=== PATIENT | female | born 2000 | race Caucasian/White ===

== ENCOUNTER 2021-01-21 11:16 | Emergency (ER) | payer BC, OTHER, SELFPAY ==
--- NOTE | ~2021-01-21 | XR_ITS ---
XR ankle LT min 3V DATE: 01/21/2021 11:34 INDICATION: Injury, left ankle pain, swelling TECHNIQUE: 4 views COMPARISON: None FINDINGS: There is lateral left ankle soft tissue swelling. No fracture or dislocation of the ankle or disruption of the ankle mortise is detected. IMPRESSION: Lateral soft tissue swelling; no fracture or dislocation Reviewed, dictated and finalized at location A.
[2021-01-21 11:37] VITALS: BP 146/79; PULSE 108; RESP 16; TEMP 36.6; O2SAT 100
--- NOTE | 2021-01-21 11:48 | ED.LOWEXIN ---
HPI - Extremity Injury (Lower) General Chief Complaint: Extremity Injury, Lower Stated Complaint: lt ankle injury History of Present Illness HPI Narrative: This is a 20 year old female that come in complaining of left ankle pain. According to patient she fell out of truck it is really high and she slipped yesterday and it cause her pain when she apply pressure on the leg. Patient denies taking anything for the pain. Related Data Allergies Allergy/AdvReac Type Severity Reaction Status Date / Time Penicillins Allergy Unknown Skin Verified 12/04/20 14:11 Reaction Review of Systems Review of Systems: Narrative: CONSTITUTIONAL: Denies fever, chills, or sweats. EYES: Denies visual changes, redness, or discharge. ENT: Denies rhinorrhea, congestion, sore throat, or otalgia. CARDIOVASCULAR:Denies chest pain, palpitations, or edema. RESPIRATORY: Denies cough or dyspnea. GASTROINTESTINAL: Denies abdominal pain, nausea, vomiting, or diarrhea. GENITOURINARY: Denies dysuria or hematuria. SKIN:[Denies rash or itching. MUSCULOSKELETAL:Denies back pain, complains of left ankle joint pain, or myalgia. NEUROLOGIC: Denies headache, numbness, or weakness. PSYCHIATRIC:Denies anxiety or depression PMFSH Social History Social History Alcohol intake: current Comments At time as signature, I have reviewed and agree with nursing past medical, social, surgical and family history. Please see nursing chart for further information. There is no relevant family history pertinent to the presenting complaint. Exam Narrative: Exam Narrative: GENERAL:Well-appearing, well-nourished, and in no acute distress. HEAD:Normocephalic, atraumatic. EYES: PERRLA and EOMI. ENT: Nares clear, no rhinorrhea or epistaxis. Mucous membranes moist. NECK: Supple. CHEST: Clear to auscultation. No respiratory distress. HEART: Regular rate and rhythm. No murmur heard. Normal peripheral pulses. ABDOMEN: Soft, nontender, nondistended, normal active bowel sounds. EXTREMITIES: decreased range of motion due to pain. moderate left ankle outer later edema. SKIN: Warm, dry, no rash. NEURO: No focal deficits. Alert and oriented x3. Course [employer]INE/PA Physician Supervision jeannine wrap applied patient decline crutches due to she has some at home she was assisted in a wheel chair out to car Vital Signs Vital signs: Vital Signs Temperature 97.9 F 01/21/21 11:37 Pulse Rate 108 H 01/21/21 11:37 Respiratory Rate 16 01/21/21 11:37 Blood Pressure 146/79 H 01/21/21 11:37 Pulse Oximetry 100 01/21/21 11:37 Temperature 97.9 F 01/21/21 11:37 Pulse Rate 108 H 01/21/21 11:37 Respiratory Rate 16 01/21/21 11:37 Blood Pressure 146/79 H 01/21/21 11:37 Pulse Oximetry 100 01/21/21 11:37 MDM - Extremity Injury (Lower) Imaging Data Radiologist's impression: FINDINGS: There is lateral left ankle soft tissue swelling. No fracture or dislocation of the ankle or disruption of the ankle mortise is detected. IMPRESSION: Lateral soft tissue swelling; no fracture or dislocation Reviewed, dictated and finalized at location A. Dictated By: Armando Mike MD 01/21/21 1136 Signed By: <Electronically signed by Armando Mike MD in OV> Discharge Plan Discharge Clinical Impression: Ankle sprain and strain Patient Disposition: Home, Self-Care Condition: Stable Instructions: Antibiotic Form, Ankle Sprain (ED) Additional Instructions: Avoid weight bearing until the pain subsides. Ice to the area 20-30 minutes 4-6 times a day Elevate above heart Elastic wrap or orthopedic splint as directed for comfort for the next 5-7 days Crutches as directed if needed Tylenol for lesser pain Ibuprofen regularly for the next 2-3 days for the inflammation Follow up with your primary care p
== END 2021-01-21 12:15 | disposition home or self-care (01) ==
PROVIDERS: Emergency Provider Nurse Practitioner Family; PCP Family Medicine
DX: S93.402A Sprain of unspecified ligament of left ankle, initial encounter (principal); S96.912A Strain of unspecified muscle and tendon at ankle and foot level, left foot, initial encounter; V49.3XXA Car occupant (driver) (passenger) injured in unspecified nontraffic accident, initial encounter
CPT/HCPCS: 73610; 99213; G0463

== ENCOUNTER 2021-06-16 13:43 | Outpatient (CLI) | payer BC, OTHER, SELFPAY | END 2021-06-16 13:44 | disposition home or self-care (01) | LOC: ANHLAB 13:46 | PROVIDERS: PCP Family Medicine; Visit Provider Nurse Practitioner Family | DX: R19.7 Diarrhea, unspecified (principal) | CPT/HCPCS: 87045; 87427 ==

== ENCOUNTER 2021-06-18 02:18 | Day surgery (SDC) | payer BC, OTHER, SELFPAY ==
[2021-06-06 14:47] VITALS: BMI 30.1
--- NOTE | 2021-06-18 07:03 | PM.HPGS ---
History of Present Illness History of Present Illness Consent: Risks, benefits, and alternatives have been discussed and questions answered. Patient agrees to proceed with procedure. Chief complaint: blood in stool, diarrhea Narrative: Farideh Monae is a 21 year old female with c/o of right sided abdominal pain and change in bowel habits for 2-3 months now. Reports she will have right lower abdominal cramping the is sharp in nature at least 3 days a week. Pain will radiate to right back area. States pain does not last very long then will resolve. She also reports that around this time she had a change in her bowel habits. Reports some days she will have up to 5 episodes of loose to watery stools with urgency then no bowel movements for several days then may have a day with hard stools. She also passes small amounts of mucus with every BM. She reports intermittent blood on stools and tissue. She does not associate RLQ pain with her BM or with eating. Prior to two months ago, reports she had 1-2 formed stools daily. She denies any new medication, antibiotic use, or recent travel. No family hx of IBD/CRC. Never had Colonoscopy. She reports nausea daily but no vomiting. states nausea comes on suddenly and comes in waves, she then becomes very fatigued and will have to take a nap. States her nausea is better when she wakes up. Nausea is not associated with changes in bowel habits or with eating. She has been on omeprazole 20 mg daily for 2 years now. She denies any reflux symptoms/upper abdominal pain/dysphagia/odynophagia/black stools/or Nsaid use. Review of Systems Review of Systems: All systems reviewed & are unremarkable except as noted in HPI and below PMFSH Past Medical History Medical History Anxiety Depression Diarrhea GERD (gastroesophageal reflux disease) Hyperlipemia Overweight (BMI 25.0-29.9) Social History Social History Alcohol intake: current Living arrangements: alone Meds Home Medications and Allergies Home Medications Medication Instructions Recorded Confirmed Type omeprazole 20 mg capsule,delayed See Rx Instructions .ROUTE 04/05/21 06/18/21 Rx release .COMPLEX #90 cap sertraline 100 mg tablet See Rx Instructions .ROUTE 04/30/21 06/18/21 Rx .COMPLEX #90 tablet B-complex with vitamin C 1 cap PO DAILY 05/16/21 06/18/21 History Saccharomyces boulardii 250 mg 250 mg PO DAILY cap 05/16/21 06/18/21 History capsule loratadine 10 mg tablet 10 mg PO DAILY 05/16/21 06/18/21 History norethindrone acetate 1.5 1 tablet PO DAILY 05/16/21 06/18/21 History mg-ethinyl estradiol 30 mcg tablet spironolactone 50 mg tablet 50 mg PO DAILY 05/16/21 06/18/21 History omega-3 fatty acids [Fish Oil] 2,000 mg PO DAILY 06/06/21 06/18/21 History Allergies Allergy/AdvReac Type Severity Reaction Status Date / Time Penicillins Allergy Unknown Skin Verified 06/18/21 10:07 Reaction Exam Resp: Auscultation: clear to auscultation bilaterally Cardio: Rate: regular rate Rhythm: regular rhythm GI: GI Palp: Yes Soft to palpation and No Tenderness to palpation present (GI) Assessment and Plan Assessment and plan (1) Blood present in stool: Code(s): K92.1 - Melena Status: Acute Assessment and Plan: Colonoscopy with possible biopsy or polypectomy or cautery or injection of substances. (2) Nausea: Code(s): R11.0 - Nausea Status: Acute Assessment and Plan: EGD with possible biopsy or dilatation or cautery.
[2021-06-18 10:09] VITALS: BP 140/83; PULSE 119; RESP 16; TEMP 36.2; O2SAT 98
[2021-06-18] MEDS: ONDANSETRON INJ 4 MG/2 ML VIAL IV PUSH (10:18)
[2021-06-18] MEDS: LACTATED RINGERS 1,000 ML 150 ML IV CONT (10:18)
--- NOTE | 2021-06-18 10:21 | WPDANESEPPF ---
Anes - Initial Pre Proc Eval Procedure: Operation Date: 06/18/21 13:00 Proposed Procedures p Esophagogastroduodenoscopy & Colonoscopy - Vlad Watts MD Date/Time: 06/18/21 10:21 Surgeon: Vlad Watts MD Pre Op Diagnosis: blood in stool, diarrhea Patient Data Age: 21 Gender: F Height: 1.52 m Weight: 66.6 kg Last Vital Signs Temp 36.2 C L 06/18/21 10:09 Pulse 119 H 06/18/21 10:09 Resp 16 06/18/21 10:09 BP 140/83 06/18/21 10:09 Pulse Ox 98 06/18/21 10:09 Allergies Allergy/AdvReac Type Severity Reaction Status Date / Time Penicillins Allergy Unknown Skin Verified 06/18/21 10:07 Reaction Home Medications Medication Instructions Recorded Confirmed Type omeprazole 20 mg capsule,delayed See Rx Instructions .ROUTE 04/05/21 06/18/21 Rx release .COMPLEX #90 cap sertraline 100 mg tablet See Rx Instructions .ROUTE 04/30/21 06/18/21 Rx .COMPLEX #90 tablet B-complex with vitamin C 1 cap PO DAILY 05/16/21 06/18/21 History Saccharomyces boulardii 250 mg 250 mg PO DAILY cap 05/16/21 06/18/21 History capsule loratadine 10 mg tablet 10 mg PO DAILY 05/16/21 06/18/21 History norethindrone acetate 1.5 1 tablet PO DAILY 05/16/21 06/18/21 History mg-ethinyl estradiol 30 mcg tablet spironolactone 50 mg tablet 50 mg PO DAILY 05/16/21 06/18/21 History omega-3 fatty acids [Fish Oil] 2,000 mg PO DAILY 06/06/21 06/18/21 History Patient hx anesthesia problems: none Family hx anesthesia problems: none Results Review: All pre-operative results and documents have been reviewed as part of the pre-operative evaluation. [facility] Past Medical History Medical History (Updated 06/18/21 @ 07:04 by Vlad Watts MD) Anxiety Depression Diarrhea GERD (gastroesophageal reflux disease) Hyperlipemia Overweight (BMI 25.0-29.9) Social History Social History Alcohol intake: current Living arrangements: alone Anes - Eval Final PreProcedure Day of Procedure 06/18/21 10:21 Patient weight: overweight Heart: regular rate and rhythm Lungs: clear to auscultation and normal air movement Airway: Mallampati scale class II Neurological: alert and oriented Last oral intake: >/= 8 hours ASA classification: II Emergent: no Anesthetic plan: proceed Anesthesia type and monitoring: general GIVS and standard monitoring Results Review: All pre-operative results and documents have been reviewed as part of the pre-operative evaluation. Informed Consent: The patient's anesthetic plan and its attendant risks and benefits were discussed with the patient/family/POA. Questions were solicited and answers provided to the satisfaction of the patient/family/POA.
[2021-06-18] MEDS: SIMETHICONE ORAL SUSPENSION 20 MG/0.3 ML 30 ML BOTTLE 0.6 ML IRRIGATION (11:00)
[2021-06-18 11:08] VITALS: BP 96/62; PULSE 85; RESP 17; O2SAT 97
[2021-06-18 11:18] VITALS: BP 112/63; PULSE 86; RESP 19; O2SAT 100
[2021-06-18 11:28] VITALS: BP 111/84; PULSE 85; RESP 21; O2SAT 100
== END 2021-06-18 11:33 | disposition home or self-care (01) ==
PROVIDERS: PCP Family Medicine; Visit Provider Internal Medicine Gastroenterology
PROC: 0DJ08ZZ Inspection of Upper Intestinal Tract, Via Natural or Artificial Opening Endoscopic (ICD-10-PCS; CPT 43235; principal; 2021-06-18 13:00)
DX: K92.1 Melena (principal); R19.7 Diarrhea, unspecified; R11.0 Nausea; K21.9 Gastro-esophageal reflux disease without esophagitis; F41.9 Anxiety disorder, unspecified; F32.A Depression, unspecified; E78.5 Hyperlipidemia, unspecified; K64.8 Other hemorrhoids
CPT/HCPCS: 45380; 43239; 87081; 88305; J1100; J2405; J2704; J7120

== ENCOUNTER 2021-08-30 13:23 | Outpatient (CLI) | payer BC, OTHER, SELFPAY ==
--- NOTE | ~2021-08-30 | US_ITS ---
EXAMINATION: US thyroid DATE: 08/30/2021 14:03 INDICATION: Nontoxic goiter. TECHNIQUE: Multiple ultrasound images of the thyroid were obtained. COMPARISON: None. FINDINGS: The right thyroid lobe measures 5.0 x 2.1 x 1.2 cm. The left thyroid lobe measures 4.3 x 1.4 x 1.1 c m. In the left thyroid lobe, there is a 7 mm solid, very hypoechoic, [id number] nodule with smo oth margin without echogenic foci (TI-RADS TR4). IMPRESSION: 1. Small thyroid nodule, likely not clinically significant. No follow-up is needed. Reviewed, dictated and finalized at location A. PRESSMAN IMPRESSION: 1. Small thyroid nodule, likely not clinically significant. No follow-up is nee ded.
== END 2021-08-30 13:24 | disposition home or self-care (01) ==
LOC: ANHIMG 13:27
PROVIDERS: PCP Family Medicine; Visit Provider Internal Medicine Endocrinology, Diabetes & Metabolism
DX: E04.9 Nontoxic goiter, unspecified (principal)
CPT/HCPCS: 76536

== ENCOUNTER 2021-11-09 13:43 | Outpatient (CLI) | payer BC, OTHER, SELFPAY ==
--- NOTE | ~2021-11-09 | US_ITS ---
EXAMINATION: US pelvic complete w TV DATE: 11/09/2021 15:11 INDICATION: Pelvic pain. TECHNIQUE: Multiple transabdominal and transvaginal sonographic images of the pelvis were obtained. COMPARISON: None. FINDINGS: TRANSABDOMINAL ULTRASOUND: The uterus measures 8.0 x 3.6 x 3.0 cm. There is no free fluid in the pelvis. TRANSVAGINAL ULTRASOUND: The endometrial complex measures 5 mm in thickness. The right ovary measures 2.5 x 1.6 x 1.7 cm. The left ovary measures 2.6 x 1.5 x 2.1 cm. There is normal vascular flow in the ovaries. IMPRESSION: 1. Normal pelvis. Reviewed, dictated and finalized at location A. IMPRESSION: 1. Normal pelvis.
== END 2021-11-09 13:44 | disposition home or self-care (01) ==
PROVIDERS: PCP Family Medicine; Visit Provider Nurse Practitioner
DX: R10.2 Pelvic and perineal pain (principal)
CPT/HCPCS: 76830; 76856

== ENCOUNTER → 2022-10-22 12:41 | Outpatient (CLI) | payer BC, OTHER, SELFPAY ==
--- NOTE | ~2022-10-22 | US_ITS ---
EXAMINATION: US thyroid DATE: 10/22/2022 12:58 INDICATION: Thyroid nodule. TECHNIQUE: Multiple ultrasound images of the thyroid were obtained. COMPARISON: Thyroid ultrasound 08/30/2021 FINDINGS: The right thyroid lobe measures 4.0 x 1.2 x 1.4 cm. The left thyroid lobe measures 4.3 x 1.0 x 1.2 c m. In the left thyroid lobe, there is a 6 mm mixed cystic and solid, hypoechoic, wider than tall nod ule with smooth margin without echogenic foci (TI-RADS TR3). There are multiple thyroid nodules measu ring up to 4 mm. IMPRESSION: 1. Small thyroid nodules, likely not clinically significant. No follow-up is needed. Reviewed, dictated and finalized at location A. IMPRESSION: 1. Small thyroid nodules, likely not clinically significant. No follow-up is ne eded.
== END ==
PROVIDERS: PCP Family Medicine; Visit Provider Nurse Practitioner
DX: E04.2 Nontoxic multinodular goiter (principal)
CPT/HCPCS: 76536

== ENCOUNTER 2024-02-12 09:53 | Outpatient (RCR) | payer BC, OTHER, SELFPAY ==
[2024-02-12] MEDS: RHO(D) IMMUNE GLOBULIN 300 MCG/2 ML SYRINGE IM (14:18)
== END 2024-05-12 23:59 | disposition home or self-care (01) ==
LOC: ANHLAB 09:53
PROVIDERS: PCP Family Medicine; Visit Provider Obstetrics & Gynecology Gynecology
DX: Z29.13 Encounter for prophylactic Rho(D) immune globulin (principal); O26.851 Spotting complicating pregnancy, first trimester; O36.0110 Maternal care for anti-D [Rh] antibodies, first trimester, not applicable or unspecified; Z3A.00 Weeks of gestation of pregnancy not specified
CPT/HCPCS: 36415; 85461; 86850; 86900; 86901; 90384; 96372; J2790

== ENCOUNTER 2024-02-19 15:38 | Outpatient (CLI) | payer BC, OTHER, SELFPAY ==
--- NOTE | ~2024-02-19 | US_ITS ---
EXAMINATION: US OB transvaginal DATE: 02/19/2024 16:08 INDICATION: Spotting during first trimester TECHNIQUE: Real-time pelvic ultrasound utilizing transvaginal probe was performed. The interpreting r adiologist was not present for the study. COMPARISON: None. FINDINGS: The uterus measures 6.7 x 4.1 x 4.2 cm. There is an intrauterine gestational sac. A yolk sac is iden tified. No discernible pole yet evident. The mean sac diameter measures 1.1 cm, which correlate s with an estimated gestational age of 5 weeks and 6 days. The right ovary is not visualized. The left ovary measures 3.3 x 3.1 x 2.7 cm. 1.8 similar likely cor pus luteum cyst in the left ovary. Vascular flow with arterial waveforms identified in the left ovary on color Doppler. There is no free fluid in the pelvis. IMPRESSION: 1. Single intrauterine gestational sac with yolk sac but no discernible pole likely due to christiano y stage of . 2. Gestational age by ultrasound based upon 1.1 cm mean sac diameter of 5 weeks 6 day(s) +/- 4 day(s ) with ultrasound estimated date of delivery (SARAHI) of 10/15/2024. Reviewed, dictated and finalized at location A. IMPRESSION: 1. Single intrauterine gestational sac with yolk sac but no discernible p ole likely due to early stage of . 2. Gestational age by ultrasound based upon 1.1 cm mean sac diameter of 5 week s 6 day(s) +/- 4 day(s) with ultrasound estimated date of delivery (SARAHI) of 09/28.
== END 2024-02-19 15:39 ==
LOC: MICIMG 15:40
PROVIDERS: PCP Obstetrics & Gynecology Gynecology; Visit Provider Obstetrics & Gynecology Gynecology
DX: O26.851 Spotting complicating pregnancy, first trimester (principal); Z3A.01 Less than 8 weeks gestation of pregnancy
CPT/HCPCS: 76817

== ENCOUNTER 2024-02-27 15:08 | Outpatient (CLI) | payer BC, OTHER, SELFPAY ==
--- NOTE | ~2024-02-27 | US_ITS ---
EXAMINATION: US OB transvaginal DATE: 02/27/2024 15:35 INDICATION: Spotting in first trimester. Uncertain dates. TECHNIQUE: Real-time transvaginal pelvic ultrasound was performed. COMPARISON: Ultrasound 02/19/2024 FINDINGS: The uterus measures 8.7 x 3.8 x 6.2 cm. There is an intrauterine gestational sac. A yolk sac is ident ified. The crown rump length measures 8 mm, which correlates with an estimated gestational age of 6 weeks and 5 day(s) (+/-) 4 day(s). heart motion is identified measuring 135 beats per min elim ira (bpm) by M-mode Doppler. The right ovary measures 2.4 x 1.4 x 2.1 cm. The left ovary measures 3.1 x 2.8 x 2.7 cm. There is no free fluid in the pelvis. IMPRESSION: 1. Single living intrauterine gestation with estimated date of delivery of 10/17/24. Reviewed, dictated and finalized at location A. IMPRESSION: 1. Single living intrauterine gestation with estimated date of delivery of 09/29 .
== END 2024-02-27 15:09 ==
LOC: MICIMG 15:09
PROVIDERS: PCP Obstetrics & Gynecology Gynecology; Visit Provider Obstetrics & Gynecology Gynecology
DX: O26.851 Spotting complicating pregnancy, first trimester (principal)
CPT/HCPCS: 76817

== ENCOUNTER 2024-05-01 10:32 | Emergency (ER) | payer BC, SELFPAY ==
[2024-05-01 10:48] VITALS: BP 128/83; PULSE 104; RESP 16; TEMP 36.9; O2SAT 100
--- NOTE | 2024-05-01 10:55 | ED.FEMALEGU ---
HPI - Female Genitourinary General Chief complaint: Urogenital-Female Stated complaint: uti, 16wks Source: patient and RN notes reviewed Mode of arrival: ambulatory Limitations: no limitations History of Present Illness HPI Narrative: 24 y/o female presented for c/o yellow odorous vaginal discharge and itching. Onset yesterday. Reports concern for UTI or yeast infection. Pt Denies dysuria, hematuria, vaginal bleeding, nausea, vomiting, abdominal pain, flank pain, constipation, diarrhea, fevers or chills. Reports in the past she has been diagnosed with a UTI when her only symptom was vaginal discharge. Has not tried anything over the counter for symptoms. Patient denies any concern for an STD. Pt is 16 weeks gestation. Related Data Home Medications Medication Instructions Recorded Confirmed metformin 500 mg tablet,extended 500 mg PO DAILY 01/19/24 05/01/24 release 24 hr calcium 600 mg (as carbonate)-vit 1 tablet PO DAILY 03/08/24 05/01/24 D3 10 mcg (400 unit) chewable tablet (Calcium 600 with Vitamin D3) famotidine 10 mg tablet (Pepcid AC) 10 mg PO DAILY 03/08/24 05/01/24 magnesium glycinate 360 mg PO DAILY 03/08/24 05/01/24 vitamin no.102-iron 90 1 cap PO DAILY 03/08/24 05/01/24 mg-folate 1 mg-dha 200 mg capsule pyridoxine (vitamin B6) 100 mg 100 mg PO DAILY 03/08/24 05/01/24 tablet sertraline 50 mg tablet 50 mg PO DAILY 03/08/24 05/01/24 Allergies Allergy/AdvReac Type Severity Reaction Status Date / Time Penicillins Allergy Unknown Skin Verified 05/01/24 11:04 Reaction Review of Systems Review of Systems: CONSTITUTIONAL: Denies body aches, fever, chills, or sweats. CARDIOVASCULAR: Denies chest pain, palpitations, or edema. RESPIRATORY: Denies cough or dyspnea. GASTROINTESTINAL: Denies abdominal pain, nausea, vomiting, or diarrhea. GENITOURINARY: Reports vaginal discharge and itching denies dysuria, frequency, urgency, hematuria, flank pain SKIN: Denies rash MUSCULOSKELETAL: Denies back pain or myalgia. [facility] Past Medical History Medical History Anxiety Depression Diarrhea Endometriosis GERD (gastroesophageal reflux disease) History of PCOS Hyperlipemia Overweight (BMI 25.0-29.9) Social History Social History Smoking status: Never smoker Alcohol intake: current Alcohol use details: social Substance use: never Lack of Transportation: No Lack of Food: Never True Current Housing: I Have Housing Concerned About Future Housing: No Difficulty Paying Gas/Electric Bills: No Difficulty Paying for Meds: No Currently Unemployed: No Education: Master's Degree or Higher Difficulty w/ Childcare or Family Care: No Living arrangements: alone Comments At time of signature, I have reviewed and agree with nursing past medical, surgical, social and family history unless otherwise noted. Please see nursing chart for further information. There is no relevant family history pertinent to the presenting complaint Exam Narrative: GENERAL: Well-appearing ENT: Mucous membranes pink and moist. CHEST: No respiratory distress. Clear to auscultation. HEART: Regular rate and rhythm. ABDOMEN: Gravid SKIN: Warm, dry NEURO: No focal deficits. Alert and oriented x3. Gait steady. PSYCH: Normal affect. Course Course Emergency Course: Patient is aware of diagnosis, understands and agrees to treatment plan. Anticipatory guidance given. Patient agrees to follow-up as directed and is aware of reasons to seek care at the emergency department. Portions of this record may have been created with voice recognition software Level of Care: Express Care Visit Vital Signs Vital signs: Vital Signs Temperature 98.4 F 05/01/24 10:48 Pulse Rate 104 H 05/01/24 10:48 Respiratory Rate 16 05/01/24 10:48 Blood Pressure 128/83 05/01/24 10:48 Pulse Oximetry 100 05/01/24 10:48 Temperature 98.4 F 05/01/24 10:48 Pulse Rate 104 H 05/01/24 10:48 Respiratory Rate 16 05/01/24 10:48 Blood Pressure 128/83 05/01/24 10:48 Pulse Oximetry 100 05/01/24 10:48 Reviewed MDM - Female Genitourinary MDM Narrative Medical decision making narrative: Discussed physical exam findings and urine dip. Will culture urine and treat accordingly. Pt declines BV/Yeast swab at this time, stating she will go to Obgyn Friday because they get the results quickly. Also declined STD testing. Advised supportive measures and signs/symptoms to go to the ER. Pt is appropriate for outpt treatment and f/u. FHT assessed: HR 172 Differential Diagnosis Differential diagnosis: Likely urinary tract infection, bacterial vaginosis, trichomoniasis, vaginitis and cystitis Lab Data Labs: Lab Results 05/01/24 Range/Units 10:57 POC Urine Color Yellow POC Urine Clarity Cloudy POC Urine pH 7.5 POC Ur Specif [place] 1.020 POC Urine Protein Negative (Negative) POC Ur Glucose (UA) Negative (Negative) POC Urine Ketones Negative (Negative) POC Urine Blood Negative (Negative) POC Urine Nitrite Negative (Negative) POC Urine Bilirubin Negative (Negative) POC Urine Urobilinogen 0.2 POC U Leukocyte Esteras 1+ (Negative) Discharge Plan Discharge Clinical Impression: Vaginal discharge Patient Disposition: Home, Self-Care Condition: Stable Instructions: Antibiotic Form, Yeast Infection (ED), Urinary Tract Infection in (ED) Additional Instructions: Your urine will be sent of for a culture to determine if bacteria is causing your symptoms. If the culture shows a UTI, you will be notified and an antibiotic will be called in for you. Keep skin clean, dry and well aerated Wear cotton underpants. Double rinse underpants after washing. Avoid fabric softeners for underpants and swimsuits. Avoid tights, leotards, leggings. Wearing loose fitting pants/skirts allow air to circulate. Avoid wearing wet swimsuits for long periods of time. Avoid bubble baths or perfumed soap Rinse genital area well and pat dry gently Cool compresses may help relieve the redness/irritation. Aquaphor, vaseline or A&D ointment may help protect the skin. You can use [id number] Monistat 3 or Vagisil anti-itch cream during Follow up with your Obgyn next week Go to the ER for worsening symptoms or concerns Prescriptions: No Action sertraline 50 mg tablet 50 mg PO DAILY magnesium glycinate 100 mg magnesium capsule 360 mg PO DAILY Calcium 600 with Vitamin D3 600 mg-10 mcg (400 unit) tablet,chewable 1 tablet PO DAILY pyridoxine (vitamin B6) 100 mg tablet 100 mg PO DAILY famotidine [Pepcid AC] 10 mg tablet 10 mg PO DAILY PNV [id number] 90 mg iron- 1 mg-200 mg capsule 1 cap PO DAILY metformin 500 mg tablet extended release 24 hr 500 mg PO DAILY Follow-up/Referrals: Michelle Huitron DO [Primary Care Provider] -
[2024-05-01 10:59] LABS: EDUAAPPEAR Cloudy; EDUABILI Negative (Negative); EDUABLOOD Negative (Negative); EDUACOLOR1 Yellow; EDUAGLUCOSE Negative (Negative); EDUAKETONE Negative (Negative); EDUALEUKO 1+ (Negative); EDUANITRATE Negative (Negative); EDUAPH 7.5; EDUAPROTEIN Negative (Negative); EDUAUROBILI 0.2
== END 2024-05-01 11:23 | disposition home or self-care (01) ==
PROVIDERS: Emergency Provider Nurse Practitioner Family; PCP Family Medicine
DX: O99.891 Other specified diseases and conditions complicating pregnancy (principal); Z3A.16 16 weeks gestation of pregnancy; N89.8 Other specified noninflammatory disorders of vagina; N80.9 Endometriosis, unspecified; O99.282 Endocrine, nutritional and metabolic diseases complicating pregnancy, second trimester; E28.2 Polycystic ovarian syndrome; E78.5 Hyperlipidemia, unspecified; O99.612 Diseases of the digestive system complicating pregnancy, second trimester; K21.9 Gastro-esophageal reflux disease without esophagitis; O99.342 Other mental disorders complicating pregnancy, second trimester; F41.9 Anxiety disorder, unspecified; F32.A Depression, unspecified
CPT/HCPCS: 81003; 87086; 99213; G0463

== ENCOUNTER 2024-05-03 13:07 | Outpatient (CLI) | payer BC, SELFPAY ==
[2024-05-03 14:16] LABS: Influenza A QL RT-PCR Negative (Negative); Influenza B QL RT-PCR Negative (Negative); RSV RNA, RT-PCR Negative (Negative); SARS-CoV-2 RNA PCR Negative (Negative)
== END 2024-05-03 13:08 | disposition home or self-care (01) ==
LOC: ANHLAB 13:08
PROVIDERS: PCP Family Medicine; Visit Provider Nurse Practitioner
DX: R05.9 Cough, unspecified (principal); Z20.822 Contact with and (suspected) exposure to COVID-19
CPT/HCPCS: 87637

== ENCOUNTER 2024-05-20 15:53 | Outpatient (CLI) | payer BC, SELFPAY ==
--- NOTE | ~2024-05-20 | US_ITS ---
EXAMINATION: US OB /maternal detail DATE: 05/20/2024 16:32 INDICATION: anatomic survey. TECHNIQUE: Real-time ultrasound of the pelvis was performed. COMPARISON: Ultrasound 02/27/2024, 02/19/2024 FINDINGS: There is a single living fetus in breech presentation. The placenta is posterior and covers the inte rnal cervical os. heart rate is 162 beats per minute (bpm). The cervical length is 3.8 cm on tr ansabdominal images, which is normal. The amniotic fluid volume is subjectively normal. The following biometric data were obtained: Biparietal diameter (BPD): 4.2 cm; head circumference (HC): 16.2 cm; abdominal circumference (AC): 13 .6 cm; femur length (FL): 2.9 cm. These measurements are concordant. Estimated weight is 264 g +/- 40 g, which correlates with the 67th percentile when 10/17/24 is u sed as estimated date of delivery. As single measurements, these parameters are each equal to the following estimated gestational ages: BPD: 18 weeks 6 days. HC: 19 weeks 0 days. AC: 19 weeks 0 days. FL: 18 weeks 5 days. estimated gestational age based solely on measurements from this exam is 18 weeks 6 days +/- 1 weeks 2 days. The cerebral ventricles, cerebellum, cisterna magna, nuchal fold, and spine are normal. The heart is is not well visualized. The diaphragm, stomach, kidneys, and bladder are normal. There are two umbili quentin arteries to yield a 3-vessel cord. The cord insertion is normal. IMPRESSION: 1. Single living fetus in breech presentation. 2. Estimated weight is 264 g +/- 40 g, which correlates with the 67th percentile when 10/17/24 is used as estimated date of delivery. 3. heart not well visualized. Otherwise normal anatomic survey. 4. Placenta previa. Follow-up ultrasound is recommended to confirm resolution. Reviewed, dictated and finalized at location A. CLERK IMPRESSION: 1. Single living fetus in breech presentation. 2. Estimated weight is 264 g +/- 40 g, which correlates with the 67th rcentile when 10/17/24 is used as estimated date of delivery. 3. heart not well visualized. Otherwise normal anatomic survey. 4. Placenta previa. Follow-up ultrasound is recommended to confirm resolution.
== END 2024-05-20 15:54 | disposition home or self-care (01) ==
PROVIDERS: PCP Obstetrics & Gynecology Gynecology; Visit Provider Obstetrics & Gynecology Gynecology
DX: Z36.9 Encounter for antenatal screening, unspecified (principal); Z3A.18 18 weeks gestation of pregnancy
CPT/HCPCS: 76805

== ENCOUNTER 2024-06-14 15:09 | Outpatient (CLI) | payer BC, SELFPAY ==
--- NOTE | ~2024-06-14 | US_ITS ---
EXAMINATION: US OB limited DATE: 06/14/2024 16:19 INDICATION: Placenta previa. Completion of prior anatomy survey. TECHNIQUE: Real-time ultrasound of the pelvis was performed. The interpreting radiologist was not pre sent for the study. COMPARISON: None. FINDINGS: There is a single living fetus in vertex presentation. The placenta is posterior with caudal margin approximately 3.5 cm from the region of the internal cervical os which is obscured by shadowing from the skull. Cervical length measures approximately 4 cm which is normal. heart rate is 158 beats per minute (bpm). The amniotic fluid volume is subjectively normal. Normal view of the upper l ip and nose. heart views including the four-chamber and left and right outflow tract views are normal. IMPRESSION: 1. Single living fetus in vertex presentation with heart rate of 158 bpm. 2. Normal upper lip and heart views. 3. Posterior placenta with caudal margin approximately 3.5 cm from the region of the internal cervica l os which is obscured by shadowing from the skull. Reviewed, dictated and finalized at location A. [facility] [employer] [facility] IMPRESSION: 1. Single living fetus in vertex presentation with heart rate of 158 bpm . 2. Normal upper lip and heart views. 3. Posterior placenta with caudal margin approximately 3.5 cm from the region o f the internal cervical os which is obscured by shadowing from the skull.
== END 2024-06-14 15:10 | disposition home or self-care (01) ==
LOC: MICIMG 15:10
PROVIDERS: PCP Advanced Practice Midwife; Visit Provider Advanced Practice Midwife
DX: Z36.2 Encounter for other antenatal screening follow-up (principal); Z3A.00 Weeks of gestation of pregnancy not specified
CPT/HCPCS: 76815

== ENCOUNTER 2024-08-12 19:47 | Outpatient (CLI) | payer BC, SELFPAY ==
[2024-08-12] VITALS (20 sets, daily range): BP systolic 126–140; BP diastolic 77–84; PULSE 85–120; O2SAT 96–100; BMI 35.6
--- NOTE | 2024-08-12 19:47 | PC.NURSE ---
Pt arrives to unit with elevated blood pressure at home, blurred vision, headache, and swelling.
--- OUTSIDE RECORDS SUMMARY | 2024-08-12 19:59 | XMS_ITS | Data Portability ---
Author Organization [place] - [employer], Main Office Address [address] [place] [address] Assessment No assessment recorded. Plan of Treatment Reminders Order Date Submit Date Provider Last Modified By Organization Details Last Modified Time Details Appointments None recorded. Lab TSH + free T4, serum 2022 [address] [facility] [place], [address], [place], [address], 3 10:13:01 T3, free, serum or plasma 2022 [address] [facility], [address], [place], [address], 3 10:13:00 unlisted lab - thyroid peroxidase and thyroglobul in antibodies 20[address] [facility], [address], [place], [address], 3 10:12:58 CMP, serum or plasma 2022 023 [facility], [address], [place], [address], 3 10:13:01 insulin, serum 2022 023 [facility], [address], [place], [address], 3 10:12:58 HbA1c (hemoglobin A1c), blood 2022 023 [facility], [address], [place], [address], 3 10:12:59 Referral None recorded. Procedures None recorded. Surgeries None recorded. Imaging None recorded. Medication Orders None recorded. Patient TargetsNo targets recorded. Patient InstructionsNo instructions recorded. Reason for Referral None Reported. Results Created Date Observation Date Name Description Value Unit Range Abnormal Flag Note LastModifiedBy Organization Detail LastModifiedTime 09/01/19 22 09/06/2021 TESTO STERO NE, FREE (DIAL YSIS) AND TOTAL ,MS testosterone , total, MS 19 NG/dL 2-45 For addit ional hola sky refer to https ://ed ucati on.Moolta. Capricor/f aq/FA Q165 (This link is being provi ded for rosyr alicia nal/e ducat ional purpo ses only. ) (Note ) This test was devel oped and its juan carlos tical perfo rmanc e graciela cteri stics have been deter mined by [employer]. It has not been clear ed or appro jaret by the FDA. This assay has been valid ated pursu ant to the CLIA regul ation s and is used for clini quentin purpo ses. Not Available [facility] [address] [place], [address], 09/06/2021 03:17:57 09/01/19 22 09/06/2021 TESTO STERO NE, FREE (DIAL YSIS) AND TOTAL ,MS testosterone , free 1.1 pg/mL 0.1-6. 4 (Note ) This test was devel oped and its juan carlos tical perfo rmanc e graciela cteri stics have been deter mined by [employer]. It has not been clear ed or appro jaret by the FDA. This assay has been valid ated pursu ant to the CLIA regul ation s and is used for clini quentin purpo ses. F med ada n [address] [facility] [address] [facility] [address] [phone] Von cha MD Not Available [facility] [address] [place], [address], 09/06/2021 03:17:57 09/01/19 22 09/06/2021 TSH+F REE T4 TSH 2.00 mIU/L normal Refer ence Range > or = 20 Years 0.40- 4.50 Pregn gwen Range s First trime ster 0.26- 2.66 Secon d trime ster 0.55- 2.73 Third trime ster 0.43- 2.91 Not Available [facility] [address] [place], [address], 09/06/2021 03:17:56 09/01/1909/06/2021 TSH+F REE T4 T4, free 1.2 NG/dL 0.8-1. 8 normal Not Available [facility] [address] [place], [address], 09/06/2021 03:17:56 09/01/19 22 09/06/2021 VITAM IN D,25- OH,TO FITO,I A vitamin D,25-oh,tota l,ia 16 NG/mL 30-100 low Vitam in D Statu s 25-OH Vitam in D: Defic iency : <20 ng/mL Insuf ficie ncy: 20 - 29 ng/mL Optim al: > or = 30 ng/mL For 25-OH Vitam in D testi ng on patie nts on D2-pradhan pplem entat ion and patie nts for whom quant itati on of D2 and D3 fract ions is requi red, the [facility] Assur eD(TM ) 25-OH VIT D, (D2,D 3), LC/MS /MS is recom richard d: order code 87584 (gagan ents >2yrs ). See Note 1 Note 1 For addit ional infor hola aceves e refer to http: //rupesh gilmore.Jose stDia gnost ics.c om/fa q/FAQ 199 (This link is being provi ded for infor matio nal/ educa sherri l purpo ses only. ) Not Available [facility] [address] [place], [address], 09/06/2021 03:17:56 09/01/19 22 09/06/2021 FSH AND LH FSH 4.8 mIU/m L normal Refer ence Range Folli cular Phase 2.5-1 0.2 Mid-c ycle Peak 3.1-1 7.7 Lutea l Phase 1.5- 9.1 Postm enopa usal 23.0- 116.3 Not Available [facility] [address] [place], [address], 09/06/2021 03:17:55 09/01/19 22 09/06/2021 FSH AND LH LH 6.0 mIU/m L normal Refer ence Range Folli cular Phase 1.9-1 2.5 Mid-C ycle Peak 8.7-7 6.3 Lutea l Phase 0.5-1 6.9 Postm enopa usal 10.0- 54.7 Not Available [facility] [address] [place], [address], 09/06/2021 03:17:55 09/01/1909/06/2021 T3, FREE T3, free 3.3 pg/mL 2.3-4. 2 normal Not Available [facility] [address] [place] [address], [address], 09/06/2021 03:17:55 09/01/19 22 09/06/2021 VITAM IN B12/F OLATE , SERUM PANEL vitamin B12 226 pg/mL 200-11 00 normal Pleas e Note: Altho ugh the refer ence range for vitam in B12 is 200-1 100 pg/mL , it has been repor elton that betwe en 5 and 10% of patie nts with value s betwe en 200 and 400 pg/mL may exper ience neuro psych iatri c and hemat ologi c abnor malit ies due to occul t B12 defic iency ; less than 1% of patie nts with value s above 400 pg/mL will have sympt oms. Not Available [address] [place], [address], 09/06/2021 03:17:54 09/01/19 22 09/06/2021 VITAM IN B12/F OLATE , SERUM PANEL folate, serum 5.8 NG/mL normal Refer ence Range Low: <3.4 Borde rline : 3.4-5 .4 Ne l: >5.4 Not Available [address] [address] [place], [address], 09/06/2021 03:17:54 09/01/1909/06/2021 PROLA CTIN prolactin 9.4 NG/mL normal Refer ence Range Femal es Non-p regna nt 3.0-3 0.0 Pregn ant 10.0- 209.0 Postm enopa usal 2.0-2 0.0 Not Available [place] [address] [facility] [place], [address], 09/06/2021 03:17:53 09/01/19 22 09/06/2021 PROGE STERO NE progesterone <0.5 NG/mL normal Refer ence Range s Femal e Folli cular Phase < 1.0 Lutea l Phase 2.6-2 1.5 Post menop ausal < 0.5 Pregn gwen 1st Trime ster 4.1-3 4.0 2nd Trime ster 24.0- 76.0 3rd Trime ster 52.0- 302.0 Not Available [address] [address] [place], [address], 09/06/2021 03:17:53 09/01/19 22 09/06/2021 ANGIO TENSI N-1-C ONVER TING ENZYM E angiotensin- 1-converting enzyme 40 U/L 9-67 normal Not Available [facility] [address] [place], [address], 09/06/2021 03:17:52 09/01/19 22 09/06/2021 INSUL IN insulin 16.8 uIU/m L normal Refer ence Range < or = 19.6 Risk: Optim al < or = 19.6 Moder ate NA High >19.6 Adult cardi ovasc ular event risk categ ory cut point s (opti mal, moder ate, high) are based on [facility] popul ation data from 06/18 11. This insul in assay shows stron g cross -reac tivit y for some insul in analo gs (lisp ro, aspar t, and glarg ine) and much lower cross -reac tivit y with other s (dete berkley, gluli sine) . Not Available [facility] [address], [address], 09/06/2021 03:17:51 09/01/19 22 09/06/2021 DHEA SULFA TE DHEA sulfate 111 mcg/d L 14-349 normal Not Available [facility] [address] [place], [address], 09/06/2021 03:17:51 09/01/19 22 09/06/2021 THYRO ID PEROX IDASE ANTIB ODIES thyroid peroxidase antibodies <1 IU/mL <9 normal Not Available [facility] [address] [place], [address], 09/06/2021 03:17:50 09/01/1909/06/2021 ESTRA DIOL, FREE estradiol, free 0.20 pg/mL Femal e Refer ence Range s for Estra diol, Free (pg/m L): Folli cular Stage : 0.43- 5.03 Lutea l Stage : 0.40- 5.55 Postm enopa usal: < or = 0.38 Not Available [facility] [place] [address] [place], [address], 09/06/2021 03:17:50 09/01/19 22 09/06/2021 ESTRA DIOL, FREE estradiol 12 pg/mL Femal e Refer ence Range s for Estra diol, Ultra sensi tive (pg/m L): Folli cular Phase : 39-37 5 Lutea l Phase : 48-44 0 Postm enopa usal Phase : < or = 10 This test was devel michael and its juan carlos tical perfo rmanc e graciela cteri stics have been deter mined by [facility] Romeroi giuseppe Nasim Bobizzy padmaja . It has not been clear ed or appro jaret by FDA. This assay has been valid ated pursu ant to the CLIA regul ation s and is used for clini quentin purpo ses. Not Available [facility] [address] [place], [address], 09/06/2021 03:17:50 09/01/19 22 09/06/2021 CBC (INCL UDES DIFF/ PLT) white blood cell count 10.6 thous and/u L 3.8-10 .8 normal Not Available [facility] [address], [address], 09/06/2021 03:17:49 09/01/19 22 09/06/2021 CBC (INCL UDES DIFF/ PLT) red blood cell count 4.88 karma on/uL 3.80-5 .10 normal Not Available [facility] [address], [address], 09/06/2021 03:17:49 09/01/19 22 09/06/2021 CBC (INCL UDES DIFF/ PLT) hemoglobin 13.1 g/dL 11.7-1 5.5 normal Not Available [facility] [address], [address], 09/06/2021 03:17:49 09/01/19 22 09/06/2021 CBC (INCL UDES DIFF/ PLT) hematocrit 41.1 % 35.0-4 5.0 normal Not Available [facility] [address] [place], [address], 09/06/2021 03:17:49 09/01/19 22 09/06/2021 CBC (INCL UDES DIFF/ PLT) MCV 84.2 fL 80.0-1 00.0 normal Not Available [address], [address], 09/06/2021 03:17:49 09/01/19 22 09/06/2021 CBC (INCL UDES DIFF/ PLT) MCH 26.8 pg 27.0-3 3.0 low Not Available [address], [address], 09/06/2021 03:17:49 09/01/19 22 09/06/2021 CBC (INCL UDES DIFF/ PLT) MCHC 31.9 g/dL 32.0-3 6.0 low Not Available [address], [address], 09/06/2021 03:17:49 09/01/19 22 09/06/2021 CBC (INCL UDES DIFF/ PLT) RDW 12.3 % 11.0-1 5.0 normal Not Available [address], [address], 09/06/2021 03:17:49 09/01/19 22 09/06/2021 CBC (INCL UDES DIFF/ PLT) platelet count 336 thous and/u L 140-40 0 normal Not Available [address], [address], 09/06/2021 03:17:49 09/01/19 22 09/06/2021 CBC (INCL UDES DIFF/ PLT) MPV 9.8 fL 7.5-12 .5 normal Not Available [address], [address], 09/06/2021 03:17:49 09/01/19 22 09/06/2021 CBC (INCL UDES DIFF/ PLT) absolute neutrophils 5512 cells /uL 1500-7 800 normal Not Available [address], [address], 09/06/2021 03:17:49 09/01/19 22 09/06/2021 CBC (INCL UDES DIFF/ PLT) absolute lymphocytes 3975 cells /uL 850-39 00 high Not Available [address], [address], 09/06/2021 03:17:49 09/01/19 22 09/06/2021 CBC (INCL UDES DIFF/ PLT) absolute monocytes 689 cells /uL 200-95 0 normal Not Available [address], [address], 09/06/2021 03:17:49 09/01/19 22 09/06/2021 CBC (INCL UDES DIFF/ PLT) absolute eosinophils 371 cells /uL 15-500 normal Not Available [address], [address], 09/06/2021 03:17:49 09/01/19 22 09/06/2021 CBC (INCL UDES DIFF/ PLT) absolute basophils 53 cells /uL 0-200 normal Not Available [address], [address], 09/06/2021 03:17:49 09/01/19 22 09/06/2021 CBC (INCL UDES DIFF/ PLT) neutrophils 52 % normal Not Available [address], [address], 09/06/2021 03:17:49 09/01/19 22 09/06/2021 CBC (INCL UDES DIFF/ PLT) lymphocytes 37.5 % normal Not Available [address], [address], 09/06/2021 03:17:49 09/01/19 22 09/06/2021 CBC (INCL UDES DIFF/ PLT) monocytes 6.5 % normal Not Available [address], [address], 09/06/2021 03:17:49 09/01/19 22 09/06/2021 CBC (INCL UDES DIFF/ PLT) eosinophils 3.5 % normal Not Available [address], [address], 09/06/2021 03:17:49 09/01/19 22 09/06/2021 CBC (INCL UDES DIFF/ PLT) basophils 0.5 % normal Not Available [facility] [address], [address], 09/06/2021 03:17:49 09/01/19 22 09/06/2021 COMPR EHENS SAMIR METAB OLIC PANEL glucose 88 mg/dL 65-99 normal Fasti ng refer ence inter aimee Not Available [address], [address], 09/06/2021 03:17:49 09/01/19 22 09/06/2021 COMPR EHENS SAMIR METAB OLIC PANEL urea nitrogen (BUN) 16 mg/dL 7-25 normal Not Available [address], [address], 09/06/2021 03:17:49 09/01/19 22 09/06/2021 COMPR EHENS SAMIR METAB OLIC PANEL creatinine 0.80 mg/dL 0.50-1 .10 normal Not Available [address], [address], 09/06/2021 03:17:49 09/01/19 22 09/06/2021 COMPR EHENS SAMIR METAB OLIC PANEL eGFR non-afr. swazi 104 mL/mi n/1.7 3m2 > or = 60 normal Not Available [address], [address], 09/06/2021 03:17:49 09/01/19 22 09/06/2021 COMPR EHENS SAMIR METAB OLIC PANEL eGFR 120 mL/mi n/1.7 3m2 > or = 60 normal Not Available [address], [address], 09/06/2021 03:17:49 09/01/19 22 09/06/2021 COMPR EHENS SAMIR METAB OLIC PANEL BUN/creatini ne ratio not applic able (calc ) 6-22 Not Available [address], [address], 09/06/2021 03:17:49 09/01/19 22 09/06/2021 COMPR EHENS SAMIR METAB OLIC PANEL sodium 141 mmol/ L 135-14 6 normal Not Available [address], [address], 09/06/2021 03:17:49 09/01/19 22 09/06/2021 COMPR EHENS SAMIR METAB OLIC PANEL potassium 4.3 mmol/ L 3.5-5. 3 normal Not Available [address], [address], 09/06/2021 03:17:49 09/01/19 22 09/06/2021 COMPR EHENS SAMIR METAB OLIC PANEL chloride 106 mmol/ L 98-110 normal Not Available [address], [address], 09/06/2021 03:17:49 09/01/19 22 09/06/2021 COMPR EHENS SAMIR METAB OLIC PANEL carbon dioxide 23 mmol/ L 20-32 normal Not Available [address], [address], 09/06/2021 03:17:49 09/01/19 22 09/06/2021 COMPR EHENS SAMIR METAB OLIC PANEL calcium 9.3 mg/dL 8.6-10 .2 normal Not Available [address] [place], [address], 09/06/2021 03:17:49 09/01/19 22 09/06/2021 COMPR EHENS SAMIR METAB OLIC PANEL protein, total 6.8 g/dL 6.1-8. 1 normal Not Available [address], [address], 09/06/2021 03:17:49 09/01/19 22 09/06/2021 COMPR EHENS SAMIR METAB OLIC PANEL albumin 4.2 g/dL 3.6-5. 1 normal Not Available [address], [address], 09/06/2021 03:17:49 09/01/19 22 09/06/2021 COMPR EHENS SAMIR METAB OLIC PANEL globulin 2.6 g/dL_ (calc ) 1.9-3. 7 normal Not Available [address], [address], 09/06/2021 03:17:49 09/01/19 22 09/06/2021 COMPR EHENS SAMIR METAB OLIC PANEL albumin/glob ulin ratio 1.6 (calc ) 1.0-2. 5 normal Not Available [address], [address], 09/06/2021 03:17:49 09/01/19 22 09/06/2021 COMPR EHENS SAMIR METAB OLIC PANEL bilirubin, total 0.2 mg/dL 0.2-1. 2 normal Not Available [address], [address], 09/06/2021 03:17:49 09/01/19 22 09/06/2021 COMPR EHENS SAMIR METAB OLIC PANEL alkaline phosphatase 47 U/L 31-125 normal Not Available [address], [address], 09/06/2021 03:17:49 09/01/19 22 09/06/2021 COMPR EHENS SAMIR METAB OLIC PANEL AST 14 U/L 10-30 normal Not Available [address], [address], 09/06/2021 03:17:49 09/01/19 22 09/06/2021 COMPR EHENS SAMIR METAB OLIC PANEL ALT 13 U/L 6-29 normal Not Available [address], [address], 09/06/2021 03:17:49 09/01/19 22 09/06/2021 IRON, TIBC AND TRINITY TIN PANEL iron, total 60 mcg/d L 40-190 normal Not Available [address], [address], 09/06/2021 03:17:48 09/01/19 22 09/06/2021 IRON, TIBC AND TRINITY TIN PANEL iron binding capacity 422 mcg/d L_(ca lc) 250-45 0 normal Not Available [address], [address], 09/06/2021 03:17:48 09/01/19 22 09/06/2021 IRON, TIBC AND TRINITY TIN PANEL % saturation 14 %_(ca lc) 16-45 low Not Available [address], [address], 09/06/2021 03:17:48 09/01/19 22 09/06/2021 IRON, TIBC AND TRINITY TIN PANEL ferritin 45 NG/mL 16-154 normal Not Available [address], [address], 09/06/2021 03:17:48 11/10/19 22 11/15/2021 TESTO STERO NE, FREE (DIAL YSIS) AND TOTAL ,MS testosterone , total, MS 14 NG/dL 2-45 For addit ional infor matio n, pleas e refer to https ://ed ucati on.qu sandyAuthix Tecnologiess. com/f aq/FA Q165 (This link is being provi ded for infor alicia nal/e ducat ional purpo ses only. ) (Note ) This test was devel oped and its juan carlos tical perfo rmanc e graciela cteri stics have been deter mined by [employer]. It has not been clear ed or appro jaret by the FDA. This assay has been valid ated pursu ant to the CLIA regul ation s and is used for clini quentin purpo ses. Not Available [facility] [address] [place], [address], 11/15/2021 22:37:31 11/10/19 22 11/15/2021 TESTO STERO NE, FREE (DIAL YSIS) AND TOTAL ,MS testosterone , free 1.3 pg/mL 0.1-6. 4 (Note ) This test was devel oped and its juan carlos tical perfo rmanc e graciela cteri stics have been deter mined by [employer]. It has not been clear ed or appro jaret by the FDA. This assay has been valid ated pursu ant to the CLIA regul ation s and is used for clini quentin purpo ses. [facility] med fusio n [address] [facility] [address] [facility] [address] [phone] Von cha MD Not Available [facility] [address] [address], [place], [address], 11/15/2021 22:37:31 11/10/19 22 11/15/2021 VITAM IN D,25- OH,TO FITO,I A vitamin D,25-oh,tota l,ia 23 NG/mL 30-100 low Vitam in D Statu s 25-OH Vitam in D: Defic iency : <20 ng/mL Insuf ficie ncy: 20 - 29 ng/mL Optim al: > or = 30 ng/mL For 25-OH Vitam in D testi ng on patie nts on D2-pradhan pplem entat ion and patie nts for whom quant itati on of D2 and D3 fract ions is requi red, the [facility] Ass[facility] eD(TM ) 25-OH VIT D, (D2,D 3), LC/MS /MS is recom richard d: order code [id number] (gagan ents >2yrs ). See Note 1 Note 1 For addit ional infor hola aceves e refer to http: //[facility] nona gilmore.Jose stDia gnost ics.c om/fa q/FAQ 199 (This link is being provi ded for infor alicia kenney/ eductyesha knight purpo ses only. ) Not Available [facility] [address] [facility] [place], [address], 11/15/2021 22:37:31 11/10/19 22 11/15/2021 FSH AND LH FSH 6.6 mIU/m L normal Refer ence Range Folli cular Phase 2.5-1 0.2 Mid-c ycle Peak 3.1-1 7.7 Lutea l Phase 1.5- 9.1 Postm enopa usal 23.0- 116.3 Not Available [facility] [address] [place], [address], 11/15/2021 22:37:30 11/10/19 22 11/15/2021 FSH AND LH LH 5.9 mIU/m L normal Refer ence Range Folli cular Phase 1.9-1 2.5 Mid-C ycle Peak 8.7-7 6.3 Lutea l Phase 0.5-1 6.9 Postm enopa usal 10.0- 54.7 Not Available [facility] [address] [place], [address], 11/15/2021 22:37:30 11/10/19 22 11/15/2021 VITAM IN B12/F OLATE , SERUM PANEL vitamin B12 597 pg/mL 200-11 00 normal Not Available [facility] [address] [facility] [place], [address], 11/15/2021 22:37:29 11/10/19 22 11/15/2021 VITAM IN B12/F OLATE , SERUM PANEL folate, serum 9.4 NG/mL normal Refer ence Range Low: <3.4 Borde rline : 3.4-5 .4 Ne l: >5.4 Not Available [facility] [address] [place], [address], 11/15/2021 22:37:29 11/10/19 22 11/15/2021 CORTI ESTEPHANIA, A.M. cortisol, A.M. 0.8 mcg/d L low Refer ence Range 8 a.m. (7-9 a.m.) Speci men: 4.0-2 2.0 Not Available [facility] [address] [place], [address], 11/15/2021 22:37:29 11/10/19 22 11/15/2021 PROGE STERO NE progesterone <0.5 NG/mL normal Refer ence Range s Femal e Folli cular Phase < 1.0 Lutea l Phase 2.6-2 1.5 Post menop ausal < 0.5 Pregn gwen 1st Trime ster 4.1-3 4.0 2nd Trime ster 24.0- 76.0 3rd Trime ster 52.0- 302.0 Not Available [facility] [address], [address], 11/15/2021 22:37:28 11/10/19 22 11/15/2021 DHEA SULFA TE DHEA sulfate 47 mcg/d L 14-349 normal Not Available [facility] [address], [address], 11/15/2021 22:37:28 11/10/19 22 11/15/2021 ESTRA DIOL, FREE estradiol, free 0.50 pg/mL Femal e Refer ence Range s for Estra diol, Free (pg/m L): Folli cular Stage : 0.43- 5.03 Lutea l Stage : 0.40- 5.55 Postm enopa usal: < or = 0.38 Not Available [facility] [address], [address], 11/15/2021 22:37:27 11/10/19 22 11/15/2021 ESTRA DIOL, FREE estradiol 28 pg/mL Femal e Refer ence Range s for Estra diol, Ultra sensi tive (pg/m L): Folli cular Phase : 39-37 5 Lutea l Phase : 48-44 0 Postm enopa usal Phase : < or = 10 This test was devel oped and its juan carlos tical perfo rmanc e graciela cteri stics have been deter mined by [facility] Romeroi giuseppe Rodriguez . It has not been clear ed or appro jaret by FDA. This assay has been valid ated pursu ant to the CLIA regul ation s and is used for clini quentin purpo ses. Not Available [facility] [address], [address], 11/15/2021 22:37:27 11/10/19 22 11/15/2021 ANTI- MULLE HAYLEY HORMO NE ([facility]) , FEMAL E anti-mulleri an hormone (amh), female 2.95 NG/mL 1.02-1 4.63 Not Available [facility] [address], [address], 11/15/2021 22:37:27 11/10/19 22 11/15/2021 CBC (H/H, RBC, INDIC ES, WBC, PLT) white blood cell count 9.1 thous and/u L 3.8-10 .8 normal Not Available [facility] [address], [address], 11/15/2021 22:37:26 11/10/19 22 11/15/2021 CBC (H/H, RBC, INDIC ES, WBC, PLT) red blood cell count 5.04 karma on/uL 3.80-5 .10 normal Not Available [address], [address], 11/15/2021 22:37:26 11/10/19 22 11/15/2021 CBC (H/H, RBC, INDIC ES, WBC, PLT) hemoglobin 13.4 g/dL 11.7-1 5.5 normal Not Available [facility] [address], [address], 11/15/2021 22:37:26 11/10/19 22 11/15/2021 CBC (H/H, RBC, INDIC ES, WBC, PLT) hematocrit 42.4 % 35.0-4 5.0 normal Not Available [address], [address], 11/15/2021 22:37:26 11/10/19 22 11/15/2021 CBC (H/H, RBC, INDIC ES, WBC, PLT) MCV 84.1 fL 80.0-1 00.0 normal Not Available [facility] [address], [address], 11/15/2021 22:37:26 11/10/19 22 11/15/2021 CBC (H/H, RBC, INDIC ES, WBC, PLT) MCH 26.6 pg 27.0-3 3.0 low Not Available [address], [address], 11/15/2021 22:37:26 11/10/19 22 11/15/2021 CBC (H/H, RBC, INDIC ES, WBC, PLT) MCHC 31.6 g/dL 32.0-3 6.0 low Not Available [facility] [address], [address], 11/15/2021 22:37:26 11/10/19 22 11/15/2021 CBC (H/H, RBC, INDIC ES, WBC, PLT) RDW 13.0 % 11.0-1 5.0 normal Not Available [address], [address], 11/15/2021 22:37:26 11/10/19 22 11/15/2021 CBC (H/H, RBC, INDIC ES, WBC, PLT) platelet count 302 thous and/u L 140-40 0 normal Not Available [address], [address], 11/15/2021 22:37:26 11/10/19 22 11/15/2021 CBC (H/H, RBC, INDIC ES, WBC, PLT) MPV 9.6 fL 7.5-12 .5 normal Not Available [address], [address], 11/15/2021 22:37:26 11/10/19 22 11/15/2021 COMPR EHENS SAMIR METAB OLIC PANEL glucose 65 mg/dL 65-99 normal Fasti ng refer ence inter aimee Not Available [address], [address], 11/15/2021 22:37:26 11/10/19 22 11/15/2021 COMPR EHENS SAMIR METAB OLIC PANEL urea nitrogen (BUN) 12 mg/dL 7-25 normal Not Available [address], [address], 11/15/2021 22:37:26 11/10/19 22 11/15/2021 COMPR EHENS SAMIR METAB OLIC PANEL creatinine 0.67 mg/dL 0.50-1 .10 normal Not Available [address], [address], 11/15/2021 22:37:26 11/10/19 22 11/15/2021 COMPR EHENS SAMIR METAB OLIC PANEL eGFR non-afr. swazi 124 mL/mi n/1.7 3m2 > or = 60 normal Not Available [address] [place], [address], 11/15/2021 22:37:26 11/10/19 22 11/15/2021 COMPR EHENS SAMIR METAB OLIC PANEL eGFR 144 mL/mi n/1.7 3m2 > or = 60 normal Not Available [address], [address], 11/15/2021 22:37:26 11/10/19 22 11/15/2021 COMPR EHENS SAMIR METAB OLIC PANEL BUN/creatini ne ratio not applic able (calc ) 6-22 Not Available [address], [address], 11/15/2021 22:37:26 11/10/19 22 11/15/2021 COMPR EHENS SAMIR METAB OLIC PANEL sodium 140 mmol/ L 135-14 6 normal Not Available [address], [address], 11/15/2021 22:37:26 11/10/19 22 11/15/2021 COMPR EHENS SAMIR METAB OLIC PANEL potassium 4.3 mmol/ L 3.5-5. 3 normal Not Available [address], [address], 11/15/2021 22:37:26 11/10/19 22 11/15/2021 COMPR EHENS SAMIR METAB OLIC PANEL chloride 102 mmol/ L 98-110 normal Not Available [address], [address], 11/15/2021 22:37:26 11/10/19 22 11/15/2021 COMPR EHENS SAMIR METAB OLIC PANEL carbon dioxide 25 mmol/ L 20-32 normal Not Available [address], [address], 11/15/2021 22:37:26 11/10/19 22 11/15/2021 COMPR EHENS SAMIR METAB OLIC PANEL calcium 9.2 mg/dL 8.6-10 .2 normal Not Available [address], [address], 11/15/2021 22:37:26 11/10/19 22 11/15/2021 COMPR EHENS SAMIR METAB OLIC PANEL protein, total 6.9 g/dL 6.1-8. 1 normal Not Available [address], [address], 11/15/2021 22:37:26 11/10/19 22 11/15/2021 COMPR EHENS SAMIR METAB OLIC PANEL albumin 4.1 g/dL 3.6-5. 1 normal Not Available [address], [address], 11/15/2021 22:37:26 11/10/19 22 11/15/2021 COMPR EHENS SAMIR METAB OLIC PANEL globulin 2.8 g/dL_ (calc ) 1.9-3. 7 normal Not Available [address], [address], 11/15/2021 22:37:26 11/10/19 22 11/15/2021 COMPR EHENS SAMIR METAB OLIC PANEL albumin/glob ulin ratio 1.5 (calc ) 1.0-2. 5 normal Not Available [address], [address], 11/15/2021 22:37:26 11/10/19 22 11/15/2021 COMPR EHENS SAMIR METAB OLIC PANEL bilirubin, total 0.3 mg/dL 0.2-1. 2 normal Not Available [address], [address], 11/15/2021 22:37:26 11/10/19 22 11/15/2021 COMPR EHENS SAMIR METAB OLIC PANEL alkaline phosphatase 81 U/L 31-125 normal Not Available [address] [address] [place], [address], 11/15/2021 22:37:26 11/10/19 22 11/15/2021 COMPR EHENS SAMIR METAB OLIC PANEL AST 22 U/L 10-30 normal Not Available [address], [address], 11/15/2021 22:37:26 11/10/19 22 11/15/2021 COMPR EHENS SAMIR METAB OLIC PANEL ALT 29 U/L 6-29 normal Not Available [address], [address], 11/15/2021 22:37:26 11/10/19 22 11/15/2021 SPECI MEN INTEG RITY COMPR OMISE D specimen integrity compromised Whole blood , unspu n or parti ally spun gel barri er tube was recei jaret more than 6 hours since colle ction . A false eleva tion of K, Phos and LD as well as a false decre ase in gluco se may occur due to prolo nged conta ct with red cells . Not Available [address], [address], 11/15/2021 22:37:25 11/10/19 22 11/15/2021 IRON, TIBC AND TRINITY TIN PANEL iron, total 57 mcg/d L 40-190 normal Not Available [address] [address] [place], [address], 11/15/2021 22:37:24 11/10/19 22 11/15/2021 IRON, TIBC AND TRINITY TIN PANEL iron binding capacity 367 mcg/d L_(ca lc) 250-45 0 normal Not Available [address], [address], 11/15/2021 22:37:24 11/10/19 22 11/15/2021 IRON, TIBC AND TRINITY TIN PANEL % saturation 16 %_(ca lc) 16-45 normal Not Available [facility] [address] [place], [address], 11/15/2021 22:37:24 11/10/19 22 11/15/2021 IRON, TIBC AND TRINITY TIN PANEL ferritin 41 NG/mL 16-154 normal Not Available [facility] [address] [address] , [place], [address], 11/15/2021 22:37:24 12/05/19 22 12/09/2021 TESTO STERO NE, FREE (DIAL YSIS) AND TOTAL ,MS testosterone , total, MS 22 NG/dL 2-45 For addit ional hola sky refer to https ://ed ati on.qu Lends[employer]. com/f aq/FA Q165 (This link is being provi ded for infor alicia nal/e ducat ional purpo ses only. ) (Note ) This test was devel oped and its juan carlos tical perfo rmanc e graciela cteri stics have been deter mined by [employer]. It has not been clear ed or appro jaret by the FDA. This assay has been valid ated pursu ant to the CLIA regul ation s and is used for clini quentin purpo ses. Not Available [facility] [address] [place], [address], 12/09/2021 03:46:21 12/05/19 22 12/09/2021 TESTO STERO NE, FREE (DIAL YSIS) AND TOTAL ,MS testosterone , free 2.4 pg/mL 0.1-6. 4 (Note ) This test was devel oped and its juan carlos tical perfo rmanc e graciela cteri stics have been deter mined by [employer]. It has not been clear ed or appro jaret by the FDA. This assay has been valid ated pursu ant to the CLIA regul ation s and is used for clini quentin purpo ses. [facility] med fusio n [address] [place] [address] [phone] Von cha MD Not Available [facility] [address] [address] [place], [address], 12/09/2021 03:46:21 12/05/19 22 12/09/2021 HEMOG LOBIN A1C hemoglobin A1C 5.2 %_of_ total _HGB <5.7 normal For the purpo se of screbar barnhart for the prese nce of diabe savana: <5.7% Consi stent with the absen ce of diabe savana 5.7-6 .4% Consi stent with incre ased risk for diabe savana (pred iabet es) > or =6.5% Consi stent with diabe savana This assay resul t is consi stent with a decre ased risk of diabe savana. Curre ntly, no conse nsus exist s ana maria ocampo use of hemog lobin A1c for diagn osis of diabe savana in child violetta. Accor ding to Ameri can Diabe savana Assoc iatio n (ADA) guide lines , hemog lobin A1c <7.0% repre sents optim al contr ol in non-p regna nt diabe tic patie nts. Diffe rent metri cs may apply to speci fic patie nt popul ation s. Stand ards of Medic al Care in Diabe savana(A DA). Not Available [facility] [address] [address], [place], [address], 12/09/2021 03:46:20 12/05/19 22 12/09/2021 TSH+F REE T4 TSH 1.18 mIU/L normal Refer ence Range > or = 20 Years 0.40- 4.50 Pregn gwen Range s First trime ster 0.26- 2.66 Secon d trime ster 0.55- 2.73 Third trime ster 0.43- 2.91 Not Available [facility] [address] [place], [address], 12/09/2021 03:46:19 12/05/19 22 12/09/2021 TSH+F REE T4 T4, free 1.1 NG/dL 0.8-1. 8 normal Not Available [facility] [address] [place], [address], 12/09/2021 03:46:19 12/05/19 22 12/09/2021 FSH AND LH FSH 2.1 mIU/m L normal Refer ence Range Folli cular Phase 2.5-1 0.2 Mid-c ycle Peak 3.1-1 7.7 Lutea l Phase 1.5- 9.1 Postm enopa usal 23.0- 116.3 Not Available [facility] [address] [place], [address], 12/09/2021 03:46:18 12/05/1912/09/2021 FSH AND LH LH 7.7 mIU/m L normal Refer ence Range Folli cular Phase 1.9-1 2.5 Mid-C ycle Peak 8.7-7 6.3 Lutea l Phase 0.5-1 6.9 Postm enopa usal 10.0- 54.7 Not Available [facility] [address] [place], [address], 12/09/2021 03:46:18 12/05/1912/09/2021 PROLA CTIN prolactin 11.7 NG/mL normal Refer ence Range Femal es Non-p regna nt 3.0-3 0.0 Pregn ant 10.0- 209.0 Postm enopa usal 2.0-2 0.0 Not Available [facility] [address] [place], [address], 12/09/2021 03:46:18 12/05/1912/09/2021 PROGE STERO NE progesterone 13.0 NG/mL normal Refer ence Range s Femal e Folli cular Phase < 1.0 Lutea l Phase 2.6-2 1.5 Post menop ausal < 0.5 Pregn gwen 1st Trime ster 4.1-3 4.0 2nd Trime ster 24.0- 76.0 3rd Trime ster 52.0- 302.0 Not Available [facility] [address] [address] [place], [address], 12/09/2021 03:46:17 12/05/19 22 12/09/2021 INSUL IN insulin 9.2 uIU/m L normal Refer ence Range < or = 19.6 Risk: Optim al < or = 19.6 Moder ate NA High >19.6 Adult cardi ovasc ular event risk categ ory cut point s (opti mal, moder ate, high) are based on [facility] popul ation data from 06/18 11. This insul in assay shows stron g cross -reac tivit y for some insul in analo gs (lisp ro, aspar t, and glarg ine) and much lower cross -reac tivit y with other s (dete berkley, gluli sine) . Not Available [facility] [address] [place], [address], 12/09/2021 03:46:16 12/05/19 22 12/09/2021 DHEA SULFA TE DHEA sulfate 104 mcg/d L 14-349 normal Not Available [facility] [address], [address], 12/09/2021 03:46:15 12/05/19 22 12/09/2021 ESTRA DIOL, FREE estradiol, free 3.16 pg/mL Femal e Refer ence Range s for Estra diol, Free (pg/m L): Folli cular Stage : 0.43- 5.03 Lutea l Stage : 0.40- 5.55 Postm enopa usal: < or = 0.38 Not Available [facility] [address] [address] [place], [address], 12/09/2021 03:46:15 12/05/19 22 12/09/2021 ESTRA DIOL, FREE estradiol 184 pg/mL Femal e Refer ence Range s for Estra diol, Ultra sensi tive (pg/m L): Folli cular Phase : 39-37 5 Lutea l Phase : 48-44 0 Postm enopa usal Phase : < or = 10 This test was romulo rodriguez and its juan carlos tical perfo rmanc e graciela cteri stics have been deter mined by [facility] Yemi Romeroi giuseppe Frank dumontkunal . It has not been clear ed or appro jaret by FDA. This assay has been valid ated pursu ant to the CLIA regul ation s and is used for clini quentin purpo ses. Not Available [facility] [address] [address] [place], [address], 12/09/2021 03:46:15 12/05/19 22 12/09/2021 COMPR EHENS SAMIR METAB OLIC PANEL glucose 87 mg/dL 65-99 normal Fasti ng refer ence inter aimee Not Available [facility] [address], [address], 12/09/2021 03:46:14 12/05/19 22 12/09/2021 COMPR EHENS SAMIR METAB OLIC PANEL urea nitrogen (BUN) 12 mg/dL 7-25 normal Not Available [facility] [address], [address], 12/09/2021 03:46:14 12/05/19 22 12/09/2021 COMPR EHENS SAMIR METAB OLIC PANEL creatinine 0.86 mg/dL 0.50-1 .10 normal Not Available [facility] [address] [address] [place], [address], 12/09/2021 03:46:14 12/05/19 22 12/09/2021 COMPR EHENS SAMIR METAB OLIC PANEL eGFR non-afr. swazi 95 mL/mi n/1.7 3m2 > or = 60 normal Not Available [facility] [address] [place], [address], 12/09/2021 03:46:14 12/05/19 22 12/09/2021 COMPR EHENS SAMIR METAB OLIC PANEL eGFR 110 mL/mi n/1.7 3m2 > or = 60 normal Not Available [address], [address], 12/09/2021 03:46:14 12/05/19 22 12/09/2021 COMPR EHENS SAMIR METAB OLIC PANEL BUN/creatini ne ratio not applic able (calc ) 6-22 Not Available [address], [address], 12/09/2021 03:46:14 12/05/19 22 12/09/2021 COMPR EHENS SAMIR METAB OLIC PANEL sodium 140 mmol/ L 135-14 6 normal Not Available [address], [address], 12/09/2021 03:46:14 12/05/19 22 12/09/2021 COMPR EHENS SAMIR METAB OLIC PANEL potassium 4.3 mmol/ L 3.5-5. 3 normal Not Available [address], [address], 12/09/2021 03:46:14 12/05/19 22 12/09/2021 COMPR EHENS SAMIR METAB OLIC PANEL chloride 106 mmol/ L 98-110 normal Not Available [address], [address], 12/09/2021 03:46:14 12/05/19 22 12/09/2021 COMPR EHENS SAMIR METAB OLIC PANEL carbon dioxide 26 mmol/ L 20-32 normal Not Available [address], [address], 12/09/2021 03:46:14 12/05/19 22 12/09/2021 COMPR EHENS SAMIR METAB OLIC PANEL calcium 9.4 mg/dL 8.6-10 .2 normal Not Available [facility] [address], [address], 12/09/2021 03:46:14 12/05/19 22 12/09/2021 COMPR EHENS SAMIR METAB OLIC PANEL protein, total 6.6 g/dL 6.1-8. 1 normal Not Available [address], [address], 12/09/2021 03:46:14 12/05/19 22 12/09/2021 COMPR EHENS SAMIR METAB OLIC PANEL albumin 4.1 g/dL 3.6-5. 1 normal Not Available [address], [address], 12/09/2021 03:46:14 12/05/19 22 12/09/2021 COMPR EHENS SAMIR METAB OLIC PANEL globulin 2.5 g/dL_ (calc ) 1.9-3. 7 normal Not Available [address], [address], 12/09/2021 03:46:14 12/05/19 22 12/09/2021 COMPR EHENS SAMIR METAB OLIC PANEL albumin/glob ulin ratio 1.6 (calc ) 1.0-2. 5 normal Not Available [address], [address], 12/09/2021 03:46:14 12/05/19 22 12/09/2021 COMPR EHENS SAMIR METAB OLIC PANEL bilirubin, total 0.3 mg/dL 0.2-1. 2 normal Not Available [address], [address], 12/09/2021 03:46:14 12/05/19 22 12/09/2021 COMPR EHENS SAMIR METAB OLIC PANEL alkaline phosphatase 73 U/L 31-125 normal Not Available [address], [address], 12/09/2021 03:46:14 12/05/19 22 12/09/2021 COMPR EHENS SAMIR METAB OLIC PANEL AST 16 U/L 10-30 normal Not Available [facility] [address] [place], [address], 12/09/2021 03:46:14 12/05/19 22 12/09/2021 COMPR EHENS SAMIR METAB OLIC PANEL ALT 19 U/L 6-29 normal Not Available [facility] [address] [place], [address], 12/09/2021 03:46:14 04/20/20 22 04/23/2022 HEMOG LOBIN A1C hemoglobin A1C 5.0 %_of_ total _HGB <5.7 normal For the purpo se of scree [place] for the prese nce of diabe savana: <5.7% Consi stent with the absen ce of diabe savana 5.7-6 .4% Consi stent with incre ased risk for diabe savana (pred iabet es) > or =6.5% Consi stent with diabe savana This assay resul t is consi stent with a decre ased risk of diabe savana. Curre ntly, no conse nsus exist s ana maria ocampo use of hemog lobin A1c for diagn osis of diabe savana in child violetta. Accor ding to Ameri can Diabe savana Assoc iatio n (ADA) guide lines , hemog lobin A1c <7.0% repre sents optim al contr ol in non-p regna nt diabe tic patie nts. Diffe rent metri cs may apply to speci fic patie nt popul ation s. Stand ards of Medic al Care in Diabe savana(A DA). Not Available [facility] [address] [place], [address], 04/23/2022 02:52:33 04/20/2004/23/2022 TSH+F REE T4 TSH 0.83 mIU/L normal Refer ence Range > or = 20 Years 0.40- 4.50 Pregn gwen Range s First trime ster 0.26- 2.66 Secon d trime ster 0.55- 2.73 Third trime ster 0.43- 2.91 Not Available [facility] [address] [place], [address], 04/23/2022 02:52:32 04/20/2004/23/2022 TSH+F REE T4 T4, free 1.3 NG/dL 0.8-1. 8 normal Not Available [facility] [address] [address] [place], [address], 04/23/2022 02:52:32 04/20/2004/23/2022 VITAM IN D,25- OH,TO FITO,I A vitamin D,25-oh,tota l,ia 33 NG/mL 30-100 normal Vitam in D Statu s 25-OH Vitam in D: Defic iency : <20 ng/mL Insuf ficie ncy: 20 - 29 ng/mL Optim al: > or = 30 ng/mL For 25-OH Vitam in D testi ng on patie nts on D2-pradhan pplem entat ion and patie nts for whom quant itati on of D2 and D3 fract ions is requi red, the [facility] eD(TM ) 25-OH VIT D, (D2,D 3), LC/MS /MS is recom richard d: order code 73986 (gagan ents >2yrs ). See Note 1 Note 1 For addit ional infor hola aceves e refer to http: //[facility] nona Garcia gnost ics.c om/fa q/FAQ 199 (This link is being provi ded for infor alicia kenney/ jairo knight purpo ses only. ) Not Available [facility] [address] [place], [address], 04/23/2022 02:52:32 04/20/2004/23/2022 T3, FREE T3, free 3.1 pg/mL 2.3-4. 2 normal Not Available [facility] [address] [place], [address], 04/23/2022 02:52:31 04/20/2004/23/2022 VITAM IN B12/F OLATE , SERUM PANEL vitamin B12 307 pg/mL 200-11 00 normal Pleas e Note: Altho ugh the refer ence range for vitam in B12 is 200-1 100 pg/mL , it has been repor elton that betwe en 5 and 10% of patie nts with value s betwe en 200 and 400 pg/mL may exper ience neuro psych iatri c and hemat ologi c abnor malit ies due to occul t B12 defic iency ; less than 1% of patie nts with value s above 400 pg/mL will have sympt oms. Not Available [address] [place], [address], 04/23/2022 02:52:31 04/20/2004/23/2022 VITAM IN B12/F OLATE , SERUM PANEL folate, serum 8.6 NG/mL normal Refer ence Range Low: <3.4 Borde rline : 3.4-5 .4 Ne l: >5.4 Not Available [address] [address] [place], [address], 04/23/2022 02:52:31 04/20/20 22 04/23/2022 THYRO ID PEROX IDASE AND THYRO GLOBU MARIN ANTIB ODIES thyroglobuli n antibodies <1 IU/mL < or = 1 normal Not Available [address] [address] [place], [address], 04/23/2022 02:52:30 04/20/2004/23/2022 THYRO ID PEROX IDASE AND THYRO GLOBU MARIN ANTIB ODIES thyroid peroxidase antibodies <1 IU/mL <9 normal Not Available [facility] [address] [address] [place], [address], 04/23/2022 02:52:30 04/20/20 22 04/23/2022 COMPR EHENS SAMIR METAB OLIC PANEL glucose 84 mg/dL 65-99 normal Fasti ng refer ence inter aimee Not Available [address] [address] [place], [address], 04/23/2022 02:52:29 04/20/20 22 04/23/2022 COMPR EHENS SAMIR METAB OLIC PANEL urea nitrogen (BUN) 12 mg/dL 7-25 normal Not Available [address] [address] [place], [address], 04/23/2022 02:52:29 04/20/20 22 04/23/2022 COMPR EHENS SAMIR METAB OLIC PANEL creatinine 0.80 mg/dL 0.50-0 .96 normal Not Available [address], [address], 04/23/2022 02:52:29 04/20/20 22 04/23/2022 COMPR EHENS SAMIR METAB OLIC PANEL eGFR 106 mL/mi n/1.7 3m2 > or = 60 normal The eGFR is based on the CKD-E PI 2020 equat ion. To calcu late the new eGFR from a previ ous Creat inine or Cysta tin C resul t, go to https ://vernon [email or web address] arteaga s/ kdoqi /gfr% 5Fcal culat or Not Available [address] [address] [place], [address], 04/23/2022 02:52:29 04/20/20 22 04/23/2022 COMPR EHENS SAMIR METAB OLIC PANEL BUN/creatini ne ratio not applic able (calc ) 6-22 Not Available [address] [address] [place], [address], 04/23/2022 02:52:29 04/20/20 22 04/23/2022 COMPR EHENS SAMIR METAB OLIC PANEL sodium 140 mmol/ L 135-14 6 normal Not Available [address] [address] [place], [address], 04/23/2022 02:52:29 04/20/20 22 04/23/2022 COMPR EHENS SAMIR METAB OLIC PANEL potassium 4.5 mmol/ L 3.5-5. 3 normal Not Available [address], [address], 04/23/2022 02:52:29 04/20/20 22 04/23/2022 COMPR EHENS SAMIR METAB OLIC PANEL chloride 107 mmol/ L 98-110 normal Not Available [address], [address], 04/23/2022 02:52:29 04/20/2004/23/2022 COMPR EHENS SAMIR METAB OLIC PANEL carbon dioxide 23 mmol/ L 20-32 normal Not Available [address], [address], 04/23/2022 02:52:29 04/20/20 22 04/23/2022 COMPR EHENS SAMIR METAB OLIC PANEL calcium 9.0 mg/dL 8.6-10 .2 normal Not Available [address], [address], 04/23/2022 02:52:29 04/20/20 22 04/23/2022 COMPR EHENS SAMIR METAB OLIC PANEL protein, total 7.1 g/dL 6.1-8. 1 normal Not Available [address], [address], 04/23/2022 02:52:29 04/20/20 22 04/23/2022 COMPR EHENS SAMIR METAB OLIC PANEL albumin 4.3 g/dL 3.6-5. 1 normal Not Available [address], [address], 04/23/2022 02:52:29 04/20/20 22 04/23/2022 COMPR EHENS SAMIR METAB OLIC PANEL globulin 2.8 g/dL_ (calc ) 1.9-3. 7 normal Not Available [address], [address], 04/23/2022 02:52:29 04/20/2004/23/2022 COMPR EHENS SAMIR METAB OLIC PANEL albumin/glob ulin ratio 1.5 (calc ) 1.0-2. 5 normal Not Available [address], [address], 04/23/2022 02:52:29 04/20/20 22 04/23/2022 COMPR EHENS SAMIR METAB OLIC PANEL bilirubin, total 0.2 mg/dL 0.2-1. 2 normal Not Available [address], [address], 04/23/2022 02:52:29 04/20/20 22 04/23/2022 COMPR EHENS SAMIR METAB OLIC PANEL alkaline phosphatase 52 U/L 31-125 normal Not Available [address], [address], 04/23/2022 02:52:29 04/20/20 22 04/23/2022 COMPR EHENS SAMIR METAB OLIC PANEL AST 12 U/L 10-30 normal Not Available [address], [address], 04/23/2022 02:52:29 04/20/20 22 04/23/2022 COMPR EHENS SAMIR METAB OLIC PANEL ALT 9 U/L 6-29 normal Not Available [address], [address], 04/23/2022 02:52:29 10/19/19 23 10/18/2022 HEMOG LOBIN A1C hemoglobin A1C 4.8 %_of_ total _HGB <5.7 normal For the purpo se of brooke garciag for the prese nce of diabe savana: <5.7% Consi stent with the absen ce of diabe savana 5.7-6 .4% Consi stent with incre ased risk for diabe savana (pred iabet es) > or =6.5% Consi stent with diabe savana This assay resul t is consi stent with a decre ased risk of diabe savana. Curre ntly, no conse nsus exist s ana maria ocampo use of hemog lobin A1c for diagn osis of diabe savana in child violetta. Accor ding to Ameri can Diabe savana Assoc iatio n (ADA) guide lines , hemog lobin A1c <7.0% repre sents optim al contr ol in non-p regna nt diabe tic patie nts. Diffe rent metri cs may apply to speci fic patie nt popul ation s. Stand ards of Medic al Care in Diabe savana(A DA). Not Available [facility] [address] [place], [address], 10/18/2022 23:16:34 08/31/19 22 08/30/2021 US, thyro id No observ ation record ed. [id number] [facility] [address] [facility] [address], [place], [address], 08/28/2022 20:57:02 10/24/19 23 10/22/2022 US, thyro id No observ ation record ed. [facility] [address] [facility] [address], [place], [address], 10/28/2022 15:12:59 Result Notes None recorded. Problems Name Problem SNOMED Code Status Onset Date Resolution Date Notes Provider Name and Address Organization Details Recorded Time Acne 07691375 Active 2021 Not Available [facility] 3 20:55:55 Thyroid nodule 365801829 Active 2021 Not Available [facility] 3 20:55:55 Hypervitamino sis D 18616034 Active 2021 Not Available [facility] 3 20:55:55 Vitamin D deficiency 54942605 Active 2021 Not Available [facility] 3 20:55:55 Goiter 5955702 Active 2021 Not Available [facility] 3 20:55:55 Vitamin B12 deficiency (non anemic) 63798972 Active 2021 Not Available [facility] 3 20:55:55 Prediabetes 266100919 Active 2021 Not Available [facility] 3 20:55:56 Irregular periods 86762229 Active 2021 Not Available [facility] 3 20:55:56 Fatigue 73002731 Active 2021 Not Available [facility] 3 20:55:56 Iron deficiency anemia 60441099 Active 2021 Not Available [facility] 3 20:55:56 Weight gain 3607485 Active 2021 Not Available [facility] 3 20:55:56 Problem Notes None recorded. Procedures Surgical History None recorded. Imaging Results Imaging Date Name Status LastModified by Organiz ation Details LastModified Time 08/30/2021 US, thyroid completed [id number] [facility] [address] [facility] [address], [place], [address], 08/28/2022 20:57:02 10/22/2022 US, thyroid completed [facility] [address] [facility] [address], [place], [address], 10/28/2022 15:12:59 Procedure Notes None recorded. Medical Equipment None Reported. Allergies Allergen ID Allergen Name Allergen Category Reaction Reaction Severity Criticality Documentation Date Start Date Code Code System Note Provider Name and Address Organization Details Recorded Time 20495 Product containin g penicilli n and antibioti c (product) medicatio n Not available Not available Not available 08/28/2022 74706 05 SNOMED Not Available [facility] 3 20:56:59 Medications Name Sig Start Date Stop Date Status Note LastModified by Organization Details LastModified Time doxycyclin e hyclate 100 mg capsule TK 1 C PO QD 08/24 completed Not Available Not Available Not Available azithromyc in 250 mg tablet 10/28 completed Not Available Not Available Not Available fluconazol e 150 mg tablet TAKE 1 TABLET BY MOUTH NOW AND REPEAT IN 3 DAYS 10/28 completed Not Available Not Available Not Available tretinoin 0.025 % topical cream AIDA AA OF FACE HS 10/28 completed Not Available Not Available Not Available sertraline 100 mg tablet TAKE 1 TABLET BY MOUTH DAILY active Not Available Not Available No t Available terconazol e 0.8 % vaginal cream INSERT 1 APPLICATO RFUL VAGINALLY AT BEDTIME FOR 3 DAYS 08/24 completed Not Available Not Available Not Available tretinoin 0.05 % topical cream APPLY TOPICALLY TO THE AFFECTED AREA ON THE FACE ONCE DAILY AT BEDTIME active Not Available Not Available No t Available dexamethas one 1 mg tablet take tablet at 10 p.m. the night before cortisol test active Not Available Not Available No t Available omeprazole 20 mg capsule,de layed release TAKE 1 CAPSULE BY MOUTH DAILY active Not Available Not Available No t Available methylpred nisolone 4 mg tablets in a dose pack FOLLOW PACKAGE DIRECTION S 10/28 completed Not Available Not Available Not Available ondansetro n 4 mg disintegra ting tablet DISSOLVE 1 TABLET ON THE TONGUE EVERY 8 HOURS 10/28 completed Not Available Not Available Not Available metformin ER 500 mg tablet,ext ended release 24 hr TAKE 1 TABLET BY MOUTH EVERY DAY AT DINNER 10/28 completed Not Available Not Available Not Available spironolac tone 50 mg tablet TAKE 2 TABLETS BY MOUTH EVERY DAY IN THE MORNING 10/28 completed Not Available Not Available Not Available clindamyci n 1 % lotion APPLY A THIN LAYER TO AFFECTED AREA BID ON FACE 10/28 completed Not Available Not Available Not Available (21) 1.5 mg-30 mcg tablet TAKE 1 TABLET BY MOUTH ONCE DAILY CONTINUOU SLY. 10/28 completed Not Available Not Available Not Available (28) 1.5 mg-30 mcg (21)/75 mg (7) tablet TAKE 1 TABLET BY MOUTH EVERY DAY 10/28 completed Not Available Not Available Not Available Claritin 2021 active 1x daily Not Available Not Available Not Available drospireno ne 3 mg-ethinyl estradiol 0.02 mg tablet TAKE 1 TABLET BY MOUTH EVERY DAY active Not Available Not Available No t Available doxycyclin e hyclate 50 mg tablet,del ayed release 08/24 completed Not Available Not Available Not Available Ozempic 0.25 mg or 0.5 mg (2 mg/1.5 mL) subcutaneo us pen injector 10/28 completed Not Available Not Available Not Available Ozempic 0.25 mg or 0.5 mg (2 mg/3 mL) subcutaneo us pen injector INJECT 0.5 MG UNDER THE SKIN ONCE A WEEK AT DINNER active Not Available Not Available No t Available Vitals Date Recorded Body mass index (BMI) Body mass index (BMI) Body mass index (BMI) Body mass index (BMI) Body height Body height Body height Body height Oxygen saturation Oxygen saturation in Arterial blood by Pulse oximetry Oxygen saturation Oxygen saturation in Arterial blood by Pulse oximetry Oxygen saturation Oxygen saturation in Arterial blood by Pulse oximetry Oxygen saturation Oxygen saturation in Arterial blood by Pulse oximetry Heart rate Heart rate Heart rate Heart rate Body temperature Body temperature Body temperature Body temperature Body weight Body weight Body weight Body weight Systolic blood pressure Diastolic blood pressure Systolic blood pressure Diastolic blood pressure Systolic blood pressure Diastolic blood pressure Systolic blood pressure Diastolic blood pressure Provider Name and Address Organization Details Last Updated DateTime 3 30.9 kg/m2 31.6 kg/m2 30.3 kg/m2 26.2 kg/m2 152.4 cm 152.4 cm 152.4 cm 152.4 cm 99 % 99 % 98 % 98 % 99 % 99 % 98 % 98 % 99 /min 109 /min 91 /min 82 /min 97.8 [degF] 97.8 [degF] 98.4 [degF] 97.6 [degF] 03298.5 9 g 09776.5 3 g 86345.8 2 g 67430.4 6 g 135 mm[Hg] 90 mm[Hg] 130 mm[Hg] 100 mm[Hg] 128 mm[Hg] 86 mm[Hg] 110 mm[Hg] 75 mm[Hg] Not Available [facility] 3 20:55:32 Date Recorded Body height Body mass index (BMI) Body weight Body temperature Heart rate Systolic blood pressure Diastolic blood pressure Provider Name and Address Organization Details Last Updated DateTime 3 152.4 cm 23.4 kg/m2 51339.3 7 g 97.7 [degF] 86 /min 116 mm[Hg] 78 mm[Hg] COLEEN Schmid [facility] 3 09:50:11 Social History Question Answer Notes LastModified by Organizat ion Details LastModified Time Tobacco Smoking Status Never Smoker Not Available [facility] 08/28/2022 20:55:19 What Is Your Level Of Alcohol Consumption? Occasional X1 Every Few Months [id number] Information not available 08/28/2022 What Is Your Level Of Caffeine Consumption? Moderate [id number] Information not available 08/28/2022 In The 14 Days Before Symptom Onset, Have You Had Close Contact With A Laboratory-confir med COVID-19 While That Case Was Ill? No [id number] Information not available 08/28/2022 In The 14 Days Before Symptom Onset, Have You Had Close Contact With A Person Who Is Under Investigation For COVID-19 While That Person Was Ill? No [id number] Information not available 08/28/2022 What Is The Highest Grade Or Level Of School You Have Completed Or The Highest Degree You Have Received? 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 Single [id number] Information not available 08/28/2022 Have You Recently Traveled Abroad? No [id number] Information not available 08/28/2022 Sex: Female Functional Status None recorded. Mental Status None recorded. Family History Relationship Description Onset Age of this Age Resolved Age Notes LastModified by Organization Details LastModified Time Brother Rheumatoid arthritis system ic jueven ile [id number] Not available 08/28/2022 20:55:26 Maternal Grandfather Family history of stroke [id number] Not available 08/28/2022 20:55:26 Paternal Grandfather Myocardial infarction [id number] Not available 08/28/2022 20:55:26 Notes:Paternal Grandmother- breast cancer Medical History Condition Response EYE PROBLEMS Y HEADACHES/MIGRAINES Y OBESITY Y GERD/NAUSEA Y DIZZINESS Y DEPRESSION (INCLUDING POST ) Y INSOMNIA Y HYPERTENSION Y HIGH CHOLESTEROL / HYPERLIPIDEMIA Y Gynecological HistoryNo gynecological history recorded. Obstetrics History GPAL:G 0 P 0 0 0 0 Past Encounters Encounter ID Performer Location Encounter Start Date Encounter Closed Date Diagnosis/Indication Diagnosis SNOMED-CT Code Diagnosis ICD10 Code Diagnosis Note [id number] [facility] [address] [place] [address] 08/24/2021 00:00:00 08/24/2021 15:40:42 [id number] [facility] [address] [place] [address] 12/03/2021 00:00:00 12/03/2021 15:51:46 [id number] [facility] [address] [place] [address] 01/08/2022 00:00:00 01/08/2022 14:40:24 [id number] [facility] [address] [place] [address] 05/13/2022 00:00:00 05/13/2022 17:34:47 [id number] Ellie Chaidez MD [facility] [address] [place] [address] 10/28/2022 09:28:11 10/28/2022 10:17:22 Prediabetes 576281332 R73.03 a1c of 4.8% in range- she has lost over 40 pounds since last summer on low dose ozempic 0.5 mg once weekly. She is on high dose progestero ne based OCP for painful irregular cycles- has hx of PCOS. Recommende d up to 60 grams of carbs a day split into 6 small 10 gram carb meals or three larger 20 gram carb meals in addition to up to 70 grams of protein daily split into 10-15 grams for 5-6 smaller meals. The recommende d diet should be one of which she can incorporat e on a daily basis that will not modulate her lifestyle - discussed a diet of increased fiber; decreased refined carbohydra savana, trans fats, and saturated fats with focus on monounsatu rated fats such as unprocesse d chicken, turkey, nuts (excluding peanuts) and beans. Thyroid nodule [id number] E04.1 Thyroid nodules all under 5 mm in size too small to biopsy. Recommende d a thyroid supplement similiar to actalin by Dr. Francisco Keller that contains, iodine, magnesium, manganese, carnitine and other elements to help maintain endogenous thyroid function and help to reduce swelling to take in meantime to help reduce time frame to burn out and to help with fatigue, hair thinning etc. Spent up to 25 minutes preparing to see the patient (eg, review of tests), obtaining and/or reviewing separately obtained history, performing a medically appropriat e examinatio n and evaluation , counseling and educating the patient, ordering medication s, tests, along with documentin g clinical informatio n in the electronic health record, independen tly interpreti ng results and communicat ing results to the patient. RTC in 6 months. Patient was provided a handwritte n lab order which contains our fax number. If she chooses to go outside of the [facility] system to obtain labwork she was advised to provide our fax number and my informatio n to the lab she will be obtaining labwork from in order to have her labs properly forwarded over for me to review so there is no loss of follow up due to use of outside network. She was also advised to contact our clinic informing us that she has completed her labwork so we are aware we will need to reach out to the appropriat e laboratory to request her results be forwarded to us so I might have the ability to review and make further medical decision making in her case. She voiced understand ing. Health Concerns Section Related Observation LastModified by Organization Detai ls LastModified Time None Recorded Concern Status LastModified by Organization Details LastModified Time None Recorded Advance Directives Directive None Recorded Payers Encounter Date Sequence Insurance Name Policy Number Policy [place] Covered Member ID [place] Member ID Guarantor Name 10/28/[address] [facility] [employer] Antoine Monae [id number] Farideh Monae 10/28/2022 1 [place] ([place]) [id number] Farideh Monae [id number] Farideh Monae Notes Date Note Type Note Provider Name and Address Organization Details Recorded Time 10/28/2022 text/html 22 yo female com es in for follow up in management of prediabetes, thyroid nodule, B12 def last seen in Nov at that time we continued ozempic 0.5 mg once weekly. She has lost over 40 pounds since last summer and maintaining under 120 pounds. She has been on the 0.5 mg dose and tolerating well- she will get small bouts of nausea. Her cycles are no longer due to high dose progesterone- she is taking 3 mg drosperinone 3 mg-ethinyl estradiol 0.02 mg daily tablets. She is seeing gynecology and may or may not have endometriosis. Otherwise her energy is good and she is exercising more regularly. thyroid u/s from 10/20multiple nodules all under 6 mm in size labs from 10/18/22:a1c of 4.8%no other labs sent to review Ellie Chaidez MD [address] [facility], [facility] [address], [place], [address], [place] - [facility] [employer] 10/28/2022 10:21:34 OBGyn Episode No OBEpisode recorded.
--- OUTSIDE RECORDS SUMMARY | 2024-08-12 19:59 | XMS_ITS | Data Portability ---
Author Organization [facility] Address [address] [place] [address] Assessment No assessment recorded. Plan of Treatment Reminders Order Date Submit Date Provider Last Modified By Organization Details Last Modified Time Details Appointments OB ROUTINE 2024 09:45A M YUE MAJANO MD Not available Not available Not available NST 2024 01:00P M NST SCHEDULE Not available Not available Not available U/S OB BPP 2024 01:30P M ULTRASOUND Not available Not available Not available OB ROUTINE 2024 02:15P M Natalya Esparza CNM Not available Not available Not available NST 2024 09:30A M NST SCHEDULE Not available Not available Not available U/S OB BPP 2024 10:00A M ULTRASOUND Not available Not available Not available OB ROUTINE 2024 10:30A M YUE MAJANO MD Not available Not available Not available U/S OB BPP 2024 10:00A M ULTRASOUND Not available Not available Not available NST 2024 10:30A M NST SCHEDULE Not available Not available Not available OB ROUTINE 2024 11:00A M YUE MAJANO MD Not available Not available Not available U/S OB BPP 2024 09:00A M ULTRASOUND Not available Not available Not available NST 2024 09:30A M NST SCHEDULE Not available Not available Not available OB ROUTINE 2024 10:00A M YEU MAJANO MD Not available Not available Not available U/S OB BPP 2024 10:00A M ULTRASOUND Not available Not available Not available NST 2024 10:30A M NST SCHEDULE Not available Not available Not available OB ROUTINE 2024 11:00A M Natalya Esparza CNM Not available Not available Not available U/S OB BPP 2024 09:30A M ULTRASOUND Not available Not available Not available NST 2024 10:00A M NST SCHEDULE Not available Not available Not available OB ROUTINE 2024 10:30A M YUE MAJANO MD Not available Not available Not available U/S OB BPP 2024 09:30A M ULTRASOUND Not available Not available Not available NST 2024 10:00A M NST SCHEDULE Not available Not available Not available OB ROUTINE 2024 10:30A M YUE MAJANO MD Not available Not available Not available U/S OB BPP 2024 09:30A M ULTRASOUND Not available Not available Not available NST 2024 10:00A M NST SCHEDULE Not available Not available Not available OB ROUTINE 2024 10:30A M YUE MAJANO MD Not available Not available Not available Lab protein :creati nine ratio, urine [address] [facility] [place] (Lab), [address], [place], [address], 08/11/2024 05:34:53 [email or web address] d lab - CMP/CBC /uric acid [address] [facility] [place] (Lab), [address], [place], [address], 08/11/2024 05:34:52 Referral None recorde d. Procedures None recorde d. Surgeries None recorde d. Imaging US, obstetr ic, follow- up 2024 025 [email or web address] Eva, [facility] [place][note 2] [address], [place], [address], 08/11/2024 21:43:51 Medication Orders None recorde d. Patient TargetsNo targets recorded. Patient InstructionsNo instructions recorded. Reason for Referral None Reported. Results Created Date Observation Date Name Description Value Unit Range Abnormal Flag Note LastModifiedBy Organization Detail LastModifiedTime 08/10/1908/10/2024 CMP/C BC/UR IC ACID WBC 13.0 10'3/ uL 3.5-10 .5 high Not Available [facility] (Lab) [address], [place], [address], 08/11/2024 05:34:52 08/10/19 25 08/10/2024 CMP/C BC/UR IC ACID RBC 3.65 10'6/ uL (based on docume nted legal sex) 3.80-5 .20 low Not Available [facility] (Lab) [address], [place], [address], 08/11/2024 05:34:52 08/10/19 25 08/10/2024 CMP/C BC/UR IC ACID HGB 10.7 g/dL (based on docume nted legal sex) 11.6-1 5.4 low Not Available [facility] (Lab) [address], [place], [address], 08/11/2024 05:34:52 08/10/19 25 08/10/2024 CMP/C BC/UR IC ACID HCT 33.2 % (based on docume nted legal sex) 34.0-4 5.0 low Not Available [facility] (Lab) [address] [place], [address], 08/11/2024 05:34:52 08/10/19 25 08/10/2024 CMP/C BC/UR IC ACID MCV 91.0 fL 80.0-9 9.0 Not Available [facility] (Lab) [address] [place], [address], 08/11/2024 05:34:52 08/10/19 25 08/10/2024 CMP/C BC/UR IC ACID MCH 29.3 pg 27.0-3 4.0 Not Available [facility] (Lab) [address] [place], [address], 08/11/2024 05:34:52 08/10/19 25 08/10/2024 CMP/C BC/UR IC ACID MCHC 32.2 g/dL 32.0-3 5.5 Not Available [facility] (Lab) [address], [place], [address], 08/11/2024 05:34:52 08/10/19 25 08/10/2024 CMP/C BC/UR IC ACID RDW 14.6 % 11.0-1 5.0 Not Available [facility] (Lab) [address], [place], [address], 08/11/2024 05:34:52 08/10/19 25 08/10/2024 CMP/C BC/UR IC ACID plt 272 10'3/ uL 150-40 0 Not Available [facility] (Lab) [address], [place], [address], 08/11/2024 05:34:52 08/10/19 25 08/10/2024 CMP/C BC/UR IC ACID MPV 9.8 fL 8.8-12 .1 Not Available [facility] (Lab) [address], [place], [address], 08/11/2024 05:34:52 08/10/19 25 08/10/2024 CMP/C BC/UR IC ACID neutrophils 63.8 % 34.0-7 3.0 Not Available [facility] (Lab) [address], [place], [address], 08/11/2024 05:34:52 08/10/19 25 08/10/2024 CMP/C BC/UR IC ACID lymphocytes 24.7 % 15.0-5 0.0 Not Available [facility] (Lab) [address], [place], [address], 08/11/2024 05:34:52 08/10/19 25 08/10/2024 CMP/C BC/UR IC ACID monocytes 6.8 % 1.0-15 .0 Not Available [facility] (Lab) [address], [place], [address], 08/11/2024 05:34:52 08/10/19 25 08/10/2024 CMP/C BC/UR IC ACID eosinophils 2.3 % 0.0-8. 0 Not Available [facility] (Lab) [address], [place], [address], 08/11/2024 05:34:52 08/10/19 25 08/10/2024 CMP/C BC/UR IC ACID basophils 0.2 % 0.0-2. 0 Not Available [facility] (Lab) [address], [place], [address], 08/11/2024 05:34:52 08/10/19 25 08/10/2024 CMP/C BC/UR IC ACID immature granulocytes 2.2 % no define d refere nce range Immat ure Granu locyt es (IG) repre sents autom ated enume ratio n of Metam yeloc ytes, Myelo cytes and Promy elocy savana when IG is < 5%. Blast s are not inclu ded in IG and repor elton separ ately if prese nt. Not Available [facility] (Lab) [address], [place], [address], 08/11/2024 05:34:52 08/10/19 25 08/10/2024 CMP/C BC/UR IC ACID absolute neutrophils 8.3 10'3/ uL 1.5-8. 0 high Not Available [facility] (Lab) [address], [place], [address], 08/11/2024 05:34:52 08/10/19 25 08/10/2024 CMP/C BC/UR IC ACID absolute lymphocytes 3.2 10'3/ uL 1.0-4. 0 Not Available [facility] (Lab) [address], [place], [address], 08/11/2024 05:34:52 08/10/19 25 08/10/2024 CMP/C BC/UR IC ACID absolute monocytes 0.9 10'3/ uL 0.2-1. 0 Not Available [facility] (Lab) [address], [place], [address], 08/11/2024 05:34:52 08/10/19 25 08/10/2024 CMP/C BC/UR IC ACID absolute eosinophils 0.3 10'3/ uL 0.0-0. 6 Not Available [facility] (Lab) [address], [place], [address], 08/11/2024 05:34:52 08/10/19 25 08/10/2024 CMP/C BC/UR IC ACID absolute basophils 0.0 10'3/ uL 0.0-0. 3 Not Available [facility] (Lab) [address], [place], [address], 08/11/2024 05:34:52 08/10/1908/10/2024 CMP/C BC/UR IC ACID absolute immature granulocytes 0.3 10'3/ uL 0.00-0 .10 high Refer ence range s for nonbi nary/ inter sex or unspe cifie d gende r patie nts have not been estab lishe d. Pleas e [facility] for range s estab lishe d for cisge nder patie nts and evalu ate in the clini quentin francheska xt of the indiv idual patie nt: https :[email or web address] hernandez book. nm.or g/Gen derX Not Available [facility] (Lab) [address], [place], [address], 08/11/2024 05:34:52 08/10/1908/10/2024 CMP/C BC/UR IC ACID sodium 139 mmol/ L 133-14 6 Not Available [facility] (Lab) [address] [place], [address], 08/11/2024 05:34:52 08/10/19 25 08/10/2024 CMP/C BC/UR IC ACID potassium 3.9 mmol/ L 3.5-5. 1 Not Available [facility] (Lab) [address], [place], [address], 08/11/2024 05:34:52 08/10/19 25 08/10/2024 CMP/C BC/UR IC ACID chloride 102 mmol/ L 98-107 Not Available [facility] (Lab) [address], [place], [address], 08/11/2024 05:34:52 08/10/19 25 08/10/2024 CMP/C BC/UR IC ACID carbon dioxide 26 mmol/ L 21-31 Not Available [facility] (Lab) [address], [place], [address], 08/11/2024 05:34:52 08/10/19 25 08/10/2024 CMP/C BC/UR IC ACID anion gap 11 mmol/ L 4-13 Not Available [facility] (Lab) [address], [place], [address], 08/11/2024 05:34:52 08/10/19 25 08/10/2024 CMP/C BC/UR IC ACID blood urea nitrogen 7 mg/dL 7-25 Not Available [facility] (Lab) [address], [place], [address], 08/11/2024 05:34:52 08/10/19 25 08/10/2024 CMP/C BC/UR IC ACID creatinine 0.64 mg/dL 0.60-1 .30 Not Available [facility] (Lab) [address] [place], [address], 08/11/2024 05:34:52 08/10/19 25 08/10/2024 CMP/C BC/UR IC ACID egfrcr (CKD-epi 2020) >90 mL/mi n/1.7 3_m2 >=60 Not Available [facility] (Lab) [address] [place], [address], 08/11/2024 05:34:52 08/10/19 25 08/10/2024 CMP/C BC/UR IC ACID calcium 9.4 mg/dL 8.3-10 .5 Not Available [facility] (Lab) [address], [place], [address], 08/11/2024 05:34:52 08/10/19 25 08/10/2024 CMP/C BC/UR IC ACID glucose 107 mg/dL 70-100 high Not Available [facility] (Lab) [address], [place], [address], 08/11/2024 05:34:52 08/10/19 25 08/10/2024 CMP/C BC/UR IC ACID protein, total 6.3 g/dL 6.4-8. 3 low Not Available [facility] (Lab) [address] [place], [address], 08/11/2024 05:34:52 08/10/19 25 08/10/2024 CMP/C BC/UR IC ACID albumin 3.6 g/dL 3.5-5. 0 Not Available [facility] (Lab) [address] [place], [address], 08/11/2024 05:34:52 08/10/19 25 08/10/2024 CMP/C BC/UR IC ACID ALT 12 units /L 9-43 Not Available [facility] (Lab) [address] [place], [address], 08/11/2024 05:34:52 08/10/19 25 08/10/2024 CMP/C BC/UR IC ACID alkaline phosphatase 78 units /L 34-104 Not Available [facility] (Lab) [address] [place], [address], 08/11/2024 05:34:52 08/10/19 25 08/10/2024 CMP/C BC/UR IC ACID AST 16 units /L 13-39 Not Available [facility] (Lab) [address], [place], [address], 08/11/2024 05:34:52 08/10/19 25 08/10/2024 CMP/C BC/UR IC ACID bilirubin, total 0.2 mg/dL 0.2-1. 2 Not Available [facility] (Lab) [address], [place], [address], 08/11/2024 05:34:52 08/10/19 25 08/10/2024 CMP/C BC/UR IC ACID uric acid 4.4 mg/dL 2.3-6. 6 Not Available [facility] (Lab) [address], [place], [address], 08/11/2024 05:34:52 08/10/19 25 08/10/2024 PROTE IN/CR EATIN INE RATIO , URINE creatinine, urine 85.4 mg/dL R-No refer ence range estab lishe d for this assay Not Available [facility] (Lab) [address], [place], [address], 08/11/2024 05:34:53 08/10/19 25 08/10/2024 PROTE IN/CR EATIN INE RATIO , URINE protein, urine 24 mg/dL R-No refer ence range estab lishe d for this assay Not Available [facility] (Lab) [address] [place], [address], 08/11/2024 05:34:53 08/10/19 25 08/10/2024 PROTE IN/CR EATIN INE RATIO , URINE protein/crea tinine ratio, urine 0.28 . No Refer ence Range avail able for Rando m Urine s. A prote in to creat inine ratio of >=0.1 9 is a good predi ctor of signi fican t prote inuri a. A level of <0.14 can rule out signi fican t prote inuri a. Not Available [facility] (Lab) [address], [place], [address], 08/11/2024 05:34:53 08/10/19 25 08/10/2024 US, obste tric, follo w-up No observ ation record ed. [email or web address] Eva [address], [place], [address], 08/10/2024 17:36:32 08/10/19 25 08/10/2024 US, obste tric, follo w-up No observ ation record ed. [email or web address] [address], [place], [address], 08/12/2024 00:15:18 Result Notes None recorded. Problems Name Problem SNOMED Code Status Onset Date Resolution Date Notes Provider Name and Address Organization Details Recorded Time 38701043 Active 2024 Zakia cunningham, [facility] 5 16:07:08 Benign hypertens ion 26420946 Active bASA since 12 weeks, diagnosed outside of , labs today at 30 weeks YUE MAJANO MD [address], [place], [address], [facility] 5 16:28:17 Depressiv e disorder 58602335 Active sertralin e 50mg, mood stable YUE MAJANO MD [address], [place], [address], [facility] 5 16:30:33 Polycysti c ovary syndrome 395386899 Active metformin YUE MAJANO MD [address], [place], [address], [facility] 5 16:32:11 Problem Notes None recorded. Procedures Surgical History Date Name Laterality Status Provider Name and Address Organization Details Recorded Time 4 Date of Last Pap Smear completed Zakia Briceno [facility] 08/10/2024 15:39:34 2 extraction of wisdom tooth completed Zakia Briceno [facility] 08/10/2024 16:05:14 Imaging Results Imaging Date Name Status LastModified by Organiz ation Details LastModified Time 08/10/2024 US, obstetric, follow-up completed [email or web address] Eva [address], [place], [address], 08/10/2024 17:36:32 08/10/2024 US, obstetric, follow-up completed [email or web address] [address], [place], [address], 08/12/2024 00:15:18 Procedure Notes None recorded. Medical Equipment None Reported. Allergies Allergen ID Allergen Name Allergen Category Reaction Reaction Severity Criticality Documentation Date Start Date Code Code System Note Provider Name and Address Organization Details Recorded Time 49521 Product containin g penicilli n and antibioti c (product) medicatio n Not available Not available Not available 08/10/2024 84331 05 SNOMED Zakia Briceno null, [facility] 15:37:58 Medications Name Sig Start Date Stop Date Status Note LastModified by Organization Details LastModified Time atorvastati n 10 mg tablet 08/10 completed Not Available Not Available Not Available fluconazole 150 mg tablet 08/10 completed Not Available Not Available Not Available sertraline 100 mg tablet TAKE 1 TABLET BY MOUTH EVERY DAY 08/10 completed Not Available Not Available Not Available Accu-Chek Softclix Lancets USE TO CHECK BLOOD SUGAR 4 TIMES A DAY 08/10 completed Not Available Not Available Not Available cephalexin 500 mg capsule TAKE 1 CAPSULE BY MOUTH EVERY 12 HOURS FOR 7 DAYS 08/10 completed Not Available Not Available Not Available omeprazole 20 mg capsule,del ayed release 08/10 completed Not Available Not Available Not Available ergocalcife rol (vitamin D2) 1,250 mcg (50,000 unit) capsule 08/10 completed Not Available Not Available Not Available methylpredn isolone 4 mg tablets in a dose pack TAKE 6 TABLETS ON DAY 1 DIRECTED ON PACKAGE AND DECREASE BY 1 TAB EACH DAY FOR A TOTAL OF 6 DAYS 08/10 completed Not Available Not Available Not Available albuterol sulfate HFA 90 mcg/actuati on aerosol inhaler NEEDED FOR SHORTNESS OF BREATH OR WHEEZING 1-2 PUFFS EVERY 4 HOURS NEEDED 08/10 completed Not Available Not Available Not Available metformin ER 500 mg tablet,exte nded release 24 hr TAKE 1 TABLET BY MOUTH EVERY DAY active Not Available Not Available No t Available sertraline 50 mg tablet TAKE 1 TABLET BY MOUTH DAILY active Not Available Not Available No t Available azithromyci n 500 mg tablet 08/10 completed Not Available Not Available Not Available calcium active Not Available Not Avail able Not Available active Not Available Not Avai lable Not Available Baby Aspirin active Not Available Not Available Not Available Accu-Chek Guide test strips USE TO TEST 4 TIMES A DAY 08/10 completed Not Available Not Available Not Available Accu-Chek Guide Me Glucose Meter USE DIRECTED 08/10 completed Not Available Not Available Not Available Marifer Fe 1.5/30 (28) 1.5 mg-30 mcg (21)/75 mg (7) tablet 08/10 completed Not Available Not Available Not Available Vitals Date Recorded Body weight Body mass index (BMI) Body height Systolic blood pressure Diastolic blood pressure Provider Name and Address Organization Details Last Updated DateTime 08/10/2024 76612 g 35.9 kg/m2 152.4 cm 148 mm[Hg] 79 mm[Hg] Zakia Briceno [facility] 16:12:49 Social History Question Answer Notes LastModified by Organizat ion Details LastModified Time Tobacco Smoking Status Never Smoker Zakia Briceno [email or web address], [facility] 08/10/2024 16:14:16 Are You Blind Or Do You Have Difficulty Seeing? No [email or web address] Information n ot available 08/10/2024 In The 14 Days Before Symptom Onset, Have You Had Close Contact With A Laboratory-confirm ed COVID-19 While That Case Was Ill? No [email or web address] Information n ot available 08/10/2024 In The 14 Days Before Symptom Onset, Have You Had Close Contact With A Person Who Is Under Investigation For COVID-19 While That Person Was Ill? No [email or web address] Information not available 08/10/2024 Have You Been To An Area Known To Be High Risk For COVID-19? No [email or web address] Information not available 08/10/2024 Are You Deaf Or Do You Have Serious Difficulty Hearing? No Information not available 08/10/2024 Do You Use Your Seat Belt Or Car Seat Routinely? Yes [email or web address] Information not available 08/10/2024 Are You Sexually Active? Yes [email or web address] Information not available 08/10/2024 Do You Have Smoke And Carbon Monoxide Detectors In Your Home? Yes [email or web address] Information not available 08/10/2024 Do You Use Any Illicit Or Recreational Drugs? No [email or web address] Information not available 08/10/2024 Do You Use Sunscreen Routinely? Yes [email or web address] Information not available 08/10/2024 Sex: Unknown Functional Status Question Answer Note LastModified by Organizat ion Details LastModified Time Do you have difficulty walking or climbing stairs? No Information not available 08/10/2024 Are you able to walk? YESWOREST [email or web address] Information not available 08/10/2024 Are you able to care for yourself? Yes [email or web address] Information not available 08/10/2024 Do you have difficulty dressing or bathing? No [email or web address] Information not available 08/10/2024 Mental Status None recorded. Family History Relationship Description Onset Age of this Age Resolved Age Notes LastModified by Organization Details LastModified Time Paternal Grandmother Malignant tumor of breast [email or web address] Not available 2024 16:05:36 Maternal Grandfather Heart disease [email or web address] Not available 2024 16:05:55 Maternal Grandfather Hypercholest erolemia [email or web address] Not available 2024 15:41:27 Maternal Grandmother Diabetes mellitus [email or web address] Not available 2024 16:06:05 Mother Hypercholest erolemia [email or web address] Not available 2024 15:41:27 Maternal Aunt Hypercholest erolemia [email or web address] Not available 2024 15:41:27 Father Hypertensive disorder [email or web address] Not available 2024 15:41:35 Medical History No medical history recorded. Gynecological History Statement/Question Response Abnormal Pap N Flow Moderate Date of LMP 01/05/2024 Was last menstrual period normal Y STIs/STDs N HPV Vaccine N Duration of Flow (days) 5 Current Control Method Are cycles usually normal Y Frequency of Cycle (Q days) 28 Sexually Active? Y Age of first menstrual cycle 11 Date of Last Pap Smear 06/30/2023 Sexual Problems? N LMP Approximate Obstetrics History GPAL:G 1 P 0 0 0 0 Past Encounters Encounter ID Performer Location Encounter Start Date Encounter Closed Date Diagnosis/Indication Diagnosis SNOMED-CT Code Diagnosis ICD10 Code Diagnosis Note [id number] Niya Roman Eva [address] [address] 08/10/2024 15:19:41 08/10/2024 16:06:04 Uterine size for dates discrepancy 546209089 O26.843 O36.63X0 Z3A.30 [id number] YUE MAJANO MD Eva [address] [address] 08/10/2024 15:21:58 08/12/2024 05:22:27 Chronic hypertension complicating AND/OR reason for care during 82801274 O16.9 - well controlled outside of - bASA since 12 weeks- repeat preeclamps ia labs today- discussed 32 week testing and delivery between 38-40 weeks gestation if stable Polycystic ovary syndrome 038611740 E28.2 - has continued metformin throughout Depressive disorder 3548 9007 F32.A - stable on 50mg sertraline Gestation period, 30 weeks 69581667 Z3A.30 - continue [facility] Concerns Section Related Observation LastModified by Organization Detai ls LastModified Time None Recorded Concern Status LastModified by Organization Details LastModified Time None Recorded Advance Directives Directive None Recorded Payers Encounter Date Sequence Insurance Name Policy Number Policy [place] Covered Member ID [place] Member ID Guarantor Name 08/10/2024 1 [place]) [address] [id number] Farideh Barber 08/10/2024 1 [place] [address] [id number] Farideh Zapp OBGyn Episode Ob Episode Information Episode Created Date Number of Fetuses Patient Bloodtype Patient rh Status Prepregnancy Weight lbs Domestic Partner Domestic Partner Phone Father Name Business Office Technology Instructor Status 08/10/19 25 1 A Negative Pepe Barber OPEN Fetus Data First Name Last Name Admitted to NICU Weight (g) Sex Living Outcome Pediatric Complications Fetus ID Race Codes Race Delivery Type [id number] Problems Problem Notes Problem Name Start Date End Date Resolution Snomed Code Not e Polycystic ovary syndrome 345763537 metformin Depressive disorder 64857100 sertraline 50mg, mood stable Benign hypertension 64615861 bASA since 12 weeks, diagnosed outside of , labs today at 30 weeks Jeremy Calculation Initial Jeremy Date Initial Exam Date Initial Exam Provider Initial Ultrasound Date Last Menstrual Period Date Ultra Sound Weeks Gestation 10/17/2024 08/10/2024 03/12/2024 01/05/2024 10 Eighteen To Twenty Week Jeremy Update Ultra Sound Date Fundal Height At Umbil Quickening Date Ultra Sound Latest Weeks Gestation Final Jeremy Confirmed By Final Jeremy Confirmed Date Final Jeremy Date Ultra Sound Latest Days Gestation 0 [email or web address] 08/11/2024 10/18/19 25 0 Pre-rolando Flowsheet Flowsheet Date 08/10/2024 Toure Score Blood Edema Fundus Height Fundus Units Glucose Ketones Leukocytes Nitrite Labor Signs Protein Cervic Dilation Cervic Effacement Cervic Station neg trace Type Weight in lbs Pre/Post Dialysis Refused Weight 184.443999926598 BP Diastolic BP Location Tested BP Systolic BP Type 79 L arm 148 sitting Fetus Heart Rate Present A Present Fetus Movement A Yes Comments Patient c/o of some tightnes s. Swelling in hands and feet. Patient is a transfer of care, complicated by chronic hypertension, well controlled outside of without medications. Denies headaches, vision changes, chest pain, dyspnea, RUQ pain or epigastric pain. Has previously had preeclampsia labs done which were normal. Will repeat today due to elevated BP. Discussed recommendation for 32 week testing and delivery between 38-40 weeks. Patient reports normal anatomy US earlier in . Having a boy! EFW 91% today, passed GCT (glucose 121). Continue to monitor growth. Mood stable on 50mg sertraline. Hx of PCOS, has continued metformin throughout . Discussed tdap vaccine. RTC 2 weeks to start testing. Menstrual History Last Menstrual Date Menses Monthly On Bcp Conception Prior Menses Frequency Hcg Plus Date Menarche Onset Age 0701/05/2024 Delivery Information Delivery Date Delivery Type Labor Anesthesia Weeks Gestation Incision Type Labor Labor Length Hrs Delivered By Post Complications Tubal Sterilization Discharge Date Comments Discharge Information Feeding Method Contraceptive Method Maternal HG B and HCT Levels
--- OUTSIDE RECORDS SUMMARY | 2024-08-12 19:59 | XMS_ITS | Data Portability ---
Author Organization [facility] - Valery Hernandez, Telehealth Address [address], [address] [place] [address] Care Team Providers Care Greenhouse Instructor Name Role Phone PANFILO TAVERAS Primary Care Provider [phone] Assessment Encounter Date Assessment Date Assessment LastModified by Organization Details LastModified Time 04/14/2018 04/14/2018 acne vulgaris, mild inflammatory-impr jeannette rec cont BP wash once daily rec add clindamycin lotion BID face rec increase to tretinoin 0.06 gel face qhs, gradual increase to qhs rec cont BCP. discussed can take 3-6 mo to see benefits for treatmetn of acne if flaring, may consider delayed release doxy if needed I do not feel oral abx are needed at this time rec recheck in 4-6 mo and discussed may consider course isotretinoin if not improving recheck in 4-6 mo Not available 04/15/2018 21:38:48 10/12/2018 10/12/2018 acne vulgaris, unstable comedonal rec cont BCP as inflammatory acne markedly improved rec cont BP wash qam rec decrease to tretinoin 0.025 cr qhs face, gradual increase to qhs recheck in 6 mo-1 yr Not available 10/14/2018 21:31:52 06/20/2020 06/20/2020 acne vulgaris, mild inflammatory and comedonal-unstabl e with areas of acne excoriee recommend continue low strength BP wash qam recommend restart clindamycin lotion qd-bid face, chest and back rec continue tretinoin 0.025 cr qhs face recommend avoid scratching/manipu lation to avoid scarring discussed past hx heartburn and nausea with doxycyline capsules. pt reports no history of rash or hives or swelling face/lips with past treatment discussed optoin for trial with slow release doxy with current flare to minimize risk side effects recommend doryx 50mg po BID x 2 mo recommend continue BCP discussed consideration of spironolatone if not improving recheck in 2-3 mo Not available 06/24/2020 17:29:16 09/25/2020 09/25/2020 Acne vulgaris, face-inflammatory with acne excoriations-unst able recommend continue BP wash face qam recommend continue clindamycin lotion qam face recommend increase to tretinoin 0.05 cream qhs face, gradual increase to qhs discussed options continuation of doryx x 2 mo while increasing tretinoin strength. pt agrees. recheck in 4-6mo. Not available 10/01/2020 21:42:08 01/09/2021 01/09/2021 Acne vulgaris, inflammatory with mild scarring-unstable agree with additional treatment with inflammatory acne flaring discussed options isotretinoin course vs spironolactone treatment pt prefers treatment course with isotretinoin reviewed side effects and treatment plan with isotretinoin reviewed recommendation to continue BCP. contraceptive counseling preferred. offered additional counseling as offered with [employer] program-pt declined. pt elects use of condoms in addition to BCP if she were to become sexually active with hx anxiety, recommend she confirm with Dr Elana SANZ with isotretinoin course urine test performed today baseline lab request given to pt reviewed [employer] requirements and consent forms reviewed and signed today. recommend she call to confirm plan for treatment after she discusses with Dr Taveras, and if planning treatment, she will call/rtc for repeat urine testing anytime after 1 mo and within first 5 dys of menses. copy note to Dr Elana cho Not available 01/09/2021 18:30:12 Plan of Treatment Reminders Order Date Submit Date Provider Last Modified By Organization Details Last Modified Time Details Appointments None recorded. Lab test, urine 2020 021 [facility], [address] [place] [address], [id number], 18:27:09 CBC 2020 021 [facility], [address] [place] [address], [phone], 18:27:48 CMP, serum or plasma 2020 [place] [address] Main Office, [address] [facility] [address], [place], [address], 18:27:48 lipids, total, serum 2020 [place] [address] Main Office, [address] [facility] [address], [place], [address], 10:58:00 Referral None recorded. Procedures None recorded. Surgeries None recorded. Imaging None recorded. Medication Orders Doryx 50 mg tablet,del ayed release [address], [address] [place] [address], [place], [address], 10:38:56 clindamyci n 1 % lotion 2020 [facility] #[id number], [address], [place], [id number], 16:17:16 tretinoin 0.05 % topical cream 2020 [facility] #20641, [address], [place], [id number], 16:17:13 Doryx 50 mg tablet,del ayed release [address] [facility]11747, [address], [place], [id number], 10:38:56 clindamyci n 1 % lotion 2019 [facility] #04573, [address], [place], [id number], 0 15:38:05 tretinoin 0.025 % topical cream 2019 020 [facility] #81241, [address] [place], [place], [id number], 1 16:13:42 clindamyci n 1 % lotion 2017 018 [place] [address] [facility], [address] [place], [place], [id number], 8 12:10:18 Retin-A Micro Pump 0.06 % topical gel [address], [address] [place] [address], [address], 1 11:18:49 Patient TargetsNo targets recorded. Patient Instructions Encounter Date Encounter Id Patient Instructions Last Modified By Organization Details Last Modified Time 04/14/2018 [id number] Tretinoin side effects were reviewed with emphasis on skin irritation, redness, dry skin and photosensitivity. Start 2 -3 nights per week and gradually increase to nightly if tolerated. Apply thin coating. Use gentle cleansers and emollients as needed. Not available 04/14/2018 14:32:24 06/20/2020 [id number] doxycyline side effects discussed with emphasis on headache, GI upset, photosensitivity, defects (in female patients), hypersensitivity/r susi. rec stop 1 week prior and during any sun travel. take with large glass of water and stay upright for 1 hour after taking. Tretinoin side effects were reviewed with emphasis on skin irritation, redness, dry skin and photosensitivity. Start 2 -3 nights per week and gradually increase to nightly if tolerated. Apply thin coating. Use gentle cleansers and emollients as needed. Not available 06/20/2020 17:50:23 09/25/2020 [id number] doxycyline side effects discussed with emphasis on headache, GI upset, photosensitivity, defects (in female patients), hypersensitivity/r susi. rec stop 1 week prior and during any sun travel. take with large glass of water and stay upright for 1 hour after taking. Tretinoin side effects were reviewed with emphasis on skin irritation, redness, dry skin and photosensitivity. Start 2 -3 nights per week and gradually increase to nightly if tolerated. Apply thin coating. Use gentle cleansers and emollients as needed. Not available 09/25/2020 18:14:25 01/09/2021 [id number] Isotretinoin erika e effects were reviewed with emphasis on severe defects, depression, mood changes, dry skin, lips, and eyes, and decreased night vision, visual damage, nosebleeds, liver damage, headache, muscle aches, lipid elevation, photosensitivity, bone changes, bowel inflammation during or after medication course, early closure of growth plate and hair loss. 2 forms of contraception or abstention are needed for one month before therapy, during therapy and for one month after treatment is finished. Compliance with I Pledge protocol is mandatory. The I Pledge information was given to the patient. Not available 01/09/2021 17:04:18 Reason for Referral None Reported. Results Created Date Observation Date Name Description Value Unit Range Abnormal Flag Note LastModifiedBy Organization Detail LastModifiedTime 01/10/2001/09/2021 pregn gwen test, urine HCG negati ve Not Available Main Office [address] [place] [address] [address], [place], [address], 01/09/2021 17:25:46 02/21/20 21 02/21/2021 LIPID PANEL , STAND DRAKE cholesterol, total 251 mg/dL <200 high Not Available [facility] [address] [place], [address], 02/21/2021 04:07:45 02/21/20 21 02/21/2021 LIPID PANEL , STAND DRAKE HDL cholesterol 63 mg/dL > or = 50 normal Not Available [facility] [address] [place], [address], 02/21/2021 04:07:45 02/21/20 21 02/21/2021 LIPID PANEL , STAND DRAKE triglyceride s 143 mg/dL <150 normal Not Available [facility] [place] [address] [place], [address], 02/21/2021 04:07:45 02/21/20 21 02/21/2021 LIPID PANEL , STAND DRAKE LDL-choleste rol 161 mg/dL _(quentin c) high Refer ence range : <100 Remberto able range <100 mg/dL for prima ry preve ntion ; <70 mg/dL for patie nts with CHD or diabe tic patie nts with > or = 2 CHD risk facto rs. LDL-C is now calcu lated using the Mercedez n-Hop kins calcu latелена n, which is a valid ated novel juanpablo hale accur acangeli than the Fried bárbara equat ion in the estim ation of LDL-C . Mercedez gilmore SS et al. MARITZA. 2013; 310(1 9): 2061- 2068 (http ://ed ucati on.Qu sandyMicrolaunchers. com/f aq/FA Q164) Not Available [place] [address] [place], [address], 02/21/2021 04:07:45 02/21/20 21 02/21/2021 LIPID PANEL , STAND DRAKE chol/HDLC ratio 4.0 (calc ) <5.0 normal Not Available [facility] [address] [place], [address], 02/21/2021 04:07:45 02/21/20 21 02/21/2021 LIPID PANEL , STAND DRAKE non HDL cholesterol 188 mg/dL _(quentin c) <130 high For patie nts with diabe savana plus 1 major ASCVD risk facto r, treat ing to a non-H DL-C goal of <100 mg/dL (LDL- C of <70 mg/dL ) is beverley castillo optio n. Not Available [facility] [address] [place], [address], 02/21/2021 04:07:45 02/21/20 21 02/21/2021 COMPR EHENS SAMIR METAB OLIC PANEL glucose 85 mg/dL 65-99 normal Fasti ng refer ence inter aimee Not Available [address], [address], 02/21/2021 04:07:46 02/21/20 21 02/21/2021 COMPR EHENS SAMIR METAB OLIC PANEL urea nitrogen (BUN) 16 mg/dL 7-25 normal Not Available [address], [address], 02/21/2021 04:07:46 02/21/20 21 02/21/2021 COMPR EHENS SAMIR METAB OLIC PANEL creatinine 0.81 mg/dL 0.50-1 .10 normal Not Available [address], [address], 02/21/2021 04:07:46 02/21/20 21 02/21/2021 COMPR EHENS SAMIR METAB OLIC PANEL eGFR non-afr. mozambican 103 mL/mi n/1.7 3m2 > or = 60 normal Not Available [address], [address], 02/21/2021 04:07:46 02/21/20 21 02/21/2021 COMPR EHENS SAMIR METAB OLIC PANEL eGFR 119 mL/mi n/1.7 3m2 > or = 60 normal Not Available [address], [address], 02/21/2021 04:07:46 02/21/20 21 02/21/2021 COMPR EHENS SAMIR METAB OLIC PANEL BUN/creatini ne ratio NOT APPLIC ABLE (calc ) 6-22 Not Available [address], [address], 02/21/2021 04:07:46 02/21/20 21 02/21/2021 COMPR EHENS SAMIR METAB OLIC PANEL sodium 141 mmol/ L 135-14 6 normal Not Available [facility] [place] [address] [address], [place], [address], 02/21/2021 04:07:46 02/21/20 21 02/21/2021 COMPR EHENS SAMIR METAB OLIC PANEL potassium 4.8 mmol/ L 3.5-5. 3 normal Not Available [address], [address], 02/21/2021 04:07:46 02/21/20 21 02/21/2021 COMPR EHENS SAMIR METAB OLIC PANEL chloride 106 mmol/ L 98-110 normal Not Available [address], [address], 02/21/2021 04:07:46 02/21/20 21 02/21/2021 COMPR EHENS SAMIR METAB OLIC PANEL carbon dioxide 26 mmol/ L 20-32 normal Not Available [address], [address], 02/21/2021 04:07:46 02/21/20 21 02/21/2021 COMPR EHENS SAMIR METAB OLIC PANEL calcium 9.8 mg/dL 8.6-10 .2 normal Not Available [address], [address], 02/21/2021 04:07:46 02/21/20 21 02/21/2021 COMPR EHENS SAMIR METAB OLIC PANEL protein, total 7.2 g/dL 6.1-8. 1 normal Not Available [address], [address], 02/21/2021 04:07:46 02/21/20 21 02/21/2021 COMPR EHENS SAMIR METAB OLIC PANEL albumin 4.2 g/dL 3.6-5. 1 normal Not Available [address], [address], 02/21/2021 04:07:46 02/21/20 21 02/21/2021 COMPR EHENS SAMIR METAB OLIC PANEL globulin 3.0 g/dL_ (calc ) 1.9-3. 7 normal Not Available [address], [address], 02/21/2021 04:07:46 02/21/20 21 02/21/2021 COMPR EHENS SAMIR METAB OLIC PANEL albumin/glob ulin ratio 1.4 (calc ) 1.0-2. 5 normal Not Available [address], [address], 02/21/2021 04:07:46 02/21/20 21 02/21/2021 COMPR EHENS SAMIR METAB OLIC PANEL bilirubin, total 0.2 mg/dL 0.2-1. 2 normal Not Available [address], [address], 02/21/2021 04:07:46 02/21/20 21 02/21/2021 COMPR EHENS SAMIR METAB OLIC PANEL alkaline phosphatase 43 U/L 31-125 normal Not Available [address], [address], 02/21/2021 04:07:46 02/21/20 21 02/21/2021 COMPR EHENS SAMIR METAB OLIC PANEL AST 15 U/L 10-30 normal Not Available [address], [address], 02/21/2021 04:07:46 02/21/20 21 02/21/2021 COMPR EHENS SAMIR METAB OLIC PANEL ALT 14 U/L 6-29 normal Not Available [address], [address], 02/21/2021 04:07:46 Result Notes None recorded. Problems Name Problem SNOMED Code Status Onset Date Resolution Date Notes Provider Name and Address Organization Details Recorded Time Acne vulgaris 78900039 Active 018 Valery Lima MD [address] [facility], [address], [place], [address] , DILMA Lima MD 8 14:32:24 Problem Notes None recorded. Medical Equipment None Reported. Allergies Allergen ID Allergen Name Allergen Category Reaction Reaction Severity Criticality Documentation Date Start Date Code Code System Note Provider Name and Address Organization Details Recorded Time 2798 Product containin g penicilli n and antibioti c (product) medicatio n Not available Not available Not available 02/12/2018 21061 05 SNOMED DLIMA Mendes MD 8 14:38:40 Medications Name Sig Start Date Stop Date Status Note LastModified by Organization Details LastModified Time doxycycline hyclate 100 mg capsule Take 1 capsule every day by oral route for 30 days. 06/20 completed Not Available Not Available Not Available fluconazole 150 mg tablet TAKE 1 TABLET BY MOUTH NOW AND REPEAT IN 3 DAYS active Not Available Not Available No t Available tretinoin 0.025 % topical cream APPLY TO THE FACE EVERY NIGHT AT BEDTIME 09/25 completed Not Available Not Available Not Available ondansetron HCl 4 mg tablet 02/12 completed Not Available Not Available Not Available sertraline 100 mg tablet TAKE 1 TABLET BY MOUTH DAILY active Not Available Not Available No t Available terconazole 0.8 % vaginal cream INSERT 1 APPLICATO RFUL VAGINALLY AT BEDTIME FOR 3 DAYS active Not Available Not Available No t Available tretinoin 0.05 % topical cream APPLY TOPICALLY TO THE AFFECTED AREA ON THE FACE ONCE DAILY AT BEDTIME active Not Available Not Available No t Available alprazolam 0.25 mg tablet TK 1 T PO BID PRA active Not Available Not Available No t Available sertraline 25 mg tablet TK 1 T PO D 01/09 completed Not Available Not Available Not Available omeprazole 20 mg capsule,del ayed release TAKE 1 CAPSULE BY MOUTH DAILY active Not Available Not Available No t Available ondansetron 4 mg disintegrat ing tablet DISSOLVE 1 TABLET ON THE TONGUE EVERY 8 HOURS active Not Available Not Available No t Available sertraline 50 mg tablet TAKE 1 TABLET BY MOUTH DAILY 01/09 completed Not Available Not Available Not Available spironolact one 50 mg tablet TAKE 1 TABLET BY MOUTH EVERY 12 HOURS active Not Available Not Available No t Available clindamycin 1 % lotion APPLY A THIN LAYER TO THE AFFECTED AREAS 1-2 TIMES PER DAY ON FACE BACK AND CHEST active Not Available Not Available No t Available nitrofurant oin monohydrate /macrocryst als 100 mg capsule 02/12 completed Not Available Not Available Not Available Claritin 10/12 completed Not Available Not Available Not Available FAY (28) 3 mg-0.02 mg tablet TK 1 T PO QD 01/09 completed Not Available Not Available Not Available Flonase Allergy Relief active Not Available Not Available Not Available doxycycline hyclate 50 mg tablet,maria yed release TAKE 1 TABLET BY MOUTH TWICE DAILY active Not Available Not Available No t Available Retin-A Micro Pump 0.06 % topical gel APPLY A THIN LAYER TO THE AFFECTED AREA(S) AFTER WASHING BY TOPICAL ROUTE ONCE DAILY IN THE EVENING ON FACE 03/02 completed Not Available Not Available Not Available Aurovela 1.5/30 (21) 1.5 mg-30 mcg tablet TAKE 1 TABLET BY MOUTH EVERY DAY 01/09 completed Not Available Not Available Not Available Aurovela Fe 1.5/30 (28) 1.5 mg-30 mcg (21)/75 mg (7) tablet TAKE 1 TABLET BY MOUTH EVERY DAY active Not Available Not Available No t Available Vitals Date Recorded Body temperature Provider Name a nd Address Organization Details Last Updated DateTime 06/20/2020 98.3 [degF] Chucho Hernandez 06/20/2020 15:09:41 Date Recorded Body temperature Provider Name a nd Address Organization Details Last Updated DateTime 09/25/2020 98 [degF] Chucho Lima MD 09/25/2020 16:05:54 Date Recorded Body weight Systolic blood pressure Diastolic blood pressure Provider Name and Address Organization Details Last Updated DateTime 01/09/2021 81630.58 g 130 mm[Hg] 85 mm[Hg] Chucho Lima MD 01/09/2021 16:45:56 Social History Question Answer Notes LastModified by Organizat ion Details LastModified Time Tobacco Smoking Status Never Smoker Not Available [facility] 05/02/2020 03:23:58 What Is Your Level Of Alcohol Consumption? None [id number] Information not available 05/02/2020 In The 14 Days Before Symptom Onset, Have You Had Close Contact With A Laboratory-confir med COVID-19 While That Case Was Ill? No Information not available 06/20/2020 In The 14 Days Before Symptom Onset, Have You Had Close Contact With A Person Who Is Under Investigation For COVID-19 While That Person Was Ill? No [email or web address] Information not available 06/20/2020 Have You Been To An Area Known To Be High Risk For COVID-19? No [email or web address] Information not available 06/20/2020 Do You Or Have You Ever Used E-cigarettes Or Vape? Never Used Electronic Cigarettes [email or web address] Information not available 06/20/2020 Does Patient Have Any Fever, Cough, Sore Throat Or New Shortness Of Breath? No [email or web address] Information not available 06/20/2020 What Was The Date Of Your Most Recent Tobacco Screening? 09/25/2020 [email or web address] Information not available 09/25/2020 Do You Or Have You Ever Used Smokeless Tobacco? Never Used Smokeless Tobacco [email or web address] Information not available 06/20/2020 How Much Tobacco Do You Smoke? No [email or web address] Information not available 06/20/2020 Sun Exposure Occasional [email or web address] Information not available 02/12/2018 Do You Use Sunscreen Routinely? Yes [id number] Information not available 05/02/2020 Tanning Bed Exposure No [email or web address] Information not available 02/12/2018 How Many Years Have You Smoked Tobacco? 0 [email or web address] Information not available 06/20/2020 Sex: Unknown Functional Status None recorded. Mental Status None recorded. Family History Relationship Description Onset Age of this Age Resolved Age Notes LastModified by Organization Details LastModified Time Paternal Grandmother Malignant tumor of breast [email or web address] Not available 01/28 14:39:37 Maternal Grandfather Diabetes mellitus Not available 01/28 14:39:47 Father Hypertensive disorder [email or web address] Not available 01/28 14:40:01 Medical History Condition Response Hyperthyroidism N Defibrillator N Hypothyroidism N Pacemaker N Anemia N Diabetes N Bleeding Disorder N Arthritis N Cancer N Stroke N Asthma Y Lupus N HIV/AIDS N Psoriasis N Hepatitis N Heart Disease N Hypertension N Gynecological HistoryNo gynecological history recorded. Obstetrics History GPAL:G 0 P 0 0 0 0 Past Encounters Encounter ID Performer Location Encounter Start Date Encounter Closed Date Diagnosis/Indication Diagnosis SNOMED-CT Code Diagnosis ICD10 Code Diagnosis Note [id number] Valery Lima MD Main Office [address] [address] 02/12/2018 14:23:28 02/12/2018 16:19:42 Acne vulgaris 51255947 L70.0 [id number] Valery Lima MD Main Office [address] [place] [id number] 04/14/2018 14:09:16 04/14/2018 14:33:28 Acne vulgaris 62548702 L70.0 [id number] Valery Lima MD Main Office [address] [place] [id number] 10/12/2018 15:34:23 10/12/2018 16:32:38 Acne vulgaris 60333753 L70.0 [id number] Valery Lima MD Main Office [address] [place] [id number] 06/20/2020 14:15:52 06/20/2020 15:40:49 Acne vulgaris 37619972 L70.0 [id number] Valery Lima MD Main Office [address] [place] [phone] 09/25/2020 15:40:02 09/25/2020 16:17:08 Acne vulgaris 51515457 L70.0 [id number] Valery Lima MD Main Office [address] [place] [id number] 01/09/2021 16:11:37 01/09/2021 17:29:34 Acne vulgaris 66712868 L70.0 Long-term drug therapy 914632426 Z79.899 Health Concerns Section Related Observation LastModified by Organization Detai ls LastModified Time None Recorded Concern Status LastModified by Organization Details LastModified Time None Recorded Advance Directives Directive None Recorded Payers Encounter Date Sequence Insurance Name Policy Number Policy Eaton Covered Member ID Eaton Member ID Guarantor Name 04/14/2018 1 [facility] [id number] [id number] Farideh Monae 10/12/2018 1 *SELF PAY* Br denise Dov 06/20/2020 1 [place] [employer] [facility] [employer] [id number] Faridhe Monae [id number] Farideh Monae 09/25/2020 1 [place] [employer] [facility] [employer] [facility] [employer] 131 Farideh Monae [id number] Farideh Monae 01/09/2021 1 [place] [employer] [facility] [employer] 131 Farideh Monae [id number] Farideh Monae Notes Date Note Type Note Provider Name and Address Organization Details Recorded Time 04/14/2018 text/html follow up for ac joshua stopped taking the doxycycline--making her sicktook 1 mo and then stopped after 4 dys on the refill for nausea and heartburnthese symptoms resolved after stopping doxycycline.started taking Fay-- control 3 wks ago,using neutrogena face wash with BP in it every dayusing tretinoin 0.025 cr qhs and not drying.she is better but still with some bumps on the faceshe is happy with the results Valery Lima MD [address] [place] [address], [address], [place], [address], [facility] - Valery Lima MD 04/15/2018 21:39:01 10/12/2018 text/html acne follow upgo ing well--started BCP and it cleared her face upcurrently only using face washnot using clindamycin lotionpt states the tretinoin was burning her face so she stopped using it in August. also with bump on the R side of the noseno changes. Valery Lima MD [address] [place] [address], [address], [place], [address], [facility] - Valery Lima MD 10/14/2018 21:32:02 06/20/2020 text/html COVID-19 peter knight. Pt waited in car prior to appt, called in for visit for checkin and rooming. Patient screening questions performed during call in car: No fever, cough, loss of taste or smell, or shortness of breath. Patient denies current diagnosis or pending testing of COVID-19 or recent exposure to any individual with known or current testing for COVID-19. Patient and staff masked for duration of visit. new dx: anxiety and depression acne vulgaris, unstablecurrently flaring on face, chest and backpt started taking control that cleared acne then she had to switch to different controlpt was using bp wash and Retin-a--she stopped using once face cleared from the controlpt currently using a neutrogena cleanseronce dailyshe notes her face was clear earlier part of this year and she stopped her tretinoinsince then she has changed her BCP multiple times with trying to regulate her menses and flaring with her acne over the past few monthsrestarted her tretinoin 0.025 cr qhs a month agoshe does find that when she is flaring she picks at the areas on the face Valery Liam MD [address] [place] [address], [address], [place], [address], DILMA Lima MD 06/24/2020 17:29:22 09/25/2020 text/html COVID-19 protoco l. Patient and any caregivers present screened to confirm no fever, cough, loss of taste or smell, or shortness of breath. Patient and any caregivers deny current diagnosis or pending testing of COVID-19 or recent exposure to any individual with known or current testing for COVID-19. Patient and any caregivers masked during visit. acne vulgaris f/upt states she notice improvement while taking doxy--once she stopped taking doxy acne flared on face, chest and back a littleface better but still with breakouts on the foreheadflares some with menses but also other timespt still using bp qam, clindamycin qd and tretinoin qhspt needs refill on clindamycin lotionoverall skin on the face still oily at timesnot drying with tretinoin 0.025 cr qhs on the facecurrently on BCP Valery Lima MD [address] [place] [address], [address], [place], [address], DILMA Lima MD 10/01/2020 21:42:37 01/09/2021 text/html COVID-19 protoco l. Patient and any caregivers present screened to confirm no fever, cough, loss of taste or smell, or shortness of breath. Patient and any caregivers deny current diagnosis or pending testing of COVID-19 or recent exposure to any individual with known or current testing for COVID-19. Patient and caregivers masked while in office. Acne vulgaris, face and back-unstable and worse she is also starting to break out more on the forehead and the shoulderspt still using BP wash, clindamycin lotion qam face tretinoin 0.05 cream qhs on the face pt states when she was on the doxy acne calmed a little but did not go away pt would like to consider spironolactone or other treatment optionno current plans for and not currently sexually activecurrently on BCP and recently changed to BCP with different iron levels a month agono hx depression-past hx anxiety treated with Dr Valdez personal or family hx inflammatory bowel disease Valery Lima MD [address] [facility], [address], [place], [address], [facility] [place] - Valery Lima MD 01/09/2021 18:35:56 OBGyn Episode No OBEpisode recorded.
[2024-08-12 20:30] LABS: Basophils Percent Auto 0.3 % (0.2-1.2); Eosinophils Absolute Auto 0.3 K/mm3 (0-0.3); Eosinophils Percent Auto 2.4 % (0-4.4); Hemoglobin 10.3 g/dL (12.0-15.0); Immature Granulocyte Absolute 0.24 K/mm3 (0.00-0.031); Immature Granulocyte Percent A 1.9 % (0-0.5); Lymphocytes Absolute Auto 3.43 K/mm3 (0.9-3.2); Lymphocytes Percent Auto 27.7 % (18.3-44.2); Mean Corpuscular HGB Conc 32.2 g/dl (32-36); Mean Corpuscular Hemoglobin 29.6 pg (26-34); Mean Platelet Volume 9.4 fl (7.4-10.4); Monocytes Percent Auto 8.1 % (2.6-8.5); Neutrophils Absolute Auto 7.4 K/mm3 (1.3-6.7); Neutrophils Percent Auto 59.6 % (45.5-73.1); Platelet Count Result 243 k/mm3 (150-375); Red Blood Count 3.48 M/mm3 (4.2-5.4); Red Cell Distribution Width 14.4 % (11.5-14.5); White Blood Count 12.4 K/mm3 (4.5-10.0)
[2024-08-12 20:37] LABS: Creatinine Urine 68.1 mg/dL; Total Protein Urine Random 30 mg/dL; Ur Ttl Prot Creatinine Ratio 0.44 mg/mg (0-0.20)
[2024-08-12 20:41] LABS: Alanine Aminotransferase 17 U/L (6-35); Albumin Level 3.5 g/dL (3.5-5.1); Alkaline Phosphatase 80 U/L (38-126); Anion Gap 6 mmol/L (4-12); Aspartate Amino Transferase 23 U/L (14-36); Bilirubin,Total 0.3 mg/dL (0.2-1.3); Blood Urea Nitrogen 7 mg/dL (7-17); Calcium 10.1 mg/dL (8.4-10.2); Carbon Dioxide 19 mmol/L (22-30); Chloride 105 mmol/L (98-107); Estimated Glomerular Filt Rate > 60; Glucose 100 mg/dL (65-110); Sodium 130 mmol/L (137-145); Uric Acid 4.5 mg/dL (2.5-7.5)
[2024-08-12 20:47] LABS: Add Urine Microscopic? YES; Appearance Urine Turbid (Clear); Bacteria Urine 3+ /hpf; Bilirubin Urine Negative (Negative); Blood Urine Trace (Negative); Color Urine Yellow (Yellow); Glucose Urine UA Negative (Negative); Ketones Urine Negative (Negative); Leukocyte Esterase Ur 3+ LEU/UL (Negative); Need Manual Microscopic Reviewed; Nitrate Urine Negative (Negative); Non Pathogenic Casts 0-2; Protein Urine Negative (Negative); RBC Urine 0-2 /hpf (0-2); Squamous Epithelial Cell Urine Few /hpf (Few); Urobilinogen Urine 0.2 mg/dL (<2.0); WBC Urine >100 /hpf (0-3); pH Urine 6.5 (5.0-9.0)
--- NOTE | 2024-08-12 21:04 | PC.NURSE ---
Called Dr. Ravi, update on pt, elevated blood pressure, blurred vision, headache, and labs. Orders received to send a macrobid prescription 100 mg twice a day for seven days, administer fioricet, take Tylenol 1000 mg as needed, instructions to see provider in the office Friday, and when to return to the unit.
--- NOTE | 2024-08-12 21:16 | PC.NURSE ---
Pt denies Fioricet at this time, will take Tylenol at home.
--- NOTE | 2024-08-12 21:47 | PC.NURSE ---
Pt discharged with a macrobid prescription 100 mg twice a day for seven days, instructions to take Tylenol 1000 mg as needed, see provider in the office Friday, and when to return to the unit, pt verbalizes understanding.
== END 2024-08-12 21:47 | disposition home or self-care (01) ==
LOC: ANHOBOP 19:56 → ANHOBPP 21:29
PROVIDERS: Obstetrics & Gynecology; PCP Family Medicine; Visit Provider Obstetrics & Gynecology
DX: O13.9 Gestational [pregnancy-induced] hypertension without significant proteinuria, unspecified trimester (principal); Z3A.00 Weeks of gestation of pregnancy not specified
CPT/HCPCS: 36415; 59025; 80053; 81001; 82570; 84156; 84550; 85025; 87086; 99199

== ENCOUNTER 2024-08-13 10:23 | Outpatient (RCR) | payer BC, SELFPAY ==
[2024-08-14] MEDS: RHO(D) IMMUNE GLOBULIN 300 MCG/2 ML SYRINGE IM (15:12)
== END 2024-11-11 23:59 | disposition home or self-care (01) ==
LOC: ANHLAB 10:23
PROVIDERS: PCP Family Medicine; Visit Provider Obstetrics & Gynecology
DX: Z36.89 Encounter for other specified antenatal screening (principal); O36.0130 Maternal care for anti-D [Rh] antibodies, third trimester, not applicable or unspecified; Z29.13 Encounter for prophylactic Rho(D) immune globulin
CPT/HCPCS: 36415; 85461; 86850; 86900; 86901; 90384; 96372; J2790

== ENCOUNTER 2024-08-30 15:39 | Observation (INO) | payer BC, SELFPAY ==
[2024-08-30 16:08] VITALS: BP 138/88; PULSE 102
[2024-08-30 16:15] VITALS: BP 138/90; PULSE 107
[2024-08-30 16:30] VITALS: BP 132/89; PULSE 94
[2024-08-30 16:36] VITALS: TEMP 36.6
[2024-08-30 16:43] VITALS: BMI 37.2
--- NOTE | 2024-08-30 16:44 | OBADM ---
This patient, Farideh Barber, admitted to the OB room OB Post 116 for observation. Patient/family oriented to hospital policies and general routines including ID bracelet, bed and alarms, visiting hours, pain management, procedures, bathroom and other care routines, personal items, smoking policy, room service/diet, and visiting hours. Patient/Family are encouraged to report perceived risks to care and to ask questions if they do not understand what they are told or what they should do.
--- NOTE | 2024-08-31 22:09 | PM.OBTRLD ---
OB - Triage/Final Diagnosis Visit Information Comments/Additional reasons for admission: I have assessed the risk for this patient, Farideh Layton Sunil, and determined that she would benefit from observation care. Final Diagnosis (1) Abdominal pain affecting : Code(s): O26.899 - Other specified related conditions, unspecified trimester; R10.9 - Unspecified abdominal pain Status: Acute
== END 2024-08-30 16:54 | disposition home or self-care (01) ==
PROVIDERS: Admitting Provider Obstetrics & Gynecology; PCP Family Medicine; Visit Provider Obstetrics & Gynecology
DX: O26.893 Other specified pregnancy related conditions, third trimester (principal); R10.9 Unspecified abdominal pain; Z3A.33 33 weeks gestation of pregnancy
CPT/HCPCS: 99199

== ENCOUNTER 2024-09-19 14:42 | Observation (INO) | payer BC, SELFPAY ==
--- OUTSIDE RECORDS SUMMARY | 2024-09-19 15:06 | XMS_ITS | Data Portability ---
Author Organization [facility], Main Office Address [address] [place] [address] Assessment No assessment recorded. Plan of Treatment Reminders Order Date Submit Date Provider Last Modified By Organization Details Last Modified Time Details Appointments None recorded. Lab TSH + free T4, serum 2022 023 [facility] [address], [place], [address], 3 10:13:01 T3, free, serum or plasma 2022 023 [facility], [address], [place], [address], 3 10:13:00 unlisted lab - thyroid peroxidase and thyroglobul in antibodies 2022 023 [facility], [address], [place], [address], 3 10:12:58 CMP, serum or plasma 2022 023 [facility], [address], [place], [address], 3 10:13:01 insulin, serum 2022 023 [facility], [address], [place], [address], 3 10:12:58 HbA1c (hemoglobin A1c), blood 2022 023 ROSI [facility], [address], [place], [address], 3 10:12:59 Referral None recorded. Procedures None [...] hola sky refer to https ://ed ucati on.[employer]. Accuradio/f aq/FA Q165 (This link is being provi ded for rosyr alicia nal/e ducat ional purpo ses only. ) (Note ) This test was devel oped and its juan carlos tical perfo rmanc e graciela cteri stics have been deter mined by [email or web address]. It has not been clear ed or appro jaret by the FDA. This assay has been valid ated pursu ant to the CLIA regul ation s and is used for clini quentin purpo ses. Not Available [facility] [address] [place], [address], 09/06/2021 03:17:57 09/01/19 22 09/06/2021 TESTO STERO NE, FREE (DIAL YSIS) AND TOTAL ,MS testosterone , free 1.1 pg/mL 0.1-6. 4 (Note ) This test was devel oped and its juan carlos tical perfo rmanc e graciela cteri stics have been deter mined by [email or web address]. It has not been clear ed or appro jaret by the FDA. This assay has been valid ated pursu ant to the CLIA regul ation s and is used for clini quentin purpo ses. F med ada n [address] [facility] [address] [facility] [address] [phone] Von cha MD Not Available [facility] [address] [place], [address], 09/06/2021 03:17:57 09/01/19 22 09/06/2021 TSH+F REE T4 TSH 2.00 mIU/L normal Refer ence Range > or = 20 Years 0.40- 4.50 Pregn gwen Range s First trime ster 0.26- 2.66 Secon d trime ster 0.55- 2.73 Third trime ster 0.43- 2.91 Not Available [facility] [address] [place], [address], 09/06/2021 03:17:56 09/01/1909/06/2021 TSH+F REE T4 T4, free 1.2 NG/dL 0.8-1. 8 normal Not Available [facility] [address] [place], [address], 09/06/2021 03:17:56 09/01/19 22 09/06/2021 VITAM IN [...] /MS is recom richard d: order code 98891 (gagan ents >2yrs ). See Note 1 Note 1 For addit ional infor hola aceves e refer to http: //rupesh gilmore.Jose stDia gnost ics.c om/fa q/FAQ 199 (This link is being provi ded for infor matio nal/ educa sherri l purpo ses only. ) Not Available [facility] [address] [place], [address], 09/06/2021 03:17:56 09/01/19 22 09/06/2021 FSH AND LH FSH 4.8 mIU/m L normal Refer ence Range Folli cular Phase 2.5-1 0.2 Mid-c ycle Peak 3.1-1 7.7 Lutea l Phase 1.5- 9.1 Postm enopa usal 23.0- 116.3 Not Available [facility] [address] [place], [address], 09/06/2021 03:17:55 09/01/19 22 09/06/2021 FSH AND LH LH 6.0 mIU/m L normal Refer ence Range Folli cular Phase 1.9-1 2.5 Mid-C ycle Peak 8.7-7 6.3 Lutea l Phase 0.5-1 6.9 Postm enopa usal 10.0- 54.7 Not Available [facility] [address] [place], [address], 09/06/2021 03:17:55 09/01/1909/06/2021 T3, FREE T3, free 3.3 pg/mL 2.3-4. 2 normal Not Available [facility] [id number] [place] [address], [address], 09/06/2021 03:17:55 09/01/19 22 09/06/2021 VITAM IN [...] pg/mL will have sympt oms. Not Available [address] [place], [address], 09/06/2021 03:17:54 09/01/19 22 09/06/2021 VITAM IN B12/F OLATE , SERUM PANEL folate, serum 5.8 NG/mL normal Refer ence Range Low: <3.4 Borde rline : 3.4-5 .4 Ne l: >5.4 Not Available [address] [address] [place], [address], 09/06/2021 03:17:54 09/01/1909/06/2021 PROLA CTIN prolactin 9.4 NG/mL normal Refer ence Range Femal es Non-p regna nt 3.0-3 0.0 Pregn ant 10.0- 209.0 Postm enopa usal 2.0-2 0.0 Not Available [address] [place] [facility] [place], [address], 09/06/2021 03:17:53 09/01/19 22 09/06/2021 PROGE STERO NE progesterone <0.5 NG/mL normal Refer ence Range s Femal e Folli cular Phase < 1.0 Lutea l Phase 2.6-2 1.5 Post menop ausal < 0.5 Pregn gwen 1st Trime ster 4.1-3 4.0 2nd Trime ster 24.0- 76.0 3rd Trime ster 52.0- 302.0 Not Available [address] [address] [place], [address], 09/06/2021 03:17:53 09/01/19 22 09/06/2021 ANGIO TENSI N-1-C ONVER TING ENZYM E angiotensin- 1-converting enzyme 40 U/L 9-67 normal Not Available [facility] [address] [place], [address], 09/06/2021 03:17:52 09/01/19 22 09/06/2021 INSUL IN [...] (dete berkley, gluli sine) . Not Available [facility] [address], [address], 09/06/2021 03:17:51 09/01/19 22 09/06/2021 DHEA SULFA TE DHEA sulfate 111 mcg/d L 14-349 normal Not Available [facility] [address] [place], [address], 09/06/2021 03:17:51 09/01/19 22 09/06/2021 THYRO ID PEROX IDASE ANTIB ODIES thyroid peroxidase antibodies <1 IU/mL <9 normal Not Available [facility] [address] [place], [address], 09/06/2021 03:17:50 09/01/1909/06/2021 ESTRA DIOL, FREE estradiol, free 0.20 pg/mL Femal e Refer ence Range s for Estra diol, Free (pg/m L): Folli cular Stage : 0.43- 5.03 Lutea l Stage : 0.40- 5.55 Postm enopa usal: < or = 0.38 Not Available [facility] [address] [address] [place], [address], 09/06/2021 03:17:50 09/01/19 22 09/06/2021 ESTRA DIOL, [...] mined by [facility] Romeroi giuseppe [place] Bobizzy padmaja . It has not been clear ed or appro jaret by FDA. This assay has been valid ated pursu ant to the CLIA regul ation s and is used for clini quentin purpo ses. Not Available [facility] [address] [place], [address], 09/06/2021 03:17:50 09/01/19 22 09/06/2021 CBC (INCL UDES DIFF/ PLT) white blood cell count 10.6 thous and/u L 3.8-10 .8 normal Not Available [facility] [address], [address], 09/06/2021 03:17:49 09/01/19 22 09/06/2021 CBC (INCL UDES DIFF/ PLT) red blood cell count 4.88 karma on/uL 3.80-5 .10 normal Not Available [employer] [facility] [address], [address], 09/06/2021 03:17:49 09/01/19 22 09/06/2021 CBC (INCL UDES DIFF/ PLT) hemoglobin 13.1 g/dL 11.7-1 5.5 normal Not Available [facility] [address], [address], 09/06/2021 03:17:49 09/01/19 22 09/06/2021 CBC (INCL UDES DIFF/ PLT) hematocrit 41.1 % 35.0-4 5.0 normal Not Available [facility] [address] [place], [address], 09/06/2021 03:17:49 09/01/19 22 09/06/2021 CBC (INCL UDES DIFF/ PLT) MCV 84.2 fL 80.0-1 00.0 normal Not Available [address], [address], 09/06/2021 03:17:49 09/01/19 22 09/06/2021 CBC (INCL UDES DIFF/ PLT) MCH 26.8 pg 27.0-3 3.0 low Not Available [address], [address], 09/06/2021 03:17:49 09/01/19 22 09/06/2021 CBC (INCL UDES DIFF/ PLT) MCHC 31.9 g/dL 32.0-3 6.0 low Not Available [address], [address], 09/06/2021 03:17:49 09/01/19 22 09/06/2021 CBC (INCL UDES DIFF/ PLT) RDW 12.3 % 11.0-1 5.0 normal Not Available [address], [address], 09/06/2021 03:17:49 09/01/19 22 09/06/2021 CBC (INCL UDES DIFF/ PLT) platelet count 336 thous and/u L 140-40 0 normal Not Available [address], [address], 09/06/2021 03:17:49 09/01/19 22 09/06/2021 CBC (INCL UDES DIFF/ PLT) MPV 9.8 fL 7.5-12 .5 normal Not Available [address], [address], 09/06/2021 03:17:49 09/01/19 22 09/06/2021 CBC (INCL UDES DIFF/ PLT) absolute neutrophils 5512 cells /uL 1500-7 800 normal Not Available [address], [address], 09/06/2021 03:17:49 09/01/19 22 09/06/2021 CBC (INCL UDES DIFF/ PLT) absolute lymphocytes 3975 cells /uL 850-39 00 high Not Available [address], [address], 09/06/2021 03:17:49 09/01/19 22 09/06/2021 CBC (INCL UDES DIFF/ PLT) absolute monocytes 689 cells /uL 200-95 0 normal Not Available [address], [address], 09/06/2021 03:17:49 09/01/19 22 09/06/2021 CBC (INCL UDES DIFF/ PLT) absolute eosinophils 371 cells /uL 15-500 normal Not Available [address], [address], 09/06/2021 03:17:49 09/01/19 22 09/06/2021 CBC (INCL UDES DIFF/ PLT) absolute basophils 53 cells /uL 0-200 normal Not Available [address], [address], 09/06/2021 03:17:49 09/01/19 22 09/06/2021 CBC (INCL UDES DIFF/ PLT) neutrophils 52 % normal Not Available [address], [address], 09/06/2021 03:17:49 09/01/19 22 09/06/2021 CBC (INCL UDES DIFF/ PLT) lymphocytes 37.5 % normal Not Available [address], [address], 09/06/2021 03:17:49 09/01/19 22 09/06/2021 CBC (INCL UDES DIFF/ PLT) monocytes 6.5 % normal Not Available [address], [address], 09/06/2021 03:17:49 09/01/19 22 09/06/2021 CBC (INCL UDES DIFF/ PLT) eosinophils 3.5 % normal Not Available [address], [address], 09/06/2021 03:17:49 09/01/19 22 09/06/2021 CBC (INCL UDES DIFF/ PLT) basophils 0.5 % normal Not Available [facility] [address], [address], 09/06/2021 03:17:49 09/01/19 22 09/06/2021 COMPR EHENS SAMIR METAB OLIC PANEL glucose 88 mg/dL 65-99 normal Fasti ng refer ence inter aimee Not Available [address], [address], 09/06/2021 03:17:49 09/01/19 22 09/06/2021 COMPR EHENS SAMIR METAB OLIC PANEL urea nitrogen (BUN) 16 mg/dL 7-25 normal Not Available [address], [address], 09/06/2021 03:17:49 09/01/19 22 09/06/2021 COMPR EHENS SAMIR METAB OLIC PANEL creatinine 0.80 mg/dL 0.50-1 .10 normal Not Available [address], [address], 09/06/2021 03:17:49 09/01/19 22 09/06/2021 COMPR EHENS SAMIR METAB OLIC PANEL eGFR non-afr. gabonese 104 mL/mi n/1.7 3m2 > or = 60 normal Not Available [address], [address], 09/06/2021 03:17:49 09/01/19 22 09/06/2021 COMPR EHENS SAMIR METAB OLIC PANEL eGFR 120 mL/mi n/1.7 3m2 > or = 60 normal Not Available [address], [address], 09/06/2021 03:17:49 09/01/19 22 09/06/2021 COMPR EHENS SAMIR METAB OLIC PANEL BUN/creatini ne ratio not applic able (calc ) 6-22 Not Available [address], [address], 09/06/2021 03:17:49 09/01/19 22 09/06/2021 COMPR EHENS SAMIR METAB OLIC PANEL sodium 141 mmol/ L 135-14 6 normal Not Available [address], [address], 09/06/2021 03:17:49 09/01/19 22 09/06/2021 COMPR EHENS ASMIR METAB OLIC PANEL potassium 4.3 mmol/ L 3.5-5. 3 normal Not Available [address], [address], 09/06/2021 03:17:49 09/01/19 22 09/06/2021 COMPR EHENS SAMIR METAB OLIC PANEL chloride 106 mmol/ L 98-110 normal Not Available [address], [address], 09/06/2021 03:17:49 09/01/19 22 09/06/2021 COMPR EHENS SAMIR METAB OLIC PANEL carbon dioxide 23 mmol/ L 20-32 normal Not Available [address], [address], 09/06/2021 03:17:49 09/01/19 22 09/06/2021 COMPR EHENS SAMIR METAB OLIC PANEL calcium 9.3 mg/dL 8.6-10 .2 normal Not Available [address] [place], [address], 09/06/2021 03:17:49 09/01/19 22 09/06/2021 COMPR EHENS SAMIR METAB OLIC PANEL protein, total 6.8 g/dL 6.1-8. 1 normal Not Available [address], [address], 09/06/2021 03:17:49 09/01/19 22 09/06/2021 COMPR EHENS SAMIR METAB OLIC PANEL albumin 4.2 g/dL 3.6-5. 1 normal Not Available [address], [address], 09/06/2021 03:17:49 09/01/19 22 09/06/2021 COMPR EHENS SAMIR METAB OLIC PANEL globulin 2.6 g/dL_ (calc ) 1.9-3. 7 normal Not Available [address], [address], 09/06/2021 03:17:49 09/01/19 22 09/06/2021 COMPR EHENS SAMIR METAB OLIC PANEL albumin/glob ulin ratio 1.6 (calc ) 1.0-2. 5 normal Not Available [address], [address], 09/06/2021 03:17:49 09/01/19 22 09/06/2021 COMPR EHENS SAMIR METAB OLIC PANEL bilirubin, total 0.2 mg/dL 0.2-1. 2 normal Not Available [address], [address], 09/06/2021 03:17:49 09/01/19 22 09/06/2021 COMPR EHENS SAMIR METAB OLIC PANEL alkaline phosphatase 47 U/L 31-125 normal Not Available [address], [address], 09/06/2021 03:17:49 09/01/19 22 09/06/2021 COMPR EHENS SAMIR METAB OLIC PANEL AST 14 U/L 10-30 normal Not Available [address], [address], 09/06/2021 03:17:49 09/01/19 22 09/06/2021 COMPR EHENS SAMIR METAB OLIC PANEL ALT 13 U/L 6-29 normal Not Available [address], [address], 09/06/2021 03:17:49 09/01/19 22 09/06/2021 IRON, TIBC AND TRINITY TIN PANEL iron, total 60 mcg/d L 40-190 normal Not Available [address], [address], 09/06/2021 03:17:48 09/01/19 22 09/06/2021 IRON, TIBC AND TRINITY TIN PANEL iron binding capacity 422 mcg/d L_(ca lc) 250-45 0 normal Not Available [address], [address], 09/06/2021 03:17:48 09/01/19 22 09/06/2021 IRON, TIBC AND TRINITY TIN PANEL % saturation 14 %_(ca lc) 16-45 low Not Available [address], [address], 09/06/2021 03:17:48 09/01/19 22 09/06/2021 IRON, TIBC AND TRINITY TIN PANEL ferritin 45 NG/mL 16-154 normal Not Available [address], [address], 09/06/2021 03:17:48 11/10/19 22 11/15/2021 TESTO STERO NE, FREE (DIAL YSIS) AND TOTAL ,MS testosterone , total, MS 14 NG/dL 2-45 For addit ional infor matio n, pleas e refer to https ://ed ucati on.qu sandy[employer] Lion [employer])s. com/f aq/FA Q165 (This link is being provi ded for infor alicia nal/e ducat ional purpo ses only. ) (Note ) This test was devel oped and its juan carlos tical perfo rmanc e graciela cteri stics have been deter mined by [email or web address]. It has not been clear ed or appro jaret by the FDA. This assay has been valid ated pursu ant to the CLIA regul ation s and is used for clini quentin purpo ses. Not Available [facility] [address] [place], [address], 11/15/2021 22:37:31 11/10/19 22 11/15/2021 TESTO STERO NE, FREE (DIAL YSIS) AND TOTAL ,MS testosterone , free 1.3 pg/mL 0.1-6. 4 (Note ) This test was devel oped and its juan carlos tical perfo rmanc e graciela cteri stics have been deter mined by [employer]. It has not been clear ed or appro jaret by the FDA. This assay has been valid ated pursu ant to the CLIA regul ation s and is used for clini quentin purpo ses. MDF med fusio n [address] [facility] [address] [facility] [address] [phone] Von cha MD Not Available [facility] [address] [address], [place], [address], 11/15/2021 22:37:31 11/10/19 22 11/15/2021 VITAM IN [...] /MS is recom richard d: order code [id number] (gagan ents >2yrs ). See Note 1 Note 1 For addit ional infor hola aceves e refer to http: //[facility] nona gilmore.Jose stDia gnost ics.c om/fa q/FAQ 199 (This link is being provi ded for infor alicia kenney/ eductyesha knight purpo ses only. ) Not Available [facility] [address] [place], [address], 11/15/2021 22:37:31 11/10/19 22 11/15/2021 FSH AND LH FSH 6.6 mIU/m L normal Refer ence Range Folli cular Phase 2.5-1 0.2 Mid-c ycle Peak 3.1-1 7.7 Lutea l Phase 1.5- 9.1 Postm enopa usal 23.0- 116.3 Not Available [facility] [facility] [address] [place], [address], 11/15/2021 22:37:30 11/10/19 22 11/15/2021 FSH AND LH LH 5.9 mIU/m L normal Refer ence Range Folli cular Phase 1.9-1 2.5 Mid-C ycle Peak 8.7-7 6.3 Lutea l Phase 0.5-1 6.9 Postm enopa usal 10.0- 54.7 Not Available [facility] [address] [place], [address], 11/15/2021 22:37:30 11/10/19 22 11/15/2021 VITAM IN B12/F OLATE , SERUM PANEL vitamin B12 597 pg/mL 200-11 00 normal Not Available [facility] [address] [place], [address], 11/15/2021 22:37:29 11/10/19 22 11/15/2021 VITAM IN B12/F OLATE , SERUM PANEL folate, serum 9.4 NG/mL normal Refer ence Range Low: <3.4 Borde rline : 3.4-5 .4 Ne l: >5.4 Not Available [facility] [address] [place], [address], 11/15/2021 22:37:29 11/10/19 22 11/15/2021 CORTI ESTEHPANIA, A.M. cortisol, A.M. 0.8 mcg/d L low Refer ence Range 8 a.m. (7-9 a.m.) Speci men: 4.0-2 2.0 Not Available [facility] [address] [place], [address], 11/15/2021 22:37:29 11/10/19 22 11/15/2021 PROGE STERO NE progesterone <0.5 NG/mL normal Refer ence Range s Femal e Folli cular Phase < 1.0 Lutea l Phase 2.6-2 1.5 Post menop ausal < 0.5 Pregn gwen 1st Trime ster 4.1-3 4.0 2nd Trime ster 24.0- 76.0 3rd Trime ster 52.0- 302.0 Not Available [employer] [facility] [address], [address], 11/15/2021 22:37:28 11/10/19 22 11/15/2021 DHEA SULFA TE DHEA sulfate 47 mcg/d L 14-349 normal Not Available [facility] [address], [address], 11/15/2021 22:37:28 11/10/19 22 11/15/2021 ESTRA DIOL, FREE estradiol, free 0.50 pg/mL Femal e Refer ence Range s for Estra diol, Free (pg/m L): Folli cular Stage : 0.43- 5.03 Lutea l Stage : 0.40- 5.55 Postm enopa usal: < or = 0.38 Not Available [facility] [address], [address], 11/15/2021 22:37:27 11/10/19 22 11/15/2021 ESTRA DIOL, [...] for clini quentin purpo ses. Not Available [facility] [address], [address], 11/15/2021 22:37:27 11/10/19 22 11/15/2021 ANTI- MULLE HAYLEY HORMO NE ([facility]) , FEMAL E anti-mulleri an hormone (amh), female 2.95 NG/mL 1.02-1 4.63 Not Available [facility] [address], [address], 11/15/2021 22:37:27 11/10/19 22 11/15/2021 CBC (H/H, RBC, INDIC ES, WBC, PLT) white blood cell count 9.1 thous and/u L 3.8-10 .8 normal Not Available [facility] [address], [address], 11/15/2021 22:37:26 11/10/19 22 11/15/2021 CBC (H/H, RBC, INDIC ES, WBC, PLT) red blood cell count 5.04 karma on/uL 3.80-5 .10 normal Not Available [address], [address], 11/15/2021 22:37:26 11/10/19 22 11/15/2021 CBC (H/H, RBC, INDIC ES, WBC, PLT) hemoglobin 13.4 g/dL 11.7-1 5.5 normal Not Available [facility] [address], [address], 11/15/2021 22:37:26 11/10/19 22 11/15/2021 CBC (H/H, RBC, INDIC ES, WBC, PLT) hematocrit 42.4 % 35.0-4 5.0 normal Not Available [address], [address], 11/15/2021 22:37:26 11/10/19 22 11/15/2021 CBC (H/H, RBC, INDIC ES, WBC, PLT) MCV 84.1 fL 80.0-1 00.0 normal Not Available [facility] [address], [address], 11/15/2021 22:37:26 11/10/19 22 11/15/2021 CBC (H/H, RBC, INDIC ES, WBC, PLT) MCH 26.6 pg 27.0-3 3.0 low Not Available [address], [address], 11/15/2021 22:37:26 11/10/19 22 11/15/2021 CBC (H/H, RBC, INDIC ES, WBC, PLT) MCHC 31.6 g/dL 32.0-3 6.0 low Not Available [facility] [address], [address], 11/15/2021 22:37:26 11/10/19 22 11/15/2021 CBC (H/H, RBC, INDIC ES, WBC, PLT) RDW 13.0 % 11.0-1 5.0 normal Not Available [address], [address], 11/15/2021 22:37:26 11/10/19 22 11/15/2021 CBC (H/H, RBC, INDIC ES, WBC, PLT) platelet count 302 thous and/u L 140-40 0 normal Not Available [address], [address], 11/15/2021 22:37:26 11/10/19 22 11/15/2021 CBC (H/H, RBC, INDIC ES, WBC, PLT) MPV 9.6 fL 7.5-12 .5 normal Not Available [address], [address], 11/15/2021 22:37:26 11/10/19 22 11/15/2021 COMPR EHENS SAMIR METAB OLIC PANEL glucose 65 mg/dL 65-99 normal Fasti ng refer ence inter aimee Not Available [address], [address], 11/15/2021 22:37:26 11/10/19 22 11/15/2021 COMPR EHENS SAMIR METAB OLIC PANEL urea nitrogen (BUN) 12 mg/dL 7-25 normal Not Available [address], [address], 11/15/2021 22:37:26 11/10/19 22 11/15/2021 COMPR EHENS SAMIR METAB OLIC PANEL creatinine 0.67 mg/dL 0.50-1 .10 normal Not Available [address], [address], 11/15/2021 22:37:26 11/10/19 22 11/15/2021 COMPR EHENS SAMIR METAB OLIC PANEL eGFR non-afr. gabonese 124 mL/mi n/1.7 3m2 > or = 60 normal Not Available [address] [place], [address], 11/15/2021 22:37:26 11/10/19 22 11/15/2021 COMPR EHENS SAMIR METAB OLIC PANEL eGFR 144 mL/mi n/1.7 3m2 > or = 60 normal Not Available [address], [address], 11/15/2021 22:37:26 11/10/19 22 11/15/2021 COMPR EHENS SAMIR METAB OLIC PANEL BUN/creatini ne ratio not applic able (calc ) 6-22 Not Available [address], [address], 11/15/2021 22:37:26 11/10/19 22 11/15/2021 COMPR EHENS SAMIR METAB OLIC PANEL sodium 140 mmol/ L 135-14 6 normal Not Available [address], [address], 11/15/2021 22:37:26 11/10/19 22 11/15/2021 COMPR EHENS SAMIR METAB OLIC PANEL potassium 4.3 mmol/ L 3.5-5. 3 normal Not Available [address], [address], 11/15/2021 22:37:26 11/10/19 22 11/15/2021 COMPR EHENS SAMIR METAB OLIC PANEL chloride 102 mmol/ L 98-110 normal Not Available [address], [address], 11/15/2021 22:37:26 11/10/19 22 11/15/2021 COMPR EHENS SAMIR METAB OLIC PANEL carbon dioxide 25 mmol/ L 20-32 normal Not Available [address], [address], 11/15/2021 22:37:26 11/10/19 22 11/15/2021 COMPR EHENS SAMIR METAB OLIC PANEL calcium 9.2 mg/dL 8.6-10 .2 normal Not Available [address], [address], 11/15/2021 22:37:26 11/10/19 22 11/15/2021 COMPR EHENS SAMIR METAB OLIC PANEL protein, total 6.9 g/dL 6.1-8. 1 normal Not Available [address], [address], 11/15/2021 22:37:26 11/10/19 22 11/15/2021 COMPR EHENS SAMIR METAB OLIC PANEL albumin 4.1 g/dL 3.6-5. 1 normal Not Available [address], [address], 11/15/2021 22:37:26 11/10/19 22 11/15/2021 COMPR EHENS SAMIR METAB OLIC PANEL globulin 2.8 g/dL_ (calc ) 1.9-3. 7 normal Not Available [address], [address], 11/15/2021 22:37:26 11/10/19 22 11/15/2021 COMPR EHENS SAMIR METAB OLIC PANEL albumin/glob ulin ratio 1.5 (calc ) 1.0-2. 5 normal Not Available [address], [address], 11/15/2021 22:37:26 11/10/19 22 11/15/2021 COMPR EHENS SAMIR METAB OLIC PANEL bilirubin, total 0.3 mg/dL 0.2-1. 2 normal Not Available [address], [address], 11/15/2021 22:37:26 11/10/19 22 11/15/2021 COMPR EHENS SAMIR METAB OLIC PANEL alkaline phosphatase 81 U/L 31-125 normal Not Available [address] [address] [place], [address], 11/15/2021 22:37:26 11/10/19 22 11/15/2021 COMPR EHENS SAMIR METAB OLIC PANEL AST 22 U/L 10-30 normal Not Available [address], [address], 11/15/2021 22:37:26 11/10/19 22 11/15/2021 COMPR EHENS SAMIR METAB OLIC PANEL ALT 29 U/L 6-29 normal Not Available [address], [address], 11/15/2021 22:37:26 11/10/19 22 11/15/2021 SPECI MEN [...] ct with red cells . Not Available [address], [address], 11/15/2021 22:37:25 11/10/19 22 11/15/2021 IRON, TIBC AND TRINITY TIN PANEL iron, total 57 mcg/d L 40-190 normal Not Available [address] [address] [place], [address], 11/15/2021 22:37:24 11/10/19 22 11/15/2021 IRON, TIBC AND TRINITY TIN PANEL iron binding capacity 367 mcg/d L_(ca lc) 250-45 0 normal Not Available [address], [address], 11/15/2021 22:37:24 11/10/19 22 11/15/2021 IRON, TIBC AND TRINITY TIN PANEL % saturation 16 %_(ca lc) 16-45 normal Not Available [facility] [address] [place], [address], 11/15/2021 22:37:24 11/10/19 22 11/15/2021 IRON, TIBC AND TRINITY TIN PANEL ferritin 41 NG/mL 16-154 normal Not Available [facility] [address] , [place], [address], 11/15/2021 22:37:24 12/05/19 22 12/09/2021 TESTO STERO NE, FREE (DIAL YSIS) AND TOTAL ,MS testosterone , total, MS 22 NG/dL 2-45 For addit ional hola sky refer to https ://ed ati on.qu [employer]. com/f aq/FA Q165 (This link is being provi ded for infor alicia nal/e ducat ional purpo ses only. ) (Note ) This test was devel oped and its juan carlos tical perfo rmanc e graciela cteri stics have been deter mined by [email or web address]. It has not been clear ed or appro jaret by the FDA. This assay has been valid ated pursu ant to the CLIA regul ation s and is used for clini quentin purpo ses. Not Available [facility] [address] [place], [address], 12/09/2021 03:46:21 12/05/19 22 12/09/2021 TESTO STERO NE, FREE (DIAL YSIS) AND TOTAL ,MS testosterone , free 2.4 pg/mL 0.1-6. 4 (Note ) This test was devel oped and its juan carlos tical perfo rmanc e graciela cteri stics have been deter mined by [employer]. It has not been clear ed or appro jaret by the FDA. This assay has been valid ated pursu ant to the CLIA regul ation s and is used for clini quentin purpo ses. [facility] med [address] n [address] [place] [address] [phone] Von cha MD Not Available [facility] [address] [place] [address] [place], [address], 12/09/2021 03:46:21 12/05/19 22 12/09/2021 HEMOG LOBIN [...] Care in Diabe savana(A DA). Not Available [facility] [address] [address], [place], [address], 12/09/2021 03:46:20 12/05/19 22 12/09/2021 TSH+F REE T4 TSH 1.18 mIU/L normal Refer ence Range > or = 20 Years 0.40- 4.50 Pregn gwen Range s First trime ster 0.26- 2.66 Secon d trime ster 0.55- 2.73 Third trime ster 0.43- 2.91 Not Available [facility] [address] [place], [address], 12/09/2021 03:46:19 12/05/19 22 12/09/2021 TSH+F REE T4 T4, free 1.1 NG/dL 0.8-1. 8 normal Not Available [facility] [address] [place], [address], 12/09/2021 03:46:19 12/05/19 22 12/09/2021 FSH AND LH FSH 2.1 mIU/m L normal Refer ence Range Folli cular Phase 2.5-1 0.2 Mid-c ycle Peak 3.1-1 7.7 Lutea l Phase 1.5- 9.1 Postm enopa usal 23.0- 116.3 Not Available [facility] [address] [place], [address], 12/09/2021 03:46:18 12/05/1912/09/2021 FSH AND LH LH 7.7 mIU/m L normal Refer ence Range Folli cular Phase 1.9-1 2.5 Mid-C ycle Peak 8.7-7 6.3 Lutea l Phase 0.5-1 6.9 Postm enopa usal 10.0- 54.7 Not Available [facility] [address] [place], [address], 12/09/2021 03:46:18 12/05/1912/09/2021 PROLA CTIN prolactin 11.7 NG/mL normal Refer ence Range Femal es Non-p regna nt 3.0-3 0.0 Pregn ant 10.0- 209.0 Postm enopa usal 2.0-2 0.0 Not Available [facility] [address] [place], [address], 12/09/2021 03:46:18 12/05/1912/09/2021 PROGE STERO NE progesterone 13.0 NG/mL normal Refer ence Range s Femal e Folli cular Phase < 1.0 Lutea l Phase 2.6-2 1.5 Post menop ausal < 0.5 Pregn gwen 1st Trime ster 4.1-3 4.0 2nd Trime ster 24.0- 76.0 3rd Trime ster 52.0- 302.0 Not Available [facility] [address] [address] [place], [address], 12/09/2021 03:46:17 12/05/19 22 12/09/2021 INSUL IN [...] (dete berkley, gluli sine) . Not Available [facility] [address] [place], [address], 12/09/2021 03:46:16 12/05/19 22 12/09/2021 DHEA SULFA TE DHEA sulfate 104 mcg/d L 14-349 normal Not Available [facility] [address], [address], 12/09/2021 03:46:15 12/05/19 22 12/09/2021 ESTRA DIOL, FREE estradiol, free 3.16 pg/mL Femal e Refer ence Range s for Estra diol, Free (pg/m L): Folli cular Stage : 0.43- 5.03 Lutea l Stage : 0.40- 5.55 Postm enopa usal: < or = 0.38 Not Available [facility] [address] [address] [place], [address], 12/09/2021 03:46:15 12/05/19 22 12/09/2021 ESTRA DIOL, [...] for clini quentin purpo ses. Not Available [facility] [address] [address] [place], [address], 12/09/2021 03:46:15 12/05/19 22 12/09/2021 COMPR EHENS SAMIR METAB OLIC PANEL glucose 87 mg/dL 65-99 normal Fasti ng refer ence inter aimee Not Available [facility] [address], [address], 12/09/2021 03:46:14 12/05/19 22 12/09/2021 COMPR EHENS SAMIR METAB OLIC PANEL urea nitrogen (BUN) 12 mg/dL 7-25 normal Not Available [facility] [address], [address], 12/09/2021 03:46:14 12/05/19 22 12/09/2021 COMPR EHENS SAMIR METAB OLIC PANEL creatinine 0.86 mg/dL 0.50-1 .10 normal Not Available [facility] [address] [address] [place], [address], 12/09/2021 03:46:14 12/05/19 22 12/09/2021 COMPR EHENS SAMIR METAB OLIC PANEL eGFR non-afr. gabonese 95 mL/mi n/1.7 3m2 > or = 60 normal Not Available [facility] [address] [place], [address], 12/09/2021 03:46:14 12/05/19 22 12/09/2021 COMPR EHENS SAMIR METAB OLIC PANEL eGFR 110 mL/mi n/1.7 3m2 > or = 60 normal Not Available [address], [address], 12/09/2021 03:46:14 12/05/19 22 12/09/2021 COMPR EHENS SAMIR METAB OLIC PANEL BUN/creatini ne ratio not applic able (calc ) 6-22 Not Available [address], [address], 12/09/2021 03:46:14 12/05/19 22 12/09/2021 COMPR EHENS SAMIR METAB OLIC PANEL sodium 140 mmol/ L 135-14 6 normal Not Available [address], [address], 12/09/2021 03:46:14 12/05/19 22 12/09/2021 COMPR EHENS SAMIR METAB OLIC PANEL potassium 4.3 mmol/ L 3.5-5. 3 normal Not Available [address], [address], 12/09/2021 03:46:14 12/05/19 22 12/09/2021 COMPR EHENS SAMIR METAB OLIC PANEL chloride 106 mmol/ L 98-110 normal Not Available [address], [address], 12/09/2021 03:46:14 12/05/19 22 12/09/2021 COMPR EHENS SAMIR METAB OLIC PANEL carbon dioxide 26 mmol/ L 20-32 normal Not Available [address], [address], 12/09/2021 03:46:14 12/05/19 22 12/09/2021 COMPR EHENS SAMIR METAB OLIC PANEL calcium 9.4 mg/dL 8.6-10 .2 normal Not Available [facility] [address], [address], 12/09/2021 03:46:14 12/05/19 22 12/09/2021 COMPR EHENS SAMIR METAB OLIC PANEL protein, total 6.6 g/dL 6.1-8. 1 normal Not Available [address], [address], 12/09/2021 03:46:14 12/05/19 22 12/09/2021 COMPR EHENS SAMIR METAB OLIC PANEL albumin 4.1 g/dL 3.6-5. 1 normal Not Available [address], [address], 12/09/2021 03:46:14 12/05/19 22 12/09/2021 COMPR EHENS SAMIR METAB OLIC PANEL globulin 2.5 g/dL_ (calc ) 1.9-3. 7 normal Not Available [address], [address], 12/09/2021 03:46:14 12/05/19 22 12/09/2021 COMPR EHENS SAMIR METAB OLIC PANEL albumin/glob ulin ratio 1.6 (calc ) 1.0-2. 5 normal Not Available [address], [address], 12/09/2021 03:46:14 12/05/19 22 12/09/2021 COMPR EHENS SAMIR METAB OLIC PANEL bilirubin, total 0.3 mg/dL 0.2-1. 2 normal Not Available [address], [address], 12/09/2021 03:46:14 12/05/19 22 12/09/2021 COMPR EHENS SAMIR METAB OLIC PANEL alkaline phosphatase 73 U/L 31-125 normal Not Available [address], [address], 12/09/2021 03:46:14 12/05/19 22 12/09/2021 COMPR EHENS SAMIR METAB OLIC PANEL AST 16 U/L 10-30 normal Not Available [facility] [address] [place], [address], 12/09/2021 03:46:14 12/05/19 22 12/09/2021 COMPR EHENS SAMIR METAB OLIC PANEL ALT 19 U/L 6-29 normal Not Available [facility] [address] [place], [address], 12/09/2021 03:46:14 04/20/20 22 04/23/2022 HEMOG LOBIN [...] Diabe savana(A DA). Not Available [facility] [address] [place], [address], 04/23/2022 02:52:33 04/20/2004/23/2022 TSH+F REE T4 TSH 0.83 mIU/L normal Refer ence Range > or = 20 Years 0.40- 4.50 Pregn gwen Range s First trime ster 0.26- 2.66 Secon d trime ster 0.55- 2.73 Third trime ster 0.43- 2.91 Not Available [facility] [address] [place], [address], 04/23/2022 02:52:32 04/20/2004/23/2022 TSH+F REE T4 T4, free 1.3 NG/dL 0.8-1. 8 normal Not Available [facility] [address] [address] [place], [address], 04/23/2022 02:52:32 04/20/2004/23/2022 VITAM IN D,25- [place],TO [...] /MS is recom richard d: order code 20124 (gagan ents >2yrs ). See Note 1 Note 1 For addit ional infor hola aceves e refer to http: //[facility] nona Garcia gnost ics.c om/fa q/FAQ 199 (This link is being provi ded for infor alicia kenney/ jairo knight purpo ses only. ) Not Available [facility] [address] [place], [address], 04/23/2022 02:52:32 04/20/2004/23/2022 T3, FREE T3, free 3.1 pg/mL 2.3-4. 2 normal Not Available [facility] [address] [place], [address], 04/23/2022 02:52:31 04/20/2004/23/2022 VITAM IN B12/F OLATE [...] pg/mL will have sympt oms. Not Available [address] [place], [address], 04/23/2022 02:52:31 04/20/2004/23/2022 VITAM IN B12/F OLATE , SERUM PANEL folate, serum 8.6 NG/mL normal Refer ence Range Low: <3.4 Borde rline : 3.4-5 .4 Ne l: >5.4 Not Available [address] [address] [place], [address], 04/23/2022 02:52:31 04/20/20 22 04/23/2022 THYRO ID PEROX IDASE AND THYRO GLOBU MARIN ANTIB ODIES thyroglobuli n antibodies <1 IU/mL < or = 1 normal Not Available [address] [address] [place], [address], 04/23/2022 02:52:30 04/20/2004/23/2022 THYRO ID PEROX IDASE AND THYRO GLOBU MARIN ANTIB ODIES thyroid peroxidase antibodies <1 IU/mL <9 normal Not Available [facility] [address] [address] [place], [address], 04/23/2022 02:52:30 04/20/20 22 04/23/2022 COMPR EHENS SAMIR METAB OLIC PANEL glucose 84 mg/dL 65-99 normal Fasti ng refer ence inter aimee Not Available [address] [address] [place], [address], 04/23/2022 02:52:29 04/20/20 22 04/23/2022 COMPR EHENS SAMIR METAB OLIC PANEL urea nitrogen (BUN) 12 mg/dL 7-25 normal Not Available [address] [address] [place], [address], 04/23/2022 02:52:29 04/20/20 22 04/23/2022 COMPR EHENS SAMIR METAB OLIC PANEL creatinine 0.80 mg/dL 0.50-0 .96 normal Not Available [address], [address], 04/23/2022 02:52:29 04/20/20 22 04/23/2022 COMPR EHENS [...] kdoqi /gfr% 5Fcal culat or Not Available [address] [address] [place], [address], 04/23/2022 02:52:29 04/20/20 22 04/23/2022 COMPR EHENS SAMIR METAB OLIC PANEL BUN/creatini ne ratio not applic able (calc ) 6-22 Not Available [address] [address] [place], [address], 04/23/2022 02:52:29 04/20/20 22 04/23/2022 COMPR EHENS SAMIR METAB OLIC PANEL sodium 140 mmol/ L 135-14 6 normal Not Available [address] [address] [place], [address], 04/23/2022 02:52:29 04/20/20 22 04/23/2022 COMPR EHENS SAMIR METAB OLIC PANEL potassium 4.5 mmol/ L 3.5-5. 3 normal Not Available [address], [address], 04/23/2022 02:52:29 04/20/20 22 04/23/2022 COMPR EHENS SAMIR METAB OLIC PANEL chloride 107 mmol/ L 98-110 normal Not Available [address], [address], 04/23/2022 02:52:29 04/20/2004/23/2022 COMPR EHENS SAMIR METAB OLIC PANEL carbon dioxide 23 mmol/ L 20-32 normal Not Available [address], [address], 04/23/2022 02:52:29 04/20/20 22 04/23/2022 COMPR EHENS SAMIR METAB OLIC PANEL calcium 9.0 mg/dL 8.6-10 .2 normal Not Available [address], [address], 04/23/2022 02:52:29 04/20/20 22 04/23/2022 COMPR EHENS SAMIR METAB OLIC PANEL protein, total 7.1 g/dL 6.1-8. 1 normal Not Available [address], [address], 04/23/2022 02:52:29 04/20/20 22 04/23/2022 COMPR EHENS SAMIR METAB OLIC PANEL albumin 4.3 g/dL 3.6-5. 1 normal Not Available [address], [address], 04/23/2022 02:52:29 04/20/20 22 04/23/2022 COMPR EHENS SAMIR METAB OLIC PANEL globulin 2.8 g/dL_ (calc ) 1.9-3. 7 normal Not Available [address], [address], 04/23/2022 02:52:29 04/20/2004/23/2022 COMPR EHENS SAMIR METAB OLIC PANEL albumin/glob ulin ratio 1.5 (calc ) 1.0-2. 5 normal Not Available [address], [address], 04/23/2022 02:52:29 04/20/20 22 04/23/2022 COMPR EHENS SAMIR METAB OLIC PANEL bilirubin, total 0.2 mg/dL 0.2-1. 2 normal Not Available [address], [address], 04/23/2022 02:52:29 04/20/20 22 04/23/2022 COMPR EHENS SAMIR METAB OLIC PANEL alkaline phosphatase 52 U/L 31-125 normal Not Available [address], [address], 04/23/2022 02:52:29 04/20/20 22 04/23/2022 COMPR EHENS SAMIR METAB OLIC PANEL AST 12 U/L 10-30 normal Not Available [address], [address], 04/23/2022 02:52:29 04/20/20 22 04/23/2022 COMPR EHENS SAMIR METAB OLIC PANEL ALT 9 U/L 6-29 normal Not Available [address], [address], 04/23/2022 02:52:29 10/19/19 23 10/18/2022 HEMOG LOBIN [...] Care in Diabe savana(A DA). Not Available [facility] [address] [place], [address], 10/18/2022 23:16:34 08/31/19 22 08/30/2021 US, thyro id No observ ation record ed. [id number] [facility] [address], [place], [address], 08/28/2022 20:57:02 10/24/19 23 10/22/2022 US, thyro id No observ ation record ed. [facility] [address] [facility] [address], [place], [address], 10/28/2022 15:12:59 Result Notes None recorded. Problems Name Problem SNOMED Code Status Onset Date Resolution Date Notes Provider Name and Address Organization Details Recorded Time Acne 84896762 Active 2021 Not Available [facility] 3 20:55:55 Thyroid nodule 848206584 Active 2021 Not Available [facility] 3 20:55:55 Hypervitamino sis D 75735499 Active 2021 Not Available [facility] 3 20:55:55 Vitamin D deficiency 91058843 Active 2021 Not Available [facility] 3 20:55:55 Goiter 4933091 Active 2021 Not Available [facility] 3 20:55:55 Vitamin B12 deficiency (non anemic) 02157612 Active 2021 Not Available [facility] 3 20:55:55 Prediabetes 227904423 Active 2021 Not Available [facility] 3 20:55:56 Irregular periods 26209887 Active 2021 Not Available [facility] 3 20:55:56 Fatigue 05452227 Active 2021 Not Available [facility] 3 20:55:56 Iron deficiency anemia 34485768 Active 2021 Not Available [facility] 3 20:55:56 Weight gain 5172720 Active 2021 Not Available [facility] 3 20:55:56 Problem Notes None recorded. Procedures Surgical History None recorded. Imaging Results Imaging Date Name Status LastModified by Organiz ation Details LastModified Time 08/30/2021 US, thyroid completed [id number] [facility] [address], [place], [address], 08/28/2022 20:57:02 10/22/2022 US, thyroid completed [facility] [address], [place], [address], 10/28/2022 15:12:59 Procedure Notes None recorded. Medical Equipment None Reported. Allergies Allergen ID Allergen Name Allergen Category Reaction Reaction Severity Criticality Documentation Date Start Date Code Code System Note Provider Name and Address Organization Details Recorded Time 45919 Product containin g penicilli n (product) medicatio n Not available Not available Not available 08/28/2022 60596 8001 SNOMED Not Available [facility] 3 20:56:59 Medications Name Sig Start Date [...] completed Not Available Not Available Not Available FE (28) 1.5 mg-30 mcg (21)/75 mg (7) [...] Date Recorded Body mass index (BMI) Body height Oxygen saturation Oxygen saturation in Arterial blood by Pulse oximetry Heart rate Body temperature Body weight Systolic blood pressure Diastolic blood pressure Provider Name and Address Organization Details Last Updated DateTime 2 30.9 kg/m2 152.4 cm 99 % 99 % 99 /min 97.8 [degF] 72875.5 9 g 135 mm[Hg] 90 mm[Hg] Not Available [facility] 3 20:55:32 Date Recorded Body mass index (BMI) Body height Oxygen saturation Oxygen saturation in Arterial blood by Pulse oximetry Heart rate Body temperature Body weight Systolic blood pressure Diastolic blood pressure Provider Name and Address Organization Details Last Updated DateTime 2 31.6 kg/m2 152.4 cm 98 % 98 % 109 /min 97.8 [degF] 93567.5 3 g 130 mm[Hg] 100 mm[Hg] Not Available [facility] 3 20:55:32 Date Recorded Body mass index (BMI) Body height Oxygen saturation Oxygen saturation in Arterial blood by Pulse oximetry Heart rate Body temperature Body weight Systolic blood pressure Diastolic blood pressure Provider Name and Address Organization Details Last Updated DateTime 2 30.3 kg/m2 152.4 cm 99 % 99 % 91 /min 98.4 [degF] 16257.8 2 g 128 mm[Hg] 86 mm[Hg] Not Available [facility] 3 20:55:32 Date Recorded Body mass index (BMI) Body height Oxygen saturation Oxygen saturation in Arterial blood by Pulse oximetry Heart rate Body temperature Body weight Systolic blood pressure Diastolic blood pressure Provider Name and Address Organization Details Last Updated DateTime 2 26.2 kg/m2 152.4 cm 98 % 98 % 82 /min 97.6 [degF] 20014.4 6 g 110 mm[Hg] 75 mm[Hg] Not Available [facility] 3 20:55:32 Date Recorded Body height Body mass index (BMI) Body weight Body temperature Heart rate Systolic blood pressure Diastolic blood pressure Provider Name and Address Organization Details Last Updated DateTime 3 152.4 cm 23.4 kg/m2 45716.3 7 g 97.7 [degF] 86 /min 116 mm[Hg] 78 mm[Hg] COLEEN Schmid [place] - [facility] [employer] [facility] [email or web address] 3 09:50:11 Social History Question Answer Notes LastModified by Organizat ion Details LastModified Time Tobacco Smoking Status Never Smoker Not Available [facility] 08/28/2022 20:55:19 What Is Your Level Of Alcohol Consumption? Occasional X1 Every Few Months [id number] Information not available 08/28/2022 What Is Your Level Of Caffeine Consumption? Moderate [id number] Information not available 08/28/2022 In The 14 Days Before Symptom Onset, Have You Had Close Contact With A Laboratory-confir med COVID-19 While That Case Was Ill? No [id number] Information not available 08/28/2022 In The 14 Days Before Symptom Onset, Have You Had Close Contact With A Person Who Is Under Investigation For COVID-19 While That Person Was Ill? No [id number] Information not available 08/28/2022 What Is The Highest Grade Or Level Of School You Have Completed Or The Highest Degree You Have Received? 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 Single [id number] Information not available 08/28/2022 Have You Recently Traveled Abroad? No [id number] Information not available 08/28/2022 Sex: Female Functional Status None recorded. Mental Status None recorded. Family History Relationship Description Onset Age of this Age Resolved Age Notes LastModified by Organization Details LastModified Time Brother Rheumatoid arthritis system patel paul [id number] Not available 08/28/2022 20:55:26 Maternal Grandfather Family history of stroke [id number].016 [id number] Not available 08/28/2022 20:55:26 Paternal Grandfather Myocardial infarction [id number].485 [id number] Not available 08/28/2022 20:55:26 Notes:Paternal Grandmother- breast [...] SNOMED-CT Code Diagnosis ICD10 Code Diagnosis Note [id number] [facility] [address] [place] [address] 08/24/2021 00:00:00 08/24/2021 15:40:42 [id number] [facility] [place] [address] [place] [address] 12/03/2021 00:00:00 12/03/2021 15:51:46 [id number] [facility] [place] [address] [place] [address] 01/08/2022 00:00:00 01/08/2022 14:40:24 [id number] [facility] [place] [address] [place] [address] 05/13/2022 00:00:00 05/13/2022 17:34:47 [id number] Ellie Chaidez MD [facility] [place] [address] [place] [address] 10/28/2022 09:28:11 10/28/2022 10:17:22 Prediabetes 501674513 R73.03 a1c of 4.8% in range- she [...] nuts (excluding peanuts) and beans. Thyroid nodule 630716638 E04.1 Thyroid nodules all under 5 mm [...] she chooses to go outside of the [facility] to obtain labwork she was [...] [place] Member ID Guarantor Name 10/28/2022 2 [employer] Antoine Monae [id number] Farideh Layton Dov 10/28/2022 1 [facility] [employer] (PP[employer]) [id number] Farideh Layton Dov [id number] Farideh J Dov Notes Date Note Type Note Provider Name and Address Organization Details Recorded Time 10/28/2022 text/html 22 yo female com es in for follow up in management of prediabetes, thyroid nodule, B12 def last seen in Apr at that time we continued ozempic 0.5 [...] sent to review Ellie Chaidez MD [address] [facility], [facility] [address], [place], [address], [facility] 10/28/2022 10:21:34 OBGyn Episode No OBEpisode recorded.
--- OUTSIDE RECORDS SUMMARY | 2024-09-19 15:06 | XMS_ITS | Data Portability ---
Author Organization [facility] - Valery Hernandez, Telehealth Address [address], [address] [place] [address] Care Team Providers Care Steaming Cabinet Tender Name Role Phone PANFILO TAVERAS Primary Care Provider [phone] Assessment Encounter Date Assessment Date Assessment LastModified [...] preferred. offered additional counseling as offered with [employer] program-pt declined. pt elects use of condoms in addition to BCP if she were to become sexually active with hx anxiety, recommend she confirm with Dr Elana SANZ with isotretinoin course urine test performed today baseline lab request given to pt reviewed [employer] requirements and consent forms reviewed and signed [...] test, urine 2020 021 [facility], [address] [place] [address], [phone], 18:27:09 CBC 2020 021 [facility], [address] [place] [address], [address], 18:27:48 CMP, serum or plasma 2020 [place] [address] [address] Office, [address] [facility] [address], [place], [address], 18:27:48 lipids, total, serum 2020 [place] [address] Main Office, [address] [address], [place], [address], 10:58:00 Referral None recorded. Procedures None recorded. Surgeries None recorded. Imaging None recorded. Medication Orders Doryx 50 mg tablet,del ayed release [address], [address] [place] [address] [address], [address], 10:38:56 clindamyci n 1 % lotion 2020 [facility] #14065, [address] [place], [place], [id number], 16:17:16 tretinoin 0.05 % topical cream 2020 [facility] #45316, [address] [place], [place], [id number], 16:17:13 Doryx 50 mg tablet,del ayed release [address] [facility]20300, [address] [place], [place], [id number], 10:38:56 clindamyci n 1 % lotion 2019 [facility] #86105, [address] [place], [place], [id number], 0 15:38:05 tretinoin 0.025 % topical cream 2019 020 [facility], [address] [place], [place], [id number], 1 16:13:42 clindamyci n 1 % lotion 2017 018 [place] [address] [facility], [address] [place], [place], [id number], 8 12:10:18 Retin-A Micro Pump 0.06 % topical gel [address], [address] [place] [address], [address], 1 11:18:49 Patient TargetsNo targets recorded. Patient Instructions Encounter Date Encounter Id Patient Instructions Last Modified By Organization Details Last Modified Time 04/14/2018 [id number] Tretinoin side effects were reviewed with emphasis on skin irritation, redness, dry skin and photosensitivity. Start 2 -3 nights per week and gradually increase to nightly if tolerated. Apply thin coating. Use gentle cleansers and emollients as needed. Not available 04/14/2018 14:32:24 06/20/2020 [id number] doxycyline side effects discussed with emphasis on [...] as needed. Not available 06/20/2020 17:50:23 09/25/2020 [id number] doxycyline side effects discussed with emphasis on [...] as needed. Not available 09/25/2020 18:14:25 01/09/2021 [id number] Isotretinoin erika e effects were reviewed with [...] HCG negati ve Not Available Main Office [address] [place] [address] [address], [place], [address], 01/09/2021 17:25:46 02/21/20 21 02/21/2021 LIPID PANEL , STAND DRAKE cholesterol, total 251 mg/dL <200 high Not Available [facility] [address] [place], [address], 02/21/2021 04:07:45 02/21/20 21 02/21/2021 LIPID PANEL , STAND DRAKE HDL cholesterol 63 mg/dL > or = 50 normal Not Available [facility] [address] [place], [address], 02/21/2021 04:07:45 02/21/20 21 02/21/2021 LIPID PANEL , STAND DRAKE triglyceride s 143 mg/dL <150 normal Not Available [facility] [place] [address] [place], [address], 02/21/2021 04:07:45 02/21/20 21 02/21/2021 LIPID PANEL [...] 9): 2061- 2068 (http ://ed ucati on.Qu sandyIntentio. com/f aq/FA Q164) Not Available [place] [address] [place], [address], 02/21/2021 04:07:45 02/21/20 21 02/21/2021 LIPID PANEL , STAND DRAKE chol/HDLC ratio 4.0 (calc ) <5.0 normal Not Available [facility] [address] [place], [address], 02/21/2021 04:07:45 02/21/20 21 02/21/2021 LIPID PANEL , STAND [place]RAKE non HDL cholesterol 188 mg/dL _(quentin c) <130 high For patie nts with diabe savana plus 1 major ASCVD risk facto r, treat ing to a non-H DL-C goal of <100 mg/dL (LDL- C of <70 mg/dL ) is ebverley castillo optio n. Not Available [facility] [address] [place], [address], 02/21/2021 04:07:45 02/21/20 21 02/21/2021 COMPR EHENS SAMIR METAB OLIC PANEL glucose 85 mg/dL 65-99 normal Fasti ng refer ence inter aimee Not Available [address], [address], 02/21/2021 04:07:46 02/21/20 21 02/21/2021 COMPR EHENS SAMIR METAB OLIC PANEL urea nitrogen (BUN) 16 mg/dL 7-25 normal Not Available [address], [address], 02/21/2021 04:07:46 02/21/20 21 02/21/2021 COMPR EHENS SAMIR METAB OLIC PANEL creatinine 0.81 mg/dL 0.50-1 .10 normal Not Available [address], [address], 02/21/2021 04:07:46 02/21/20 21 02/21/2021 COMPR EHENS SAMIR METAB OLIC PANEL eGFR non-afr. panamanian 103 mL/mi n/1.7 3m2 > or = 60 normal Not Available [address], [address], 02/21/2021 04:07:46 02/21/20 21 02/21/2021 COMPR EHENS SAMIR METAB OLIC PANEL eGFR 119 mL/mi n/1.7 3m2 > or = 60 normal Not Available [address], [address], 02/21/2021 04:07:46 02/21/20 21 02/21/2021 COMPR EHENS SAMIR METAB OLIC PANEL BUN/creatini ne ratio NOT APPLIC ABLE (calc ) 6-22 Not Available [address], [address], 02/21/2021 04:07:46 02/21/20 21 02/21/2021 COMPR EHENS SAMIR METAB OLIC PANEL sodium 141 mmol/ L 135-14 6 normal Not Available [facility] [address] [address], [place], [address], 02/21/2021 04:07:46 02/21/20 21 02/21/2021 COMPR EHENS SAMIR METAB OLIC PANEL potassium 4.8 mmol/ L 3.5-5. 3 normal Not Available [address], [address], 02/21/2021 04:07:46 02/21/20 21 02/21/2021 COMPR EHENS SAMIR METAB OLIC PANEL chloride 106 mmol/ L 98-110 normal Not Available [address], [address], 02/21/2021 04:07:46 02/21/20 21 02/21/2021 COMPR EHENS SAMIR METAB OLIC PANEL carbon dioxide 26 mmol/ L 20-32 normal Not Available [address], [address], 02/21/2021 04:07:46 02/21/20 21 02/21/2021 COMPR EHENS SAMIR METAB OLIC PANEL calcium 9.8 mg/dL 8.6-10 .2 normal Not Available [address], [address], 02/21/2021 04:07:46 02/21/20 21 02/21/2021 COMPR EHENS SAMIR METAB OLIC PANEL protein, total 7.2 g/dL 6.1-8. 1 normal Not Available [address], [address], 02/21/2021 04:07:46 02/21/20 21 02/21/2021 COMPR EHENS SAMIR METAB OLIC PANEL albumin 4.2 g/dL 3.6-5. 1 normal Not Available [address], [address], 02/21/2021 04:07:46 02/21/20 21 02/21/2021 COMPR EHENS SAMIR METAB OLIC PANEL globulin 3.0 g/dL_ (calc ) 1.9-3. 7 normal Not Available [address], [address], 02/21/2021 04:07:46 02/21/20 21 02/21/2021 COMPR EHENS SAMIR METAB OLIC PANEL albumin/glob ulin ratio 1.4 (calc ) 1.0-2. 5 normal Not Available [address], [address], 02/21/2021 04:07:46 02/21/20 21 02/21/2021 COMPR EHENS SAMIR METAB OLIC PANEL bilirubin, total 0.2 mg/dL 0.2-1. 2 normal Not Available [address], [address], 02/21/2021 04:07:46 02/21/20 21 02/21/2021 COMPR EHENS SAMIR METAB OLIC PANEL alkaline phosphatase 43 U/L 31-125 normal Not Available [address], [address], 02/21/2021 04:07:46 02/21/20 21 02/21/2021 COMPR EHENS SAMIR METAB OLIC PANEL AST 15 U/L 10-30 normal Not Available [address], [address], 02/21/2021 04:07:46 02/21/20 21 02/21/2021 COMPR EHENS SAMIR METAB OLIC PANEL ALT 14 U/L 6-29 normal Not Available [address], [address], 02/21/2021 04:07:46 Result Notes None recorded. Problems Name Problem SNOMED Code Status Onset Date Resolution Date Notes Provider Name and Address Organization Details Recorded Time Acne vulgaris 68376536 Active 018 Valery Lima MD [address] [facility], [address], [place], [address] , [facility] Lima MD 8 14:32:24 Problem Notes None recorded. Medical Equipment None Reported. Allergies Allergen ID Allergen Name Allergen Category Reaction Reaction Severity Criticality Documentation Date Start Date Code Code System Note Provider Name and Address Organization Details Recorded Time 2798 Product containin g penicilli n (product) medicatio n Not available Not available Not available 02/12/2018 16469 8001 SNOMED [facility] Mendes MD 8 14:38:40 Medications Name Sig [...] Address Organization Details Last Updated DateTime 01/09/2021 18276.58 g 130 mm[Hg] 85 mm[Hg] Chucho Lima MD 01/09/2021 16:45:56 Social History Question Answer Notes LastModified by Organizat ion Details LastModified Time Tobacco Smoking Status Never Smoker Not Available [facility] 05/02/2020 03:23:58 What Is Your Level Of Alcohol Consumption? None [id number] Information not available 05/02/2020 In The 14 Days Before Symptom Onset, Have You Had Close Contact With A Laboratory-confir med COVID-19 While That Case Was Ill? No [email or web address] Information not available 06/20/2020 In The 14 Days Before Symptom Onset, Have You Had Close Contact With A Person Who Is Under Investigation For COVID-19 While That Person Was Ill? No [email or web address] Information not available 06/20/2020 Have You Been To An Area Known To Be High Risk For COVID-19? No [email or web address] Information not available 06/20/2020 Do You Or Have You Ever Used E-cigarettes Or Vape? Never Used Electronic Cigarettes [email or web address] Information not available 06/20/2020 Does Patient Have Any Fever, Cough, Sore Throat Or New Shortness Of Breath? No [email or web address] Information not available 06/20/2020 What Was The Date Of Your Most Recent Tobacco Screening? 09/25/2020 [email or web address] Information not available 09/25/2020 Do You Or Have You Ever Used Smokeless Tobacco? Never Used Smokeless Tobacco [email or web address] Information not available 06/20/2020 How Much Tobacco Do You Smoke? No Information not available 06/20/2020 Sun Exposure Occasional [email or web address] Information not available 02/12/2018 Do You Use Sunscreen Routinely? Yes [id number] Information not available 05/02/2020 Tanning Bed Exposure No [email or web address] Information not available 02/12/2018 How Many Years Have You Smoked Tobacco? 0 [email or web address] Information not available 06/20/2020 Sex: Unknown Functional Status None recorded. Mental Status None recorded. Family History Relationship Description Onset Age of this Age Resolved Age Notes LastModified by Organization Details LastModified Time Paternal Grandmother Malignant tumor of breast [email or web address] Not available 01/28 14:39:37 Maternal Grandfather Diabetes mellitus [email or web address] Not available 01/28 14:39:47 Father Hypertensive disorder [email or web address] Not available 01/28 14:40:01 Medical History Condition Response Diabetes N Bleeding Disorder N Arthritis N Hyperthyroidism N Defibrillator N Cancer N Stroke N Asthma Y Hypothyroidism N Lupus N HIV/AIDS N Pacemaker N Anemia N Psoriasis N Hepatitis N Heart Disease N Hypertension N Gynecological HistoryNo gynecological history recorded. Obstetrics History GPAL:G 0 P 0 0 0 0 Past Encounters Encounter ID Performer Location Encounter Start Date Encounter Closed Date Diagnosis/Indication Diagnosis SNOMED-CT Code Diagnosis ICD10 Code Diagnosis Note [id number] Valery Lima MD Main Office [address] [place] [address] 02/12/2018 14:23:28 02/12/2018 16:19:42 Acne vulgaris 08973747 L70.0 [id number] Valery Lima MD Main Office [address] [place] [address] 04/14/2018 14:09:16 04/14/2018 14:33:28 Acne vulgaris 96137788 L70.0 [id number] Valery Lima MD Main Office [address] [place] [address] 10/12/2018 15:34:23 10/12/2018 16:32:38 Acne vulgaris 70688731 L70.0 [id number] Valery Lima MD Main Office [address] [place] [address] 06/20/2020 14:15:52 06/20/2020 15:40:49 Acne vulgaris 38351069 L70.0 [id number] Valery Lima MD Main Office [address] [place] [address] 09/25/2020 15:40:02 09/25/2020 16:17:08 Acne vulgaris 43703061 L70.0 [id number] Valery Lima MD Main Office [address] [place] [phone] 01/09/2021 16:11:37 01/09/2021 17:29:34 Acne vulgaris 61709061 L70.0 Long-term drug therapy 182637890 Z79.899 Health Concerns Section Related Observation LastModified by Organization Detai ls LastModified Time None Recorded Concern Status LastModified by Organization Details LastModified Time None Recorded Advance Directives Directive None Recorded Payers Encounter Date Sequence Insurance Name Policy Number Policy Eaton Covered Member ID Eaton Member ID Guarantor Name 04/14/2018 1 [facility] [id number] [facility] [id number] Farideh Monae 10/12/2018 1 *SELF PAY* Br denise Dov 06/20/2020 1 [place] [facility] [employer] [id number] Farideh Monae [id number] Farideh Monae 09/25/2020 1 [place] [employer] [facility] [employer] 131 Farideh Monae [id number] Farideh Monae 01/09/2021 1 [place] [employer] [facility] [employer] 131 Farideh Monae [id number] Farideh Monae Notes Date Note Type Note [...] happy with the results Valery Lima MD [address] [place] [address], [address], [place], [address], [facility] - Valery Lima MD 04/15/2018 21:39:01 10/12/2018 text/html acne follow upgo ing well--started BCP and it cleared her face upcurrently only using face washnot using clindamycin lotionpt states the tretinoin was burning her face so she stopped using it in August. also with bump on the R side of the noseno changes. Valery Lima MD [address] [place] [address], [address], [place], [address], [facility] - Valery Lima MD 10/14/2018 21:32:02 06/20/2020 text/html COVID-19 denniso l. Pt waited in car prior to appt, [...] at the areas on the face Valery Lima MD [address] [facility], [address], [place], [address], [facility] Lima MD 06/24/2020 17:29:22 09/25/2020 text/html [...] the facecurrently on BCP Valery Lima MD [address] [facility], [address], [place], [address], [facility] Lima MD 10/01/2020 21:42:37 01/09/2021 text/html [...] inflammatory bowel disease Valery Lima MD [address] [facility], [address], [place], [address], [facility] - Valery Lima MD 01/09/2021 18:35:56 OBGyn Episode No OBEpisode recorded.
--- OUTSIDE RECORDS SUMMARY | 2024-09-19 15:06 | XMS_ITS | Data Portability ---
Author Organization [facility] Address [address] [place] [address] Assessment No assessment recorded. Plan of Treatment Reminders Order Date Submit Date Provider Last Modified By Organization Details Last Modified Time Details Appointments U/S OB BPP 2024 10:00A M ULTRASOUND [...] MD Not available Not available Not available INDUCTI ON 2024 04:00P M YUE MAJANO MD Not available Not [...] Not available Not available Not available Lab None recorde d. Referral None recorde d. Procedures None recorde d. Surgeries None recorde d. Imaging US, obstetr ic, biophys ical profile + non-str ess test 2024 025 [address], [address], [place], [address], 09/14/2024 21:37:16 non-str ess test 2024 [address], [address], [address], [place], [address], 09/15/2024 01:47:23 non-str ess test 2024 [address], [address], [address], [place], [address], 09/09/2024 06:31:39 US, obstetr ic, follow- up 2024 025 [address], [address], [place], [address], 09/08/2024 18:21:50 US, obstetr ic, biophys ical profile + non-str ess test 2024 025 [address], [address], [place], [address], 09/08/2024 18:21:50 Medication Orders None recorde d. Patient TargetsNo targets recorded. Patient InstructionsNo instructions recorded. Reason for Referral None Reported. Results Created Date Observation Date Name Description Value Unit Range Abnormal Flag Note LastModifiedBy Organization Detail LastModifiedTime 09/09/1909/08/2024 CMP/C BC/UR IC ACID uric acid 5.7 mg/dL 2.3-6. 6 Not Available [facility] (Lab) [address] [facility], [place], [address], 09/09/2024 03:48:02 09/09/1909/08/2024 CMP/C BC/UR IC ACID sodium 140 mmol/ L 133-14 6 Not Available [facility] (Lab) [address] [facility] [facility], [place], [address], 09/09/2024 03:48:02 09/09/19 25 09/08/2024 CMP/C BC/UR IC ACID potassium 3.8 mmol/ L 3.5-5. 1 Not Available [facility] (Lab) [address] [facility], [place], [address], 09/09/2024 03:48:02 09/09/19 25 09/08/2024 CMP/C BC/UR IC ACID chloride 104 mmol/ L 98-107 Not Available [facility] (Lab) [address] [facility], [place], [address], 09/09/2024 03:48:02 09/09/19 25 09/08/2024 CMP/C BC/UR IC ACID carbon dioxide 25 mmol/ L 21-31 Not Available [facility] (Lab) [address] [facility], [place], [address], 09/09/2024 03:48:02 09/09/19 25 09/08/2024 CMP/C BC/UR IC ACID anion gap 11 mmol/ L 4-13 Not Available [facility] (Lab) [address] [facility], [place], [address], 09/09/2024 03:48:02 09/09/19 25 09/08/2024 CMP/C BC/UR IC ACID blood urea nitrogen 5 mg/dL 7-25 low Not Available [facility] (Lab) [address] [place], [address], 09/09/2024 03:48:02 09/09/19 25 09/08/2024 CMP/C BC/UR IC ACID creatinine 0.62 mg/dL 0.60-1 .30 Not Available [facility] (Lab) [address] [place], [address], 09/09/2024 03:48:02 09/09/19 25 09/08/2024 CMP/C BC/UR IC ACID egfrcr (CKD-epi 2020) >90 mL/mi n/1.7 3_m2 >=60 Not Available [facility] (Lab) [address] [facility], [place], [address], 09/09/2024 03:48:02 09/09/19 25 09/08/2024 CMP/C BC/UR IC ACID calcium 9.1 mg/dL 8.3-10 .5 Not Available [facility] (Lab) [address] [facility], [place], [address], 09/09/2024 03:48:02 09/09/19 25 09/08/2024 CMP/C BC/UR IC ACID glucose 79 mg/dL 70-100 Not Available [facility] (Lab) [address] [facility], [place], [address], 09/09/2024 03:48:02 09/09/19 25 09/08/2024 CMP/C BC/UR IC ACID protein, total 5.7 g/dL 6.4-8. 3 low Not Available [facility] (Lab) [address] [facility], [place], [address], 09/09/2024 03:48:02 09/09/19 25 09/08/2024 CMP/C BC/UR IC ACID albumin 3.3 g/dL 3.5-5. 0 low Not Available [facility] (Lab) [address] [place], [address], 09/09/2024 03:48:02 09/09/19 25 09/08/2024 CMP/C BC/UR IC ACID ALT 10 units /L 9-43 Not Available [facility] (Lab) [address] [place], [address], 09/09/2024 03:48:02 09/09/19 25 09/08/2024 CMP/C BC/UR IC ACID alkaline phosphatase 102 units /L 34-104 Not Available [facility] (Lab) [address] [place], [address], 09/09/2024 03:48:02 09/09/19 25 09/08/2024 CMP/C BC/UR IC ACID AST 16 units /L 13-39 Not Available [facility] (Lab) [address] [facility], [place], [address], 09/09/2024 03:48:02 09/09/19 25 09/08/2024 CMP/C BC/UR IC ACID bilirubin, total 0.2 mg/dL 0.2-1. 2 Not Available [facility] (Lab) [address] [place], [address], 09/09/2024 03:48:02 09/09/19 25 09/08/2024 CMP/C BC/UR IC ACID WBC 10.2 10'3/ uL 3.5-10 .5 Not Available [facility] (Lab) [address] [facility], [place], [address], 09/09/2024 03:48:02 09/09/19 25 09/08/2024 CMP/C BC/UR IC ACID RBC 3.71 10'6/ uL (based on docume nted legal sex) 3.80-5 .20 low Not Available [facility] (Lab) [address] [place], [address], 09/09/2024 03:48:02 09/09/19 25 09/08/2024 CMP/C BC/UR IC ACID HGB 10.9 g/dL (based on docume nted legal sex) 11.6-1 5.4 low Not Available [facility] (Lab) [address] [place], [address], 09/09/2024 03:48:02 09/09/19 25 09/08/2024 CMP/C BC/UR IC ACID HCT 34.4 % (based on docume nted legal sex) 34.0-4 5.0 Not Available [facility] (Lab) [address] [place], [address], 09/09/2024 03:48:02 09/09/19 25 09/08/2024 CMP/C BC/UR IC ACID MCV 92.7 fL 80.0-9 9.0 Not Available [facility] (Lab) [address] [facility], [place], [address], 09/09/2024 03:48:02 09/09/19 25 09/08/2024 CMP/C BC/UR IC ACID MCH 29.4 pg 27.0-3 4.0 Not Available [facility] (Lab) [address] [facility], [place], [address], 09/09/2024 03:48:02 09/09/19 25 09/08/2024 CMP/C BC/UR IC ACID MCHC 31.7 g/dL 32.0-3 5.5 low Not Available [facility] (Lab) [address] [facility], [place], [address], 09/09/2024 03:48:02 09/09/19 25 09/08/2024 CMP/C BC/UR IC ACID RDW 15.2 % 11.0-1 5.0 high Not Available [facility] (Lab) [address] [facility], [place], [address], 09/09/2024 03:48:02 09/09/19 25 09/08/2024 CMP/C BC/UR IC ACID plt 207 10'3/ uL 150-40 0 Not Available [facility] (Lab) [address] [facility], [place], [address], 09/09/2024 03:48:02 09/09/19 25 09/08/2024 CMP/C BC/UR IC ACID MPV 10.6 fL 8.8-12 .1 Not Available [facility] (Lab) [address] [place], [address], 09/09/2024 03:48:02 09/09/19 25 09/08/2024 CMP/C BC/UR IC ACID neutrophils 63.0 % 34.0-7 3.0 Not Available [facility] (Lab) [address] [place], [address], 09/09/2024 03:48:02 09/09/19 25 09/08/2024 CMP/C BC/UR IC ACID lymphocytes 26.2 % 15.0-5 0.0 Not Available [facility] (Lab) [address] [place], [address], 09/09/2024 03:48:02 09/09/19 25 09/08/2024 CMP/C BC/UR IC ACID monocytes 7.2 % 1.0-15 .0 Not Available [facility] (Lab) [address] [facility], [place], [address], 09/09/2024 03:48:02 09/09/19 25 09/08/2024 CMP/C BC/UR IC ACID eosinophils 2.2 % 0.0-8. 0 Not Available [facility] (Lab) [address] [place], [address], 09/09/2024 03:48:02 09/09/19 25 09/08/2024 CMP/C BC/UR IC ACID basophils 0.3 % 0.0-2. 0 Not Available [facility] (Lab) [address] [place], [address], 09/09/2024 03:48:02 09/09/19 25 09/08/2024 CMP/C BC/UR IC ACID immature granulocytes 1.1 % no define d refere nce range Immat ure Granu locyt es (IG) repre sents autom ated enume ratio n of Metam yeloc ytes, Myelo cytes and Promy elocy savana when IG is < 5%. Blast s are not inclu ded in IG and repor elton separ ately if prese nt. Not Available [facility] (Lab) [address] [place], [address], 09/09/2024 03:48:02 09/09/19 25 09/08/2024 CMP/C BC/UR IC ACID absolute neutrophils 6.4 10'3/ uL 1.5-8. 0 Not Available [facility] (Lab) [address] [facility], [place], [address], 09/09/2024 03:48:02 09/09/19 25 09/08/2024 CMP/C BC/UR IC ACID absolute lymphocytes 2.7 10'3/ uL 1.0-4. 0 Not Available [facility] (Lab) [address] [facility], [place], [address], 09/09/2024 03:48:02 09/09/1909/08/2024 CMP/C BC/UR IC ACID absolute monocytes 0.7 10'3/ uL 0.2-1. 0 Not Available [facility] (Lab) [address] [place], [address], 09/09/2024 03:48:02 09/09/19 25 09/08/2024 CMP/C BC/UR IC ACID absolute eosinophils 0.2 10'3/ uL 0.0-0. 6 Not Available [facility] (Lab) [address] [place], [address], 09/09/2024 03:48:02 09/09/19 25 09/08/2024 CMP/C BC/UR IC ACID absolute basophils 0.0 10'3/ uL 0.0-0. 3 Not Available [facility] (Lab) [address] [place], [address], 09/09/2024 03:48:02 09/09/19 25 09/08/2024 CMP/C BC/UR IC ACID absolute immature granulocytes 0.1 10'3/ uL 0.00-0 .10 Refer ence range s for nonbi nary/ inter sex or unspe cifie d gende r patie nts have not been estab lishe d. Plejanusz e refer to the follo wing table for range s estab lishe d for cisge nder patie nts and evalu ate in the clini quentin francheska xt of the indiv idual patie nt: https :[email or web address] hernandez book. nm.or g/gen derx Not Available [facility] (Lab) [address], [place], [address], 09/09/2024 03:48:02 08/25/19 25 08/25/2024 US, obste tric, bioph ysica l profi le + non-s tress test No observ ation record ed. [email or web address] [address], [place], [address], 08/25/2024 18:03:15 08/25/1908/25/2024 US, obste tric, follo w-up No observ ation record ed. [email or web address] [address], [place], [address], 08/26/2024 09:34:23 08/27/1908/25/2024 non-s tress test No observ ation record ed. [email or web address] [facility] [address], [place], [address], 08/27/2024 09:22:11 08/27/1908/25/2024 non-s tress test No observ ation record ed. Not Available 08/27 18:33:58 09/02/19 25 09/01/2024 US, obste tric, bioph ysica l profi le + non-s tress test No observ ation record ed. [email or web address] [address], [place], [address], 09/01/2024 18:45:49 09/02/19 25 09/01/2024 US, obste tric, bioph ysica l profi le + non-s tress test No observ ation record ed. [email or web address] [address], [place], [address], 09/02/2024 00:16:56 09/02/19 25 09/01/2024 non-s tress test No observ ation record ed. [address], [place], [address], 09/01/2024 12:07:24 09/09/19 25 09/08/2024 US, obste tric, follo w-up No observ ation record ed. [email or web address] [address], [place], [address], 09/08/2024 12:05:21 09/09/19 25 09/08/2024 US, obste tric, bioph ysica l profi le + non-s tress test No observ ation record ed. [email or web address] [address], [place], [address], 09/08/2024 12:05:31 09/09/19 25 09/08/2024 US, obste tric, follo w-up No observ ation record ed. [email or web address] [address] [facility], [place], [address], 09/08/2024 11:52:48 09/09/19 25 09/08/2024 non-s tress test No observ ation record ed. [address], [place], [address], 09/08/2024 15:10:48 09/09/19 non-s tress test No observ ation record ed. [email or web address] [address], [place], [address], 09/08/2024 12:13:49 09/15/19 25 09/14/2024 non-s tress test No observ ation record ed. [email or web address] [address], [place], [address], 09/14/2024 14:10:13 09/15/19 non-s tress test No observ ation record ed. [email or web address] [address], [place], [address], 09/14/2024 11:41:08 09/15/19 25 09/14/2024 US, obste tric, bioph ysica l profi le + non-s tress test No observ ation record ed. [email or web address] [address], [place], [address], 09/14/2024 13:10:24 09/15/19 25 09/14/2024 US, obste tric, bioph ysica l profi le + non-s tress test No observ ation record ed. [email or web address] [address], [place], [address], 09/14/2024 22:31:17 Result Notes None recorded. Problems Name Problem SNOMED Code Status Onset Date Resolution Date Notes Provider Name and Address Organization Details Recorded Time 28568053 Active 2024 Zakia cunningham [facility] 16:07:08 Benign hypertens ion 89527251 Active bASA since 12 weeks, diagnosed outside of , labs today at 30 weeks YUE MAJANO MD [address], [place], [address], [facility] 16:28:17 Depressiv e disorder 75226343 Active sertralin e 50mg, mood stable YUE MAJANO MD [address], [place], [address], [facility] 16:30:33 Polycysti c ovary syndrome 052863519 Active metformin YUE MAJANO MD [address], [place], [address], [facility] 16:32:11 Problem Notes None recorded. Procedures Surgical History Date Name Laterality Status Provider Name and Address Organization Details Recorded Time 4 Date of Last Pap Smear completed Zakia Briceno [facility] 08/10/2024 15:39:34 2 extraction of wisdom tooth completed Zakia Briceno [facility] 08/10/2024 16:05:14 Imaging Results Imaging Date Name Status LastModified by Organiz ation Details LastModified Time 08/25/2024 US, obstetric, biophysical profile + non-stress test completed [email or web address], [place], [address], 08/25/2024 18:03:15 08/25/2024 US, obstetric, follow-up completed [email or web address] [address], [place], [address], 08/26/2024 09:34:23 08/25/2024 non-stress test completed [email or web address] [address], [place], [address], 08/27/2024 09:22:11 08/25/2024 non-stress test completed [email or web address] Informati on not available 08/27/2024 18:33:58 09/01/2024 US, obstetric, biophysical profile + non-stress test completed [email or web address] [address], [place], [address], 09/01/2024 18:45:49 09/01/2024 US, obstetric, biophysical profile + non-stress test completed [email or web address] [address], [place], [address], 09/02/2024 00:16:56 09/01/2024 non-stress test completed [email or web address] [address], [place], [address], 09/01/2024 12:07:24 09/08/2024 US, obstetric, follow-up completed [email or web address] [address], [place], [address], 09/08/2024 12:05:21 09/08/2024 US, obstetric, biophysical profile + non-stress test completed [email or web address] [address], [place], [address], 09/08/2024 12:05:31 09/08/2024 US, obstetric, follow-up completed [email or web address] [address], [place], [address], 09/08/2024 11:52:48 09/08/2024 non-stress test completed [email or web address] [address], [place], [address], 09/08/2024 15:10:48 09/08/2024 non-stress test completed [email or web address] [address], [place], [address], 09/08/2024 12:13:49 09/14/2024 non-stress test completed [email or web address] [address], [place], [address], 09/14/2024 14:10:13 09/14/2024 non-stress test completed [email or web address] [address], [place], [address], 09/14/2024 11:41:08 09/14/2024 US, obstetric, biophysical profile + non-stress test completed [email or web address] [address], [place], [address], 09/14/2024 13:10:24 09/14/2024 US, obstetric, biophysical profile + non-stress test completed [email or web address] [address], [place], [address], 09/14/2024 22:31:17 Procedure Notes None recorded. Medical Equipment None Reported. Allergies Allergen ID Allergen Name Allergen Category Reaction Reaction Severity Criticality Documentation Date Start Date Code Code System Note Provider Name and Address Organization Details Recorded Time 37295 Product containin g penicilli n (product) medicatio n Not available Not available Not available 08/10/2024 01940 8001 SNOMED Zakia Briceno [facility] 15:37:58 Medications Name Sig Start Date [...] completed Not Available Not Available Not Available nitrofurant oin monohydrate /macrocryst als 100 mg capsule TAKE 1 CAPSULE BY MOUTH EVERY 12 HOURS FOR 7 DAYS MUST ADMINISTE R WITH A MEAL/FOOD 08/25 completed Not Available Not Available Not Available [...] Available Not Available Vitals Date Recorded Body height Provider Name an d Address Organization Details Last Updated DateTime 09/08/2024 152.4 cm [facility] 09/08/2024 12:09:11 Date Recorded Body weight Systolic blood pressure Diastolic blood pressure Provider Name and Address Organization Details Last Updated DateTime 09/08/2024 53082.1426 7 g 135 mm[Hg] 94 mm[Hg] [facility] 09/08/2024 12:11:48 Date Recorded Body height Body mass index (BMI) Body weight Systolic blood pressure Diastolic blood pressure Provider Name and Address Organization Details Last Updated DateTime 09/14/2024 152.4 cm 38.7 kg/m2 47352.29 g 135 mm[Hg] 85 mm[Hg] [facility] 10:19:38 Date Recorded Body weight Systolic blood pressure Diastolic blood pressure Provider Name and Address Organization Details Last Updated DateTime 09/14/2024 35489.2892 6 g 135 mm[Hg] 85 mm[Hg] [facility] 09/14/2024 11:38:22 Social History Question Answer Notes LastModified by Organizat ion Details LastModified Time Tobacco Smoking Status Never Smoker Zakia Briceno [facility], [facility] 08/10/2024 16:14:16 What Is Your Level Of Alcohol Consumption? None [email or web address] Information not available 08/25/2024 If You Are , What Was Your Level Of Alcohol Consumption Prior To ? Occasional [email or web address] Information not available 08/25/2024 Are You Blind Or Do You Have Difficulty Seeing? No [email or web address] Information n ot available 08/10/2024 What Is Your Level Of Caffeine Consumption? Occasional [email or web address] Information not available 08/25/2024 In The 14 Days Before Symptom Onset, Have You Had Close Contact With A Laboratory-confirm ed COVID-19 While That Case Was Ill? No [email or web address] Information n ot available 08/10/2024 In The 14 Days Before Symptom Onset, Have You Had Close Contact With A Person Who Is Under Investigation For COVID-19 While That Person Was Ill? No [email or web address] Information not available 08/10/2024 Have You Been To An Area Known To Be High Risk For COVID-19? No [email or web address] Information not available 08/10/2024 Are You Deaf Or Do You Have Serious Difficulty Hearing? No Information not available 08/10/2024 Do You Use Your Seat Belt Or Car Seat Routinely? Yes [email or web address] Information not available 08/10/2024 Are You Sexually Active? Yes [email or web address] Information not available 08/10/2024 Do You Have Smoke And Carbon Monoxide Detectors In Your Home? Yes Information not available 08/10/2024 Do You Use Any Illicit Or Recreational Drugs? No [email or web address] Information not available 08/10/2024 Do You Use Sunscreen Routinely? Yes Information not available 08/10/2024 Has Tobacco Cessation Counseling Been Provided? No [email or web address] Information not available 08/25/2024 Do You Or Have You Ever Used Any Other Forms Of Tobacco Or Nicotine? No Information not available 08/25/2024 Sex: Unknown Functional Status Question Answer Note LastModified by Organizat ion Details LastModified Time Do you have difficulty walking or climbing stairs? No [email or web address] Information not available 08/10/2024 Are you able to walk? [email or web address] Information not available 08/10/2024 Are you able to care for yourself? Yes [email or web address] Information not available 08/10/2024 Do you have difficulty dressing or bathing? No [email or web address] Information not available 08/10/2024 Mental Status None recorded. Family History Relationship Description Onset Age of this Age Resolved Age Notes LastModified by Organization Details LastModified Time Paternal Grandmother Malignant tumor of breast [email or web address] Not available 2024 16:05:36 Maternal Grandfather Heart disease [email or web address] Not available 2024 16:05:55 Maternal Grandfather Hypercholest [email or web address] Not available 2024 15:41:27 Maternal Grandmother Diabetes mellitus Not available 2024 16:06:05 Mother Hypercholest [email or web address] Not available 2024 15:41:27 Maternal Aunt Hypercholest erolemia [email or web address] Not available 2024 15:41:27 Father Hypertensive disorder [email or web address] Not available 2024 15:41:35 Medical History Condition Response Allergies (Food, seasonal, environmental ) N Other N Breast Cancer N Drug/Latex Allergies/Reactions Y Blood Transfusion N Dermatologic Disorders N Lung Disease N Defects or Inherited Disease N Breast Problem N Gestational Diabetes N Hematologic disorders N Anesthesia Complications N History of STI N Deep Vein Thrombosis N Polycystic ovary syndrome N Anxiety Disorder Y Autoimmune disease N Arthritis N Infertility N Polyps N Acid Reflux (GERD) N History of abnormal pap N Cancer N Stroke N Varicosities N Neurologic/Epilepsy N Endometriosis N High Cholesterol N Headaches N Fibromyalgia N Kidney Disease N Heart Problems N Kidney or Bladder Problems N Thyroid Problems N GI Problems N Eating Disorder N Anemia N Art (IVF or FET) N Psychiatric Illness N Ovarian Cancer N Diabetes N Pulmonary (TB, Asthma) N Hepatitis/Liver Disease N No Past Medical History N Eczema N Urinary Tract Infection N Abuse/Domestic Violence N Asthma N Trauma/Violence N Depression/ depression Y Heart Disease N Pre-Eclampsia N Hypertension N Osteoporosis N Thrombophilias N Gynecological History Statement/Question Response Abnormal Pap N Flow Moderate Date of Last Mammogram Date of LMP 01/05/2024 Was last menstrual period normal Y STIs/STDs N HPV Vaccine N Duration of Flow (days) 5 Current Control Method Are cycles usually normal Y Date of Last Colonoscopy Frequency of Cycle (Q days) 28 Sexually Active? Y Date of DEXA bone scan Age of first menstrual cycle 11 Date of Last Pap Smear 06/30/2023 Sexual Problems? N LMP Approximate Obstetrics History GPAL:G 1 P 0 0 0 0 Past Encounters Encounter ID Performer Location Encounter Start Date Encounter Closed Date Diagnosis/Indication Diagnosis SNOMED-CT Code Diagnosis ICD10 Code Diagnosis Note [id number] Niya Roman [facility] [address],[place] [address] 08/10/2024 15:19:41 08/10/2024 16:06:04 Uterine size for dates discrepancy 856292228 O26.843 O36.63X0 Z3A.30 [id number] YUE MAJANO MD [facility] [address],[place] [address] 08/10/2024 15:21:58 08/12/2024 05:22:27 Chronic hypertension complicating AND/OR reason for care during 85063198 O16.9 - well controlled outside of - bASA since 12 weeks- repeat preeclamps ia labs today- discussed 32 week testing and delivery between 38-40 weeks gestation if stable Polycystic ovary syndrome 984816125 E28.2 - has continued metformin throughout Depressive disorder 3548 9007 F32.A - stable on 50mg sertraline Gestation period, 30 weeks 37201296 Z3A.30 - continue PNV [id number] YUE MAJANO MD [facility] [address] [address] 08/13/2024 10:37:15 08/16/2024 12:54:19 Chronic hypertension complicating AND/OR reason for care during 95010403 O16.9 - well controlled outside of - bASA since 12 weeks- repeat preeclamps ia labs wnl on 08/10 and in L&D last night- discussed preeclamps ia warning signs and BP parameters - discussed 32 week testing and delivery between 38-40 weeks gestation if stable Gestation period, 30 weeks 76573781 Z3A.30 - continue PNV [id number] Sonja Ramos [facility] [address],[place] [address] 08/25/2024 13:48:05 08/27/2024 13:33:40 Chronic hypertension complicating AND/OR reason for care during 80813388 O16.9 [id number] [facility] [address],[place] [address] 08/25/2024 13:49:13 08/25/2024 15:51:53 Chronic hypertension complicating AND/OR reason for care during 16063438 O16.9 Z3A.32 [id number] Natalya Esparza CNM [facility] [address],[place] [address] 08/25/2024 13:49:28 08/25/2024 16:13:17 Gestation period, 32 weeks 0922049 Z3A.32 [id number] Zakia Briceno [facility] [address],[place] [address] 09/01/2024 10:22:19 09/01/2024 12:11:43 Chronic hypertension complicating AND/OR reason for care during 96087835 O16.9 - well controlled outside of - bASA since 12 weeks- repeat preeclamps ia labs wnl on 08/10 and in L&D last night- discussed preeclamps ia warning signs and BP parameters - discussed 32 week testing and delivery between 38-40 weeks gestation if stable [id number] [facility] [address],[place] [address] 09/01/2024 10:22:49 09/01/2024 11:28:53 Chronic hypertension complicating AND/OR reason for care during [id number] O16.3 Z3A.33 [id number] YUE MAJANO MD Arabi [address],[place] [address] 09/01/2024 10:23:10 09/01/2024 12:24:51 Chronic hypertension complicating AND/OR reason for care during [id number] O16.9 - well controlled outside of - bASA since 12 weeks- discussed preeclamps ia warning signs and BP parameters - continue 32 week testing; discussed delivery between 38-40 weeks gestation if stable Depressive disorder 3548 9007 F32.A - stable on 50mg sertraline Gestation period, 33 weeks [id number] Z3A.33 [id number] Nicole Acharya Arabi [address],[facility] [place] [address] 09/08/2024 10:56:22 09/08/2024 12:01:00 Chronic hypertension complicating AND/OR reason for care during [id number] O16.3 Z3A.34 [id number] Joann Ambrose Arabi [address],[facility] [place] [address] 09/08/2024 10:56:49 09/08/2024 12:15:13 [id number] Z33.1 Chronic hy pertension complicating AND/OR reason for care during 34657633 O16.9 - well controlled outside of - bASA since 12 weeks- discussed preeclamps ia warning signs and BP parameters - continue 32 week testing; discussed delivery between 38-40 weeks gestation if stable [id number] YUE MAJANO MD Arabi [address],[facility] [place] [address] 09/08/2024 10:57:04 09/08/2024 14:55:35 Chronic hypertension complicating AND/OR reason for care during 71559888 O16.9 - well controlled outside of - bASA since 12 weeks- discussed preeclamps ia warning signs and BP parameters - continue 32 week testing; plan for 38 week induction Gestation period, 34 weeks [id number] Z3A.34 Depressive disorder 3548 9007 F32.A - stable on 50mg sertraline [id number] YUE MAJANO MD Arabi [address] [address] 09/14/2024 10:05:37 09/14/2024 10:57:30 Chronic hypertension complicating AND/OR reason for care during [id number] O16.9 - well controlled outside of - bASA since 12 weeks- discussed preeclamps ia warning signs and BP parameters - continue 32 week testing; plan for 38 week induction Depressive disorder 3548 9007 F32.A - stable on 50mg sertraline Gestation period, 35 weeks [id number] Z3A.35 [id number] Joann Ambrose Arabi [address] [address] 09/14/2024 10:05:48 09/14/2024 11:42:50 Chronic hypertension complicating AND/OR reason for care during 68751259 O16.9 - well controlled outside of - bASA since 12 weeks- discussed preeclamps ia warning signs and BP parameters - continue 32 week testing; plan for 38 week induction [id number] Nicole Acharya Arabi [address] [address] 09/14/2024 10:05:58 09/14/2024 12:12:53 Chronic hypertension complicating AND/OR reason for care during [id number] O16.3 Z3A.35 Health Concerns Section Related Observation LastModified by Organization Detai ls LastModified Time None Recorded Concern Status LastModified by Organization Details LastModified Time None Recorded Advance Directives Directive None Recorded Payers Encounter Date Sequence Insurance Name Policy Number Policy [place] Covered Member ID [place] Member ID Guarantor Name 09/08/2024 1 [employer] 133 Farideh Zapp [id number] Farideh Zapp 09/08/2024 1 [place] 133 Farideh Zapp [id number] Farideh Zapp 09/14/2024 1 [place] 133 Farideh Zapp [id number] Fardieh Zapp 09/14/2024 1 [place] 133 Farideh Zapp [id number] Farideh Zapp 09/14/2024 1 [place] 133 Farideh Zapp [id number] Farideh Zapp OBGyn Episode Ob Episode Information Episode Created Date Number of Fetuses Patient Bloodtype Patient rh Status Prepregnancy Weight lbs Domestic Partner Domestic Partner Phone Father Name Field Underwriter Status 08/10/19 25 1 A Negative Pepe Barber OPEN Fetus Data First Name Last Name Admitted to NICU Weight (g) Sex Living Outcome Pediatric Complications Fetus ID Race Codes Race Delivery Type [id number] Problems Problem Notes Problem Name Start Date End Date Resolution Snomed Code Not e Polycystic ovary syndrome [id number] metformin Depressive disorder [id number] sertraline 50mg, mood stable Benign hypertension [id number] bASA since 12 weeks, diagnosed outside of [...] Date Ultra Sound Latest Days Gestation 0 [id number] 08/11/2024 10/18/19 25 0 Pre-rolando Flowsheet Flowsheet Date 08/10/2024 Toure Score Blood Edema Fundus Height Fundus Units Glucose Ketones Leukocytes Nitrite Labor Signs Protein Cervic Dilation Cervic Effacement Cervic Station neg trace Type Weight in lbs Pre/Post Dialysis Refused Weight 184.375177382198 BP Diastolic BP Location Tested BP Systolic [...] vaccine. RTC 2 weeks to start testing. Flowsheet Date 08/13/2024 Toure Score Blood Edema Fundus Height Fundus Units Glucose Ketones Leukocytes Nitrite Labor Signs Protein Cervic Dilation Cervic Effacement Cervic Station neg trace Type Weight in lbs Pre/Post Dialysis Refused 182.157718888010 BP Diastolic BP Location Tested BP Systolic BP Type 84 L arm 142 sitting Fetus Heart Rate Present A 140 Fetus Movement A Yes Comments Patient presents for BP chec k. Was seen in L&D last night due to elevated BP (140s/80s at home) and dull 2/10 headache. Took 500mg tylenol without relief. Labs wnl at [facility] ratio elevated however UTI present. Abx sent at time of L&D eval. Discussed preeclampsia warning signs; pt to seek evaluation if BP 160/110 or higher. Patient voices understanding, headache resolved today. RTC for scheduled testing. Flowsheet Date 08/25/2024 Toure Score Blood Edema Fundus Height Fundus Units Glucose Ketones Leukocytes Nitrite Labor Signs Protein Cervic Dilation Cervic Effacement Cervic Station Type Weight in lbs Pre/Post Dialysis Refused Weight 188.232088323798 BP Diastolic BP Location Tested BP Systolic BP Type 83 148 Fetus Heart Rate Present Fetus Movement Comments Flowsheet Date 08/25/2024 Toure Score Blood Edema Fundus Height Fundus Units Glucose Ketones Leukocytes Nitrite Labor Signs Protein Cervic Dilation Cervic Effacement Cervic Station Type Weight in lbs Pre/Post Dialysis Refused BP Diastolic BP Location Tested BP Systolic BP Type Fetus Heart Rate Present Fetus Movement Comments Flowsheet Date 08/25/2024 Toure Score Blood Edema Fundus Height Fundus Units Glucose Ketones Leukocytes Nitrite Labor Signs Protein Cervic Dilation Cervic Effacement Cervic Station neg trace neg Type Weight in lbs Pre/Post Dialysis Refused 188.839065578605 BP Diastolic BP Location Tested BP Systolic BP Type 83 148 Fetus Heart Rate Present Fetus Movement A Yes Comments Patient is having contractio ns, discharge and swelling. bpp 8/8, discussed PAC, will monitor weekly, call for preadmission, precautions and education f/u 1 week Flowsheet Date 09/01/2024 Toure Score Blood Edema Fundus Height Fundus Units Glucose Ketones Leukocytes Nitrite Labor Signs Protein Cervic Dilation Cervic Effacement Cervic Station Type Weight in lbs Pre/Post Dialysis Refused BP Diastolic BP Location Tested BP Systolic BP Type Fetus Heart Rate Present Fetus Movement Comments Flowsheet Date 09/01/2024 Toure Score Blood Edema Fundus Height Fundus Units Glucose Ketones Leukocytes Nitrite Labor Signs Protein Cervic Dilation Cervic Effacement Cervic Station Type Weight in lbs Pre/Post Dialysis Refused BP Diastolic BP Location Tested BP Systolic BP Type Fetus Heart Rate Present Fetus Movement Comments Flowsheet Date 09/01/2024 Toure Score Blood Edema Fundus Height Fundus Units Glucose Ketones Leukocytes Nitrite Labor Signs Protein Cervic Dilation Cervic Effacement Cervic Station neg trace Type Weight in lbs Pre/Post Dialysis Refused Weight 193.205624034529 BP Diastolic BP Location Tested BP Systolic BP Type 88 L arm 133 sitting Fetus Heart Rate Present A 140 Fetus Movement A Yes Comments Patient c/o lower abdominal cramping, and swelling in hands and feet. Good movement. No bleeding. Will measure for belly band. BPP 10/10, repeat growth next week. PACs not seen today. Needs to schedule preadmission. RTC 1 week. Flowsheet Date 09/08/2024 Toure Score Blood Edema Fundus Height Fundus Units Glucose Ketones Leukocytes Nitrite Labor Signs Protein Cervic Dilation Cervic Effacement Cervic Station Type Weight in lbs Pre/Post Dialysis Refused BP Diastolic BP Location Tested BP Systolic BP Type Fetus Heart Rate Present Fetus Movement Comments Flowsheet Date 09/08/2024 Toure Score Blood Edema Fundus Height Fundus Units Glucose Ketones Leukocytes Nitrite Labor Signs Protein Cervic Dilation Cervic Effacement Cervic Station Type Weight in lbs Pre/Post Dialysis Refused 191.401430096196 BP Diastolic BP Location Tested BP Systolic BP Type 94 L arm 135 sitting Fetus Heart Rate Present Fetus Movement A Yes Comments Flowsheet Date 09/08/2024 Toure Score Blood Edema Fundus Height Fundus Units Glucose Ketones Leukocytes Nitrite Labor Signs Protein Cervic Dilation Cervic Effacement Cervic Station neg trace Type Weight in lbs Pre/Post Dialysis Refused BP Diastolic BP Location Tested BP Systolic BP Type Fetus Heart Rate Present A Present Fetus Movement A Yes Comments Patient c/o slight nausea, s ome pains and swelling in hands and feet. EFW 90%, AC 97% BPP 10/10. Will plan 4/6 MIL for cHTN. Will recheck labs today. RTC 1 week. Flowsheet Date 09/14/2024 Toure Score Blood Edema Fundus Height Fundus Units Glucose Ketones Leukocytes Nitrite Labor Signs Protein Cervic Dilation Cervic Effacement Cervic Station neg trace Type Weight in lbs Pre/Post Dialysis Refused Weight 198.586851453169 BP Diastolic BP Location Tested BP Systolic BP Type 85 L arm 135 sitting Fetus Heart Rate Present Fetus Movement A Yes Comments Patient c/o slight nausea, B raxton Carvajal, slight swelling in hands and feet. Thinks lost mucus plug. Denies headaches, vision changes, chest pain, dyspnea, RUQ pain or epigastric pain. Discussed induction 10/03, will perform SVE next week and talk about plan. Preadmission scheduled. Discussed GBS. RTC 1 week. NST/BPP to follow Flowsheet Date 09/14/2024 Toure Score Blood Edema Fundus Height Fundus Units Glucose Ketones Leukocytes Nitrite Labor Signs Protein Cervic Dilation Cervic Effacement Cervic Station Type Weight in lbs Pre/Post Dialysis Refused 198.863694590068 BP Diastolic BP Location Tested BP Systolic BP Type 85 L arm 135 sitting Fetus Heart Rate Present Fetus Movement A Yes Comments Flowsheet Date 09/14/2024 Toure Score Blood Edema Fundus Height Fundus Units Glucose Ketones Leukocytes Nitrite Labor Signs Protein Cervic Dilation Cervic Effacement Cervic Station Type Weight in lbs Pre/Post Dialysis Refused BP Diastolic BP Location Tested BP Systolic BP Type Fetus Heart Rate Present Fetus Movement Comments Menstrual History Last Menstrual Date Menses Monthly [...]
[2024-09-19 15:24] VITALS: BP 143/87; PULSE 87; RESP 18; TEMP 36.7
[2024-09-19 15:30] VITALS: BP 141/92; PULSE 86; BMI 37.8
--- NOTE | 2024-09-19 15:39 | OBADM ---
This patient, Farideh Barber, admitted to the OB room 116 for observation. Patient/family oriented to hospital policies and general routines including ID bracelet, bed and alarms, visiting hours, pain management, procedures, bathroom and other care routines, personal items, smoking policy, room service/diet, and visiting hours. Patient/Family are encouraged to report perceived risks to care and to ask questions if they do not understand what they are told or what they should do.
[2024-09-19 15:48] LABS: Add Urine Microscopic? YES; Appearance Urine Cloudy (Clear); Bacteria Urine 2+ /hpf; Bilirubin Urine Negative (Negative); Blood Urine 2+ (Negative); Color Urine Yellow (Yellow); Glucose Urine UA Negative (Negative); Ketones Urine Negative (Negative); Leukocyte Esterase Ur 3+ LEU/UL (Negative); Mucus Urine Present /lpf; Need Manual Microscopic Reviewed; Nitrate Urine Negative (Negative); Protein Urine 1+ mg/dL (Negative); RBC Urine 0-2 /hpf (0-2); Specific Grav Ur 1.019 (1.001-1.035); Squamous Epithelial Cell Urine Few /hpf (Few); Urobilinogen Urine 0.2 mg/dL (<2.0); WBC Urine 51-100 /hpf (0-3)
[2024-09-19 15:50] LABS: Budding Yeast Urine Present /hpf
[2024-09-19 15:51] LABS: Hyaline Casts Urine Present /lpf
[2024-09-19 15:52] VITALS: BP 144/96; PULSE 96
[2024-09-19 16:00] VITALS: BP 136/90; PULSE 78
--- NOTE | 2024-10-17 08:32 | P.PNOB_ITS ---
OB - Triage/Final Diagnosis Visit Information Comments/Additional reasons for admission: I have assessed the risk for this patient, Farideh Cobosstarla, and determined that she would benefit from observation care. Evaluation Laboratory results: Laboratory Tests 09/19/24 15:19 Urine Color Yellow Urine Appearance Cloudy H Urine pH 7.0 Ur Specific [place] 1.019 Urine Protein 1+ H Urine Glucose (UA) Negative Urine Ketones Negative Ur Blood (Man) 2+ H Urine Nitrate Negative Urine Bilirubin Negative Urine Urobilinogen 0.2 Add Ur Microanalysis Reviewed Leukocyte Esterase Rfl 3+ H Urine RBC 0-2 Urine WBC 51-100 H Ur Squamous Epith Cells Few Urine Bacteria 2+ H Urine Casts 6-10 Hyaline Casts Present Urine Mucus Present Urine Yeast (Budding) Present H Final Diagnosis (1) Hemorrhage affecting : Code(s): O46.90 - Antepartum hemorrhage, unspecified, unspecified trimester Status: Acute
== END 2024-09-19 16:34 | disposition home or self-care (01) ==
PROVIDERS: Admitting Provider Obstetrics & Gynecology; PCP Family Medicine; Visit Provider Obstetrics & Gynecology
DX: O46.93 Antepartum hemorrhage, unspecified, third trimester (principal); Z3A.36 36 weeks gestation of pregnancy
CPT/HCPCS: 81001; 87086; G0378; G0379

== ENCOUNTER 2024-09-26 05:10 | Inpatient (IN) | payer BC, SELFPAY ==
[2024-09-26] VITALS (207 sets, daily range): BP systolic 101–187; BP diastolic 49–131; PULSE 71–176; RESP 16; TEMP 36.4–37.2; O2SAT 94–100; BMI 38.0
--- OUTSIDE RECORDS SUMMARY | 2024-09-26 05:35 | XMS_ITS | Data Portability ---
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 offered additional counseling as offered with [employer] program-pt declined. pt elects use of condoms in addition to BCP if she were to become sexually active with hx anxiety, recommend she confirm with Dr Elana SANZ with isotretinoin course urine test performed today baseline lab request given to pt reviewed [employer] requirements and consent forms reviewed and signed [...] test, urine 2020 021 [facility] [address] [facility], [address] [place] [address], [phone], 18:27:09 CBC 2020 021 [facility] [address] [facility], [address] [place] [address], [phone], 18:27:48 CMP, serum or plasma [address] [place] [address] Main Office, [address] [facility] [address], [place], [address], 18:27:48 lipids, total, serum 2020 [place] [address] Main Office, [address] [facility] [address], [place], [address], 10:58:00 Referral None recorded. Procedures None recorded. Surgeries None recorded. Imaging None recorded. Medication Orders Doryx 50 mg tablet,del ayed release [address], [address] [place] [address] [place], [address], 10:38:56 clindamyci n 1 % lotion 2020 [facility] #39683, [address], [place], [id number], 16:17:16 tretinoin 0.05 % topical cream 2020 [facility] #38503, [address], [place], [id number], 16:17:13 Doryx 50 mg tablet,del ayed release [address] [facility]12325, [address], [place], [id number], 10:38:56 clindamyci n 1 % lotion 2019 [facility] #46485, [address], [place], [id number], 0 15:38:05 tretinoin 0.025 % topical cream 2019 [facility]20 [facility] #29496, [address] [place], [place], [id number], 1 16:13:42 clindamyci n 1 % lotion 2017 [address]18 [place] [address] [facility], [address] [place], [place], [id number], 8 12:10:18 Retin-A Micro Pump 0.06 % topical gel [address], [address] [place] [address], [address], 1 11:18:49 Patient TargetsNo targets recorded. Patient Instructions Encounter Date Encounter Id Patient Instructions Last Modified By Organization Details Last Modified Time 04/14/2018 [id number] Tretinoin side effects were reviewed with emphasis on skin irritation, redness, dry skin and photosensitivity. Start 2 -3 nights per week and gradually increase to nightly if tolerated. Apply thin coating. Use gentle cleansers and emollients as needed. Not available 04/14/2018 14:32:24 06/20/2020 [id number] doxycyline side effects discussed with emphasis on [...] as needed. Not available 06/20/2020 17:50:23 09/25/2020 [id number] doxycyline side effects discussed with emphasis on [...] as needed. Not available 09/25/2020 18:14:25 01/09/2021 [id number] Isotretinoin erika e effects were reviewed with [...] HCG negati ve Not Available Main Office [address] [place] [address] [address], [place], [address], 01/09/2021 17:25:46 02/21/20 21 02/21/2021 LIPID PANEL , ST[place]RAKE cholesterol, total 251 mg/dL <200 high Not Available [facility] [address] [place], [address], 02/21/2021 04:07:45 02/21/20 21 02/21/2021 LIPID PANEL , [place] HDL cholesterol 63 mg/dL > or = 50 normal Not Available [facility] [address] [place], [address], 02/21/2021 04:07:45 02/21/20 21 02/21/2021 LIPID PANEL , ST[place]KE triglyceride s 143 mg/dL <150 normal Not Available [facility] [place] [address] [place], [address], 02/21/2021 04:07:45 02/21/20 21 02/21/2021 LIPID PANEL , [place] LDL-choleste rol 161 mg/dL _(quentin c) high Refer ence range : <100 Remebrto able range <100 mg/dL for prima ry [...] 9): 2061- 2068 (http ://ed ucati on.Qu sandyTopokine Therapeutics. com/f aq/FA Q164) Not Available [place] [address] [place], [address], 02/21/2021 04:07:45 02/21/20 21 02/21/2021 LIPID PANEL , [place] chol/HDLC ratio 4.0 (calc ) <5.0 normal Not Available [facility] [address] [place], [address], 02/21/2021 04:07:45 02/21/20 21 02/21/2021 LIPID PANEL , [place] non HDL cholesterol 188 mg/dL _(quentin c) <130 high For patie nts with diabe savana plus 1 major ASCVD risk facto r, treat ing to a non-H DL-C goal of <100 mg/dL (LDL- C of <70 mg/dL ) is beverley castillo optio n. Not Available [facility] [address] [place], [address], 02/21/2021 04:07:45 02/21/20 21 02/21/2021 COMPR EHENS SAMIR METAB OLIC PANEL glucose 85 mg/dL 65-99 normal Fasti ng refer ence inter aimee Not Available [address], [address], 02/21/2021 04:07:46 02/21/20 21 02/21/2021 COMPR EHENS SAMIR METAB OLIC PANEL urea nitrogen (BUN) 16 mg/dL 7-25 normal Not Available [address], [address], 02/21/2021 04:07:46 02/21/20 21 02/21/2021 COMPR EHENS SAMIR METAB OLIC PANEL creatinine 0.81 mg/dL 0.50-1 .10 normal Not Available [address], [address], 02/21/2021 04:07:46 02/21/20 21 02/21/2021 COMPR EHENS SAMIR METAB OLIC PANEL eGFR non-afr. sudanese 103 mL/mi n/1.7 3m2 > or = 60 normal Not Available [address], [address], 02/21/2021 04:07:46 02/21/20 21 02/21/2021 COMPR EHENS SAMIR METAB OLIC PANEL eGFR 119 mL/mi n/1.7 3m2 > or = 60 normal Not Available [address], [address], 02/21/2021 04:07:46 02/21/20 21 02/21/2021 COMPR EHENS SAMIR METAB OLIC PANEL BUN/creatini ne ratio NOT APPLIC ABLE (calc ) 6-22 Not Available [address], [address], 02/21/2021 04:07:46 02/21/20 21 02/21/2021 COMPR EHENS SAMIR METAB OLIC PANEL sodium 141 mmol/ L 135-14 6 normal Not Available [facility] [address] [address], [place], [address], 02/21/2021 04:07:46 02/21/20 21 02/21/2021 COMPR EHENS SAMIR METAB OLIC PANEL potassium 4.8 mmol/ L 3.5-5. 3 normal Not Available [address], [address], 02/21/2021 04:07:46 02/21/20 21 02/21/2021 COMPR EHENS SAMIR METAB OLIC PANEL chloride 106 mmol/ L 98-110 normal Not Available [address], [address], 02/21/2021 04:07:46 02/21/20 21 02/21/2021 COMPR EHENS SAMIR METAB OLIC PANEL carbon dioxide 26 mmol/ L 20-32 normal Not Available [address], [address], 02/21/2021 04:07:46 02/21/20 21 02/21/2021 COMPR EHENS SAMIR METAB OLIC PANEL calcium 9.8 mg/dL 8.6-10 .2 normal Not Available [address], [address], 02/21/2021 04:07:46 02/21/20 21 02/21/2021 COMPR EHENS SAMIR METAB OLIC PANEL protein, total 7.2 g/dL 6.1-8. 1 normal Not Available [address], [address], 02/21/2021 04:07:46 02/21/20 21 02/21/2021 COMPR EHENS SAMIR METAB OLIC PANEL albumin 4.2 g/dL 3.6-5. 1 normal Not Available [address], [address], 02/21/2021 04:07:46 02/21/20 21 02/21/2021 COMPR EHENS SAMIR METAB OLIC PANEL globulin 3.0 g/dL_ (calc ) 1.9-3. 7 normal Not Available [address], [address], 02/21/2021 04:07:46 02/21/20 21 02/21/2021 COMPR EHENS SAMIR METAB OLIC PANEL albumin/glob ulin ratio 1.4 (calc ) 1.0-2. 5 normal Not Available [address], [address], 02/21/2021 04:07:46 02/21/20 21 02/21/2021 COMPR EHENS SAMIR METAB OLIC PANEL bilirubin, total 0.2 mg/dL 0.2-1. 2 normal Not Available [address], [address], 02/21/2021 04:07:46 02/21/20 21 02/21/2021 COMPR EHENS SAMIR METAB OLIC PANEL alkaline phosphatase 43 U/L 31-125 normal Not Available [address], [address], 02/21/2021 04:07:46 02/21/20 21 02/21/2021 COMPR EHENS SAMIR METAB OLIC PANEL AST 15 U/L 10-30 normal Not Available [address], [address], 02/21/2021 04:07:46 02/21/20 21 02/21/2021 COMPR EHENS SAMIR METAB OLIC PANEL ALT 14 U/L 6-29 normal Not Available [address], [address], 02/21/2021 04:07:46 Result Notes None recorded. Problems Name Problem SNOMED Code Status Onset Date Resolution Date Notes Provider Name and Address Organization Details Recorded Time Acne vulgaris 17616684 Active 018 Valery Lima MD [address] [facility], [address], [place], [address] , [facility] Lima MD 8 14:32:24 Problem Notes None recorded. Medical Equipment None Reported. Allergies Allergen ID Allergen Name Allergen Category Reaction Reaction Severity Criticality Documentation Date Start Date Code Code System Note Provider Name and Address Organization Details Recorded Time 2798 Product containin g penicilli n (product) medicatio n Not available Not available Not available 02/12/2018 12237 8001 SNOMED DILMA Mendes MD 8 14:38:40 [...] Address Organization Details Last Updated DateTime 01/09/2021 97399.58 g 130 mm[Hg] 85 mm[Hg] Chucho Lima MD 01/09/2021 16:45:56 Social History Question Answer Notes LastModified by Organizat ion Details LastModified Time Tobacco Smoking Status Never Smoker Not Available [facility] 05/02/2020 03:23:58 What Is Your Level Of Alcohol Consumption? None [id number] Information not available 05/02/2020 In The 14 Days Before Symptom Onset, Have You Had Close Contact With A Laboratory-confir med COVID-19 While That Case Was Ill? No [email or web address] Information not available 06/20/2020 In The 14 Days Before Symptom Onset, Have You Had Close Contact With A Person Who Is Under Investigation For COVID-19 While That Person Was Ill? No [email or web address] Information not available 06/20/2020 Have You Been To An Area Known To Be High Risk For COVID-19? No [email or web address] Information not available 06/20/2020 Do You Or Have You Ever Used E-cigarettes Or Vape? Never Used Electronic Cigarettes [email or web address] Information not available 06/20/2020 Does Patient Have Any Fever, Cough, Sore Throat Or New Shortness Of Breath? No [email or web address] Information not available 06/20/2020 What Was The Date Of Your Most Recent Tobacco Screening? 09/25/2020 [email or web address] Information not available 09/25/2020 Do You Or Have You Ever Used Smokeless Tobacco? Never Used Smokeless Tobacco [email or web address] Information not available 06/20/2020 How Much Tobacco Do You Smoke? No [email or web address] Information not available 06/20/2020 Sun Exposure Occasional [email or web address] Information not available 02/12/2018 Do You Use Sunscreen Routinely? Yes [id number] Information not available 05/02/2020 Tanning Bed Exposure No [email or web address] Information not available 02/12/2018 How Many Years Have You Smoked Tobacco? 0 [email or web address] Information not available 06/20/2020 Sex: Unknown Functional Status None recorded. Mental Status None recorded. Family History Relationship Description Onset Age of this Age Resolved Age Notes LastModified by Organization Details LastModified Time Paternal Grandmother Malignant tumor of breast [email or web address] Not available 01/28 14:39:37 Maternal Grandfather Diabetes mellitus [email or web address] Not available 01/28 14:39:47 Father Hypertensive disorder Not available 01/28 14:40:01 Medical History Condition [...] Note 6672 Valery Lima MD Main Office [address] [place] [address] 02/12/2018 14:23:28 02/12/2018 16:19:42 Acne vulgaris 84902710 L70.0 7426 Valery Lima MD Main Office [address] [place] [address] 04/14/2018 14:09:16 04/14/2018 14:33:28 Acne vulgaris 92445747 L70.0 9420 Valery Lima MD Main Office [address] [place] [address] 10/12/2018 15:34:23 10/12/2018 16:32:38 Acne vulgaris 81228204 L70.0 18763 Valery Lima MD Main Office [address] [place] [address] 06/20/2020 14:15:52 06/20/2020 15:40:49 Acne vulgaris 89638615 L70.0 17875 Valery Lima MD Main Office [address] [place] [address] 09/25/2020 15:40:02 09/25/2020 16:17:08 Acne vulgaris 74415498 L70.0 82607 Valery Lima MD Main Office [address] [place] [phone] 01/09/2021 16:11:37 01/09/2021 17:29:34 Acne vulgaris 65020248 L70.0 Long-term drug therapy 582661141 Z79.899 Health Concerns Section Related Observation LastModified by Organization Detai ls LastModified Time None Recorded Concern Status LastModified by Organization Details LastModified Time None Recorded Advance Directives Directive None Recorded Payers Encounter Date Sequence Insurance Name Policy Number Policy Eaton Covered Member ID Eaton Member ID Guarantor Name 04/14/2018 1 [facility] [id number] [place] [employer] Mon[employer] [id number] Farideh Monae 10/12/2018 1 *SELF PAY* Br denise Dov 06/20/2020 1 [place] [employer] [facility] [employer] [id number] Farideh Monae [id number] Farideh Monae 09/25/2020 1 [place] [employer] [facility] [employer] 131 Farideh Monae [id number] Farideh Monae 01/09/2021 1 [place] [employer] [facility] [employer] 131 Farideh Monae [id number] Farideh Monae Notes Date Note Type Note [...] happy with the results Valery Lima MD [address] [place] [address], [address], [place], [address], [facility] - Valery Lima MD 04/15/2018 21:39:01 10/12/2018 text/html acne follow upgo ing well--started BCP and it cleared her face upcurrently only using face washnot using clindamycin lotionpt states the tretinoin was burning her face so she stopped using it in August. also with bump on the R side of the noseno changes. Valery Lima MD [address] [place] [address], [address], [place], [address], [facility] - Valery Lima MD 10/14/2018 21:32:02 06/20/2020 [...] on the face Valery Lima MD [address] [facility], [address], [place], [address], [facility] Lima MD 06/24/2020 17:29:22 09/25/2020 text/html [...] facecurrently on BCP Valery Lima MD [address] [facility], [address], [place], [address], [facility]IL[facility] Lima MD 10/01/2020 21:42:37 01/09/2021 text/html [...] inflammatory bowel disease Valery Lima MD [address] [facility], [address], [place], [address], [facility] - Valery Lima MD 01/09/2021 18:35:56 OBGyn Episode No OBEpisode recorded.
--- OUTSIDE RECORDS SUMMARY | 2024-09-26 05:35 | XMS_ITS | Data Portability ---
Author Organization [facility] Address [address] [place] [address] Assessment Encounter Date Assessment Date Assessment LastModified by Organization Details LastModified Time 09/22/2024 09/22/2024 Patient is _36__weeks . Discussed plan. Not available 09/22/2024 12:19:51 Plan of Treatment Reminders Order Date Submit Date Provider Last Modified By Organization Details Last Modified Time Details Appointments U/S OB BPP 2024 09:30A M ULTRASOUND Not available Not available Not available NST 2024 10:00A M NST SCHEDULE Not available Not available Not available OB ROUTINE 2024 10:30A M YUE MAJANO MD Not available Not available Not available INDUCTI ON 2024 04:00P Anna Marie MAJANO MD Not available Not available Not [...] Not available Not available Not available Lab CBC w/ auto diff 2024 025 [facility] (Lab), [address], [place], [address], 09/23/2024 06:00:53 CMP, serum or plasma 2024 025 [facility] (Lab), [address], [place], [address], 09/23/2024 06:00:54 uric acid, serum or plasma 2024 025 [facility] (Lab), [address], [place], [address], 09/23/2024 06:00:53 protein :creati nine ratio, urine 2024 025 [facility] (Lab), [address], [place], [address], 09/25/2024 16:07:09 strepto coccus group B, culture , unspeci fied specime n 2024 025 [facility] (Lab), [address], [place], [address], 09/25/2024 16:07:10 Referral None recorde d. Procedures None recorde d. Surgeries None recorde d. Imaging non-str ess test 2024 025 [place] [address] [address], [place], [address], 09/22/2024 23:24:43 US, obstetr ic, biophys ical profile + non-str ess test 2024 025 [email or web address], [place], [address], 09/22/2024 19:02:19 non-str ess test 2024 025 [place] [id number] [address], [place], [address], 09/15/2024 01:47:23 Medication Orders None recorde d. Patient TargetsNo targets recorded. Patient InstructionsNo instructions recorded. Reason for Referral None Reported. Results Created Date Observation Date Name Description Value Unit Range Abnormal Flag Note LastModifiedBy Organization Detail LastModifiedTime 09/09/1909/08/2024 CMP/C BC/UR IC ACID uric acid 5.7 mg/dL 2.3-6. 6 Not Available [facility] (Lab) [address], [place], [address], 09/09/2024 03:48:02 09/09/19 25 09/08/2024 CMP/C BC/UR IC ACID sodium 140 mmol/ L 133-14 6 Not Available [facility] (Lab) [address] [place], [address], 09/09/2024 03:48:02 09/09/19 25 09/08/2024 CMP/C BC/UR IC ACID potassium 3.8 mmol/ L 3.5-5. 1 Not Available [facility] (Lab) [address] [place], [address], 09/09/2024 03:48:02 09/09/19 25 09/08/2024 CMP/C BC/UR IC ACID chloride 104 mmol/ L 98-107 Not Available [facility] (Lab) [address] [place], [address], 09/09/2024 03:48:02 09/09/19 25 09/08/2024 CMP/C BC/UR IC ACID carbon dioxide 25 mmol/ L 21-31 Not Available [facility] (Lab) [address] [place], [address], 09/09/2024 03:48:02 09/09/19 25 09/08/2024 CMP/C BC/UR IC ACID anion gap 11 mmol/ L 4-13 Not Available [facility] (Lab) [address] [place], [address], 09/09/2024 03:48:02 09/09/19 25 09/08/2024 CMP/C BC/UR IC ACID blood urea nitrogen 5 mg/dL 7-25 low Not Available [facility] (Lab) [address], [place], [address], 09/09/2024 03:48:02 09/09/19 25 09/08/2024 CMP/C BC/UR IC ACID creatinine 0.62 mg/dL 0.60-1 .30 Not Available [facility] (Lab) [address], [place], [address], 09/09/2024 03:48:02 09/09/19 25 09/08/2024 CMP/C BC/UR IC ACID egfrcr (CKD-epi 2020) >90 mL/mi n/1.7 3_m2 >=60 Not Available [facility] (Lab) [address], [place], [address], 09/09/2024 03:48:02 09/09/19 25 09/08/2024 CMP/C BC/UR IC ACID calcium 9.1 mg/dL 8.3-10 .5 Not Available [facility] (Lab) [address], [place], [address], 09/09/2024 03:48:02 09/09/19 25 09/08/2024 CMP/C BC/UR IC ACID glucose 79 mg/dL 70-100 Not Available [facility] (Lab) [address], [place], [address], 09/09/2024 03:48:02 09/09/19 25 09/08/2024 CMP/C BC/UR IC ACID protein, total 5.7 g/dL 6.4-8. 3 low Not Available [facility] (Lab) [address] [place], [address], 09/09/2024 03:48:02 09/09/19 25 09/08/2024 CMP/C BC/UR IC ACID albumin 3.3 g/dL 3.5-5. 0 low Not Available [facility] (Lab) [address], [place], [address], 09/09/2024 03:48:02 09/09/19 25 09/08/2024 CMP/C BC/UR IC ACID ALT 10 units /L 9-43 Not Available [facility] (Lab) [address], [place], [address], 09/09/2024 03:48:02 09/09/19 25 09/08/2024 CMP/C BC/UR IC ACID alkaline phosphatase 102 units /L 34-104 Not Available [facility] (Lab) [address], [place], [address], 09/09/2024 03:48:02 09/09/19 25 09/08/2024 CMP/C BC/UR IC ACID AST 16 units /L 13-39 Not Available [facility] (Lab) [address], [place], [address], 09/09/2024 03:48:02 09/09/19 25 09/08/2024 CMP/C BC/UR IC ACID bilirubin, total 0.2 mg/dL 0.2-1. 2 Not Available [facility] (Lab) [address], [place], [address], 09/09/2024 03:48:02 09/09/19 25 09/08/2024 CMP/C BC/UR IC ACID WBC 10.2 10'3/ uL 3.5-10 .5 Not Available [facility] (Lab) [address], [place], [address], 09/09/2024 03:48:02 09/09/19 25 09/08/2024 CMP/C BC/UR IC ACID RBC 3.71 10'6/ uL (based on docume nted legal sex) 3.80-5 .20 low Not Available [facility] (Lab) [address] [place], [address], 09/09/2024 03:48:02 09/09/19 25 09/08/2024 CMP/C BC/UR IC ACID HGB 10.9 g/dL (based on docume nted legal sex) 11.6-1 5.4 low Not Available [facility] (Lab) [address], [place], [address], 09/09/2024 03:48:02 09/09/19 25 09/08/2024 CMP/C BC/UR IC ACID HCT 34.4 % (based on docume nted legal sex) 34.0-4 5.0 Not Available [facility] (Lab) [address], [place], [address], 09/09/2024 03:48:02 09/09/19 25 09/08/2024 CMP/C BC/UR IC ACID MCV 92.7 fL 80.0-9 9.0 Not Available [facility] (Lab) [address], [place], [address], 09/09/2024 03:48:02 09/09/19 25 09/08/2024 CMP/C BC/UR IC ACID MCH 29.4 pg 27.0-3 4.0 Not Available [facility] (Lab) [address] [place], [address], 09/09/2024 03:48:02 09/09/19 25 09/08/2024 CMP/C BC/UR IC ACID MCHC 31.7 g/dL 32.0-3 5.5 low Not Available [facility] (Lab) [address], [place], [address], 09/09/2024 03:48:02 09/09/19 25 09/08/2024 CMP/C BC/UR IC ACID RDW 15.2 % 11.0-1 5.0 high Not Available [facility] (Lab) [address] [place], [address], 09/09/2024 03:48:02 09/09/19 25 09/08/2024 CMP/C BC/UR IC ACID plt 207 10'3/ uL 150-40 0 Not Available [facility] (Lab) [address], [place], [address], 09/09/2024 03:48:02 09/09/19 25 09/08/2024 CMP/C BC/UR IC ACID MPV 10.6 fL 8.8-12 .1 Not Available [facility] (Lab) [address] [place], [address], 09/09/2024 03:48:02 09/09/19 25 09/08/2024 CMP/C BC/UR IC ACID neutrophils 63.0 % 34.0-7 3.0 Not Available [facility] (Lab) [address], [place], [address], 09/09/2024 03:48:02 09/09/19 25 09/08/2024 CMP/C BC/UR IC ACID lymphocytes 26.2 % 15.0-5 0.0 Not Available [facility] (Lab) [address], [place], [address], 09/09/2024 03:48:02 09/09/19 25 09/08/2024 CMP/C BC/UR IC ACID monocytes 7.2 % 1.0-15 .0 Not Available [facility] (Lab) [address] [place], [address], 09/09/2024 03:48:02 09/09/19 25 09/08/2024 CMP/C BC/UR IC ACID eosinophils 2.2 % 0.0-8. 0 Not Available [facility] (Lab) [address] [place], [address], 09/09/2024 03:48:02 09/09/19 25 09/08/2024 CMP/C BC/UR IC ACID basophils 0.3 % 0.0-2. 0 Not Available [facility] (Lab) [address] [place], [address], 09/09/2024 03:48:02 09/09/19 25 09/08/2024 CMP/C BC/UR IC ACID immature granulocytes 1.1 % no define d refere nce range Immat ure Granu locyt es (IG) repre sents autom ated enume ratio n of Metam yeloc ytes, Myelo cytes and Promy elocy [place] when IG is < 5%. Blast s are not inclu ded in IG and repor elotn separ ately if prese nt. Not Available [facility] (Lab) [address], [place], [address], 09/09/2024 03:48:02 09/09/19 25 09/08/2024 CMP/C BC/UR IC ACID absolute neutrophils 6.4 10'3/ uL 1.5-8. 0 Not Available [facility] (Lab) [address], [place], [address], 09/09/2024 03:48:02 09/09/19 25 09/08/2024 CMP/C BC/UR IC ACID absolute lymphocytes 2.7 10'3/ uL 1.0-4. 0 Not Available [facility] (Lab) [address], [place], [address], 09/09/2024 03:48:02 09/09/19 25 09/08/2024 CMP/C BC/UR IC ACID absolute monocytes 0.7 10'3/ uL 0.2-1. 0 Not Available [facility] (Lab) [address] [place], [address], 09/09/2024 03:48:02 09/09/19 25 09/08/2024 CMP/C BC/UR IC ACID absolute eosinophils 0.2 10'3/ uL 0.0-0. 6 Not Available [facility] (Lab) [address] [place], [address], 09/09/2024 03:48:02 09/09/19 25 09/08/2024 CMP/C BC/UR IC ACID absolute basophils 0.0 10'3/ uL 0.0-0. 3 Not Available [facility] (Lab) [address], [place], [address], 09/09/2024 03:48:02 09/09/1909/08/2024 CMP/C BC/UR IC ACID absolute immature granulocytes 0.1 10'3/ uL 0.00-0 .10 Refer ence range s for nonbi nary/ inter sex or unspe cifie d gende r patie nts have not been estab lishe d. Pleas e refer to the [facility] wing table for range s estab lishe d for cisge nder patie nts and evalu ate in the clini qu[facility]ancheska xt of the indiv idual patie nt: https ://lisbeth hernandez book. nm.or g/gen derx Not Available [facility] (Lab) [address], [place], [address], 09/09/2024 03:48:02 09/23/1909/22/2024 CBC W/DIF F WBC 10.2 10'3/ uL 3.5-10 .5 Not Available [facility] (Lab) [address], [place], [address], 09/23/2024 06:00:53 09/23/19 25 09/22/2024 CBC W/DIF F RBC 4.02 10'6/ uL (based on docume nted legal sex) 3.80-5 .20 Not Available [facility] (Lab) [address], [place], [address], 09/23/2024 06:00:53 09/23/19 25 09/22/2024 CBC W/DIF F HGB 11.8 g/dL (based on docume nted legal sex) 11.6-1 5.4 Not Available [facility] (Lab) [address], [place], [address], 09/23/2024 06:00:53 09/23/19 25 09/22/2024 CBC W/DIF F HCT 38.2 % (based on docume nted legal sex) 34.0-4 5.0 Not Available [facility] (Lab) [address], [place], [address], 09/23/2024 06:00:53 09/23/19 25 09/22/2024 CBC W/DIF F MCV 95.0 fL 80.0-9 9.0 Not Available [facility] (Lab) [address], [place], [address], 09/23/2024 06:00:53 09/23/19 25 09/22/2024 CBC W/DIF F MCH 29.4 pg 27.0-3 4.0 Not Available [facility] (Lab) [address], [place], [address], 09/23/2024 06:00:53 09/23/19 25 09/22/2024 CBC W/DIF F MCHC 30.9 g/dL 32.0-3 5.5 low Not Available [facility] (Lab) [address], [place], [address], 09/23/2024 06:00:53 09/23/19 25 09/22/2024 CBC W/DIF F RDW 15.2 % 11.0-1 5.0 high Not Available [facility] (Lab) [address], [place], [address], 09/23/2024 06:00:53 09/23/19 25 09/22/2024 CBC W/DIF F plt 210 10'3/ uL 150-40 0 Not Available [facility] (Lab) [address], [place], [address], 09/23/2024 06:00:53 09/23/19 25 09/22/2024 CBC W/DIF F MPV 10.9 fL 8.8-12 .1 Not Available [facility] (Lab) [address], [place], [address], 09/23/2024 06:00:53 09/23/19 25 09/22/2024 CBC W/DIF F neutrophils 63.9 % 34.0-7 3.0 Not Available [facility] (Lab) [address] [place], [address], 09/23/2024 06:00:53 09/23/19 25 09/22/2024 CBC W/DIF F lymphocytes 25.2 % 15.0-5 0.0 Not Available [facility] (Lab) [address], [place], [address], 09/23/2024 06:00:53 09/23/19 25 09/22/2024 CBC W/DIF F monocytes 7.6 % 1.0-15 .0 Not Available [facility] (Lab) [address], [place], [address], 09/23/2024 06:00:53 09/23/19 25 09/22/2024 CBC W/DIF F eosinophils 2.0 % 0.0-8. 0 Not Available [facility] (Lab) [address], [place], [address], 09/23/2024 06:00:53 09/23/19 25 09/22/2024 CBC W/DIF F basophils 0.3 % 0.0-2. 0 Not Available [facility] (Lab) [address] [place], [address], 09/23/2024 06:00:53 09/23/1909/22/2024 CBC W/DIF F immature granulocytes 1.0 % no define d refere nce range Immat ure Granu locyt es (IG) repre sents autom ated enume ratio n of Metam yeloc ytes, Myelo cytes and Promy elocy savana when IG is < 5%. Blast s are not inclu ded in IG and repor elton separ ately if prese nt. Not Available [facility] (Lab) [address] [place], [address], 09/23/2024 06:00:53 09/23/19 25 09/22/2024 CBC W/DIF F absolute neutrophils 6.5 10'3/ uL 1.5-8. 0 Not Available [facility] (Lab) [address], [place], [address], 09/23/2024 06:00:53 09/23/19 25 09/22/2024 CBC W/DIF F absolute lymphocytes 2.6 10'3/ uL 1.0-4. 0 Not Available [facility] (Lab) [address], [place], [address], 09/23/2024 06:00:53 09/23/19 25 09/22/2024 CBC W/DIF F absolute monocytes 0.8 10'3/ uL 0.2-1. 0 Not Available [facility] (Lab) [address], [place], [address], 09/23/2024 06:00:53 09/23/19 25 09/22/2024 CBC W/DIF F absolute eosinophils 0.2 10'3/ uL 0.0-0. 6 Not Available [facility] (Lab) [address], [place], [address], 09/23/2024 06:00:53 09/23/19 25 09/22/2024 CBC W/DIF F absolute basophils 0.0 10'3/ uL 0.0-0. 3 Not Available [facility] (Lab) [address], [place], [address], 09/23/2024 06:00:53 09/23/19 25 09/22/2024 CBC W/DIF F absolute immature granulocytes 0.1 10'3/ uL 0.00-0 .10 Refer ence range s for nonbi nary/ inter sex or unspe cifie d gende r patie nts have not been estab lishe d. Pleas e refer to the [facility] table for range s estab lishe d for cisge nder patie nts and evalu ate in the clini [facility] xt of the indiv idual patie nt: https ://lisbeth [email or web address] book. nm.or g/gen derx Not Available [facility] (Lab) [address], [place], [address], 09/23/2024 06:00:53 09/23/19 25 09/22/2024 URIC ACID uric acid 6.2 mg/dL 2.3-6. 6 Not Available [facility] (Lab) [address] [place], [address], 09/23/2024 06:00:53 09/23/19 25 09/22/2024 CMP(C OMPRE HENSI VE METAB OLIC PANEL ) sodium 137 mmol/ L 133-14 6 Not Available [facility] (Lab) [address] [place], [address], 09/23/2024 06:00:53 09/23/19 25 09/22/2024 CMP(C OMPRE HENSI VE METAB OLIC PANEL ) potassium 4.3 mmol/ L 3.5-5. 1 Not Available [facility] (Lab) [address] [place], [address], 09/23/2024 06:00:53 09/23/19 25 09/22/2024 CMP(C OMPRE HENSI VE METAB OLIC PANEL ) chloride 104 mmol/ L 98-107 Not Available [facility] (Lab) [address] [place], [address], 09/23/2024 06:00:53 09/23/19 25 09/22/2024 CMP(C OMPRE HENSI VE METAB OLIC PANEL ) carbon dioxide 27 mmol/ L 21-31 Not Available [facility] (Lab) [address] [place], [address], 09/23/2024 06:00:53 09/23/19 25 09/22/2024 CMP(C OMPRE HENSI VE METAB OLIC PANEL ) anion gap 6 mmol/ L 4-13 Not Available [facility] (Lab) [address] [facility] [place], [address], 09/23/2024 06:00:53 09/23/19 25 09/22/2024 CMP(C OMPRE HENSI VE METAB OLIC PANEL ) blood urea nitrogen 9 mg/dL 7-25 Not Available [facility] (Lab) [address], [place], [address], 09/23/2024 06:00:53 09/23/19 25 09/22/2024 CMP(C OMPRE HENSI VE METAB OLIC PANEL ) creatinine 0.69 mg/dL 0.60-1 .30 Not Available [facility] (Lab) [address], [place], [address], 09/23/2024 06:00:53 09/23/19 25 09/22/2024 CMP(C OMPRE HENSI VE METAB OLIC PANEL ) egfrcr (CKD-epi 2020) >90 mL/mi n/1.7 3_m2 >=60 Not Available [facility] (Lab) [address], [place], [address], 09/23/2024 06:00:53 09/23/1909/22/2024 CMP(C OMPRE HENSI VE METAB OLIC PANEL ) calcium 9.4 mg/dL 8.3-10 .5 Not Available [facility] (Lab) [address] [place], [address], 09/23/2024 06:00:53 09/23/19 25 09/22/2024 CMP(C OMPRE HENSI VE METAB OLIC PANEL ) glucose 91 mg/dL 70-100 Not Available [facility] (Lab) [address] [place], [address], 09/23/2024 06:00:53 09/23/19 25 09/22/2024 CMP(C OMPRE HENSI VE METAB OLIC PANEL ) protein, total 6.0 g/dL 6.4-8. 3 low Not Available [facility] (Lab) [address] [place], [address], 09/23/2024 06:00:53 09/23/19 25 09/22/2024 CMP(C OMPRE HENSI VE METAB OLIC PANEL ) albumin 3.4 g/dL 3.5-5. 0 low Not Available [facility] (Lab) [address], [place], [address], 09/23/2024 06:00:53 09/23/19 25 09/22/2024 CMP(C OMPRE HENSI VE METAB OLIC PANEL ) ALT 11 units /L 9-43 Not Available [facility] (Lab) [address], [place], [address], 09/23/2024 06:00:53 09/23/1909/22/2024 CMP(C OMPRE HENSI VE METAB OLIC PANEL ) alkaline phosphatase 125 units /L 34-104 high Not Available [facility] (Lab) [address], [place], [address], 09/23/2024 06:00:53 09/23/1909/22/2024 CMP(C OMPRE HENSI VE METAB OLIC PANEL ) AST 16 units /L 13-39 Not Available [facility] (Lab) [address], [place], [address], 09/23/2024 06:00:53 09/23/1909/22/2024 CMP(C OMPRE HENSI VE METAB OLIC PANEL ) bilirubin, total 0.2 mg/dL 0.2-1. 2 Not Available [facility] (Lab) [address], [place], [address], 09/23/2024 06:00:53 08/25/19 25 08/25/2024 US, obste tric, bioph ysica l profi le + non-s tress test No observ ation record ed. [email or web address] [place] [address] [place], [address], 08/25/2024 18:03:15 08/25/19 25 08/25/2024 US, obste tric, follo w-up No observ ation record ed. [email or web address] [address], [place], [address], 08/26/2024 09:34:23 08/27/19 25 08/25/2024 non-s tress test No observ ation record ed. [email or web address] [place] [address], [place], [address], 08/27/2024 09:22:11 08/27/19 25 08/25/2024 non-s tress test No observ ation record ed. [email or web address] Not Available 08/27 18:33:58 09/02/19 25 09/01/2024 US, obste tric, bioph ysica l profi le + non-s tress test No observ ation record ed. [email or web address] [place] [address], [place], [address], 09/01/2024 18:45:49 09/02/19 25 09/01/2024 US, obste tric, bioph ysica l profi le + non-s tress test No observ ation record ed. [email or web address] [address], [place], [address], 09/02/2024 00:16:56 09/02/19 25 09/01/2024 non-s tress test No observ ation record ed. [email or web address] [place] [address], [place], [address], 09/01/2024 12:07:24 09/09/19 25 09/08/2024 US, obste tric, follo w-up No observ ation record ed. [email or web address] [place] [address], [place], [address], 09/08/2024 12:05:21 09/09/19 25 09/08/2024 US, obste tric, bioph ysica l profi le + non-s tress test No observ ation record ed. [email or web address] [place] [address], [place], [address], 09/08/2024 12:05:31 09/09/19 25 09/08/2024 US, obste tric, follo w-up No observ ation record ed. [email or web address] [address], [place], [address], 09/08/2024 11:52:48 09/09/19 25 09/08/2024 non-s tress test No observ ation record ed. [place] [address], [place], [address], 09/08/2024 15:10:48 09/09/19 non-s tress test No observ ation record ed. [email or web address] [place] [address], [place], [address], 09/08/2024 12:13:49 09/15/19 25 09/14/2024 non-s tress test No observ ation record ed. [email or web address] [place] [address], [place], [address], 09/14/2024 14:10:13 09/15/19 non-s tress test No observ ation record ed. [email or web address] [place] [address], [place], [address], 09/14/2024 11:41:08 09/15/19 25 09/14/2024 US, obste tric, bioph ysica l profi le + non-s tress test No observ ation record ed. [email or web address] [place] [address], [place], [address], 09/14/2024 13:10:24 09/15/19 25 09/14/2024 US, obste tric, bioph ysica l profi le + non-s tress test No observ ation record ed. [email or web address] [address], [place], [address], 09/14/2024 22:31:17 09/23/19 25 09/22/2024 US, obste tric, bioph ysica l profi le + non-s tress test No observ ation record ed. [email or web address] [address], [place], [address], 09/22/2024 12:06:06 09/23/19 25 09/22/2024 US, obste tric, bioph ysica l profi le + non-s tress test No observ ation record ed. [email or web address] [address], [place], [address], 09/24/2024 10:12:27 09/23/19 25 09/22/2024 non-s tress test No observ ation record ed. [email or web address] [place] [address], [place], [address], 09/22/2024 18:12:25 09/24/19 non-s tress test No observ ation record ed. [email or web address] [place] [address], [place], [address], 09/23/2024 12:52:16 Result Notes None recorded. Problems Name Problem SNOMED Code Status Onset Date Resolution Date Notes Provider Name and Address Organization Details Recorded Time 76293295 Active 2024 Zakia Briceno [facility] [place] - [facility] 16:07:08 Benign hypertens ion 13467957 Active bASA since 12 weeks, diagnosed outside of , labs today at 30 weeks YUE MAJANO MD [address], [place], [address], [place] [facility] 5 16:28:17 Depressiv e disorder [id number] Active sertralin e 50mg, mood stable YUE MAJANO MD [address], [place], [address], [facility] 5 16:30:33 Polycysti c ovary syndrome [id number] Active metformin YUE MAJANO MD [address], [place], [address], [facility] 5 16:32:11 Problem Notes None recorded. Procedures Surgical History Date Name Laterality Status Provider Name and Address Organization Details Recorded Time 4 Date of Last Pap Smear completed Zakia Briceno [facility] 08/10/2024 15:39:34 2 extraction of wisdom tooth completed Zakia Briceno [facility] 08/10/2024 16:05:14 Imaging Results Imaging Date Name Status LastModified by Organiz ation Details LastModified Time 08/25/2024 US, obstetric, biophysical profile + non-stress test completed [email or web address] [place] [address], [place], [address], 08/25/2024 18:03:15 08/25/2024 US, obstetric, follow-up completed [email or web address], [place], [address], 08/26/2024 09:34:23 08/25/2024 non-stress test completed [place] [address], [place], [address], 08/27/2024 09:22:11 08/25/2024 non-stress test completed Informati on not available 08/27/2024 18:33:58 09/01/2024 US, obstetric, biophysical profile + non-stress test completed [email or web address] [place] [address], [place], [address], 09/01/2024 18:45:49 09/01/2024 US, obstetric, biophysical profile + non-stress test completed [address], [place], [address], 09/02/2024 00:16:56 09/01/2024 non-stress test completed [email or web address] [place] [address], [place], [address], 09/01/2024 12:07:24 09/08/2024 US, obstetric, follow-up completed [email or web address] [place] [address], [place], [address], 09/08/2024 12:05:21 09/08/2024 US, obstetric, biophysical profile + non-stress test completed [email or web address] [place] [address], [place], [address], 09/08/2024 12:05:31 09/08/2024 US, obstetric, follow-up completed [email or web address], [place], [address], 09/08/2024 11:52:48 09/08/2024 non-stress test completed [place] [address], [place], [address], 09/08/2024 15:10:48 09/08/2024 non-stress test completed [email or web address] [address], [place], [address], 09/08/2024 12:13:49 09/14/2024 non-stress test completed [email or web address] [address], [place], [address], 09/14/2024 14:10:13 09/14/2024 non-stress test completed [email or web address] [address], [place], [address], 09/14/2024 11:41:08 09/14/2024 US, obstetric, biophysical profile + non-stress test completed [email or web address] [address], [place], [address], 09/14/2024 13:10:24 09/14/2024 US, obstetric, biophysical profile + non-stress test completed [email or web address], [place], [address], 09/14/2024 22:31:17 09/22/2024 US, obstetric, biophysical profile + non-stress test completed [facility] [address], [place], [address], 09/22/2024 12:06:06 09/22/2024 US, obstetric, biophysical profile + non-stress test completed [email or web address], [place], [address], 09/24/2024 10:12:27 09/22/2024 non-stress test active [facility] [place] [address], [place], [address], 09/22/2024 18:12:25 09/23/2024 non-stress test completed [email or web address] [place] [address], [place], [address], 09/23/2024 12:52:16 Procedure Notes None recorded. Medical Equipment None Reported. Allergies Allergen ID Allergen Name Allergen Category Reaction Reaction Severity Criticality Documentation Date Start Date Code Code System Note Provider Name and Address Organization Details Recorded Time 82962 Product containin g penicilli n (product) medicatio n Not available Not available Not available 08/10/2024 06893 8001 SNOMED Zakia Briceno [facility] 5 15:37:58 Medications Name Sig Start Date Stop [...] Available Not Available Not Available nitrofurant oin macrocrysta l 100 mg capsule TAKE 1 CAPSULE BY MOUTH EVERY 12 HOURS MUST ADMINISTE R WITH A MEAL/FOOD active Not Available Not Available No t Available omeprazole 20 mg capsule,del ayed release [...] Not Available Vitals Date Recorded Body height Body mass index (BMI) Body weight Systolic blood pressure Diastolic blood pressure Provider Name and Address Organization Details Last Updated DateTime 09/14/2024 152.4 cm 38.7 kg/m2 28731.29 g 135 mm[Hg] 85 mm[Hg] Zakia Briceno [facility] 10:19:38 Date Recorded Body weight Systolic blood pressure Diastolic blood pressure Provider Name and Address Organization Details Last Updated DateTime 09/14/2024 61657.2892 6 g 135 mm[Hg] 85 mm[Hg] Joann [facility] 09/14/2024 11:38:22 Date Recorded Body weight Body mass index (BMI) Body height Systolic blood pressure Diastolic blood pressure Systolic blood pressure Diastolic blood pressure Provider Name and Address Organization Details Last Updated DateTime 07472.2 8926 g 38.7 kg/m2 152.4 cm 141 mm[Hg] 96 mm[Hg] 152 mm[Hg] 103 mm[Hg] Sonja Ramos [facility] 12:17:51 Date Recorded Body height Body mass index (BMI) Body weight Systolic blood pressure Diastolic blood pressure Provider Name and Address Organization Details Last Updated DateTime 09/22/2024 152.4 cm 38.7 kg/m2 07533.29 g 152 mm[Hg] 103 mm[Hg] Joann Ambrose [facility] 18:11:26 Social History Question Answer Notes LastModified by Organizat ion Details LastModified Time Tobacco Smoking Status Never Smoker Zakia Briceno [facility], [facility] 08/10/2024 16:14:16 What Is Your Level Of Alcohol Consumption? None [email or web address] Information not available 08/25/2024 If You Are , What Was Your Level Of Alcohol Consumption Prior To ? Occasional [email or web address] Information not available 08/25/2024 Are You Blind Or Do You Have Difficulty Seeing? No [email or web address] Information n ot available 08/10/2024 What Is Your Level Of Caffeine Consumption? Occasional [email or web address] Information not available 08/25/2024 In The 14 Days Before Symptom Onset, Have You Had Close Contact With A Laboratory-confirm ed COVID-19 While That Case Was Ill? No Information n ot available 08/10/2024 In The 14 Days Before Symptom Onset, Have You Had Close Contact With A Person Who Is Under Investigation For COVID-19 While That Person Was Ill? No Information not available 08/10/2024 Have You Been To An Area Known To Be High Risk For COVID-19? No [email or web address] Information not available 08/10/2024 Are You Deaf Or Do You Have Serious Difficulty Hearing? No [email or web address] Information not available 08/10/2024 Do You Use Your Seat Belt Or Car Seat Routinely? Yes [email or web address] Information not available 08/10/2024 Are You Sexually Active? Yes Information not available 08/10/2024 Do You Have Smoke And Carbon Monoxide Detectors In Your Home? Yes [email or web address] Information not available 08/10/2024 Do You Use Any Illicit Or Recreational Drugs? No [email or web address] Information not available 08/10/2024 Do You Use Sunscreen Routinely? Yes [email or web address] Information not available 08/10/2024 Has Tobacco Cessation Counseling Been Provided? No [email or web address] Information not available 08/25/2024 Do You Or Have You Ever Used Any Other Forms Of Tobacco Or Nicotine? No [email or web address] Information not available 08/25/2024 Sex: Unknown Functional Status Question Answer Note LastModified by Organizat ion Details LastModified Time Do you have difficulty walking or climbing stairs? No Information not available 08/10/2024 Are you able to walk? YESWOREST [email or web address] Information not available 08/10/2024 Are you able to care for yourself? Yes Information not available 08/10/2024 Do you have difficulty dressing or bathing? No [email or web address] Information not available 08/10/2024 Mental Status None recorded. Family History Relationship Description Onset Age of this Age Resolved Age Notes LastModified by Organization Details LastModified Time Paternal Grandmother Malignant tumor of breast [email or web address] Not available 2024 16:05:36 Maternal Grandfather Heart disease Not available 2024 16:05:55 Maternal Grandfather Hypercholest erolemia [email or web address] Not available 2024 15:41:27 Maternal Grandmother Diabetes mellitus [email or web address] Not available 2024 16:06:05 Mother Hypercholest erolemia [email or web address] Not available 2024 15:41:27 Maternal Aunt Hypercholest erolemia [email or web address] Not available 2024 15:41:27 Father Hypertensive disorder [email or web address] Not available 2024 15:41:35 Medical History Condition [...] SNOMED-CT Code Diagnosis ICD10 Code Diagnosis Note [id number] Niya Roman [place] [address],[place] [address] 08/10/2024 15:19:41 08/10/2024 16:06:04 Uterine size for dates discrepancy 583673796 O26.843 O36.63X0 Z3A.30 [id number] YUE MAJANO MD [place] [address],[place] [address] 08/10/2024 15:21:58 08/12/2024 05:22:27 Chronic hypertension complicating AND/OR reason for care during 83361653 O16.9 - well controlled outside of - bASA since 12 weeks- repeat preeclamps ia labs today- discussed 32 week testing and delivery between 38-40 weeks gestation if stable Polycystic ovary syndrome 214226972 E28.2 - has continued metformin throughout Depressive disorder 3548 9007 F32.A - stable on 50mg sertraline Gestation period, 30 weeks 94328333 Z3A.30 - continue PNV [id number] YUE MAJANO MD [place] [address],[facility] [place] [address] 08/13/2024 10:37:15 08/16/2024 12:54:19 Chronic hypertension complicating AND/OR reason for care during 27105247 O16.9 - well controlled outside of - bASA since 12 weeks- repeat preeclamps ia labs wnl on 08/10 and in L&D last night- discussed preeclamps ia warning signs and BP parameters - discussed 32 week testing and delivery between 38-40 weeks gestation if stable Gestation period, 30 weeks 77822740 Z3A.30 - continue PNV [id number] Sonja Ramos [place] [address],[place] [address] 08/25/2024 13:48:05 08/27/2024 13:33:40 Chronic hypertension complicating AND/OR reason for care during 26686081 O16.9 [id number] [facility] [address],[place] [address] 08/25/2024 13:49:13 08/25/2024 15:51:53 Chronic hypertension complicating AND/OR reason for care during 57166897 O16.9 Z3A.32 [id number] [facility] [address],[place] [address] 08/25/2024 13:49:28 08/25/2024 16:13:17 Gestation period, 32 weeks 8464176 Z3A.32 952674 Zakia Briceno [place] [address],[place] [address] 09/01/2024 10:22:19 09/01/2024 12:11:43 Chronic hypertension complicating AND/OR reason for care during 24871675 O16.9 - well controlled outside of - bASA since 12 weeks- repeat preeclamps ia labs wnl on 08/10 and in L&D last night- discussed preeclamps ia warning signs and BP parameters - discussed 32 week testing and delivery between 38-40 weeks gestation if stable [id number] [facility] [address],[place] [address] 09/01/2024 10:22:49 09/01/2024 11:28:53 Chronic hypertension complicating AND/OR reason for care during 53910875 O16.3 Z3A.33 [id number] YUE MAJANO MD [place] [address],[place] [address] 09/01/2024 10:23:10 09/01/2024 12:24:51 Chronic hypertension complicating AND/OR reason for care during 51608474 O16.9 - well controlled outside of - bASA since 12 weeks- discussed preeclamps ia warning signs and BP parameters - continue 32 week testing; discussed delivery between 38-40 weeks gestation if stable Depressive disorder 3548 9007 F32.A - stable on 50mg sertraline Gestation period, 33 weeks 37280544 Z3A.33 [id number] Nicole Acharya [place] [address],[place] [address] 09/08/2024 10:56:22 09/08/2024 12:01:00 Chronic hypertension complicating AND/OR reason for care during 78695019 O16.3 Z3A.34 [id number] Joann Ambrose [place] [address],[place] [address] 09/08/2024 10:56:49 09/08/2024 12:15:13 49352299 Z33.1 Chronic hy pertension complicating AND/OR reason for care during 47105265 O16.9 - well controlled outside of - bASA since 12 weeks- discussed preeclamps ia warning signs and BP parameters - continue 32 week testing; discussed delivery between 38-40 weeks gestation if stable [id number] YUE MAJANO MD [place] [address],[place] [address] 09/08/2024 10:57:04 09/08/2024 14:55:35 Chronic hypertension complicating AND/OR reason for care during 50541135 O16.9 - well controlled outside of - bASA since 12 weeks- discussed preeclamps ia warning signs and BP parameters - continue 32 week testing; plan for 38 week induction Gestation period, 34 weeks 61122753 Z3A.34 Depressive disorder 3548 9007 F32.A - stable on 50mg sertraline [id number] YUE MAJANO MD [place] [address],[place] [address] 09/14/2024 10:05:37 09/14/2024 10:57:30 Chronic hypertension complicating AND/OR reason for care during 44460733 O16.9 - well controlled outside of - bASA since 12 weeks- discussed preeclamps ia warning signs and BP parameters - continue 32 week testing; plan for 38 week induction Depressive disorder 3548 9007 F32.A - stable on 50mg sertraline Gestation period, 35 weeks 76768588 Z3A.35 [id number] [facility] [address],[place] [address] 09/14/2024 10:05:48 09/14/2024 11:42:50 Chronic hypertension complicating AND/OR reason for care during 04977175 O16.9 - well controlled outside of - bASA since 12 weeks- discussed preeclamps ia warning signs and BP parameters - continue 32 week testing; plan for 38 week induction [id number] [facility] [address],[place] [address] 09/14/2024 10:05:58 09/14/2024 12:12:53 Chronic hypertension complicating AND/OR reason for care during 66186079 O16.3 Z3A.35 [id number] Niya Roman [place] [address],[place] [address] 09/22/2024 10:51:30 09/22/2024 11:41:40 Chronic hypertension complicating AND/OR reason for care during 66952927 O10.013 Z3A.36 [id number] [facility] [address],[place] [address] 09/22/2024 10:51:54 09/23/2024 03:54:11 -induced hypertension 80150735 O13.9 516130 Natalya Esparza [facility] [address],[place] [address] 09/22/2024 10:52:03 09/22/2024 12:40:25 Gestation period, 36 weeks 13841274 Z3A.36 - induced hypertension 83392584 O13.9 screening 2437 92222 Z36.9 Health Concerns Section Related Observation LastModified by Organization Detai ls LastModified Time None Recorded Concern Status LastModified by Organization Details LastModified Time None Recorded Advance Directives Directive None Recorded Payers Encounter Date Sequence Insurance Name Policy Number Policy [place] Covered Member ID [place] Member ID Guarantor Name 09/14/2024 1 [place] 133 Farideh Barber [id number] Farideh Barber 09/14/2024 1 [place] 133 Farideh Zapp [id number] Farideh Zapp 09/22/2024 1 [place] 133 Farideh Zapp [id number] Farideh Zapp 09/22/2024 1 [place] 133 Farideh Zapp [id number] Farideh Zapp 09/22/2024 1 [place] 133 Farideh Zapp [id number] Farideh Zapp OBGyn Episode Ob Episode Information Episode Created Date Number of Fetuses Patient Bloodtype Patient rh Status Prepregnancy Weight lbs Domestic Partner Domestic Partner Phone Father Name Patient Care Representative Status 08/10/19 25 1 A Negative Pepe Barber OPEN Fetus Data First Name Last Name Admitted to NICU Weight (g) Sex Living Outcome Pediatric Complications Fetus ID Race Codes Race Delivery Type [id number] Problems Problem Notes Problem Name Start Date End Date Resolution Snomed Code Not e Polycystic ovary syndrome 906808941 metformin Depressive disorder 17583313 sertraline 50mg, mood stable Benign hypertension 74627310 bASA since 12 weeks, diagnosed outside of [...] Date Ultra Sound Latest Days Gestation 0 [email or web address] 08/11/2024 10/18/19 25 0 Pre- Flowsheet Flowsheet Date 08/10/2024 Toure Score Blood Edema Fundus Height Fundus Units Glucose Ketones Leukocytes Nitrite Labor Signs Protein Cervic Dilation Cervic Effacement Cervic Station neg trace Type Weight in lbs Pre/Post Dialysis Refused Weight 184.900661278193 BP Diastolic BP Location Tested BP Systolic [...] Type Weight in lbs Pre/Post Dialysis Refused 182.463075882351 BP Diastolic BP Location Tested BP Systolic [...] Weight in lbs Pre/Post Dialysis Refused Weight 188.483200935664 BP Diastolic BP Location Tested BP Systolic [...] Type Weight in lbs Pre/Post Dialysis Refused 188.931877044784 BP Diastolic BP Location Tested BP Systolic [...] Weight in lbs Pre/Post Dialysis Refused Weight 193.064991592394 BP Diastolic BP Location Tested BP Systolic [...] Type Weight in lbs Pre/Post Dialysis Refused 191.813408631328 BP Diastolic BP Location Tested BP Systolic [...] 90%, AC 97% BPP 10/10. Will plan 10/03 MIL for cHTN. Will recheck labs today. RTC 1 week. Flowsheet Date 09/14/2024 Toure Score Blood Edema Fundus Height Fundus Units Glucose Ketones Leukocytes Nitrite Labor Signs Protein Cervic Dilation Cervic Effacement Cervic Station neg trace Type Weight in lbs Pre/Post Dialysis Refused Weight 198.967608555638 BP Diastolic BP Location Tested BP Systolic [...] Type Weight in lbs Pre/Post Dialysis Refused 198.622425747965 BP Diastolic BP Location Tested BP Systolic [...] Rate Present Fetus Movement Comments Flowsheet Date 09/22/2024 Toure Score Blood Edema Fundus Height Fundus Units Glucose Ketones Leukocytes Nitrite Labor Signs Protein Cervic Dilation Cervic Effacement Cervic Station Type Weight in lbs Pre/Post Dialysis Refused BP Diastolic BP Location Tested BP Systolic BP Type Fetus Heart Rate Present Fetus Movement Comments Flowsheet Date 09/22/2024 Toure Score Blood Edema Fundus Height Fundus Units Glucose Ketones Leukocytes Nitrite Labor Signs Protein Cervic Dilation Cervic Effacement Cervic Station Type Weight in lbs Pre/Post Dialysis Refused Weight 198.841765384966 BP Diastolic BP Location Tested BP Systolic BP Type 103 L arm 152 sitting Fetus Heart Rate Present Fetus Movement A Yes Comments Flowsheet Date 09/22/2024 Toure Score Blood Edema Fundus Height Fundus Units Glucose Ketones Leukocytes Nitrite Labor Signs Protein Cervic Dilation Cervic Effacement Cervic Station neg trace Type Weight in lbs Pre/Post Dialysis Refused 198.387714219615 BP Diastolic BP Location Tested BP Systolic BP Type 96 141 103 152 Fetus Heart Rate Present Fetus Movement A Decreased Comments Patient was treated over the weekend for bladder infection when was at labor and delivery. Pt denies current headache epigatstric pain, has seen occasional spots, nothing currently, reviewed with dr majano, precautions reviewed labs here, bpp 02/04 also reviewed l=kick counts Menstrual History Last Menstrual Date Menses Monthly [...]
--- OUTSIDE RECORDS SUMMARY | 2024-09-26 05:35 | XMS_ITS | Data Portability ---
Author Organization [place] - [employer], Main Office Address [address] [place] [address] Assessment No assessment recorded. Plan of Treatment Reminders Order Date Submit Date Provider Last Modified By Organization Details Last Modified Time Details Appointments None recorded. Lab TSH + free T4, serum 2022 023 [facility] [address], [place], [address], 3 10:13:01 T3, free, serum or plasma 2022 023 [facility], [address], [place], [address], 3 10:13:00 unlisted lab - thyroid peroxidase and thyroglobul in antibodies 2022 023 [facility] [address], [place], [address], 3 10:12:58 CMP, serum or plasma 2022 023 [facility], [address], [place], [address], 3 10:13:01 insulin, serum 2022 023 [facility], [address], [place], [address], 3 10:12:58 HbA1c (hemoglobin A1c), blood 2022 023 ROSI [facility], [address], [place], [address], 3 10:12:59 Referral None recorded. Procedures None [...] hola sky refer to https ://ed ucati on.[employer]. iPAYst/f aq/FA Q165 (This link is being provi ded for rosyr alicia nal/e ducat ional purpo ses only. ) (Note ) This test was devel oped and its juan carlos tical perfo rmanc e graciela cteri stics have been deter mined by [employer]. It has not been clear ed or appro jaret by the FDA. This assay has been valid ated pursu ant to the CLIA regul ation s and is used for clini quentin purpo ses. Not Available [facility] [address] [place], [address], 09/06/2021 03:17:57 09/01/19 22 09/06/2021 TESTO STERO NE, FREE (DIAL YSIS) AND TOTAL ,MS testosterone , free 1.1 pg/mL 0.1-6. 4 (Note ) This test was devel oped and its juan carlos tical perfo rmanc e graciela cteri stics have been deter mined by [employer]. It has not been clear ed or appro jaret by the FDA. This assay has been valid ated pursu ant to the CLIA regul ation s and is used for clini quentin purpo ses. F med ada n [address] [facility] [address] [phone] Von cha MD Not Available [facility] [address] [place], [address], 09/06/2021 03:17:57 09/01/19 22 09/06/2021 TSH+F REE T4 TSH 2.00 mIU/L normal Refer ence Range > or = 20 Years 0.40- 4.50 Pregn gwen Range s First trime ster 0.26- 2.66 Secon d trime ster 0.55- 2.73 Third trime ster 0.43- 2.91 Not Available [facility] [address] [place], [address], 09/06/2021 03:17:56 09/01/1909/06/2021 TSH+F REE T4 T4, free 1.2 NG/dL 0.8-1. 8 normal Not Available [facility] [address] [place], [address], 09/06/2021 03:17:56 09/01/19 22 09/06/2021 VITAM IN [...] /MS is recom richard d: order code 69669 (gagan ents >2yrs ). See Note 1 Note 1 For addit ional infor hola aceves e refer to http: //rupesh gilmore.Jose stDia gnost ics.c om/fa q/FAQ 199 (This link is being provi ded for infor matio nal/ educa sherri l purpo ses only. ) Not Available [facility] [address] [place], [address], 09/06/2021 03:17:56 09/01/19 22 09/06/2021 FSH AND LH FSH 4.8 mIU/m L normal Refer ence Range Folli cular Phase 2.5-1 0.2 Mid-c ycle Peak 3.1-1 7.7 Lutea l Phase 1.5- 9.1 Postm enopa usal 23.0- 116.3 Not Available [facility] [address] [place], [address], 09/06/2021 03:17:55 09/01/19 22 09/06/2021 FSH AND LH LH 6.0 mIU/m L normal Refer ence Range Folli cular Phase 1.9-1 2.5 Mid-C ycle Peak 8.7-7 6.3 Lutea l Phase 0.5-1 6.9 Postm enopa usal 10.0- 54.7 Not Available [facility] [address] [place], [address], 09/06/2021 03:17:55 09/01/1909/06/2021 T3, FREE T3, free 3.3 pg/mL 2.3-4. 2 normal Not Available [facility] [id number] [place], [place] [address], [address], 09/06/2021 03:17:55 09/01/19 22 09/06/2021 VITAM IN [...] pg/mL will have sympt oms. Not Available [address] [place], [address], 09/06/2021 03:17:54 09/01/19 22 09/06/2021 VITAM IN B12/F OLATE , SERUM PANEL folate, serum 5.8 NG/mL normal Refer ence Range Low: <3.4 Borde rline : 3.4-5 .4 Ne l: >5.4 Not Available [address] [address] [place], [address], 09/06/2021 03:17:54 09/01/1909/06/2021 PROLA CTIN prolactin 9.4 NG/mL normal Refer ence Range Femal es Non-p regna nt 3.0-3 0.0 Pregn ant 10.0- 209.0 Postm enopa usal 2.0-2 0.0 Not Available [address] [address] [facility] [place], [address], 09/06/2021 03:17:53 09/01/19 22 09/06/2021 PROGE STERO NE progesterone <0.5 NG/mL normal Refer ence Range s Femal e Folli cular Phase < 1.0 Lutea l Phase 2.6-2 1.5 Post menop ausal < 0.5 Pregn gwen 1st Trime ster 4.1-3 4.0 2nd Trime ster 24.0- 76.0 3rd Trime ster 52.0- 302.0 Not Available [address] [address] [place], [address], 09/06/2021 03:17:53 09/01/19 22 09/06/2021 ANGIO TENSI N-1-C ONVER TING ENZYM E angiotensin- 1-converting enzyme 40 U/L 9-67 normal Not Available [facility] [address] [place], [address], 09/06/2021 03:17:52 09/01/19 22 09/06/2021 INSUL IN [...] (dete berkley, gluli sine) . Not Available [facility] [address], [address], 09/06/2021 03:17:51 09/01/19 22 09/06/2021 DHEA SULFA TE DHEA sulfate 111 mcg/d L 14-349 normal Not Available [facility] [address] [place], [address], 09/06/2021 03:17:51 09/01/19 22 09/06/2021 THYRO ID PEROX IDASE ANTIB ODIES thyroid peroxidase antibodies <1 IU/mL <9 normal Not Available [facility] [address] [place], [address], 09/06/2021 03:17:50 09/01/1909/06/2021 ESTRA DIOL, FREE estradiol, free 0.20 pg/mL Femal e Refer ence Range s for Estra diol, Free (pg/m L): Folli cular Stage : 0.43- 5.03 Lutea l Stage : 0.40- 5.55 Postm enopa usal: < or = 0.38 Not Available [facility] [address] [address] [place], [address], 09/06/2021 03:17:50 09/01/19 22 09/06/2021 ESTRA DIOL, [...] mined by [facility] Romeroi giuseppe Barnum Bobizzy padmaja . It has not been clear ed or appro jaret by FDA. This assay has been valid ated pursu ant to the CLIA regul ation s and is used for clini quentin purpo ses. Not Available [facility] [address] [place], [address], 09/06/2021 03:17:50 09/01/19 22 09/06/2021 CBC (INCL UDES DIFF/ PLT) white blood cell count 10.6 thous and/u L 3.8-10 .8 normal Not Available [facility] [address], [address], 09/06/2021 03:17:49 09/01/19 22 09/06/2021 CBC (INCL UDES DIFF/ PLT) red blood cell count 4.88 karma on/uL 3.80-5 .10 normal Not Available [facility] [address], [address], 09/06/2021 03:17:49 09/01/19 22 09/06/2021 CBC (INCL UDES DIFF/ PLT) hemoglobin 13.1 g/dL 11.7-1 5.5 normal Not Available [facility] [address], [address], 09/06/2021 03:17:49 09/01/19 22 09/06/2021 CBC (INCL UDES DIFF/ PLT) hematocrit 41.1 % 35.0-4 5.0 normal Not Available [facility] [address] [place], [address], 09/06/2021 03:17:49 09/01/19 22 09/06/2021 CBC (INCL UDES DIFF/ PLT) MCV 84.2 fL 80.0-1 00.0 normal Not Available [address], [address], 09/06/2021 03:17:49 09/01/19 22 09/06/2021 CBC (INCL UDES DIFF/ PLT) MCH 26.8 pg 27.0-3 3.0 low Not Available [address], [address], 09/06/2021 03:17:49 09/01/19 22 09/06/2021 CBC (INCL UDES DIFF/ PLT) MCHC 31.9 g/dL 32.0-3 6.0 low Not Available [address], [address], 09/06/2021 03:17:49 09/01/19 22 09/06/2021 CBC (INCL UDES DIFF/ PLT) RDW 12.3 % 11.0-1 5.0 normal Not Available [address], [address], 09/06/2021 03:17:49 09/01/19 22 09/06/2021 CBC (INCL UDES DIFF/ PLT) platelet count 336 thous and/u L 140-40 0 normal Not Available [address], [address], 09/06/2021 03:17:49 09/01/19 22 09/06/2021 CBC (INCL UDES DIFF/ PLT) MPV 9.8 fL 7.5-12 .5 normal Not Available [address], [address], 09/06/2021 03:17:49 09/01/19 22 09/06/2021 CBC (INCL UDES DIFF/ PLT) absolute neutrophils 5512 cells /uL 1500-7 800 normal Not Available [address], [address], 09/06/2021 03:17:49 09/01/19 22 09/06/2021 CBC (INCL UDES DIFF/ PLT) absolute lymphocytes 3975 cells /uL 850-39 00 high Not Available [address], [address], 09/06/2021 03:17:49 09/01/19 22 09/06/2021 CBC (INCL UDES DIFF/ PLT) absolute monocytes 689 cells /uL 200-95 0 normal Not Available [address], [address], 09/06/2021 03:17:49 09/01/19 22 09/06/2021 CBC (INCL UDES DIFF/ PLT) absolute eosinophils 371 cells /uL 15-500 normal Not Available [address], [address], 09/06/2021 03:17:49 09/01/19 22 09/06/2021 CBC (INCL UDES DIFF/ PLT) absolute basophils 53 cells /uL 0-200 normal Not Available [address], [address], 09/06/2021 03:17:49 09/01/19 22 09/06/2021 CBC (INCL UDES DIFF/ PLT) neutrophils 52 % normal Not Available [address], [address], 09/06/2021 03:17:49 09/01/19 22 09/06/2021 CBC (INCL UDES DIFF/ PLT) lymphocytes 37.5 % normal Not Available [address], [address], 09/06/2021 03:17:49 09/01/19 22 09/06/2021 CBC (INCL UDES DIFF/ PLT) monocytes 6.5 % normal Not Available [address], [address], 09/06/2021 03:17:49 09/01/19 22 09/06/2021 CBC (INCL UDES DIFF/ PLT) eosinophils 3.5 % normal Not Available [address], [address], 09/06/2021 03:17:49 09/01/19 22 09/06/2021 CBC (INCL UDES DIFF/ PLT) basophils 0.5 % normal Not Available [facility] [address], [address], 09/06/2021 03:17:49 09/01/19 22 09/06/2021 COMPR EHENS SAMIR METAB OLIC PANEL glucose 88 mg/dL 65-99 normal Fasti ng refer ence inter aimee Not Available [address], [address], 09/06/2021 03:17:49 09/01/19 22 09/06/2021 COMPR EHENS SAMIR METAB OLIC PANEL urea nitrogen (BUN) 16 mg/dL 7-25 normal Not Available [address], [address], 09/06/2021 03:17:49 09/01/19 22 09/06/2021 COMPR EHENS SAMIR METAB OLIC PANEL creatinine 0.80 mg/dL 0.50-1 .10 normal Not Available [address], [address], 09/06/2021 03:17:49 09/01/19 22 09/06/2021 COMPR EHENS SAMIR METAB OLIC PANEL eGFR non-afr. guatemalan 104 mL/mi n/1.7 3m2 > or = 60 normal Not Available [address], [address], 09/06/2021 03:17:49 09/01/19 22 09/06/2021 COMPR EHENS SAMIR METAB OLIC PANEL eGFR 120 mL/mi n/1.7 3m2 > or = 60 normal Not Available [address], [address], 09/06/2021 03:17:49 09/01/19 22 09/06/2021 COMPR EHENS SAMIR METAB OLIC PANEL BUN/creatini ne ratio not applic able (calc ) 6-22 Not Available [address], [address], 09/06/2021 03:17:49 09/01/19 22 09/06/2021 COMPR EHENS SAMIR METAB OLIC PANEL sodium 141 mmol/ L 135-14 6 normal Not Available [address], [address], 09/06/2021 03:17:49 09/01/19 22 09/06/2021 COMPR EHENS SAMIR METAB OLIC PANEL potassium 4.3 mmol/ L 3.5-5. 3 normal Not Available [address], [address], 09/06/2021 03:17:49 09/01/19 22 09/06/2021 COMPR EHENS SAMIR METAB OLIC PANEL chloride 106 mmol/ L 98-110 normal Not Available [address], [address], 09/06/2021 03:17:49 09/01/19 22 09/06/2021 COMPR EHENS SAMIR METAB OLIC PANEL carbon dioxide 23 mmol/ L 20-32 normal Not Available [address], [address], 09/06/2021 03:17:49 09/01/19 22 09/06/2021 COMPR EHENS SAMIR METAB OLIC PANEL calcium 9.3 mg/dL 8.6-10 .2 normal Not Available [address] [place], [address], 09/06/2021 03:17:49 09/01/19 22 09/06/2021 COMPR EHENS SAMIR METAB OLIC PANEL protein, total 6.8 g/dL 6.1-8. 1 normal Not Available [address], [address], 09/06/2021 03:17:49 09/01/19 22 09/06/2021 COMPR EHENS SAMIR METAB OLIC PANEL albumin 4.2 g/dL 3.6-5. 1 normal Not Available [address], [address], 09/06/2021 03:17:49 09/01/19 22 09/06/2021 COMPR EHENS SAMIR METAB OLIC PANEL globulin 2.6 g/dL_ (calc ) 1.9-3. 7 normal Not Available [address], [address], 09/06/2021 03:17:49 09/01/19 22 09/06/2021 COMPR EHENS SAMIR METAB OLIC PANEL albumin/glob ulin ratio 1.6 (calc ) 1.0-2. 5 normal Not Available [address], [address], 09/06/2021 03:17:49 09/01/19 22 09/06/2021 COMPR EHENS SAMIR METAB OLIC PANEL bilirubin, total 0.2 mg/dL 0.2-1. 2 normal Not Available [address], [address], 09/06/2021 03:17:49 09/01/19 22 09/06/2021 COMPR EHENS SAMIR METAB OLIC PANEL alkaline phosphatase 47 U/L 31-125 normal Not Available [address], [address], 09/06/2021 03:17:49 09/01/19 22 09/06/2021 COMPR EHENS SAMIR METAB OLIC PANEL AST 14 U/L 10-30 normal Not Available [address], [address], 09/06/2021 03:17:49 09/01/19 22 09/06/2021 COMPR EHENS SAMIR METAB OLIC PANEL ALT 13 U/L 6-29 normal Not Available [address], [address], 09/06/2021 03:17:49 09/01/19 22 09/06/2021 IRON, TIBC AND TRINITY TIN PANEL iron, total 60 mcg/d L 40-190 normal Not Available [address], [address], 09/06/2021 03:17:48 09/01/19 22 09/06/2021 IRON, TIBC AND TRINITY TIN PANEL iron binding capacity 422 mcg/d L_(ca lc) 250-45 0 normal Not Available [address], [address], 09/06/2021 03:17:48 09/01/19 22 09/06/2021 IRON, TIBC AND TRINITY TIN PANEL % saturation 14 %_(ca lc) 16-45 low Not Available [address], [address], 09/06/2021 03:17:48 09/01/19 22 09/06/2021 IRON, TIBC AND TRINITY TIN PANEL ferritin 45 NG/mL 16-154 normal Not Available [address], [address], 09/06/2021 03:17:48 11/10/19 22 11/15/2021 TESTO STERO NE, FREE (DIAL YSIS) AND TOTAL ,MS testosterone , total, MS 14 NG/dL 2-45 For addit ional infor matio n, pleas e refer to https ://ed ucati on.qu sandywufoos. com/f aq/FA Q165 (This link is being provi ded for infor alicia nal/e ducat ional purpo ses only. ) (Note ) This test was devel oped and its juan carlos tical perfo rmanc e graciela cteri stics have been deter mined by [employer]. It has not been clear ed or appro jaret by the FDA. This assay has been valid ated pursu ant to the CLIA regul ation s and is used for clini quentin purpo ses. Not Available [facility] [address] [place], [address], 11/15/2021 22:37:31 11/10/19 22 11/15/2021 TESTO STERO NE, FREE (DIAL YSIS) AND TOTAL ,MS testosterone , free 1.3 pg/mL 0.1-6. 4 (Note ) This test was devel oped and its juan carlos tical perfo rmanc e graciela cteri stics have been deter mined by [employer]. It has not been clear ed or appro jaret by the FDA. This assay has been valid ated pursu ant to the CLIA regul ation s and is used for clini quentin purpo ses. MDF med fusio n [address] [facility] [address] [phone] Von cha MD Not Available [facility] [address] [address], [place], [address], 11/15/2021 22:37:31 11/10/19 22 11/15/2021 VITAM IN [...] /MS is recom richard d: order code [id number] (gagan ents >2yrs ). See Note 1 Note 1 For addit ional infor hola aceves e refer to http: //[facility] nona gilmore.Jose stDia gnost ics.c om/fa q/FAQ 199 (This link is being provi ded for infor alicia kenney/ eductyesha knight purpo ses only. ) Not Available [facility] [address] [place], [address], 11/15/2021 22:37:31 11/10/19 22 11/15/2021 FSH AND LH FSH 6.6 mIU/m L normal Refer ence Range Folli cular Phase 2.5-1 0.2 Mid-c ycle Peak 3.1-1 7.7 Lutea l Phase 1.5- 9.1 Postm enopa usal 23.0- 116.3 Not Available [facility] [address] [place], [address], 11/15/2021 22:37:30 11/10/19 22 11/15/2021 FSH AND LH LH 5.9 mIU/m L normal Refer ence Range Folli cular Phase 1.9-1 2.5 Mid-C ycle Peak 8.7-7 6.3 Lutea l Phase 0.5-1 6.9 Postm enopa usal 10.0- 54.7 Not Available [facility] [address] [place], [address], 11/15/2021 22:37:30 11/10/19 22 11/15/2021 VITAM IN B12/F OLATE , SERUM PANEL vitamin B12 597 pg/mL 200-11 00 normal Not Available [facility] [address] [place], [address], 11/15/2021 22:37:29 11/10/19 22 11/15/2021 VITAM IN B12/F OLATE , SERUM PANEL folate, serum 9.4 NG/mL normal Refer ence Range Low: <3.4 Borde rline : 3.4-5 .4 Ne l: >5.4 Not Available [facility] [address] [place], [address], 11/15/2021 22:37:29 11/10/19 22 11/15/2021 CORTI ESTEPHANIA, A.M. cortisol, A.M. 0.8 mcg/d L low Refer ence Range 8 a.m. (7-9 a.m.) Speci men: 4.0-2 2.0 Not Available [facility] [address] [place], [address], 11/15/2021 22:37:29 11/10/19 22 11/15/2021 PROGE STERO NE progesterone <0.5 NG/mL normal Refer ence Range s Femal e Folli cular Phase < 1.0 Lutea l Phase 2.6-2 1.5 Post menop ausal < 0.5 Pregn gwen 1st Trime ster 4.1-3 4.0 2nd Trime ster 24.0- 76.0 3rd Trime ster 52.0- 302.0 Not Available [facility] [address], [address], 11/15/2021 22:37:28 11/10/19 22 11/15/2021 DHEA SULFA TE DHEA sulfate 47 mcg/d L 14-349 normal Not Available [facility] [address], [address], 11/15/2021 22:37:28 11/10/19 22 11/15/2021 ESTRA DIOL, FREE estradiol, free 0.50 pg/mL Femal e Refer ence Range s for Estra diol, Free (pg/m L): Folli cular Stage : 0.43- 5.03 Lutea l Stage : 0.40- 5.55 Postm enopa usal: < or = 0.38 Not Available [facility] [address], [address], 11/15/2021 22:37:27 11/10/19 22 11/15/2021 ESTRA DIOL, [...] for clini quentin purpo ses. Not Available [facility] [address], [address], 11/15/2021 22:37:27 11/10/19 22 11/15/2021 ANTI- MULLE HAYLEY HORMO NE ([facility]) , FEMAL E anti-mulleri an hormone (amh), female 2.95 NG/mL 1.02-1 4.63 Not Available [facility] [address], [address], 11/15/2021 22:37:27 11/10/19 22 11/15/2021 CBC (H/H, RBC, INDIC ES, WBC, PLT) white blood cell count 9.1 thous and/u L 3.8-10 .8 normal Not Available [facility] [address], [address], 11/15/2021 22:37:26 11/10/19 22 11/15/2021 CBC (H/H, RBC, INDIC ES, WBC, PLT) red blood cell count 5.04 karma on/uL 3.80-5 .10 normal Not Available [address], [address], 11/15/2021 22:37:26 11/10/19 22 11/15/2021 CBC (H/H, RBC, INDIC ES, WBC, PLT) hemoglobin 13.4 g/dL 11.7-1 5.5 normal Not Available [facility] [address], [address], 11/15/2021 22:37:26 11/10/19 22 11/15/2021 CBC (H/H, RBC, INDIC ES, WBC, PLT) hematocrit 42.4 % 35.0-4 5.0 normal Not Available [address], [address], 11/15/2021 22:37:26 11/10/19 22 11/15/2021 CBC (H/H, RBC, INDIC ES, WBC, PLT) MCV 84.1 fL 80.0-1 00.0 normal Not Available [facility] [address], [address], 11/15/2021 22:37:26 11/10/19 22 11/15/2021 CBC (H/H, RBC, INDIC ES, WBC, PLT) MCH 26.6 pg 27.0-3 3.0 low Not Available [address], [address], 11/15/2021 22:37:26 11/10/19 22 11/15/2021 CBC (H/H, RBC, INDIC ES, WBC, PLT) MCHC 31.6 g/dL 32.0-3 6.0 low Not Available [facility] [address], [address], 11/15/2021 22:37:26 11/10/19 22 11/15/2021 CBC (H/H, RBC, INDIC ES, WBC, PLT) RDW 13.0 % 11.0-1 5.0 normal Not Available [address], [address], 11/15/2021 22:37:26 11/10/19 22 11/15/2021 CBC (H/H, RBC, INDIC ES, WBC, PLT) platelet count 302 thous and/u L 140-40 0 normal Not Available [address], [address], 11/15/2021 22:37:26 11/10/19 22 11/15/2021 CBC (H/H, RBC, INDIC ES, WBC, PLT) MPV 9.6 fL 7.5-12 .5 normal Not Available [address], [address], 11/15/2021 22:37:26 11/10/19 22 11/15/2021 COMPR EHENS SMAIR METAB OLIC PANEL glucose 65 mg/dL 65-99 normal Fasti ng refer ence inter aimee Not Available [address], [address], 11/15/2021 22:37:26 11/10/19 22 11/15/2021 COMPR EHENS SAMIR METAB OLIC PANEL urea nitrogen (BUN) 12 mg/dL 7-25 normal Not Available [address], [address], 11/15/2021 22:37:26 11/10/19 22 11/15/2021 COMPR EHENS SAMIR METAB OLIC PANEL creatinine 0.67 mg/dL 0.50-1 .10 normal Not Available [address], [address], 11/15/2021 22:37:26 11/10/19 22 11/15/2021 COMPR EHENS SAMIR METAB OLIC PANEL eGFR non-afr. guatemalan 124 mL/mi n/1.7 3m2 > or = 60 normal Not Available [address] [place], [address], 11/15/2021 22:37:26 11/10/19 22 11/15/2021 COMPR EHENS SAMIR METAB OLIC PANEL eGFR 144 mL/mi n/1.7 3m2 > or = 60 normal Not Available [address], [address], 11/15/2021 22:37:26 11/10/19 22 11/15/2021 COMPR EHENS SAMIR METAB OLIC PANEL BUN/creatini ne ratio not applic able (calc ) 6-22 Not Available [address], [address], 11/15/2021 22:37:26 11/10/19 22 11/15/2021 COMPR EHENS SAMIR METAB OLIC PANEL sodium 140 mmol/ L 135-14 6 normal Not Available [address], [address], 11/15/2021 22:37:26 11/10/19 22 11/15/2021 COMPR EHENS SAMIR METAB OLIC PANEL potassium 4.3 mmol/ L 3.5-5. 3 normal Not Available [address], [address], 11/15/2021 22:37:26 11/10/19 22 11/15/2021 COMPR EHENS SAMIR METAB OLIC PANEL chloride 102 mmol/ L 98-110 normal Not Available [address], [address], 11/15/2021 22:37:26 11/10/19 22 11/15/2021 COMPR EHENS SAMIR METAB OLIC PANEL carbon dioxide 25 mmol/ L 20-32 normal Not Available [address], [address], 11/15/2021 22:37:26 11/10/19 22 11/15/2021 COMPR EHENS SAMIR METAB OLIC PANEL calcium 9.2 mg/dL 8.6-10 .2 normal Not Available [address], [address], 11/15/2021 22:37:26 11/10/19 22 11/15/2021 COMPR EHENS SAMIR METAB OLIC PANEL protein, total 6.9 g/dL 6.1-8. 1 normal Not Available [address], [address], 11/15/2021 22:37:26 11/10/19 22 11/15/2021 COMPR EHENS SAMIR METAB OLIC PANEL albumin 4.1 g/dL 3.6-5. 1 normal Not Available [address], [address], 11/15/2021 22:37:26 11/10/19 22 11/15/2021 COMPR EHENS SAMIR METAB OLIC PANEL globulin 2.8 g/dL_ (calc ) 1.9-3. 7 normal Not Available [address], [address], 11/15/2021 22:37:26 11/10/19 22 11/15/2021 COMPR EHENS SAMIR METAB OLIC PANEL albumin/glob ulin ratio 1.5 (calc ) 1.0-2. 5 normal Not Available [address], [address], 11/15/2021 22:37:26 11/10/19 22 11/15/2021 COMPR EHENS SAMIR METAB OLIC PANEL bilirubin, total 0.3 mg/dL 0.2-1. 2 normal Not Available [address], [address], 11/15/2021 22:37:26 11/10/19 22 11/15/2021 COMPR EHENS SAMIR METAB OLIC PANEL alkaline phosphatase 81 U/L 31-125 normal Not Available [address] [address] [place], [address], 11/15/2021 22:37:26 11/10/19 22 11/15/2021 COMPR EHENS SAMIR METAB OLIC PANEL AST 22 U/L 10-30 normal Not Available [address], [address], 11/15/2021 22:37:26 11/10/19 22 11/15/2021 COMPR EHENS SAMIR METAB OLIC PANEL ALT 29 U/L 6-29 normal Not Available [address], [address], 11/15/2021 22:37:26 11/10/19 22 11/15/2021 SPECI MEN [...] ct with red cells . Not Available [address], [address], 11/15/2021 22:37:25 11/10/19 22 11/15/2021 IRON, TIBC AND TRINITY TIN PANEL iron, total 57 mcg/d L 40-190 normal Not Available [address] [address] [place], [address], 11/15/2021 22:37:24 11/10/19 22 11/15/2021 IRON, TIBC AND TRINITY TIN PANEL iron binding capacity 367 mcg/d L_(ca lc) 250-45 0 normal Not Available [address], [address], 11/15/2021 22:37:24 11/10/19 22 11/15/2021 IRON, TIBC AND TRINITY TIN PANEL % saturation 16 %_(ca lc) 16-45 normal Not Available [facility] [address] [place], [address], 11/15/2021 22:37:24 11/10/19 22 11/15/2021 IRON, TIBC AND TRINITY TIN PANEL ferritin 41 NG/mL 16-154 normal Not Available [facility] [address] [address] , [place], [address], 11/15/2021 22:37:24 12/05/19 22 12/09/2021 TESTO STERO NE, FREE (DIAL YSIS) AND TOTAL ,MS testosterone , total, MS 22 NG/dL 2-45 For addit ional hola sky refer to https ://ed ati on.qu [employer]. com/f aq/FA Q165 (This link is being provi ded for infor alicia nal/e ducat ional purpo ses only. ) (Note ) This test was devel oped and its juan carlos tical perfo rmanc e graciela cteri stics have been deter mined by [employer]. It has not been clear ed or appro jaret by the FDA. This assay has been valid ated pursu ant to the CLIA regul ation s and is used for clini quentin purpo ses. Not Available [facility] [address] [place], [address], 12/09/2021 03:46:21 12/05/19 22 12/09/2021 TESTO STERO NE, FREE (DIAL YSIS) AND TOTAL ,MS testosterone , free 2.4 pg/mL 0.1-6. 4 (Note ) This test was devel oped and its juan carlos tical perfo rmanc e graciela cteri stics have been deter mined by [employer]. It has not been clear ed or appro jaret by the FDA. This assay has been valid ated pursu ant to the CLIA regul ation s and is used for clini quentin purpo ses. MDF med fusio n [address] [place] [address] [phone] Von cha MD Not Available [facility] [address] [address] [place], [address], 12/09/2021 03:46:21 12/05/19 22 12/09/2021 HEMOG LOBIN [...] Care in Diabe savana(A DA). Not Available [facility] [address] [address], [place], [address], 12/09/2021 03:46:20 12/05/19 22 12/09/2021 TSH+F REE T4 TSH 1.18 mIU/L normal Refer ence Range > or = 20 Years 0.40- 4.50 Pregn gwen Range s First trime ster 0.26- 2.66 Secon d trime ster 0.55- 2.73 Third trime ster 0.43- 2.91 Not Available [facility] [address] [place], [address], 12/09/2021 03:46:19 12/05/19 22 12/09/2021 TSH+F REE T4 T4, free 1.1 NG/dL 0.8-1. 8 normal Not Available [facility] [address] [place], [address], 12/09/2021 03:46:19 12/05/19 22 12/09/2021 FSH AND LH FSH 2.1 mIU/m L normal Refer ence Range Folli cular Phase 2.5-1 0.2 Mid-c ycle Peak 3.1-1 7.7 Lutea l Phase 1.5- 9.1 Postm enopa usal 23.0- 116.3 Not Available [facility] [address] [place], [address], 12/09/2021 03:46:18 12/05/1912/09/2021 FSH AND LH LH 7.7 mIU/m L normal Refer ence Range Folli cular Phase 1.9-1 2.5 Mid-C ycle Peak 8.7-7 6.3 Lutea l Phase 0.5-1 6.9 Postm enopa usal 10.0- 54.7 Not Available [facility] [address] [place], [address], 12/09/2021 03:46:18 12/05/1912/09/2021 PROLA CTIN prolactin 11.7 NG/mL normal Refer ence Range Femal es Non-p regna nt 3.0-3 0.0 Pregn ant 10.0- 209.0 Postm enopa usal 2.0-2 0.0 Not Available [facility] [address] [place], [address], 12/09/2021 03:46:18 12/05/1912/09/2021 PROGE STERO NE progesterone 13.0 NG/mL normal Refer ence Range s Femal e Folli cular Phase < 1.0 Lutea l Phase 2.6-2 1.5 Post menop ausal < 0.5 Pregn gwen 1st Trime ster 4.1-3 4.0 2nd Trime ster 24.0- 76.0 3rd Trime ster 52.0- 302.0 Not Available [facility] [address] [address] [place], [address], 12/09/2021 03:46:17 12/05/19 22 12/09/2021 INSUL IN [...] (dete berkley, gluli sine) . Not Available [facility] [address] [place], [address], 12/09/2021 03:46:16 12/05/19 22 12/09/2021 DHEA SULFA TE DHEA sulfate 104 mcg/d L 14-349 normal Not Available [facility] [address], [address], 12/09/2021 03:46:15 12/05/19 22 12/09/2021 ESTRA DIOL, FREE estradiol, free 3.16 pg/mL Femal e Refer ence Range s for Estra diol, Free (pg/m L): Folli cular Stage : 0.43- 5.03 Lutea l Stage : 0.40- 5.55 Postm enopa usal: < or = 0.38 Not Available [facility] [address] [address] [place], [address], 12/09/2021 03:46:15 12/05/19 22 12/09/2021 ESTRA DIOL, [...] for clini quentin purpo ses. Not Available [facility] [address] [address] [place], [address], 12/09/2021 03:46:15 12/05/19 22 12/09/2021 COMPR EHENS SAMIR METAB OLIC PANEL glucose 87 mg/dL 65-99 normal Fasti ng refer ence inter aimee Not Available [facility] [address], [address], 12/09/2021 03:46:14 12/05/19 22 12/09/2021 COMPR EHENS SAMIR METAB OLIC PANEL urea nitrogen (BUN) 12 mg/dL 7-25 normal Not Available [facility] [address], [address], 12/09/2021 03:46:14 12/05/19 22 12/09/2021 COMPR EHENS SAMIR METAB OLIC PANEL creatinine 0.86 mg/dL 0.50-1 .10 normal Not Available [facility] [address] [address] [place], [address], 12/09/2021 03:46:14 12/05/19 22 12/09/2021 COMPR EHENS SAMIR METAB OLIC PANEL eGFR non-afr. guatemalan 95 mL/mi n/1.7 3m2 > or = 60 normal Not Available [facility] [address] [place], [address], 12/09/2021 03:46:14 12/05/19 22 12/09/2021 COMPR EHENS SAMIR METAB OLIC PANEL eGFR 110 mL/mi n/1.7 3m2 > or = 60 normal Not Available [address], [address], 12/09/2021 03:46:14 12/05/19 22 12/09/2021 COMPR EHENS SAMIR METAB OLIC PANEL BUN/creatini ne ratio not applic able (calc ) 6-22 Not Available [address], [address], 12/09/2021 03:46:14 12/05/19 22 12/09/2021 COMPR EHENS SAMIR METAB OLIC PANEL sodium 140 mmol/ L 135-14 6 normal Not Available [address], [address], 12/09/2021 03:46:14 12/05/19 22 12/09/2021 COMPR EHENS SAMIR METAB OLIC PANEL potassium 4.3 mmol/ L 3.5-5. 3 normal Not Available [address], [address], 12/09/2021 03:46:14 12/05/19 22 12/09/2021 COMPR EHENS SAMIR METAB OLIC PANEL chloride 106 mmol/ L 98-110 normal Not Available [address], [address], 12/09/2021 03:46:14 12/05/19 22 12/09/2021 COMPR EHENS SAMIR METAB OLIC PANEL carbon dioxide 26 mmol/ L 20-32 normal Not Available [address], [address], 12/09/2021 03:46:14 12/05/19 22 12/09/2021 COMPR EHENS SAMIR METAB OLIC PANEL calcium 9.4 mg/dL 8.6-10 .2 normal Not Available [facility] [address], [address], 12/09/2021 03:46:14 12/05/19 22 12/09/2021 COMPR EHENS SAMIR METAB OLIC PANEL protein, total 6.6 g/dL 6.1-8. 1 normal Not Available [address], [address], 12/09/2021 03:46:14 12/05/19 22 12/09/2021 COMPR EHENS SAMIR METAB OLIC PANEL albumin 4.1 g/dL 3.6-5. 1 normal Not Available [address], [address], 12/09/2021 03:46:14 12/05/19 22 12/09/2021 COMPR EHENS SAMIR METAB OLIC PANEL globulin 2.5 g/dL_ (calc ) 1.9-3. 7 normal Not Available [address], [address], 12/09/2021 03:46:14 12/05/19 22 12/09/2021 COMPR EHENS SAMIR METAB OLIC PANEL albumin/glob ulin ratio 1.6 (calc ) 1.0-2. 5 normal Not Available [address], [address], 12/09/2021 03:46:14 12/05/19 22 12/09/2021 COMPR EHENS SAMIR METAB OLIC PANEL bilirubin, total 0.3 mg/dL 0.2-1. 2 normal Not Available [address], [address], 12/09/2021 03:46:14 12/05/19 22 12/09/2021 COMPR EHENS SAMIR METAB OLIC PANEL alkaline phosphatase 73 U/L 31-125 normal Not Available [address], [address], 12/09/2021 03:46:14 12/05/19 22 12/09/2021 COMPR EHENS SAMIR METAB OLIC PANEL AST 16 U/L 10-30 normal Not Available [facility] [address] [place], [address], 12/09/2021 03:46:14 12/05/19 22 12/09/2021 COMPR EHENS SAMIR METAB OLIC PANEL ALT 19 U/L 6-29 normal Not Available [facility] [address] [place], [address], 12/09/2021 03:46:14 04/20/20 22 04/23/2022 HEMOG LOBIN [...] Diabe savana(A DA). Not Available [facility] [address] [place], [address], 04/23/2022 02:52:33 04/20/2004/23/2022 TSH+F REE T4 TSH 0.83 mIU/L normal Refer ence Range > or = 20 Years 0.40- 4.50 Pregn gwen Range s First trime ster 0.26- 2.66 Secon d trime ster 0.55- 2.73 Third trime ster 0.43- 2.91 Not Available [facility] [address] [place], [address], 04/23/2022 02:52:32 04/20/2004/23/2022 TSH+F REE T4 T4, free 1.3 NG/dL 0.8-1. 8 normal Not Available [facility] [address] [address] [place], [address], 04/23/2022 02:52:32 04/20/2004/23/2022 VITAM IN D,25- [place],TO [...] /MS is recom richard d: order code 46444 (gagan ents >2yrs ). See Note 1 Note 1 For addit ional infor hola aceves e refer to http: //[facility] non[facility] gnost ics.c om/fa q/FAQ 199 (This link is being provi ded for infor alicia kenney/ jairo knight purpo ses only. ) Not Available [facility] [address] [place], [address], 04/23/2022 02:52:32 04/20/2004/23/2022 T3, FREE T3, free 3.1 pg/mL 2.3-4. 2 normal Not Available [facility] [address] [place], [address], 04/23/2022 02:52:31 04/20/2004/23/2022 VITAM IN B12/F OLATE [...] pg/mL will have sympt oms. Not Available [address] [place], [address], 04/23/2022 02:52:31 04/20/2004/23/2022 VITAM IN B12/F OLATE , SERUM PANEL folate, serum 8.6 NG/mL normal Refer ence Range Low: <3.4 Borde rline : 3.4-5 .4 Ne l: >5.4 Not Available [address] [address] [place], [address], 04/23/2022 02:52:31 04/20/20 22 04/23/2022 THYRO ID PEROX IDASE AND THYRO GLOBU MARIN ANTIB ODIES thyroglobuli n antibodies <1 IU/mL < or = 1 normal Not Available [address] [address] [place], [address], 04/23/2022 02:52:30 04/20/2004/23/2022 THYRO ID PEROX IDASE AND THYRO GLOBU MARIN ANTIB ODIES thyroid peroxidase antibodies <1 IU/mL <9 normal Not Available [facility] [address] [address] [place], [address], 04/23/2022 02:52:30 04/20/20 22 04/23/2022 COMPR EHENS SAMIR METAB OLIC PANEL glucose 84 mg/dL 65-99 normal Fasti ng refer ence inter aimee Not Available [address] [address] [place], [address], 04/23/2022 02:52:29 04/20/20 22 04/23/2022 COMPR EHENS SAMIR METAB OLIC PANEL urea nitrogen (BUN) 12 mg/dL 7-25 normal Not Available [address] [address] [place], [address], 04/23/2022 02:52:29 04/20/20 22 04/23/2022 COMPR EHENS SAMIR METAB OLIC PANEL creatinine 0.80 mg/dL 0.50-0 .96 normal Not Available [address], [address], 04/23/2022 02:52:29 04/20/20 22 04/23/2022 COMPR EHENS [...] kdoqi /gfr% 5Fcal culat or Not Available [address] [address] [place], [address], 04/23/2022 02:52:29 04/20/20 22 04/23/2022 COMPR EHENS SAMIR METAB OLIC PANEL BUN/creatini ne ratio not applic able (calc ) 6-22 Not Available [address] [address] [place], [address], 04/23/2022 02:52:29 04/20/20 22 04/23/2022 COMPR EHENS SAMIR METAB OLIC PANEL sodium 140 mmol/ L 135-14 6 normal Not Available [address] [address] [place], [address], 04/23/2022 02:52:29 04/20/20 22 04/23/2022 COMPR EHENS SAMIR METAB OLIC PANEL potassium 4.5 mmol/ L 3.5-5. 3 normal Not Available [address], [address], 04/23/2022 02:52:29 04/20/20 22 04/23/2022 COMPR EHENS SAMIR METAB OLIC PANEL chloride 107 mmol/ L 98-110 normal Not Available [address], [address], 04/23/2022 02:52:29 04/20/2004/23/2022 COMPR EHENS SAMIR METAB OLIC PANEL carbon dioxide 23 mmol/ L 20-32 normal Not Available [address], [address], 04/23/2022 02:52:29 04/20/20 22 04/23/2022 COMPR EHENS SAMIR METAB OLIC PANEL calcium 9.0 mg/dL 8.6-10 .2 normal Not Available [address], [address], 04/23/2022 02:52:29 04/20/20 22 04/23/2022 COMPR EHENS SAMIR METAB OLIC PANEL protein, total 7.1 g/dL 6.1-8. 1 normal Not Available [address], [address], 04/23/2022 02:52:29 04/20/20 22 04/23/2022 COMPR EHENS SAMIR METAB OLIC PANEL albumin 4.3 g/dL 3.6-5. 1 normal Not Available [address], [address], 04/23/2022 02:52:29 04/20/20 22 04/23/2022 COMPR EHENS SAMIR METAB OLIC PANEL globulin 2.8 g/dL_ (calc ) 1.9-3. 7 normal Not Available [address], [address], 04/23/2022 02:52:29 04/20/2004/23/2022 COMPR EHENS SAMIR METAB OLIC PANEL albumin/glob ulin ratio 1.5 (calc ) 1.0-2. 5 normal Not Available [address], [address], 04/23/2022 02:52:29 04/20/20 22 04/23/2022 COMPR EHENS SAMIR METAB OLIC PANEL bilirubin, total 0.2 mg/dL 0.2-1. 2 normal Not Available [address], [address], 04/23/2022 02:52:29 04/20/20 22 04/23/2022 COMPR EHENS SAMIR METAB OLIC PANEL alkaline phosphatase 52 U/L 31-125 normal Not Available [address], [address], 04/23/2022 02:52:29 04/20/20 22 04/23/2022 COMPR EHENS SAMIR METAB OLIC PANEL AST 12 U/L 10-30 normal Not Available [address], [address], 04/23/2022 02:52:29 04/20/20 22 04/23/2022 COMPR EHENS SAMIR METAB OLIC PANEL ALT 9 U/L 6-29 normal Not Available [address], [address], 04/23/2022 02:52:29 10/19/19 23 10/18/2022 HEMOG LOBIN [...] Care in Diabe savana(A DA). Not Available [facility] [address] [place], [address], 10/18/2022 23:16:34 08/31/19 22 08/30/2021 US, thyro id No observ ation record ed. [id number] [facility] [address] [facility] [address], [place], [address], 08/28/2022 20:57:02 10/24/19 23 10/22/2022 US, thyro id No observ ation record ed. [facility] [address] [facility] [address], [place], [address], 10/28/2022 15:12:59 Result Notes None recorded. Problems Name Problem SNOMED Code Status Onset Date Resolution Date Notes Provider Name and Address Organization Details Recorded Time Acne 51110014 Active 2021 Not Available [facility] 3 20:55:55 Thyroid nodule 383573397 Active 2021 Not Available [facility] 3 20:55:55 Hypervitamino sis D 86132241 Active 2021 Not Available [facility] 3 20:55:55 Vitamin D deficiency 66159682 Active 2021 Not Available [facility] 3 20:55:55 Goiter 8522695 Active 2021 Not Available [facility] 3 20:55:55 Vitamin B12 deficiency (non anemic) 55727483 Active 2021 Not Available [facility] 3 20:55:55 Prediabetes 259229149 Active 2021 Not Available [facility] 3 20:55:56 Irregular periods 51832745 Active 2021 Not Available [facility] 3 20:55:56 Fatigue 77120499 Active 2021 Not Available [facility] 3 20:55:56 Iron deficiency anemia 06254812 Active 2021 Not Available [facility] 3 20:55:56 Weight gain 2039692 Active 2021 Not Available [facility] 3 20:55:56 Problem Notes None recorded. Procedures Surgical History None recorded. Imaging Results Imaging Date Name Status LastModified by Organiz ation Details LastModified Time 08/30/2021 US, thyroid completed [id number] [facility] [address] [facility] [address], [place], [address], 08/28/2022 20:57:02 10/22/2022 US, thyroid completed [facility] [address], [place], [address], 10/28/2022 15:12:59 Procedure Notes None recorded. Medical Equipment None Reported. Allergies Allergen ID Allergen Name Allergen Category Reaction Reaction Severity Criticality Documentation Date Start Date Code Code System Note Provider Name and Address Organization Details Recorded Time 35127 Product containin g penicilli n (product) medicatio n Not available Not available Not available 08/28/2022 83689 8001 SNOMED Not Available [facility] 3 20:56:59 Medications Name Sig Start Date [...] % 99 % 99 /min 97.8 [degF] 26757.5 9 g 135 mm[Hg] 90 mm[Hg] Not Available [facility] 3 20:55:32 Date Recorded Body mass index (BMI) Body height Oxygen saturation Oxygen saturation in Arterial blood by Pulse oximetry Heart rate Body temperature Body weight Systolic blood pressure Diastolic blood pressure Provider Name and Address Organization Details Last Updated DateTime 2 31.6 kg/m2 152.4 cm 98 % 98 % 109 /min 97.8 [degF] 79461.5 3 g 130 mm[Hg] 100 mm[Hg] Not Available [facility] 3 20:55:32 Date Recorded Body mass index (BMI) Body height Oxygen saturation Oxygen saturation in Arterial blood by Pulse oximetry Heart rate Body temperature Body weight Systolic blood pressure Diastolic blood pressure Provider Name and Address Organization Details Last Updated DateTime 2 30.3 kg/m2 152.4 cm 99 % 99 % 91 /min 98.4 [degF] 59881.8 2 g 128 mm[Hg] 86 mm[Hg] Not Available [facility] 3 20:55:32 Date Recorded Body mass index (BMI) Body height Oxygen saturation Oxygen saturation in Arterial blood by Pulse oximetry Heart rate Body temperature Body weight Systolic blood pressure Diastolic blood pressure Provider Name and Address Organization Details Last Updated DateTime 2 26.2 kg/m2 152.4 cm 98 % 98 % 82 /min 97.6 [degF] 14475.4 6 g 110 mm[Hg] 75 mm[Hg] Not Available [facility] 3 20:55:32 Date Recorded Body height Body mass index (BMI) Body weight Body temperature Heart rate Systolic blood pressure Diastolic blood pressure Provider Name and Address Organization Details Last Updated DateTime 3 152.4 cm 23.4 kg/m2 66126.3 7 g 97.7 [degF] 86 /min 116 mm[Hg] 78 mm[Hg] COLEEN Schmid [place] - [facility] [place] [employer] [facility] 3 09:50:11 Social History Question Answer Notes LastModified by Organizat ion Details LastModified Time Tobacco Smoking Status Never Smoker Not Available [facility] 08/28/2022 20:55:19 What Is Your Level Of Alcohol Consumption? Occasional X1 Every Few Months [id number] Information not available 08/28/2022 What Is Your Level Of Caffeine Consumption? Moderate [id number] Information not available 08/28/2022 In The 14 Days Before Symptom Onset, Have You Had Close Contact With A Laboratory-confir med COVID-19 While That Case Was Ill? No [id number] Information not available 08/28/2022 In The 14 Days Before Symptom Onset, Have You Had Close Contact With A Person Who Is Under Investigation For COVID-19 While That Person Was Ill? No [id number] Information not available 08/28/2022 What Is The Highest Grade Or Level Of School You Have Completed Or The Highest Degree You Have Received? 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 Single [id number] Information not available 08/28/2022 Have You Recently Traveled Abroad? No [id number] Information not available 08/28/2022 Sex: Female Functional Status None recorded. Mental Status None recorded. Family History Relationship Description Onset Age of this Age Resolved Age Notes LastModified by Organization Details LastModified Time Brother Rheumatoid arthritis system patel paul [id number] Not available 08/28/2022 20:55:26 Maternal Grandfather Family history of stroke [id number] Not available 08/28/2022 20:55:26 Paternal Grandfather Myocardial infarction [id number] Not available 08/28/2022 20:55:26 Notes:Paternal Grandmother- breast cancer Medical History Condition Response INSOMNIA Y HIGH CHOLESTEROL / HYPERLIPIDEMIA Y EYE PROBLEMS Y DEPRESSION (INCLUDING POST ) Y OBESITY Y GERD/NAUSEA Y HEADACHES/MIGRAINES Y DIZZINESS Y HYPERTENSION Y Gynecological HistoryNo gynecological history recorded. Obstetrics History GPAL:G 0 P 0 0 0 0 Past Encounters Encounter ID Performer Location Encounter Start Date Encounter Closed Date Diagnosis/Indication Diagnosis SNOMED-CT Code Diagnosis ICD10 Code Diagnosis Note [id number] [facility] [address] [place] [address] 08/24/2021 00:00:00 08/24/2021 15:40:42 [id number] [facility] [address] [place] [address] 12/03/2021 00:00:00 12/03/2021 15:51:46 [id number] [facility] [address] [place] [address] 01/08/2022 00:00:00 01/08/2022 14:40:24 [id number] [facility] [address] [place] [address] 05/13/2022 00:00:00 05/13/2022 17:34:47 [id number] Ellie Chaidez MD [facility] [address] [place] [address] 10/28/2022 09:28:11 10/28/2022 10:17:22 Prediabetes 289252866 R73.03 a1c of 4.8% in range- she [...] nuts (excluding peanuts) and beans. Thyroid nodule 041916739 E04.1 Thyroid nodules all under 5 mm [...] she chooses to go outside of the [facility] to obtain labwork she was [...] [place] Member ID Guarantor Name 10/28/2022 2 [employer] 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
--- NOTE | 2024-09-26 05:44 | LDADM ---
This patient, Farideh Barber, was admitted to Labor/Delivery/Recovery 106 on 09/26/24 at 05:10. Plans for labor, pain management and were discussed with patient. Patient/family oriented to hospital policies and general routines including ID bracelet, bed and alarms, visiting hours, pain management, procedures, bathroom and other care routines, personal items, smoking policy, room service/diet and guest tray routines, infant security routines, and visiting hours. Patient/Family are encouraged to report perceived risks to care and to ask questions if they do not understand what they are told or what they should do. See [facility]BIX for further documentation.
[2024-09-26] MEDS: LACTATED RINGERS 1,000 ML 125 ML IV CONT ×4 (06:01→15:04)
[2024-09-26] MEDS: miSOPROStol 25 MCG TABLET 50 MCG BUCCAL (06:01)
[2024-09-26 06:04] LABS: Basophils Percent Auto 0.4 % (0.2-1.2); Eosinophils Absolute Auto 0.3 K/mm3 (0-0.3); Eosinophils Percent Auto 2.4 % (0-4.4); Hematocrit 34.8 % (37.0-47.0); Hemoglobin 11.3 g/dL (12.0-15.0); Immature Granulocyte Absolute 0.15 K/mm3 (0.00-0.031); Immature Granulocyte Percent A 1.4 % (0-0.5); Lymphocytes Absolute Auto 3.21 K/mm3 (0.9-3.2); Lymphocytes Percent Auto 29.1 % (18.3-44.2); Mean Corpuscular HGB Conc 32.5 g/dl (32-36); Mean Corpuscular Hemoglobin 29.7 pg (26-34); Mean Corpuscular Volume 91.6 fl (80-100); Mean Platelet Volume 10.2 fl (7.4-10.4); Monocytes Absolute Auto 0.7 K/mm3 (0.1-0.6); Monocytes Percent Auto 6.6 % (2.6-8.5); Neutrophils Absolute Auto 6.6 K/mm3 (1.3-6.7); Neutrophils Percent Auto 60.1 % (45.5-73.1); Platelet Count Result 183 k/mm3 (150-375); Red Cell Distribution Width 14.7 % (11.5-14.5)
[2024-09-26 06:14] LABS: Alanine Aminotransferase 19 U/L (6-35); Albumin Level 3.4 g/dL (3.5-5.1); Alkaline Phosphatase 134 U/L (38-126); Anion Gap 10 mmol/L (4-12); Aspartate Amino Transferase 31 U/L (14-36); Bilirubin,Total 0.3 mg/dL (0.2-1.3); Blood Urea Nitrogen 10 mg/dL (7-17); Calcium 9.3 mg/dL (8.4-10.2); Carbon Dioxide 19 mmol/L (22-30); Chloride 106 mmol/L (98-107); Estimated CRCL calculation 125 ml/min; Estimated Glomerular Filt Rate > 60; Glucose 83 mg/dL (65-110); Sodium 135 mmol/L (137-145)
[2024-09-26 06:41] LABS: Syphilis IgG/IgM Antibody Negative (Negative)
[2024-09-26 06:55] LABS: HIV 1/2 Ab P24 Ag Result Negative (Negative)
--- NOTE | 2024-09-26 08:02 | WPDANESEPP ---
Anes - Eval Pre Procedure Procedure: labor pain management Date/Time: 09/26/24 08:02 Surgeon: Perico Preop Diagnosis: pain during labor Pre Op Diagnosis: SROM Patient Data Age: 24 Gender: F Height: 1.52 m Weight: 88.18 kg Last Vital Signs Pulse 95 09/26/24 08:00 BP 146/123 H 09/26/24 08:00 Pulse Ox 99 09/26/24 07:57 O2 Del Method Room Air 09/26/24 05:42 Allergies Allergy/AdvReac Type Severity Reaction Status Date / Time Penicillins Allergy Unknown Unknown Verified 09/19/24 15:26 Home Medications ?Medication ?Instructions ?Recorded ?Confirmed ?Type metformin 500 mg tablet,extended 500 mg PO DAILY 01/19/24 09/19/24 History release 24 hr calcium 600 mg (as carbonate)-vit 1 tablet PO DAILY 03/08/24 09/19/24 History D3 10 mcg (400 unit) chewable tablet (Calcium 600 with Vitamin D3) famotidine 10 mg tablet (Pepcid AC) 10 mg PO DAILY 03/08/24 09/19/24 History vitamin no.102-iron 90 1 cap PO DAILY 03/08/24 09/19/24 History mg-folate 1 mg-dha 200 mg capsule pyridoxine (vitamin B6) 100 mg 100 mg PO DAILY 03/08/24 09/19/24 History tablet sertraline 50 mg tablet 50 mg PO DAILY 03/08/24 09/19/24 History doxylamine succinate 25 mg tablet 25 mg PO QHS PRN allergy symptoms 05/04/24 09/19/24 History (Unisom (doxylamine)) aspirin 81 mg tablet,delayed 81 mg PO DAILY 08/16/24 09/19/24 History release (Adult Aspirin Regimen) ferrous sulfate 325 mg (65 mg 325 mg PO DAILY 08/16/24 09/19/24 History iron) tablet (Feosol) nitrofurantoin macrocrystal 100 mg 100 mg PO Q12H #14 caps 09/19/24 Rx capsule Laboratory Tests 09/26/24 05:46 WBC 11.0 H K/mm3 (4.5-10.0) RBC 3.80 L M/mm3 (4.2-5.4) Hgb 11.3 L g/dL (12.0-15.0) Hct 34.8 L % (37.0-47.0) MCV 91.6 fl (80-100) MCH 29.7 pg (26-34) MCHC 32.5 g/dl (32-36) RDW 14.7 H % (11.5-14.5) Plt Count 183 k/mm3 (150-375) MPV 10.2 fl (7.4-10.4) Immature Gran % (Auto) 1.4 H % (0-0.5) Neut % (Auto) 60.1 % (45.5-73.1) Lymph % (Auto) 29.1 % (18.3-44.2) [place] % (Auto) 6.6 % (2.6-8.5) Eos % (Auto) 2.4 % (0-4.4) Baso % (Auto) 0.4 % (0.2-1.2) Lymph # (Auto) 3.21 H K/mm3 (0.9-3.2) [place] # (Auto) 0.7 H K/mm3 (0.1-0.6) Eos # (Auto) 0.3 K/mm3 (0-0.3) Baso # (Auto) 0.0 K/mm3 (0.0-0.1) Abs Immat Gran (auto) 0.15 H K/mm3 (0.00-0.031) Absolute Neuts (auto) 6.6 K/mm3 (1.3-6.7) Absolute Nucleated RBC 0.000 K/mm3 (0.0-0.012) Nucleated RBC % 0.0 % (0.0-0.2) Sodium 135 L mmol/L (137-145) Potassium 4.0 mmol/L (3.4-5.0) Chloride 106 mmol/L (98-107) Carbon Dioxide 19 L mmol/L (22-30) Anion Gap 10 mmol/L (4-12) BUN 10 mg/dL (7-17) Creatinine 0.57 L mg/dL (0.7-1.0) Estim Creat Clear Calc 125 ml/min Estimated GFR > 60 (59 - ) Glucose 83 mg/dL (65-110) Calcium 9.3 mg/dL (8.4-10.2) Total Bilirubin 0.3 mg/dL (0.2-1.3) AST 31 U/L (14-36) ALT 19 U/L (6-35) Alkaline Phosphatase 134 H U/L (38-126) Total Protein 7.0 g/dL (6.3-8.2) Albumin 3.4 L g/dL (3.5-5.1) Syphilis IgG/IgM Ab Negative (Negative) HIV 1&2 Ab/P24 Ag 4thGn Negative (Negative) Blood Type A Negative Antibody Screen Positive Antibody Identification Pending Antigen Identification Pending NEL, IgG Interpret Not Performed NEL, Poly Interpret Negative NEL, Complement Interp Not Performed Patient hx anesthesia problems: none Family hx anesthesia problems: none Results Review: All pre-operative results and documents have been reviewed as part of the pre-operative evaluation. [facility] Past Medical History Medical History Endometriosis History of PCOS Depression Anxiety GERD (gastroesophageal reflux disease) Overweight (BMI 25.0-29.9) Diarrhea Hyperlipemia Social History Social History Smoking status: Never smoker Second hand tobacco smoke exposure: No Alcohol intake: current Alcohol use details: social Substance use: never Do You Feel Safe in your Home?: Yes Lack of Transportation: No Lack of Food: Never True Current Housing: I Have Housing Concerned About Future Housing: No Difficulty Paying Gas/Electric Bills: No Difficulty Paying for Meds: No Currently Unemployed: No Education: Master's Degree or Higher Difficulty w/ Childcare or Family Care: No Living arrangements: alone Spiritual care concerns: No Exam Day of Procedure 09/26/24 08:02
[2024-09-26] MEDS: fentaNYL CITRATE INJ (*CRX) 100 MCG/2 ML VIAL IV PUSH (08:10)
--- NOTE | 2024-09-26 08:20 | PM.IMHP ---
H&P: HPI History of Present Illness Date/Time: 09/26/24 08:20 Chief Complaint: leakage of fluid Narrative: Patient is a 24 year old at 37w0d who presents for leakage of fluid since 0430AM. She reports a gush of thin meconium stained fluid, no vaginal bleeding. Good movement. has been complicated by chronic hypertension, overall well controlled without medications. Blood pressures have been mild range over the past 2-3 weeks however labs have been normal and she is asymptomatic. She denies headaches, vision changes, chest pain, dyspnea, RUQ pain or epigastric pain. Her is otherwise complicated by anxiety/depression on Zoloft. Review of Systems Review of Systems: All systems reviewed & are unremarkable except as noted in HPI and below PMFSH Past Medical History Medical History Endometriosis History of PCOS Depression Anxiety GERD (gastroesophageal reflux disease) Overweight (BMI 25.0-29.9) Diarrhea Hyperlipemia Social History Social History Smoking status: Never smoker Second hand tobacco smoke exposure: No Alcohol intake: current Alcohol use details: social Substance use: never Do You Feel Safe in your Home?: Yes Lack of Transportation: No Lack of Food: Never True Current Housing: I Have Housing Concerned About Future Housing: No Difficulty Paying Gas/Electric Bills: No Difficulty Paying for Meds: No Currently Unemployed: No Education: Master's Degree or Higher Difficulty w/ Childcare or Family Care: No Living arrangements: alone Spiritual care concerns: No Meds Home Medications and Allergies Home Medications ?Medication ?Instructions ?Recorded ?Confirmed ?Type metformin 500 mg tablet,extended 500 mg PO DAILY 01/19/24 09/19/24 History release 24 hr calcium 600 mg (as carbonate)-vit 1 tablet PO DAILY 03/08/24 09/19/24 History D3 10 mcg (400 unit) chewable tablet (Calcium 600 with Vitamin D3) famotidine 10 mg tablet (Pepcid AC) 10 mg PO DAILY 03/08/24 09/19/24 History vitamin no.102-iron 90 1 cap PO DAILY 03/08/24 09/19/24 History mg-folate 1 mg-dha 200 mg capsule pyridoxine (vitamin B6) 100 mg 100 mg PO DAILY 03/08/24 09/19/24 History tablet sertraline 50 mg tablet 50 mg PO DAILY 03/08/24 09/19/24 History doxylamine succinate 25 mg tablet 25 mg PO QHS PRN allergy symptoms 05/04/24 09/19/24 History (Unisom (doxylamine)) aspirin 81 mg tablet,delayed 81 mg PO DAILY 08/16/24 09/19/24 History release (Adult Aspirin Regimen) ferrous sulfate 325 mg (65 mg 325 mg PO DAILY 08/16/24 09/19/24 History iron) tablet (Feosol) nitrofurantoin macrocrystal 100 mg 100 mg PO Q12H #14 caps 09/19/24 Rx capsule Allergies Allergy/AdvReac Type Severity Reaction Status Date / Time Penicillins Allergy Unknown Unknown Verified 09/19/24 15:26 Vital Signs Vital Signs - 24 hr 09/26/24 05:21 09/26/24 05:30 09/26/24 05:42 Pulse Rate 91 93 Blood Pressure 149/98 H 142/88 H Pulse Oximetry Oxygen Delivery Room Air 09/26/24 05:45 09/26/24 06:00 09/26/24 06:15 Pulse Rate 91 92 91 Blood Pressure 142/95 H 138/80 134/90 Pulse Oximetry Oxygen Delivery 09/26/24 06:31 09/26/24 06:45 09/26/24 07:00 Pulse Rate 85 87 81 Blood Pressure 140/94 H 148/95 H 132/77 Pulse Oximetry Oxygen Delivery 09/26/24 07:15 09/26/24 07:30 09/26/24 07:46 Pulse Rate 99 110 H 82 Blood Pressure 131/88 166/120 H 146/127 H Pulse Oximetry Oxygen Delivery 09/26/24 07:57 09/26/24 08:00 09/26/24 08:02 Pulse Rate 95 Blood Pressure 146/123 H Pulse Oximetry 99 99 Oxygen Delivery 09/26/24 08:07 09/26/24 08:12 09/26/24 08:15 Pulse Rate 95 Blood Pressure 166/131 H Pulse Oximetry 98 98 Oxygen Delivery 09/26/24 08:17 Pulse Rate Blood Pressure Pulse Oximetry 97 Oxygen Delivery Exam Const: General: comfortable and no acute distress HENMT: Mouth: Yes moist mucous membranes Resp: Effort & Inspection: normal respiratory effort Cardio: Rate: regular rate Skin: General skin exam: normal color Extrem: General: normal to inspection Psych: Mental Status: mental status grossly normal H&P: Results Labs Labs: Short CBC 09/26/24 Range/Units 05:46 WBC 11.0 H (4.5-10.0) K/mm3 Hgb 11.3 L (12.0-15.0) g/dL Hct 34.8 L (37.0-47.0) % Plt Count 183 (150-375) k/mm3 BMP 09/26/24 05:46 Sodium 135 L Potassium 4.0 Chloride 106 Carbon Dioxide 19 L BUN 10 Creatinine 0.57 L Glucose 83 Calcium 9.3 Liver Function 09/26/24 Range/Units 05:46 Total Bilirubin 0.3 (0.2-1.3) mg/dL AST 31 (14-36) U/L ALT 19 (6-35) U/L Alkaline Phosphatase 134 H (38-126) U/L Albumin 3.4 L (3.5-5.1) g/dL Assessment and Plan Assessment and plan (1) Chronic benign essential hypertension in third trimester: Code(s): O10.013 - Pre-existing essential hypertension complicating , third trimester Status: Acute Assessment and Plan: - asymptomatic - BP normotensive to mild range since admission - labs pending - continue to monitor BP closely (2) SROM (spontaneous rupture of membranes): Status: Acute Assessment and Plan: - SROM of thin meconium at 0430 - SVE 0.5cm - cytotec 50mcg x1 - patient requesting epidural
[2024-09-26] MEDS: OXYTOCIN 30 UNITS/NS 500 ML 30 UNITS/500 ML BAG 999 UNITS IV CONT (20:40)
--- NOTE | 2024-09-26 21:00 | PM.OBPRVD ---
OB - Vaginal Delivery Note Procedure Delivery date: 09/26/24 Events: Chronic Hypertension and Preeclampsia w/o severe features Delivery augmentation: Other (cytotec x1) Delivery monitor: External FHT and External Uterine Route of delivery: Episiotomy description: None Laceration Description: Perineal - 2nd Degree Delivery repair: vicryl Specimen: No Quantitative Blood Loss (ml): 250 Anesthesia type: Epidural Disposition: Floor Complications: No immediate complications Narrative: See H&P and notes for details on patient's admission and labor. She progressed to complete cervical dilation and at the appropriate time began pushing. With adequate expulsive efforts by the mother, the baby's head was delivered without difficulty. Nuchal cord was present x1 and was easily reduced. The baby's left shoulder was anterior and delivered under the pubic symphysis without difficulty. The posterior shoulder and the rest of the baby delivered without difficulty. The umbilical cord was doubly clamped and cut after 60 seconds of delayed cord clamping. Care of the was then assumed by the nursing staff. Baby Date of : 09/26/24 Time of : 20:39 Gestational Age by Date: 37 Infant gender: Male Weight (pounds): 7 Weight (ounces): 5 presentation: vertex position: Left Occiput Anterior Placenta delivery description: Expressed Cord Vessel Description: 3 Vessels, Nuchal Cord and Reduced
[2024-09-26] MEDS: NIFEdipine 30 MG TAB.ER.24 PO (21:19)
[2024-09-26] MEDS: OXYTOCIN 30 UNITS/NS 500 ML 30 UNITS/500 ML BAG 125 UNITS IV CONT (21:19)
[2024-09-26] MEDS: IBUPROFEN 600 MG TABLET PO (22:01)
--- NOTE | 2024-09-26 23:10 | PC.NURSE ---
Pt and infant transferred to PP room 288 per order in stable condition via wheelchair and bassinet. Mitch MARTÍNEZ to take over care.
[2024-09-27] MEDS: ACETAMINOPHEN 325 MG TABLET 650 MG PO ×3 (00:57→19:22)
--- NOTE | 2024-09-27 02:03 | OBPPTRN ---
09/26/24 at 2309. Patient transferred in wheelchair to post room #288. Support person present and patient oriented to unit, room, information board, rooming in, admission packet and security measures. Patient and her significant other verbalizes understanding.
[2024-09-27 04:03] VITALS: BP 136/86; PULSE 82; RESP 16; TEMP 36.4; O2SAT 98
[2024-09-27 05:42] LABS: Hemoglobin 9.5 g/dL (12.0-15.0)
[2024-09-27 07:50] VITALS: BP 111/75; PULSE 88; RESP 16; TEMP 36.6; O2SAT 98
[2024-09-27] MEDS: IBUPROFEN 600 MG TABLET PO ×2 (07:56→19:21)
[2024-09-27] MEDS: MULTIVIT/MIN/PREN/FOL AC/IRON TABLET 1 TAB PO (07:56)
--- NOTE | 2024-09-27 10:41 | WPDANLDPN2 ---
Anes-Prog Note L&D Date/Time: 09/27/24 10:41 Comfortable throughout: labor and delivery Neuraxial method: epidural Epidural/Spinal procedure site: clean & non-tender Neuro status: Neuro function grossly intact. Cardiovascular status: normal Respiratory status: normal Airway patency: baseline Mental status: baseline Post-Op hydration status: normal Vital Signs: Last Vital Signs Temp 36.6 C 09/27/24 07:50 Pulse 88 09/27/24 07:50 Resp 16 09/27/24 07:50 BP 111/75 09/27/24 07:50 Pulse Ox 98 09/27/24 07:50 O2 Del Method Room Air 09/26/24 05:42 Pain score (VAS): 0/10 I/O: Intake & Output 09/26/24 09/27/24 09/27/24 23:59 07:59 15:59 Intake Total 500 Output Total 1850 Balance -1350 Post-procedural complaints: none Patient feedback: Patient satisfied with anesthetic care.
[2024-09-27 12:23] VITALS: BP 132/87; PULSE 104; RESP 16; TEMP 36.6; O2SAT 97
[2024-09-27 16:15] VITALS: BP 143/98; PULSE 92; RESP 16; O2SAT 98
[2024-09-27 19:15] VITALS: BP 146/103; PULSE 85; RESP 16; TEMP 36.7
[2024-09-27] MEDS: NIFEdipine 30 MG TAB.ER.24 PO (19:34)
--- NOTE | 2024-09-27 21:45 | P.PNOB_ITS ---
OB - PN: Subj Subjective Date/time seen: 09/27/24 08:45 Interval history: PPD#1 s/p BP upper mild range to intermittent severe range overnight aftere delivery tolerating Procardia XL without issue Voiding spontaneously Tolerating general diet OB - PN: Obj Data Labs 09/27/24 05:11 09/26/24 05:46 Labs: Laboratory Results - last 24 hr 09/27/24 05:11 Hgb 9.5 L Hct 30.0 L OB - PN A/P Assessment and Plan (1) Preeclampsia complicating hypertension: Code(s): O11.9 - Pre-existing hypertension with pre-eclampsia, unspecified trimester Status: Acute Assessment and Plan: - chronic hypertension with superimposed preeclampsia without severe features - asymptomatic - BP mild range since starting procardia XL - labs wnl - continue Procardia XL 30mg daily (2) (spontaneous vaginal delivery): Code(s): O80 - Encounter for full-term uncomplicated delivery Status: Acute Plan day: 1 Plan: routine care Time Spent With Patient Time: Total time spent is greater than 50% in coordination of care (as documented) at patient's floor/unit and/or counseling patient: Review of Systems 2 Review of Systems: All systems reviewed & are unremarkable except as noted in HPI and below Exam 2 Const: General: comfortable and no acute distress O rientation/consciousness: patient oriented x3 Resp: Effort & Inspection: normal respiratory effort
[2024-09-27 23:25] VITALS: BP 149/100; PULSE 87; RESP 16; O2SAT 100
[2024-09-27] MEDS: SERTRALINE HCL 50 MG TABLET PO (23:36)
[2024-09-28] MEDS: ACETAMINOPHEN 325 MG TABLET 650 MG PO (01:17)
[2024-09-28] MEDS: IBUPROFEN 600 MG TABLET PO ×2 (01:18→08:40)
[2024-09-28 04:45] VITALS: BP 138/78; PULSE 87; RESP 16; O2SAT 97
[2024-09-28 07:41] VITALS: BP 121/79; PULSE 89; RESP 14; TEMP 36.7; O2SAT 98
[2024-09-28] MEDS: POLYSACCHARIDE IRON COMPLEX 150 MG CAPSULE PO (08:39)
[2024-09-28] MEDS: MULTIVIT/MIN/PREN/FOL AC/IRON TABLET 1 TAB PO (08:39)
[2024-09-28] MEDS: DOCUSATE SODIUM 100 MG CAPSULE PO (08:39)
--- NOTE | 2024-09-28 09:23 | P.PNOB_ITS ---
OB - PN: Subj Subjective Date/time seen: 09/28/24 09:23 Interval history: PPD#2 s/p BP normotensive to low mild range since starting procardia Voiding spontaneously Tolerating general diet Ready for discharge home OB - PN: Obj Data Labs 09/27/24 05:11 09/26/24 05:46 OB - PN A/P Assessment and Plan (1) Preeclampsia complicating hypertension: Code(s): O11.9 - Pre-existing hypertension with pre-eclampsia, unspecified trimester Status: Acute Assessment and Plan: - chronic hypertension with superimposed preeclampsia without severe features - asymptomatic - BP mild range since starting procardia XL - labs wnl - continue Procardia XL 30mg daily (2) (spontaneous vaginal delivery): Code(s): O80 - Encounter for full-term uncomplicated delivery Status: Acute Plan day: 2 Plan: routine care and discharge home Time Spent With Patient Time: Total time spent is greater than 50% in coordination of care (as documented) at patient's floor/unit and/or counseling patient: Review of Systems 2 Review of Systems: All systems reviewed & are unremarkable except as noted in HPI and below Exam 2 Const: General: comfortable and no acute distress O rientation/consciousness: patient oriented x3 Resp: Effort & Inspection: normal respiratory effort
--- NOTE | 2024-09-28 09:27 | P.DS_ITS ---
DS: Admitting Diagnosis Discharge Date 09/28/24 Admitting Diagnosis rupture of membranes DS: Discharge Diagnosis Discharge Diagnosis (1) (spontaneous vaginal delivery): Code(s): O80 - Encounter for full-term uncomplicated delivery Status: Acute (2) Preeclampsia complicating hypertension: Code(s): O11.9 - Pre-existing hypertension with pre-eclampsia, unspecified trimester Status: Acute OB - DS: Summary OB Procedures : None OB Procedures Intrapartum: Spontaneous Vag Delivery OB Procedures: : None Peripartum Data Laceration Description: Perineal - 2nd Degree Episiotomy description: None Time Spent with Patient Time attestation: Total time spent providing and/or coordinating discharge services: Discharge Plan Discharge Attending physician on discharge: Shawn River Discharging Clinician: Shawn River Patient Disposition: Home, Self-Care Activity: may shower, as tolerated and pelvic rest Diet: as tolerated Patient Instructions: Antibiotic Form Patient Language: Spanish Stand Alone Forms: General Discharge Information Follow-up/Referrals: Shawn River MD [Physician] - 1 Week Discharge Medications: New docusate sodium 100 mg Capsule 100 mg PO BID PRN (Reason: Constipation) Qty: 60 0RF ibuprofen 600 mg Tablet 600 mg PO Q6H PRN (Reason: Cramping) Qty: 30 0RF nifedipine [Procardia XL] 30 mg Tablet Extended Release 24hr 30 mg PO QHS Qty: 60 1RF Continued ferrous sulfate [Feosol] 325 mg (65 mg iron) tablet 325 mg PO DAILY Unisom (doxylamine) 25 mg tablet 25 mg PO QHS PRN (Reason: allergy symptoms) sertraline 50 mg tablet 50 mg PO DAILY Calcium 600 with Vitamin D3 600 mg-10 mcg (400 unit) tablet,chewable 1 tablet PO DAILY famotidine [Pepcid AC] 10 mg tablet 10 mg PO DAILY PNV [id number] 90 mg iron- 1 mg-200 mg capsule 1 cap PO DAILY metformin 500 mg tablet extended release 24 hr 500 mg PO DAILY Discontinued aspirin [Adult Aspirin Regimen] 81 mg tablet,delayed release (DR/EC) 81 mg PO DAILY pyridoxine (vitamin B6) 100 mg tablet 100 mg PO DAILY nitrofurantoin macrocrystal 100 mg capsule 100 mg PO Q12H Qty: 14 5RF Rx Instructions: must administer with a meal/food Date of admission: 09/26/24 05:10 Primary Care Provider: Michelle Huitron Admitting Provider: Shawn River Attending physician on admission: Shawn River Condition: Stable
--- NOTE | 2024-09-28 09:37 | PC.NURSE ---
Patient viewed the discharge video Mother & Baby Care, The First Two Weeks . Patient was given the opportunity and encouraged to ask questions. Patient verbalized understanding of information shared and has been given the mother/baby guide for home reference.
[2024-09-28 11:45] VITALS: BP 149/96; PULSE 92; RESP 18; TEMP 36.4; O2SAT 99
[2024-09-29 10:54] VITALS: BP 140/95; PULSE 88; RESP 20; TEMP 36.6; O2SAT 98
== END 2024-09-28 13:35 | disposition home or self-care (01) | DRG 807 ==
LOC: ANHLDR 05:33 → ANHOB2 23:09
PROVIDERS: Admitting Provider Obstetrics & Gynecology; PCP Family Medicine; Visit Provider Obstetrics & Gynecology
DX: O11.4 Pre-existing hypertension with pre-eclampsia, complicating childbirth (principal); Z37.0 Single live birth; Z3A.37 37 weeks gestation of pregnancy; O70.1 Second degree perineal laceration during delivery; O77.0 Labor and delivery complicated by meconium in amniotic fluid; O69.81X0 Labor and delivery complicated by cord around neck, without compression, not applicable or unspecified; O99.344 Other mental disorders complicating childbirth; F41.8 Other specified anxiety disorders
CPT/HCPCS: 36415; 80053; 85014; 85018; 85025; 86593; 86703; 86850; 86880; 86900; 86901; 86902; A9270; G0432; J2590; J2795; J3010; J7120

== ENCOUNTER 2025-04-25 08:05 | Emergency (ER) | payer BC, SELFPAY ==
[2025-04-25 08:15] VITALS: BP 109/75; PULSE 97; RESP 16; TEMP 36.2; O2SAT 99
--- NOTE | 2025-04-25 08:31 | ED.URI ---
HPI - URI/Sore Throat General Chief Complaint: Eye Problems Stated Complaint: [place] [facility]/Sore Throat Time Seen by Provider: 04/25/25 08:15 Source: patient and RN notes reviewed Mode of arrival: ambulatory Limitations: no limitations History of Present Illness HPI Narrative: 25-year-old female presents to the [facility] complaining of upper respiratory symptoms for approximately 1 week. Patient reports sore throat, congestion, swollen lymph nodes. Patient said she woke up today with purulent drainage coming out of her left eye. Patient says symptoms are not getting better. Patient has any fevers, body aches, chills, nausea vomiting, diarrhea, chest pain, difficulty breathing, eye pain, vision changes, dizziness, lightheadedness, or any other symptoms. Patient taking [id number] cold and flu medications without relief. Related Data Home Medications ?Medication ?Instructions ?Recorded ?Confirmed ?Last Taken ?Type metformin 500 mg tablet,extended 500 mg PO DAILY 01/19/24 04/25/25 09/18/24 History release 24 hr calcium 600 mg (as carbonate)-vit 1 tablet PO DAILY 03/08/24 04/25/25 09/18/24 History D3 10 mcg (400 unit) chewable tablet (Calcium 600 with Vitamin D3) famotidine 10 mg tablet (Pepcid AC) 10 mg PO DAILY 03/08/24 04/25/25 09/18/24 History vitamins no.102-iron 90 1 cap PO DAILY 03/08/24 04/25/25 09/18/24 History mg-folate 1 mg-dha 200 mg capsule doxylamine succinate 25 mg tablet 25 mg PO QHS PRN allergy symptoms 05/04/24 04/25/25 09/18/24 History (Unisom (doxylamine)) ferrous sulfate 325 mg (65 mg 325 mg PO DAILY 08/16/24 04/25/25 09/18/24 History iron) tablet (Feosol) Allergies Allergy/AdvReac Type Severity Reaction Status Date / Time Penicillins Allergy Unknown Unknown Verified 04/25/25 08:14 Review of Systems Review of Systems: CONSTITUTIONAL: Denies fever, body aches, chills, or sweats. EYES: Denies visual changes or eye pain. Positive for redness and discharge ENT: Denies rhinorrhea, or otalgia. Positive for sore throat congestion. CARDIOVASCULAR: Denies chest pain, palpitations, or edema. RESPIRATORY: Denies cough, wheezing, or dyspnea. GASTROINTESTINAL: Denies abdominal pain, nausea, vomiting, or diarrhea. GENITOURINARY: Denies dysuria or hematuria. SKIN: Denies rash or itching. MUSCULOSKELETAL: Denies back pain, joint pain, or myalgia. NEUROLOGIC: Denies headache, numbness, or weakness. PSYCHIATRIC: Denies anxiety or depression. All other systems reviewed are negative, except as documented in HPI. [facility] Past Medical History Medical History Endometriosis History of PCOS Depression Anxiety GERD (gastroesophageal reflux disease) Overweight (BMI 25.0-29.9) Diarrhea Hyperlipemia Social History Social History Smoking status: Never smoker Second hand tobacco smoke exposure: No Alcohol intake: current Alcohol use details: social Substance use: never Do You Feel Safe in your Home?: Yes Lack of Transportation: No Lack of Food: Never True Current Housing: I Have Housing Concerned About Future Housing: No Difficulty Paying Gas/Electric Bills: No Difficulty Paying for Meds: No Currently Unemployed: No Education: Master's Degree or Higher Difficulty w/ Childcare or Family Care: No Living arrangements: alone Spiritual care concerns: No Comments At the time of my signature, I reviewed and agree with the nursing past medical, surgical, social, and family history. There is no relevant family history pertinent to the patient complaint. Exam Narrative: GENERAL: This is a well-nourished, well-developed adult, in no apparent distress. They are non ill-appearing, nontoxic appearing. HEAD: normocephalic, atraumatic. EYES: Sclera clear/white. Right Conjunctiva normal. With conjunctiva injected with purulent exudate. Vision is grossly intact. Extraocular movements intact. Pupils PERRLA EARS: External ears normal, auditory canals clear and without drainage, TMs normal without perforation. Hearing grossly intact. NOSE: External nose normal with no obvious nasal discharge, nasal turbinates erythemic without swelling, no rhinorrhea. THROAT: Mucous membranes moist, posterior pharynx red patchy, erythemic without swelling. Uvula midline. Postnasal drip present. NECK: Neck supple, tender mild cervical lymphadenopathy, without masses or thyromegaly. CARDIOVASCULAR: Regular rate and rhythm without murmurs, gallops, or rubs. RESPIRATORY: Clear to auscultation. Breath sounds equal bilaterally. No wheezes, rales, or rhonchi. SKIN: warm, Dry, intact with no suspicious lesions or rash, good texture and turgor. NEURO: awake, alert, and oriented to person, place and time. There were no obvious focal neurologic abnormalities. EXTREMITIES: No joint tenderness, effusion, or edema noted. BACK: Nontender without deformity. No CVA tenderness. Course Course Emergency Course: Portions of this record may have been created with voice recognition software Level of Care: Express Care Visit Vital Signs Vital signs: Vital Signs Temperature 97.2 F L 04/25/25 08:15 Pulse Rate 97 04/25/25 08:15 Respiratory Rate 16 04/25/25 08:15 Blood Pressure 109/75 04/25/25 08:15 Pulse Oximetry 99 04/25/25 08:15 Temperature 97.2 F L 04/25/25 08:15 Pulse Rate 97 04/25/25 08:15 Respiratory Rate 16 04/25/25 08:15 Blood Pressure 109/75 04/25/25 08:15 Pulse Oximetry 99 04/25/25 08:15 Reviewed MDM - URI/Sore Throat MDM Narrative Medical decision making narrative: There is clinical suspicion for strep pharyngitis on exam, given leave the symptoms would like to go ahead and treat empirically with antibiotics, will treat with cefdinir. Patient has no true allergy to penicillin, she says she says she is allergic to penicillin cause her mother was anaphylactic to it in the past. Patient also looks like she has conjunctivitis of the left eye. Polymyxin drops at the patient's pharmacy. Discussed physical exam findings. Advised supportive measures and signs/symptoms to go to the ER. Pt is appropriate for outpt treatment and f/u. Differential Diagnosis Differential diagnosis: Likely upper respiratory infection, sinusitis, viral infection, pharyngitis and other (Conjunctivitis) Critical Care Time Critical Care Time Critical Care Time: No Discharge Plan Discharge Clinical Impression: Acute bacterial pharyngitis Acute bacterial conjunctivitis Qualifiers: Laterality: left Qualified Code(s): H10.32 - Unspecified acute conjunctivitis, left eye Patient Disposition: Home Condition: Stable Instructions: Antibiotic Form, Pharyngitis (ED), Conjunctivitis (ED) Additional Instructions: Please take the cefdinir as prescribed until gone. ?You will be contagious for 24 hours after starting the medication. ?After 24 hours on antibiotics throw tooth brush away and start using a new one. Wash your sheets and cup/water bottle that is used daily. Do not share drinks. Take Tylenol or Ibuprofen for that as needed for pain or fever, but instruction on the bottle. ?Rest and stay hydrated. ?Follow up with your PCP in 3 days if symptoms are not improving. ?Go to the ER immediately if you develop worsening symptoms such as shortness of breath, difficulty swallowing. ? Your exam today shows Conjunctivitis, You have been given a prescription for eye drops. Use the eye drops as instructed. If you are not better in two (2) days, you need to follow up with an rippler. Do not rub the eye or put anything else in the eye, this can cause abrasions (scratches) on the eye or lead to vision loss. Also it is important not to touch the tube or tip of drops to the eye, as this can cause further infection. Wash your hands very well before instilling the medication. Handwashing can help prevent the spread of disease. Return to ER for problems Contact [facility] if you need an Commercial Instructor Supervisor Patient Language: Turkish Prescriptions: New cefdinir 300 mg capsule 300 mg PO Q12H 10 Days Qty: 20 0RF polymyxin B sulf-trimethoprim 10,000 unit- 1 mg/mL drops 1 drp LEFT EYE Q3H 7 Days Qty: 10 0RF Rx Instructions: while awake; do not exceed 6 doses in 24 hours No Action ferrous sulfate [Feosol] 325 mg (65 mg iron) tablet 325 mg PO DAILY Unisom (doxylamine) 25 mg tablet 25 mg PO QHS PRN (Reason: allergy symptoms) Calcium 600 with Vitamin D3 600 mg-10 mcg (400 unit) tablet,chewable 1 tablet PO DAILY famotidine [Pepcid AC] 10 mg tablet 10 mg PO DAILY PNV [id number] 90 mg iron- 1 mg-200 mg capsule 1 cap PO DAILY metformin 500 mg tablet extended release 24 hr 500 mg PO DAILY nifedipine [Procardia XL] 30 mg Tablet Extended Release 24hr 30 mg PO QHS Qty: 60 1RF docusate sodium 100 mg Capsule 100 mg PO BID PRN (Reason: Constipation) Qty: 60 0RF ibuprofen 600 mg Tablet 600 mg PO Q6H PRN (Reason: Cramping) Qty: 30 0RF sertraline 50 mg tablet 50 mg PO DAILY Qty: 90 0RF Follow-up/Referrals: Michelle Huitron DO [Primary Care Provider, [facility]] Time of Disposition: 08:25
== END 2025-04-25 08:30 | disposition home or self-care (01) ==
PROVIDERS: PCP Family Medicine
DX: J02.9 Acute pharyngitis, unspecified (principal); H10.32 Unspecified acute conjunctivitis, left eye; E78.5 Hyperlipidemia, unspecified; K21.9 Gastro-esophageal reflux disease without esophagitis; E28.2 Polycystic ovarian syndrome; N80.9 Endometriosis, unspecified; F41.9 Anxiety disorder, unspecified; F32.A Depression, unspecified
CPT/HCPCS: 99213; G0463